=== PATIENT | male | born 1950 | race American Indian/Alaskan Native ===

== ENCOUNTER 2020-01-09 20:53 | Observation (INO) | payer SELFPAY ==
[2020-01-09] MEDS ORDERED: SODIUM CHLORIDE 0.9% 1000 ML 1,000 ML IV ONE (21:06)
--- NOTE | 2020-01-09 21:07 | Emergency Department Report ---
ED Altered Mental Status HPI - General Chief Complaint: Altered Mental Status Stated Complaint: ALTERED MENTAL STATUS PUI?: No Time Seen by Provider: 01/09/20 21:03 Source: EMS Mode of arrival: Stretcher Limitations: Altered Mental Status, Physical Limitation - History of Present Illness Initial Comments: Patient is a 70-year-old male that presents emergency room with altered mental status. EMS states that the last known well time was either yesterday or today at noon. The family was not quite sure when his symptoms started. Patient moves all extremities. Patient does not follow commands. Patient is verbal but is nonsensical. Patient is not answering questions. MD Complaint: altered mental status, confusion, decreased responsiveness -: Sudden Severity: severe Consistency of Symptoms: constant - Related Data Allergies Allergy/AdvReac Type Severity Reaction Status Date / Time Unable to Assess Allergy Unverified 01/09/20 21:32 ED Review of Systems ROS: Stated complaint: ALTERED MENTAL STATUS Other details as noted in HPI Comment: Unobtainable due to pts medical conditions ED Past Medical Hx - Past Medical History Previous Medical History?: Yes Hx Hypertension: Yes Additional medical history: UNKNOWN - Surgical History Past Surgical History?: No - Family History Family history: no significant - Social History Smoking Status: Unknown if ever smoked Substance Use Type: None ED Physical Exam - General Limitations: Altered Mental Status General appearance: alert, in no apparent distress - Head Head exam: Present: atraumatic, normocephalic - Eye Eye exam: Present: normal appearance, PERRL Pupils: Present: normal accommodation - ENT ENT exam: Present: mucous membranes dry - Neck Neck exam: Present: normal inspection - Respiratory Respiratory exam: Present: normal lung sounds bilaterally. Absent: respiratory distress - Cardiovascular Cardiovascular Exam: Present: regular rate, normal rhythm. Absent: systolic murmur, diastolic murmur, rubs, gallop - GI/Abdominal GI/Abdominal exam: Present: soft, normal bowel sounds. Absent: distended, tenderness - Rectal Rectal exam: Present: deferred - Extremities Exam Extremities exam: Present: normal inspection, full ROM - Back Exam Back exam: Present: normal inspection - Neurological Exam Neurological exam: Present: alert, altered - Expanded Neurological Exam Expanded Best Eye Response (Brooks): (4) open spontaneously Best Motor Response (Mirian): (5) localizes to pain Best Verbal Response (Brooks): (2) incomprehsible sounds Mirian Total: 11 - Skin Skin exam: Present: warm, dry, intact, normal color. Absent: rash - Assessment Assessment Interval: Baseline - Level of Consciousness 1a. Level of Consciousness: arousable/minor stimuli - LOC Questions 1b. LOC Questions: answers no questions correctly - LOC Command 1c. LOC Commands: performs no tasks correctly - Best Gaze 2. Best Gaze: normal - Visual 3. Visual: no visual loss - Facial Palsy 4. Facial Palsy: normal symmetrical movement - Motor Arm 5a. Motor Arm Left: no drift 5b. Motor Arm Right: no drift - Motor Leg 6a. Motor Leg Left: no drift 6b. Motor Leg Right: no drift - Limb Ataxia 7. Limb Ataxia: absent - Sensory 8. Sensory: normal - Best Language 9. Best Language: no aphasia - Dysarthria 10. Dysarthria: normal - Extinction and Inattention 11. Extinction/Inattention: no abnormality - Scoring Total Score: 5 Stroke Severity: Moderate Stroke ED Course Vital Signs 01/09/20 01/09/20 01/09/20 21:06 21:54 22:00 Temperature Pulse Rate 64 62 Respiratory 18 14 19 Rate Blood Pressure 133/60 Blood Pressure [Right] O2 Sat by Pulse 99 98 Oximetry 01/09/20 01/09/20 01/09/20 22:02 22:16 22:30 Temperature 99.1 F Pulse Rate 58 L 67 61 Respiratory 18 9 L 18 Rate Blood Pressure 125/54 134/53 Blood Pressure 125/54 [Right] O2 Sat by Pulse 99 Oximetry 01/09/20 22:46 Temperature Pulse Rate 62 Respiratory 19 Rate Blood Pressure 133/56 Blood Pressure [Right] O2 Sat by Pulse Oximetry - Reevaluation(s) Reevaluation #1: Initial evaluation done. Patient found to be minimally verbal and confused. Patient does not follow commands. 01/09/20 21:03 Reevaluation #2: Patient answering questions. Patient is currently oriented x1 01/09/20 22:02 Reevaluation #3: Patient easily arousable. Patient oriented x1. Patient speaking a little bit more clear 01/09/20 23:52 Reevaluation #4: I discussed all results with patient. I discussed plan of care with patient. Patient agrees with plan of care and admission. Patient to be admitted to the hospitalist service. 01/09/20 23:57 - Consultations Consultation #1: Hospitalist consulted for admission. Hospitalist to admit patient. 01/09/20 23:57 - Lab Data Result diagrams: 01/09/20 21:41 01/09/20 21:41 Lab Results 01/09/20 01/09/20 01/09/20 Range/Units 21:41 21:41 21:41 WBC 7.5 (4.5-11.0) K/mm3 RBC 4.48 (3.65-5.03) M/mm3 Hgb 14.0 (11.8-15.2) gm/dl Hct 42.5 (35.5-45.6) % MCV 95 H (84-94) fl MCH 31 (28-32) pg MCHC 33 (32-34) % RDW 16.8 H (13.2-15.2) % Plt Count 187 (140-440) K/mm3 Lymph % (Auto) 11.7 L (13.4-35.0) % [place] % (Auto) 11.9 H (0.0-7.3) % Eos % (Auto) 1.8 (0.0-4.3) % Baso % (Auto) 0.6 (0.0-1.8) % Lymph # 0.9 L (1.2-5.4) K/mm3 [place] # 0.9 H (0.0-0.8) K/mm3 Eos # 0.1 (0.0-0.4) K/mm3 Baso # 0.0 (0.0-0.1) K/mm3 Seg Neutrophils % 74.0 H (40.0-70.0) % Seg Neutrophils # 5.6 (1.8-7.7) K/mm3 Sodium 138 (137-145) mmol/L Potassium 3.8 (3.6-5.0) mmol/L Chloride 98.4 (98-107) mmol/L Carbon Dioxide 26 (22-30) mmol/L Anion Gap 17 mmol/L BUN 5 L (9-20) mg/dL Creatinine 1.0 (0.8-1.5) mg/dL Estimated GFR > 60 ml/min BUN/Creatinine Ratio 5 % Glucose 135 H (75-100) mg/dL Lactic Acid 2.00 (0.7-2.0) mmol/L Calcium 9.1 (8.4-10.2) mg/dL Total Bilirubin 0.70 (0.1-1.2) mg/dL AST 37 (5-40) units/L ALT 17 (7-56) units/L Alkaline Phosphatase 59 (35-129) units/L Ammonia (25-60) umol/L Total Creatine Kinase 349 H (55-170) units/L Troponin T < 0.010 (0.00-0.029) ng/mL Total Protein 7.5 (6.3-8.2) g/dL Albumin 4.3 (3.9-5) g/dL Albumin/Globulin Ratio 1.3 % Urine Color (Yellow) Urine Turbidity (Clear) Urine pH (5.0-7.0) Ur Specific [place] (1.003-1.030) Urine Protein (Negative) mg/dL Urine Glucose (UA) (Negative) mg/dL Urine Ketones (Negative) mg/dL Urine Blood (Negative) Urine Nitrite (Negative) Urine Bilirubin (Negative) Urine Ictotest (Negative) Urine Urobilinogen (<2.0) mg/dL Ur Leukocyte Esterase (Negative) Urine WBC (Auto) (0.0-6.0) /HPF Urine RBC (Auto) (0.0-6.0) /HPF U Epithel Cells (Auto) (0-13.0) /HPF Urine Bacteria (Auto) (Negative) /HPF Urine Mucus /HPF Salicylates (2.8-20.0) mg/dL Urine Opiates Screen Urine Methadone Screen Acetaminophen (10.0-30.0) ug/mL Ur Barbiturates Screen Ur Phencyclidine Scrn Ur Amphetamines Screen U Benzodiazepines Scrn Urine Cocaine Screen U Marijuana (THC) Screen Drugs of Abuse Note Plasma/Serum Alcohol (0-0.07) % 01/09/20 01/09/20 01/09/20 Range/Units 21:41 21:41 21:41 WBC (4.5-11.0) K/mm3 RBC (3.65-5.03) M/mm3 Hgb (11.8-15.2) gm/dl Hct (35.5-45.6) % MCV (84-94) fl MCH (28-32) pg MCHC (32-34) % RDW (13.2-15.2) % Plt Count (140-440) K/mm3 Lymph % (Auto) (13.4-35.0) % [place] % (Auto) (0.0-7.3) % Eos % (Auto) (0.0-4.3) % Baso % (Auto) (0.0-1.8) % Lymph # (1.2-5.4) K/mm3 [place] # (0.0-0.8) K/mm3 Eos # (0.0-0.4) K/mm3 Baso # (0.0-0.1) K/mm3 Seg Neutrophils % (40.0-70.0) % Seg Neutrophils # (1.8-7.7) K/mm3 Sodium (137-145) mmol/L Potassium (3.6-5.0) mmol/L Chloride (98-107) mmol/L Carbon Dioxide (22-30) mmol/L Anion Gap mmol/L BUN (9-20) mg/dL Creatinine (0.8-1.5) mg/dL Estimated GFR ml/min BUN/Creatinine Ratio % Glucose (75-100) mg/dL Lactic Acid (0.7-2.0) mmol/L Calcium (8.4-10.2) mg/dL Total Bilirubin (0.1-1.2) mg/dL AST (5-40) units/L ALT (7-56) units/L Alkaline Phosphatase (35-129) units/L Ammonia 45.0 (25-60) umol/L Total Creatine Kinase (55-170) units/L Troponin T (0.00-0.029) ng/mL Total Protein (6.3-8.2) g/dL Albumin (3.9-5) g/dL Albumin/Globulin Ratio % Urine Color (Yellow) Urine Turbidity (Clear) Urine pH (5.0-7.0) Ur Specific [place] (1.003-1.030) Urine Protein (Negative) mg/dL Urine Glucose (UA) (Negative) mg/dL Urine Ketones (Negative) mg/dL Urine Blood (Negative) Urine Nitrite (Negative) Urine Bilirubin (Negative) Urine Ictotest (Negative) Urine Urobilinogen (<2.0) mg/dL Ur Leukocyte Esterase (Negative) Urine WBC (Auto) (0.0-6.0) /HPF Urine RBC (Auto) (0.0-6.0) /HPF U Epithel Cells (Auto) (0-13.0) /HPF Urine Bacteria (Auto) (Negative) /HPF Urine Mucus /HPF Salicylates < 0.3 L (2.8-20.0) mg/dL Urine Opiates Screen Urine Methadone Screen Acetaminophen < 5.0 L (10.0-30.0) ug/mL Ur Barbiturates Screen Ur Phencyclidine Scrn Ur Amphetamines Screen U Benzodiazepines Scrn Urine Cocaine Screen U Marijuana (THC) Screen Drugs of Abuse Note Plasma/Serum Alcohol (0-0.07) % 01/09/20 01/09/20 01/09/20 Range/Units 21:41 23:06 23:06 WBC (4.5-11.0) K/mm3 RBC (3.65-5.03) M/mm3 Hgb (11.8-15.2) gm/dl Hct (35.5-45.6) % MCV (84-94) fl MCH (28-32) pg MCHC (32-34) % RDW (13.2-15.2) % Plt Count (140-440) K/mm3 Lymph % (Auto) (13.4-35.0) % [place] % (Auto) (0.0-7.3) % Eos % (Auto) (0.0-4.3) % Baso % (Auto) (0.0-1.8) % Lymph # (1.2-5.4) K/mm3 [place] # (0.0-0.8) K/mm3 Eos # (0.0-0.4) K/mm3 Baso # (0.0-0.1) K/mm3 Seg Neutrophils % (40.0-70.0) % Seg Neutrophils # (1.8-7.7) K/mm3 Sodium (137-145) mmol/L Potassium (3.6-5.0) mmol/L Chloride (98-107) mmol/L Carbon Dioxide (22-30) mmol/L Anion Gap mmol/L BUN (9-20) mg/dL Creatinine (0.8-1.5) mg/dL Estimated GFR ml/min BUN/Creatinine Ratio % Glucose (75-100) mg/dL Lactic Acid (0.7-2.0) mmol/L Calcium (8.4-10.2) mg/dL Total Bilirubin (0.1-1.2) mg/dL AST (5-40) units/L ALT (7-56) units/L Alkaline Phosphatase (35-129) units/L Ammonia (25-60) umol/L Total Creatine Kinase (55-170) units/L Troponin T (0.00-0.029) ng/mL Total Protein (6.3-8.2) g/dL Albumin (3.9-5) g/dL Albumin/Globulin Ratio % Urine Color [place]ris (Yellow) Urine Turbidity Clear (Clear) Urine pH 6.0 (5.0-7.0) Ur Specific [place] 1.027 (1.003-1.030) Urine Protein 30 mg/dl (Negative) mg/dL Urine Glucose (UA) Neg (Negative) mg/dL Urine Ketones Tr (Negative) mg/dL Urine Blood Sm (Negative) Urine Nitrite Neg (Negative) Urine Bilirubin Sm (Negative) Urine Ictotest Negative (Negative) Urine Urobilinogen 2.0 (<2.0) mg/dL Ur Leukocyte Esterase Neg (Negative) Urine WBC (Auto) 1.0 (0.0-6.0) /HPF Urine RBC (Auto) 7.0 (0.0-6.0) /HPF U Epithel Cells (Auto) 3.0 (0-13.0) /HPF Urine Bacteria (Auto) 1+ (Negative) /HPF Urine Mucus 3+ /HPF Salicylates (2.8-20.0) mg/dL Urine Opiates Screen Presumptive negative Urine Methadone Screen Presumptive negative Acetaminophen (10.0-30.0) ug/mL Ur Barbiturates Screen Presumptive negative Ur Phencyclidine Scrn Presumptive negative Ur Amphetamines Screen Presumptive negative U Benzodiazepines Scrn Presumptive negative Urine Cocaine Screen Presumptive negative U Marijuana (THC) Screen Presumptive negative Drugs of Abuse Note Disclamer Plasma/Serum Alcohol < 0.01 (0-0.07) % 01/09/20 Range/Units 23:27 WBC (4.5-11.0) K/mm3 RBC (3.65-5.03) M/mm3 Hgb (11.8-15.2) gm/dl Hct (35.5-45.6) % MCV (84-94) fl MCH (28-32) pg MCHC (32-34) % RDW (13.2-15.2) % Plt Count (140-440) K/mm3 Lymph % (Auto) (13.4-35.0) % [place] % (Auto) (0.0-7.3) % Eos % (Auto) (0.0-4.3) % Baso % (Auto) (0.0-1.8) % Lymph # (1.2-5.4) K/mm3 [place] # (0.0-0.8) K/mm3 Eos # (0.0-0.4) K/mm3 Baso # (0.0-0.1) K/mm3 Seg Neutrophils % (40.0-70.0) % Seg Neutrophils # (1.8-7.7) K/mm3 Sodium (137-145) mmol/L Potassium (3.6-5.0) mmol/L Chloride (98-107) mmol/L Carbon Dioxide (22-30) mmol/L Anion Gap mmol/L BUN (9-20) mg/dL Creatinine (0.8-1.5) mg/dL Estimated GFR ml/min BUN/Creatinine Ratio % Glucose (75-100) mg/dL Lactic Acid 2.30 H* (0.7-2.0) mmol/L Calcium (8.4-10.2) mg/dL Total Bilirubin (0.1-1.2) mg/dL AST (5-40) units/L ALT (7-56) units/L Alkaline Phosphatase (35-129) units/L Ammonia (25-60) umol/L Total Creatine Kinase (55-170) units/L Troponin T (0.00-0.029) ng/mL Total Protein (6.3-8.2) g/dL Albumin (3.9-5) g/dL Albumin/Globulin Ratio % Urine Color (Yellow) Urine Turbidity (Clear) Urine pH (5.0-7.0) Ur Specific [place] (1.003-1.030) Urine Protein (Negative) mg/dL Urine Glucose (UA) (Negative) mg/dL Urine Ketones (Negative) mg/dL Urine Blood (Negative) Urine Nitrite (Negative) Urine Bilirubin (Negative) Urine Ictotest (Negative) Urine Urobilinogen (<2.0) mg/dL Ur Leukocyte Esterase (Negative) Urine WBC (Auto) (0.0-6.0) /HPF Urine RBC (Auto) (0.0-6.0) /HPF U Epithel Cells (Auto) (0-13.0) /HPF Urine Bacteria (Auto) (Negative) /HPF Urine Mucus /HPF Salicylates (2.8-20.0) mg/dL Urine Opiates Screen Urine Methadone Screen Acetaminophen (10.0-30.0) ug/mL Ur Barbiturates Screen Ur Phencyclidine Scrn Ur Amphetamines Screen U Benzodiazepines Scrn Urine Cocaine Screen U Marijuana (THC) Screen Drugs of Abuse Note Plasma/Serum Alcohol (0-0.07) % - EKG Data -: EKG Interpreted by [facility] EKG shows normal: sinus rhythm, axis, intervals, QRS complexes, ST-T waves Rate: normal - Radiology Data Radiology results: report reviewed, image reviewed CHEST 1 VIEW INDICATION: Altered Mental Status. COMPARISON: None. FINDINGS: Support devices: None. Heart: Normal. Lungs/Pleura: No acute pulmonary or pleural findings. The patient is slightly rotated which accentuates the mediastinal silhouette. IMPRESSION: 1. No acute findings. CT HEAD WITHOUT CONTRAST INDICATION / CLINICAL INFORMATION: Altered Mental Status. TECHNIQUE: All CT scans at this location are performed using CT dose reduction for ALARA by means of automated exposure control. COMPARISON: None available. FINDINGS: HEMORRHAGE: No evidence of intracranial hemorrhage or extra-axial fluid montserrat ection. EXTRA-AXIAL SPACES: Cortical sulci and sylvian fissures are enlarged reflecting a degree of parenchymal volume loss which is within normal limits for the patient's age. Basilar cisterns have an unremarkable appearance. VENTRICULAR SYSTEM: The third and lateral ventricles are enlarged reflecting presence of age related parenchymal volume loss. CEREBRAL PARENCHYMA: Periventricular and deep white matter lucency is observed. This is probably secondary to microvascular ischemic change. There is no indication of recent infarction. A focal area of decreased attenuation in the subinsular region extending into the ledesma radiata on the left likely represents a remote small deep infarction.. MIDLINE SHIFT OR HERNIATION: There is no mass effect. CEREBELLUM / BRAINSTEM: Brainstem and cerebellum have an unremarkable appearance. INTRACRANIAL VESSELS:Calcified atherosclerotic plaque is present along the course of the cavernous segments of both internal carotid arteries. Similar findings are seen at the distal vertebral arteries. ORBITS: visualized portions of the orbits have an unremarkable appearance. SOFT TISSUES of HEAD: No significant abnormality. CALVARIUM: Evaluation of bone windows reveals no abnormalities. PARANASAL SINUSES / MASTOID AIR CELLS: Paranasal sinuses are free from inflammatory mucosal disease. Mastoid air cells are normally pneumatized. ADDITIONAL FINDINGS: None. IMPRESSION: 1. Involutional changes of parenchymal volume loss and microvascular ischemia. 2. 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 3. No acute intracranial abnormality. - Medical Decision Making Patient is a 70-year-old male that presents via EMS for altered mental status and confusion and decreased responsiveness and slurred speech. Patient's speech pattern has changed. Patient's last known well time is either noon today or yesterday morning. The family was not able to give EMS the exact time of the last known well time. Patient had labs and CT and chest x-ray done. Patient's labs were unremarkable except for elevated CK and signs of dehydration. Patient CT of the head does not show any acute process but shows chronic changes. Patient's chest x-ray is negative for acute findings. Patient's EKG does not show a STEMI. Patient given fluids. Patient's mentation improved with fluids. Patient admitted to the hospitalist service. - Differential Diagnosis Altered mental status, confusion, dehydration, UTI, Critical Care Time: Yes Critical care time in (mins) excluding proc time.: 35 Critical care attestation.: If time is entered above; I have spent that time in minutes in the direct care of this critically ill patient, excluding procedure time. Critical Care Time: 35 MINUTES ED Disposition Clinical Impression: Dehydration, Slurred speech, Confusion, Elevated CK, Encephalopathy acute, Lactic acid acidosis Altered mental state Qualifiers: Altered mental status type: unspecified Qualified Code(s): R41.82 - Altered mental status, unspecified Disposition: DC-09 OP ADMIT IP TO THIS HOSP Is pt being admited?: Yes Does the pt Need Aspirin: No Condition: Critical Time of Disposition: 23:53
[2020-01-09 21:49] LABS: Basophils % (Auto) 0.6 % (0.0-1.8); Eosinophils # (Auto) 0.1 K/mm3 (0.0-0.4); Eosinophils % (Auto) 1.8 % (0.0-4.3); Hematocrit 42.5 % (35.5-45.6); Lymphocytes # (Auto) 0.9 K/mm3 (1.2-5.4); Lymphocytes % (Auto) 11.7 % (13.4-35.0); Mean Corpuscular HGB Conc 33 % (32-34); Mean Corpuscular Volume 95 fl (84-94); Monocytes # (Auto) 0.9 K/mm3 (0.0-0.8); Monocytes % (Auto) 11.9 % (0.0-7.3); Platelet Count 187 K/mm3 (140-440); Red Blood Count 4.48 M/mm3 (3.65-5.03); Red Cell Distribution Width 16.8 % (13.2-15.2)
--- NOTE | 2020-01-09 22:05 | Cat Scan Report ---
CT HEAD WITHOUT CONTRAST INDICATION / CLINICAL INFORMATION: Altered Mental Status. TECHNIQUE: All CT scans at this location are performed using CT dose reduction for ALARA by means of automated e xposure control. COMPARISON: None available. FINDINGS: HEMORRHAGE: No evidence of intracranial hemorrhage or extra-axial fluid collection. EXTRA-AXIAL SPACES: Cortical sulci and sylvian fissures are enlarged reflecting a degree of parenchym al volume loss which is within normal limits for the patient's age. Basilar cisterns have an unremark able appearance. VENTRICULAR SYSTEM: The third and lateral ventricles are enlarged reflecting presence of age related parenchymal volume loss. CEREBRAL PARENCHYMA: Periventricular and deep white matter lucency is observed. This is probably seco ndary to microvascular ischemic change. There is no indication of recent infarction. A focal area of decreased attenuation in the subinsular region extending into the ledesma radiata on the left likely r epresents a remote small deep infarction.. MIDLINE SHIFT OR HERNIATION: There is no mass effect. CEREBELLUM / BRAINSTEM: Brainstem and cerebellum have an unremarkable appearance. INTRACRANIAL VESSELS:Calcified atherosclerotic plaque is present along the course of the cavernous se gments of both internal carotid arteries. Similar findings are seen at the distal vertebral arteries. ORBITS: visualized portions of the orbits have an unremarkable appearance. SOFT TISSUES of HEAD: No significant abnormality. CALVARIUM: Evaluation of bone windows reveals no abnormalities. PARANASAL SINUSES / MASTOID AIR CELLS: Paranasal sinuses are free from inflammatory mucosal disease. Mastoid air cells are normally pneumatized. ADDITIONAL FINDINGS: None. IMPRESSION: 1. Involutional changes of parenchymal volume loss and microvascular ischemia. 2. 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 3. No acute intracranial abnormality. Signer Name: Sal Galindo MD Signed: 01/09/2020 10:01 PM Workstation Name: [id number]
[2020-01-09 22:13] LABS: Alanine Aminotransferase 17 units/L (7-56); Albumin 4.3 g/dL (3.9-5); BUN/Creatinine Ratio 5; Blood Urea Nitrogen 5 mg/dL (9-20); Calcium 9.1 mg/dL (8.4-10.2); Hemolysis Index 16
--- NOTE | 2020-01-09 22:26 | XRay Report ---
CHEST 1 VIEW INDICATION: Altered Mental Status. COMPARISON: None. FINDINGS: Support devices: None. Heart: Normal. Lungs/Pleura: No acute pulmonary or pleural findings. The patient is slightly rotated which accentuates the mediastinal silhouette. IMPRESSION: 1. No acute findings. Signer Name: Kvng Anne MD Signed: 01/09/2020 10:22 PM Workstation Name: [id number]
[2020-01-09 23:32] LABS: Bacteria,Urine 1+ /HPF (Negative); Bilirubin,Urine SM (Negative); Blood,Urine SM (Negative); Color,Urine Amber (Yellow); Mucus,Urine 3+ /HPF
[2020-01-09 23:39] LABS: Amphetamine Screen,Urine PRESUMPTIVE NEGATIVE; Benzodiazepines Screen,Urine PRESUMPTIVE NEGATIVE; Cannabinoid Screen,Urine PRESUMPTIVE NEGATIVE; Cocaine Screen,Urine PRESUMPTIVE NEGATIVE; Methadone Screen,Urine PRESUMPTIVE NEGATIVE; Opiate Screen,Urine PRESUMPTIVE NEGATIVE
[2020-01-09 23:42] LABS: Ictotest,Urine Negative (Negative)
[2020-01-10] MEDS ORDERED: SODIUM CHLORIDE 0.9% 1000 ML 1,000 ML IV ONE (00:32)
[2020-01-10] MEDS ORDERED: ACETAMINOPHEN 325 MG TAB PO PRN (00:56)
[2020-01-10] MEDS ORDERED: ONDANSETRON 4 MG/2 ML INJ IV PRN (00:56)
[2020-01-10] MEDS ORDERED: MAGNESIUM HYDROXIDE (MOM) ORAL LIQD UDC PO PRN (00:56)
[2020-01-10] MEDS ORDERED: SODIUM CHLORIDE 0.9% 1000 ML 1,000 ML IV SCH (01:00)
[2020-01-10] MEDS ORDERED: SODIUM CHLORIDE 0.9% 1000 ML 1,000 ML ONE ×2 (01:23)
--- NOTE | 2020-01-10 04:11 | History and Physical Report ---
History of Present Illness Date of examination: 01/10/20 Date of admission: 01/10/20 00:31 Chief complaint: Altered mental status History of present illness: 70-year-old male with known history of hypertension who presents to the emergency room today with a change in mental status. It is not quite clear what symptoms started according to family however upon arrival in the emergency room patient was able to follow commands and was able to move all his extremities. He denies any fever or chills, no chest pain or shortness of breath, no nausea vomiting, no diarrhea or abdominal pain, no headache or dizziness. He denies any recent travel and denies any sick contacts. He also denies any contact with anyone with COVID-19. Work-up in the emergency room however was significant for dehydration. He had become more responsive, alert and oriented during the course of his stay in the ER. Past History Past Medical History: hypertension Past Surgical History: No surgical history Social history: no significant social history Family history: no significant family history Medications and Allergies Allergies Allergy/AdvReac Type Severity Reaction Status Date / Time Unable to Assess Allergy Unverified 01/09/20 21:32 Active Meds: Active Medications Acetaminophen (Tylenol) 650 mg PO Q4H PRN PRN Reason: Pain MILD(1-3)/Fever >100.5/WINSLOW Sodium Chloride (Nacl 0.9% 1000 Ml) 1,000 mls @ 125 mls/hr IV DIRECT LAKISHA Last Admin: 01/10/20 02:17 Dose: 125 mls/hr Documented by: Magnesium Hydroxide (Milk Of Magnesia) 30 ml PO Q4H PRN PRN Reason: Constipation Ondansetron HCl (Zofran) 4 mg IV Q8H PRN PRN Reason: Nausea And Vomiting Sodium Chloride (Sodium Chloride Flush Syringe 10 Ml) 10 ml IV BID LAKISHA Sodium Chloride (Sodium Chloride Flush Syringe 10 Ml) 10 ml IV PRN PRN PRN Reason: LINE FLUSH Review of Systems Constitutional: no fever, no chills Ears, nose, mouth and throat: no headache, no vertigo Cardiovascular: no chest pain, no palpitations Respiratory: no cough, no shortness of breath Gastrointestinal: no nausea, no vomiting, no diarrhea Genitourinary Male: no dysuria, no hematuria Musculoskeletal: no neck pain, no low back pain Integumentary: rash, pruritis Neurological: no headaches, no confusion Exam - Constitutional Vitals: Temp Pulse Resp BP Pulse Ox 99.1 F 62 19 133/56 99 01/09/20 22:02 01/09/20 22:46 01/09/20 22:46 01/09/20 22:46 01/09/20 22:02 General appearance: Present: no acute distress, well-nourished - EENT Eyes: Present: PERRL, EOM intact ENT: hearing intact, clear oral mucosa, dentition normal - Neck Neck: Present: supple, normal ROM - Respiratory Respiratory effort: normal Respiratory: bilateral: CTA - Cardiovascular Rhythm: regular Heart Sounds: Present: S1 & S2 - Extremities Extremities: no ischemia, No edema, Full ROM Peripheral Pulses: within normal limits - Abdominal General gastrointestinal: Present: soft, non-tender, non-distended, normal bowel sounds - Integumentary Integumentary: Present: clear, warm, dry, rash (Scattered multiple rashes over dorsum of right hand, posterior aspect of left leg and also the back) - Musculoskeletal Musculoskeletal: strength equal bilaterally - Psychiatric Psychiatric: appropriate mood/affect, intact judgment & insight, cooperative - Neurologic Neurologic: CNII-XII intact, moves all extremities HEART Score - HEART Score Troponin: Troponin T < 0.010 ng/mL (0.00-0.029) 01/09/20 21:41 Results - Labs CBC & Chem 7: 01/09/20 21:41 01/09/20 21:41 Labs: Abnormal lab results 01/09/20 01/09/20 01/09/20 Range/Units 21:41 21:41 21:41 MCV 95 H (84-94) fl RDW 16.8 H (13.2-15.2) % Lymph % (Auto) 11.7 L (13.4-35.0) % [place] % (Auto) 11.9 H (0.0-7.3) % Lymph # 0.9 L (1.2-5.4) K/mm3 [place] # 0.9 H (0.0-0.8) K/mm3 Seg Neutrophils % 74.0 H (40.0-70.0) % BUN 5 L (9-20) mg/dL Glucose 135 H (75-100) mg/dL Lactic Acid (0.7-2.0) mmol/L Total Creatine Kinase 349 H (55-170) units/L Salicylates < 0.3 L (2.8-20.0) mg/dL Acetaminophen (10.0-30.0) ug/mL 01/09/20 01/09/20 Range/Units 21:41 23:27 MCV (84-94) fl RDW (13.2-15.2) % Lymph % (Auto) (13.4-35.0) % [place] % (Auto) (0.0-7.3) % Lymph # (1.2-5.4) K/mm3 [place] # (0.0-0.8) K/mm3 Seg Neutrophils % (40.0-70.0) % BUN (9-20) mg/dL Glucose (75-100) mg/dL Lactic Acid 2.30 H* (0.7-2.0) mmol/L Total Creatine Kinase (55-170) units/L Salicylates (2.8-20.0) mg/dL Acetaminophen < 5.0 L (10.0-30.0) ug/mL Assessment and Plan - Patient Problems (1) Dehydration Current Visit: Yes Status: Acute Plan to address problem: Patient encouraged on adequate p.o. intake of fluid. Is also been placed on IV normal saline. Will monitor BUN and creatinine. (2) Altered mental state Current Visit: Yes Status: Acute Qualifiers: Altered mental status type: unspecified Qualified Code(s): R41.82 - Altered mental status, unspecified (3) DVT prophylaxis Current Visit: Yes Status: Acute Plan to address problem: Patient placed on subcutaneous heparin. (4) Full code status Current Visit: Yes Status: Acute
[2020-01-10 07:43] VITALS: BP 117/79
--- NOTE | 2020-01-10 10:08 | Discharge Summary ---
Providers - Providers Date of Admission: 01/10/20 00:31 Attending physician: MASOUD PATTERSON MD Primary care physician: FURNACE TAPPER Hospitalization Reason for admission: cva Condition: Stable Hospital course: 70-year-old male with known history of hypertension who presents to the emergency room today with a change in mental status. It is not quite clear what symptoms started according to family however upon arrival in the emergency room patient was able to follow commands and was able to move all his extremities. He denies any fever or chills, no chest pain or shortness of breath, no nausea vomiting, no diarrhea or abdominal pain, no headache or dizziness. He denies any recent travel and denies any sick contacts. He also denies any contact with anyone with COVID-19. Work-up in the emergency room however was significant for dehydration. He had become more responsive, alert and oriented during the course of his stay in the ER. clinically stable AAO X3 Said he woke up yesterday disoriented denies any prior stroke ct concerned for old remote lacunar infarct lactic acidosis improved discharge if MR Head is negative for acute cva per lien, patient has been itching for some time and she is not sure if he takes any meds for that , but takes some other meds that makes him code so he has of recent been keeping his room hot around 81 degrees as of yesterday when she noticed she wondered if he had heat stroke and has been irritated and frustrated about his water and plumbing. advised to hold all anti itching meds and follow with his doctors in 2-3 days denies any fever stay hydrated. 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 Patient is unaware of when he had a stroke in the past. (1) Dehydration Current Visit: Yes Status: Acute Plan to address problem: Patient encouraged on adequate p.o. intake of fluid. Is also been placed on IV normal saline. Will monitor BUN and creatinine. (2) acute metabolic encephalopathy likely secondary to dehydration and heat stroke Current Visit: Yes Status: Acute Qualifiers: Altered mental status type: unspecified Qualified Code(s): R41.82 - Altered mental status, unspecified (3) remote CVA Disposition: DC-01 TO HOME OR SELFCARE Time spent for discharge: 35 mins Core Measure Documentation - Palliative Care Palliative Care/ Comfort Measures: Not Applicable - Core Measures Any of the following diagnoses?: none Exam - Physical Exam Narrative exam: VITAL SIGNS: Reviewed. GENERAL: The patient appears normally developed, Vital signs as documented. HEAD: No signs of head trauma. EYES: Pupils are equal. Extraocular motions intact. EARS: Hearing grossly intact. MOUTH: Oropharynx is normal. NECK: No adenopathy, no JVD. CHEST: Chest with clear breath sounds bilaterally. No wheezes, rales, or rhonchi. CARDIAC: Regular rate and rhythm. S1 and S2, without murmurs, gallops, or rubs. VASCULAR: No Edema. Peripheral pulses normal and equal in all extremities. ABDOMEN: Soft, non tender and non distended. No rebound or guarding, and no masses palpated. Bowel Sounds normal. MUSCULOSKELETAL: Good range of motion of all major joints. Extremities without clubbing, cyanosis or edema. NEUROLOGIC EXAM: Alert and oriented x 3 No focal sensory or strength deficits. Speech normal. Follows commands. PSYCHIATRIC: Mood normal. SKIN: detial exam as documented in skin assessment - Constitutional Vitals: Temp Pulse Resp BP Pulse Ox 98.0 F 65 26 H 117/79 100 01/10/20 07:00 01/10/20 07:15 01/10/20 07:30 01/10/20 07:30 01/10/20 07:30 Plan Activity: advance as tolerated, fall precautions Diet: low fat Special Instructions: record daily weights, record daily BP diary Additional Instructions: follow up with doctors at the [facility] including Neurologist - 3-5days. recommend outpatient MRI SEDRICK Follow up with: PRIMARY CARE, [Primary Care Provider] - 3-5 Days Prescriptions: AtorvaSTATin [Lipitor] 40 mg PO QHS #30 tab Aspirin [Aspirin BABY CHEW TAB] 81 mg PO QDAY #30 tab.chew
--- NOTE | 2020-01-10 11:27 | Vascular Lab Report ---
TECHNICAL DATA: Imaging was performed from the base of the neck to the skull base using duplex sonography and color-f low imaging with emphasis on the carotid and vertebral arterial systems. RIGHT CAROTID ARTERY: The right internal carotid artery, right external carotid, and right common carotid artery all well i sanjuana and patent. Mild atherosclerotic plaque present at the carotid bifurcation. Right common carotid artery peak systolic velocity 69 cm/sec Right internal carotid artery peak systolic velocity 62 cm/sec Right internal carotid artery end diastolic velocity 13 cm/sec Right internal carotid artery/right common carotid artery ratio 1 Vertebral artery flow is antegrade. LEFT CAROTID ARTERY The left internal carotid artery, left external carotid, and left common carotid artery all well imag ed and patent. Mild atherosclerotic plaque present at the carotid bifurcation. Left common carotid artery peak systolic velocity 75cm/sec Left internal carotid artery peak systolic velocity 57cm/sec Left internal carotid artery end diastolic velocity 20cm/sec Left internal carotid artery/right common carotid artery ratio 1.3 Normal antegrade flow of the vertebral arteries. Increased velocity right external carotid artery is noted 140 cm/s IMPRESSION: 1. Sonographic NASCET Index This study proposed the incorporation of distal ICA flow velocity information on the conventional car otid Doppler study improving the diagnostic accuracy of PSV 1. Right and left internal carotid demonstrate 16-49% stenosis: * pansystolic spectral broadening with a PSV <125 cm/s 2. Normal common carotid arteries. 3. Greater than 50% stenosis right external carotid artery 4. Antegrade flow both vertebral arteries. Sonographic NASCET Index This study proposed the incorporation of distal ICA flow velocity information on the conventional car otid Doppler study improving the diagnostic accuracy of PSV 1. * <15% stenosis: * deceleration spectral broadening with a peak systolic velocity (PSV) <125 cm/s * 16-49% stenosis: * pansystolic spectral broadening with a PSV <125 cm/s * 50-69% stenosis: * pansystolic spectral broadening with a PSV of >125 cm/s * and * end diastolic velocity (EDV) <110 cm/s or ICA/CCA PSV ratio >2 but <4 * 70-79% stenosis: * pansystolic spectral broadening with PSV >270 cm/s * or * EDV >110 cm/s * or * ICA/CCA PSV ratio >4 * 80-99% stenosis: EDV >140 cm/s * complete occlusion: no flow; terminal thump Signer Name: Pete Richard MD Signed: 01/10/2020 11:23 AM Workstation Name: [id number]
[2020-01-10] MEDS ORDERED: HEPARIN 5,000 UNIT/1 ML VIAL SUB-Q SCH (14:00)
== END 2020-01-10 15:03 | disposition home or self-care (01) ==
LOC: ED 20:53 → INTOOBSV 01-10 00:31 → 4A 01-10 00:31
PROVIDERS: ADMIT Internal Medicine Geriatric Medicine; ATTEND Internal Medicine
DX: E86.0 Dehydration (principal); R41.82 Altered mental status, unspecified; E87.2 Acidosis; G93.40 Encephalopathy, unspecified; R79.89 Other specified abnormal findings of blood chemistry; I10 Essential (primary) hypertension; Z79.899 Other long term (current) drug therapy
CPT/HCPCS: 36415; 70450; 71045; 80053; 80307; 81001; 82140; 82550; 84484; 85025; 87040; 87086; 93005; 93306; 93880; 96360; 96361; 99285; 99291; G0378; J7030; 80320; G0480

== ENCOUNTER 2020-09-21 06:31 | Observation (INO) | payer MEDICARE, OTHER ==
--- NOTE | 2020-09-21 07:08 | XRay Report ---
CHEST 1 VIEW 09/21/2020 6:40 AM INDICATION / CLINICAL INFORMATION: Chest Pain. COMPARISON: 01/09/2020 FINDINGS: SUPPORT DEVICES: None. HEART / MEDIASTINUM: There is prominence the cardiac silhouette. LUNGS / PLEURA: No acute pulmonary disease is seen. No pneumothorax. ADDITIONAL FINDINGS: No significant additional findings. IMPRESSION: 1. No acute findings. Signer Name: Hayden Saucedo MD Signed: 09/21/2020 7:04 AM Workstation Name: [id number]
[2020-09-21 07:39] LABS: Hematocrit 42.3 % (35.5-45.6); Hemoglobin 13.9 gm/dl (11.8-15.2); Mean Corpuscular HGB Conc 33 % (32-34); Mean Corpuscular Volume 92 fl (84-94); Platelet Count 164 K/mm3 (140-440); Red Cell Distribution Width 16.7 % (13.2-15.2)
--- NOTE | 2020-09-21 07:58 | Emergency Department Report ---
HPI - General Chief Complaint: Dyspnea/Respdistress Time Seen by Provider: 09/21/20 07:38 - HPI HPI: This is a 70-year-old -[place] male who presents to the emergency department with a complaint of shortness of breath that started about 1 hour florencio or to presentation this morning. The patient tried use his albuterol inhaler but did not get much relief. He also says that he had some generalized chest discomfort/pressure that started around the same time as his shortness of breath but that has since resolved. He has had a mixed dry and productive cough for the past 2 days. The patient is an occasional tobacco smoker. He has a past medical history of coronary artery disease with previous [place], hypertension, and the patient says that he has some inguinal hernias that need to be repaired but he needs cardiac clearance first. Patient later tells me that he does have a history of COPD but is not oxygen dependent. 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 He gets his primary care done through [facility]. Patient says that he previously was positive for COVID-19 months ago. He just got his first dose of the COVID-19 vaccination. ED Past Medical Hx - Past Medical History Previous Medical History?: Yes Hx Hypertension: Yes Hx Heart Attack/AMI: Yes Additional medical history: UNKNOWN - Surgical History Past Surgical History?: Yes Additional Surgical History: vertbrae replacment and hernia - Social History Smoking Status: Current Some Day Smoker Substance Use Type: Alcohol - Medications Home Medications: Home Medications Medication Instructions Recorded Confirmed Last Taken Type Aspirin [Aspirin BABY CHEW TAB] 81 mg PO QDAY #30 tab.chew 01/10/20 Unknown Rx AtorvaSTATin [Lipitor] 40 mg PO QHS #30 tab 01/10/20 Unknown Rx ED Review of Systems ROS: Stated complaint: PILO Other details as noted in HPI Comment: All other systems reviewed and negative Constitutional: denies: chills, fever Eyes: denies: eye pain, vision change ENT: denies: ear pain, throat pain Respiratory: cough, shortness of breath Cardiovascular: chest pain. denies: palpitations, edema Gastrointestinal: denies: abdominal pain, vomiting Genitourinary: denies: dysuria, discharge Musculoskeletal: denies: back pain, arthralgia Skin: denies: rash, lesions Neurological: denies: headache, weakness Physical Exam - Physical Exam Vital Signs: Vital Signs 09/21/20 06:36 Temperature 98.0 F Pulse Rate 79 Respiratory 17 Rate Blood Pressure 144/62 O2 Sat by Pulse 86 Oximetry Physical Exam: GENERAL: The patient is well-developed well-nourished. HENT: Normocephalic. Atraumatic. Patient has moist mucous membranes. EYES: Extraocular motions are intact. NECK: Supple. Trachea is midline. CHEST/LUNGS: Coarse breath sounds throughout the chest. There is tachypnea but no accessory muscle use. No cough heard during examination. HEART/CARDIOVASCULAR: Regular. There is no tachycardia. There is no murmur. ABDOMEN: Abdomen is soft, nontender. Patient has normal bowel sounds. SKIN: Skin is warm and dry. NEURO: The patient is awake, alert, and oriented. The patient is cooperative. The patient has no focal neurologic deficits. Normal speech. MUSCULOSKELETAL: There is no tenderness or deformity. There is no limitation range of motion. ED Course Vital Signs 09/21/20 06:36 Temperature 98.0 F Pulse Rate 79 Respiratory 17 Rate Blood Pressure 144/62 O2 Sat by Pulse 86 Oximetry - ABG Interpretation Ph: 7.410 PCO2: 35 PO2: 53 Bicarbonate: 22 Interpretation: other (Hypoxemia) ED Medical Decision Making - Lab Data Result diagrams: 09/21/20 06:53 09/21/20 06:53 Lab Results 09/21/20 09/21/20 09/21/20 Range/Units 06:53 06:53 07:59 WBC 5.7 (4.5-11.0) K/mm3 RBC 4.60 (3.65-5.03) M/mm3 Hgb 13.9 (11.8-15.2) gm/dl Hct 42.3 (35.5-45.6) % MCV 92 (84-94) fl MCH 30 (28-32) pg MCHC 33 (32-34) % RDW 16.7 H (13.2-15.2) % Plt Count 164 (140-440) K/mm3 [place] % (Auto) Agency Sales Development Associate Add Manual Diff Complete Total Counted 100 Seg Neuts % (Manual) 40.0 (40.0-70.0) % Lymphocytes % (Manual) 49.0 H (13.4-35.0) % Monocytes % (Manual) 9.0 H (0.0-7.3) % Eosinophils % (Manual) 1.0 (0.0-4.3) % Basophils % (Manual) 1.0 (0.0-1.8) % Nucleated RBC % Not Reportable Seg Neutrophils # Man 2.3 (1.8-7.7) K/mm3 Band Neutrophils # 0.0 K/mm3 Lymphocytes # (Manual) 2.8 (1.2-5.4) K/mm3 Abs React Lymphs (Man) 0.0 K/mm3 Monocytes # (Manual) 0.5 (0.0-0.8) K/mm3 Eosinophils # (Manual) 0.1 (0.0-0.4) K/mm3 Basophils # (Manual) 0.1 (0.0-0.1) K/mm3 Metamyelocytes # 0.0 K/mm3 Myelocytes # 0.0 K/mm3 Promyelocytes # 0.0 K/mm3 Blast Cells # 0.0 K/mm3 WBC Morphology Not Reportable Hypersegmented Neuts Not Reportable Hyposegmented Neuts Not Reportable Hypogranular Neuts Not Reportable Smudge Cells Not Reportable Toxic Granulation Not Reportable Toxic Vacuolation Not Reportable Dohle Bodies Not Reportable Pelger-Huet Anomaly Not Reportable Henry Rods Not Reportable Platelet Estimate Consistent w auto Clumped Platelets Not Reportable Plt Clumps, EDTA Not Reportable Large Platelets Not Reportable Giant Platelets Few Platelet Satelliting Not Reportable Plt Morphology Comment Not Reportable RBC Morphology Normal Dimorphic RBCs Not Reportable Polychromasia Not Reportable Hypochromasia Not Reportable Poikilocytosis Not Reportable Anisocytosis Not Reportable Microcytosis Not Reportable Macrocytosis Not Reportable Spherocytes Not Reportable Pappenheimer Bodies Not Reportable Sickle Cells Not Reportable Target Cells Not Reportable Tear Drop Cells Not Reportable Ovalocytes Not Reportable Helmet Cells Not Reportable Collins-Ucon Bodies Not Reportable [place] Rings Not Reportable [place] Cells Not Reportable Bite Cells Not Reportable Crenated Cell Not Reportable Elliptocytes Not Reportable Acanthocytes (Spur) Not Reportable Rouleaux Not Reportable Hemoglobin C Crystals Not Reportable Schistocytes Not Reportable Malaria parasites Not Reportable Antoine Bodies Not Reportable Hem Pathologist Commnt No PT (12.2-14.9) Sec. INR (0.87-1.13) APTT (24.2-36.6) Sec. D-Dimer (0-234) ng/mlDDU ABG pH 7.410 (7.350-7.450) pH Units ABG pCO2 35.6 mm Hg ABG pO2 53.6 L (80.0-90.0) mm Hg ABG HCO3 22.1 (20.0-26.0) mmol/L ABG O2 Saturation 88.7 L (95.0-99.0) % ABG O2 Content 15.8 (0.0-44) ABG Base Excess -2.0 (-2.0-3.0) mmol/L ABG Hemoglobin 13.2 L (14.0-18.0) gm/dl ABG Carboxyhemoglobin 3.6 (0.0-5.0) % ABG Methemoglobin 0.4 (0.0-1.5) % Oxyhemoglobin 85.1 L (95.0-99.0) % FiO2 21 % Sodium 144 (137-145) mmol/L Potassium 4.1 (3.6-5.0) mmol/L Chloride 109.6 H (98-107) mmol/L Carbon Dioxide 26 (22-30) mmol/L Anion Gap 13 mmol/L BUN 9 (9-20) mg/dL Creatinine 1.0 (0.8-1.3) mg/dL Estimated GFR > 60 ml/min BUN/Creatinine Ratio 9 % Glucose 90 (75-100) mg/dL Calcium 8.7 (8.4-10.2) mg/dL Troponin T < 0.010 (0.00-0.029) ng/mL NT-Pro-B Natriuret Pep (0-900) pg/mL 09/21/20 09/21/20 09/21/20 Range/Units 08:11 08:11 09:36 WBC (4.5-11.0) K/mm3 RBC (3.65-5.03) M/mm3 Hgb (11.8-15.2) gm/dl Hct (35.5-45.6) % MCV (84-94) fl MCH (28-32) pg MCHC (32-34) % RDW (13.2-15.2) % Plt Count (140-440) K/mm3 [place] % (Auto) Add Manual Diff Total Counted Seg Neuts % (Manual) (40.0-70.0) % Lymphocytes % (Manual) (13.4-35.0) % Monocytes % (Manual) (0.0-7.3) % Eosinophils % (Manual) (0.0-4.3) % Basophils % (Manual) (0.0-1.8) % Nucleated RBC % Seg Neutrophils # Man (1.8-7.7) K/mm3 Band Neutrophils # K/mm3 Lymphocytes # (Manual) (1.2-5.4) K/mm3 Abs React Lymphs (Man) K/mm3 Monocytes # (Manual) (0.0-0.8) K/mm3 Eosinophils # (Manual) (0.0-0.4) K/mm3 Basophils # (Manual) (0.0-0.1) K/mm3 Metamyelocytes # K/mm3 Myelocytes # K/mm3 Promyelocytes # K/mm3 Blast Cells # K/mm3 WBC Morphology Hypersegmented Neuts Hyposegmented Neuts Hypogranular Neuts Smudge Cells Toxic Granulation Toxic Vacuolation Dohle Bodies Pelger-Huet Anomaly Henry Rods Platelet Estimate Clumped Platelets Plt Clumps, EDTA Large Platelets Giant Platelets Platelet Satelliting Plt Morphology Comment RBC Morphology Dimorphic RBCs Polychromasia Hypochromasia Poikilocytosis Anisocytosis Microcytosis Macrocytosis Spherocytes Pappenheimer Bodies Sickle Cells Target Cells Tear Drop Cells Ovalocytes Helmet Cells Collins-Ucon Bodies [place] Rings Emi Cells Bite Cells Crenated Cell Elliptocytes Acanthocytes (Spur) Rouleaux Hemoglobin C Crystals Schistocytes Malaria parasites Antoine Bodies Hem Pathologist Commnt PT 13.3 (12.2-14.9) Sec. INR 1.02 (0.87-1.13) APTT 30.1 (24.2-36.6) Sec. D-Dimer 867.41 H (0-234) ng/mlDDU ABG pH (7.350-7.450) pH Units ABG pCO2 mm Hg ABG pO2 (80.0-90.0) mm Hg ABG HCO3 (20.0-26.0) mmol/L ABG O2 Saturation (95.0-99.0) % ABG O2 Content (0.0-44) ABG Base Excess (-2.0-3.0) mmol/L ABG Hemoglobin (14.0-18.0) gm/dl ABG Carboxyhemoglobin (0.0-5.0) % ABG Methemoglobin (0.0-1.5) % Oxyhemoglobin (95.0-99.0) % FiO2 % Sodium (137-145) mmol/L Potassium (3.6-5.0) mmol/L Chloride (98-107) mmol/L Carbon Dioxide (22-30) mmol/L Anion Gap mmol/L BUN (9-20) mg/dL Creatinine (0.8-1.3) mg/dL Estimated GFR ml/min BUN/Creatinine Ratio % Glucose (75-100) mg/dL Calcium (8.4-10.2) mg/dL Troponin T < 0.010 (0.00-0.029) ng/mL NT-Pro-B Natriuret Pep 4751 H (0-900) pg/mL - EKG Data -: EKG Interpreted by Me EKG shows normal: sinus rhythm, axis (Left axis deviation), intervals (Prolonged LA interval), QRS complexes, ST-T waves (Nonspecific ST-T waves) Rate: normal - EKG Data When compared to previous EKG there are: changes noted (Previous EKG from December 2019 appears normal without left axis deviation or prolonged LA interval) Interpretation: other (Sinus rhythm at 79 bpm, left axis deviation, prolonged LA interval, nonspecific ST-T waves) - Radiology Data Radiology results: report reviewed, image reviewed interpreted by me: Chest x-ray does not show any acute process. There are no pleural effusions, obvious pneumonia and there is no pneumothorax. No significant cardiomegaly. CTA CHEST WITH CONTRAST INDICATION / CLINICAL INFORMATION: SOB, elevated dimer. TECHNIQUE: Axial CT images were obtained through the chest after injection of IV contrast. 3 plane MIP and/or 3D reconstructions were produced. All CT scans at this location are performed using CT d ose reduction for ALARA by means of autom ated exposure control. COMPARISON: None available. FINDINGS: PULMONARY ARTERIES: No pulmonary emboli. THORACIC AORTA: Mild atherosclerotic calcification without acute abnormality. HEART: Moderately enlarged. No pericardial effusion. CORONARY ARTERY CALCIFICATION: Moderate. MEDIASTINUM / STEPHENIE: No significant abnormality. PLEURA: Small bilateral pleural effusions. No pneumothorax. LUNGS: Mild bibasilar pulmonary edema. ADDITIONAL FINDINGS: None. UPPER ABDOMEN: No acute findings. SKELETAL STRUCTURES: No significant osseous abnormality. IMPRESSION: 1. No CT evidence for pulmonary embolism. 2. Cardiomegaly with mild pulmonary edema and small bilateral pleural effusions which may represent congestive heart failure. - Medical Decision Making This patient presents to the emergency department with complaint of shortness of breath that started about 1 hour prior to presentation. On examination the patient has some coarse breath sounds and mild tachypnea but otherwise does not appear in any respiratory distress. Chest x-ray does not show any acute proce ss. EKG does not have any morphology consistent with ST elevation myocardial infarction. However, the patient did present to the triage with a pulse ox of 86% on room air. The patient was tested again once in room #36 and was still 90% on room air. The patient later told me that he has a history of COPD, but he is not oxygen dependent. An ABG was done that shows hypoxemia without any acid-base disturbances. The patient's labs show an elevated D-dimer level of about 800 and an elevated proBNP of about 4500. The patient had a CT angiography of the chest that did not show any evidence of pulmonary embolism, but does show cardiomegaly, interstitial edema and bilateral pleural effusions. This, along with the elevated proBNP, shows what appears to be acute onset CHF. Patient was given some Lasix to start diuresis. He will be admitted to the hospital for further evaluation and treatment was accepted for admission by the hospitalist, Dr. Kirk. Critical Care Time: Yes Critical care time in (mins) excluding proc time.: 35 Critical care attestation.: If time is entered above; I have spent that time in minutes in the direct care of this critically ill patient, excluding procedure time. Critical care time was spent on this patient in doing his initial evaluation, multiple reevaluations, ordering and interpretation of labs and imaging, IV Lasix for diuresis, supplemental oxygen for his hypoxemia. Critical Care Time: 35 minutes ED Disposition Clinical Impression: Hypoxemia Acute CHF (congestive heart failure) Qualifiers: Heart failure type: unspecified Qualified Code(s): I50.9 - Heart failure, unspecified Nicotine dependence Qualifiers: Nicotine product type: cigarettes Substance use status: unspecified nicotine- induced disorder Qualified Code(s): F17.219 - Nicotine dependence, cigarettes, with unspecified nicotine-induced disorders Disposition: DC-09 OP ADMIT IP TO THIS HOSP Is pt being admited?: Yes Condition: Serious Time of Disposition: 14:25 Heart Score - HEART Score History: Slightly suspicious EKG: Non-specific Age: > 65 Risk factors: 1-2 risk factors Troponin: < normal limit HEART Score: 4 - Critical Actions Critical Actions: 4-6 pts:12-16.6% risk of adverse cardiac event. Should be admitted
[2020-09-21 07:59] LABS: BUN/Creatinine Ratio 9; Blood Urea Nitrogen 9 mg/dL (9-20); Calcium 8.7 mg/dL (8.4-10.2); Hemolysis Index 5
[2020-09-21 08:20] LABS: ABG HCO3 22.1 mmol/L (20.0-26.0); ABG Methemoglobin 0.4 % (0.0-1.5); ABG Oxygen Saturation 88.7 % (95.0-99.0); ABG PCO2 35.6 mm Hg; ABG PH 7.41 pH Units (7.350-7.450); ABG PO2 53.6 mm Hg (80.0-90.0)
[2020-09-21 08:39] LABS: INR 1.02 (0.87-1.13)
[2020-09-21 08:40] LABS: Partial Thromboplastin Time 30.1 Sec. (24.2-36.6)
[2020-09-21 09:47] LABS: Total Cells Counted 100
[2020-09-21 09:48] LABS: Giant Platelets Few; Platelet Estimate Consistent w Auto; RBC Morphology Normal
--- NOTE | 2020-09-21 11:27 | Cat Scan Report ---
CTA CHEST WITH CONTRAST INDICATION / CLINICAL INFORMATION: SOB, elevated dimer. TECHNIQUE: Axial CT images were obtained through the chest after injection of IV contrast. 3 plane SD P and/or 3D reconstructions were produced. All CT scans at this location are performed using CT dose reduction for ALARA by means of automated exposure control. COMPARISON: None available. FINDINGS: PULMONARY ARTERIES: No pulmonary emboli. THORACIC AORTA: Mild atherosclerotic calcification without acute abnormality. HEART: Moderately enlarged. No pericardial effusion. CORONARY ARTERY CALCIFICATION: Moderate. MEDIASTINUM / STEPHENIE: No significant abnormality. PLEURA: Small bilateral pleural effusions. No pneumothorax. LUNGS: Mild bibasilar pulmonary edema. ADDITIONAL FINDINGS: None. UPPER ABDOMEN: No acute findings. SKELETAL STRUCTURES: No significant osseous abnormality. IMPRESSION: 1. No CT evidence for pulmonary embolism. 2. Cardiomegaly with mild pulmonary edema and small bilateral pleural effusions which may represent c ongestive heart failure. Signer Name: Kayla King MD Signed: 09/21/2020 11:22 AM Workstation Name: [id number]
[2020-09-21] MEDS ORDERED: FUROSEMIDE 40 MG/4 ML INJ IV ONE (11:30)
--- NOTE | 2020-09-21 11:31 | History and Physical Report ---
History of Present Illness Chief complaint: Difficulty breathing History of present illness: 70 YO Male with HTN, ND, LDD, Nicotine Dependence presents to ED for evaluation. Pt reports " I cannot catch my breath". Patient states he had experienced shortness of breath over the past 2 days with worsening symptoms over the past 6 hours. Patient acknowledges dyspnea on exertion, dyspnea at rest, decreased exercise tolerance, dry cough followed by chest discomfort, lower limb edema. Patient knowledges orthopnea, as well as paroxysmal nocturnal dyspnea. Patient transported to [facility] via private vehicle for further care and evaluation of the aforementioned symptoms. The patient was seen and evaluated in the emergency department. All lab and imaging studies reviewed. Patient found to have clinical symptoms consistent with CHF decompensation. Patient admitted to telemetry and initiated on CHF protocol. Patient treated with diuresis and supportive care with improvement in symptoms. Cardiology team consulted in ED. Echocardiogram ordered at time of admission and is currently pending. Patient denies fever, chills, chest pain, palpitations, skin rash, recent ill contacts. Prior admission on 01/10/2020 reviewed. All medication listed at time of admission has been reconciled. Advanced care planning conducted in ED. Past History Past Medical History: acute ND, hypertension, other (See HPI) Past Surgical History: hernia repair, Other (Spine surgery) Social history: single, smoking Family history: hypertension Medications and Allergies Allergies Allergy/AdvReac Type Severity Reaction Status Date / Time aspirin Allergy Unknown Verified 09/21/20 06:40 Home Medications Medication Instructions Recorded Confirmed Last Taken Type Aspirin [Aspirin BABY CHEW TAB] 81 mg PO QDAY #30 tab.chew 01/10/20 Unknown Rx AtorvaSTATin [Lipitor] 40 mg PO QHS #30 tab 01/10/20 Unknown Rx Review of Systems Constitutional: no weight loss, no weight gain, no fever Ears, nose, mouth and throat: no ear pain, no ear discharge, no decreased hearin g, no nose pain, no nasal discharge Cardiovascular: orthopnea, shortness of breath, paroxysmal nocturnal dyspnea, leg edema, decreased exercise tolerance Respiratory: cough with sputum Gastrointestinal: no abdominal pain, no nausea, no vomiting, no diarrhea Genitourinary Male: no hematuria, no flank pain, no discharge, no urinary frequency Rectal: no pain, no incontinence, no bleeding Musculoskeletal: no neck stiffness, no neck pain, no shooting arm pain, no arm numbness/tingling, no low back pain, no redness of joints Integumentary: no rash, no pruritis, no redness, no sores, no wounds, no jaundice Neurological: no head injury, no transient paralysis, no paralysis, no weakness, no parathesias, no seizures, no tremors Psychiatric: no anxiety, no sleep disturbances, no insomnia, no change in appetite, no change in libido, no disorientation Endocrine: no cold intolerance, no heat intolerance, no polyphagia, no polydipsia, no polyuria Hematologic/Lymphatic: no easy bruising, no easy bleeding, no lymphadenopathy Allergic/Immunologic: no urticaria, no persistent infections Exam - Constitutional Vitals: Temp Pulse Resp BP Pulse Ox 98.0 F 75 17 128/72 95 09/21/20 06:36 09/21/20 09:00 09/21/20 09:00 09/21/20 09:00 09/21/20 09:00 General appearance: Present: mild distress - EENT Eyes: Present: PERRL ENT: hearing intact, clear oral mucosa - Neck Neck: Present: supple, normal ROM - Respiratory Respiratory effort: normal Respiratory: bilateral: diminished, rales - Cardiovascular Rhythm: regular Heart Sounds: Present: S1 & S2. Absent: rub, click - Extremities Extremities: pulses symmetrical Extremity abnormal: edema Peripheral Pulses: within normal limits - Abdominal General gastrointestinal: Present: soft, non-tender, non-distended, normal bowel sounds Male genitourinary: Present: normal - Integumentary Integumentary: Present: clear, warm, dry - Musculoskeletal Musculoskeletal: gait normal, strength equal bilaterally - Psychiatric Psychiatric: appropriate mood/affect, intact judgment & insight - Neurologic Neurologic: CNII-XII intact, moves all extremities HEART Score - HEART Score Troponin: Troponin T < 0.010 ng/mL (0.00-0.029) 09/21/20 09:36 Results - Labs CBC & Chem 7: 09/21/20 06:53 09/21/20 06:53 Labs: Abnormal lab results 09/21/20 09/21/20 09/21/20 Range/Units 06:53 06:53 07:59 RDW 16.7 H (13.2-15.2) % Lymphocytes % (Manual) 49.0 H (13.4-35.0) % Monocytes % (Manual) 9.0 H (0.0-7.3) % D-Dimer (0-234) ng/mlDDU ABG pO2 53.6 L (80.0-90.0) mm Hg ABG O2 Saturation 88.7 L (95.0-99.0) % ABG Hemoglobin 13.2 L (14.0-18.0) gm/dl Oxyhemoglobin 85.1 L (95.0-99.0) % Chloride 109.6 H (98-107) mmol/L NT-Pro-B Natriuret Pep (0-900) pg/mL 09/21/20 09/21/20 Range/Units 08:11 08:11 RDW (13.2-15.2) % Lymphocytes % (Manual) (13.4-35.0) % Monocytes % (Manual) (0.0-7.3) % D-Dimer 867.41 H (0-234) ng/mlDDU ABG pO2 (80.0-90.0) mm Hg ABG O2 Saturation (95.0-99.0) % ABG Hemoglobin (14.0-18.0) gm/dl Oxyhemoglobin (95.0-99.0) % Chloride (98-107) mmol/L NT-Pro-B Natriuret Pep 4751 H (0-900) pg/mL Assessment and Plan - Patient Problems (1) CHF (congestive heart failure) Current Visit: Yes Status: Acute Qualifiers: Heart failure type: systolic Heart failure chronicity: acute Qualified Code(s): I50.21 - Acute systolic (congestive) heart failure Plan to address problem: Admit to telemetry, strict I's/O, daily weight, afterload reduction, echocardiogram ordered and is pending at time of admission, cardiology team consulted. Diuresis with Lasix. (2) HTN (hypertension) Current Visit: Yes Status: Acute Qualifiers: Hypertension type: essential hypertension Qualified Code(s): I10 - Essential (primary) hypertension Plan to address problem: Monitor blood pressure every shift, continue medical management (3) Nicotine dependence Current Visit: Yes Status: Acute Qualifiers: Nicotine product type: cigarettes Substance use status: in withdrawal Qualified Code(s): F17.213 - Nicotine dependence, cigarettes, with withdrawal Plan to address problem: Smoking cessation counseling, supportive care, behavior change counseling, +15 minutes. (4) DVT prophylaxis Current Visit: No Status: Acute Plan to address problem: SCD to bilateral lower extremities while in bed, patient is ambulatory (5) Advance care planning Current Visit: Yes Status: Acute Plan to address problem: Disease education conducted, patient is full code, care plan discussed, prognosis discussed, patient knowledges understanding and agreement with care plan, +30 minutes.
[2020-09-21] MEDS ORDERED: ACETAMINOPHEN 325 MG TAB PO PRN (11:33)
[2020-09-21] MEDS ORDERED: ONDANSETRON 4 MG/2 ML INJ IV PRN (12:00)
[2020-09-21] MEDS ORDERED: ALBUTEROL 2.5 MG/3 ML NEBU IH PRN (12:00)
[2020-09-21 14:44] LABS: Free T4 (Free Thyroxine) 1.27 ng/dL (0.76-1.46)
--- NOTE | 2020-09-21 14:45 | Consultation ---
History of Present Illness Consult date: 09/21/20 Requesting physician: BRIGITTE ORANTES Consult reason: congestive heart failure History of present illness: The pt is a 70-year-old male with a past medical history of CAD s/p reported AMI (over 10 years ago with [facility] and no intervention required per pt report), HTN, COPD, ongoing tobacco use. He is regularly followed by the [place]. He presented with c/o progressively worsening SOB and "low oxygen sats" via his home O2 saturation monitor. Pt has h/o COPD, he reports he is not currently on home oxygen but was recently told by his [facility] construction project mgr and he would likely require oxygen in the near future. Patient says that he previously was positive for COVID-19 several months ago. He just got his first dose of the COVID-19 vaccination. Pt denies any chest pain, palpitations, swelling, n/v, diaphoresis, dizziness or syncope. Past History Past Medical History: acute DC, CAD, COPD, hypertension, other (See HPI) Past Surgical History: hernia repair, Other (Spine surgery) Social history: single, smoking Family history: hypertension Medications and Allergies Allergies Allergy/AdvReac Type Severity Reaction Status Date / Time aspirin Allergy Unknown Verified 09/21/20 06:40 Home Medications Medication Instructions Recorded Confirmed Last Taken Type Aspirin [Aspirin BABY CHEW TAB] 81 mg PO QDAY #30 tab.chew 01/10/20 Unknown Rx AtorvaSTATin [Lipitor] 40 mg PO QHS #30 tab 01/10/20 Unknown Rx Active Meds: Active Medications Acetaminophen (Acetaminophen 325 Mg Tab) 650 mg PO Q4H PRN PRN Reason: Pain MILD(1-3)/Fever >100.5/WINSLOW Albuterol (Albuterol 2.5 Mg/3 Ml Nebu) 2.5 mg IH Q4HRT PRN PRN Reason: Shortness Of Breath Aspirin (Aspirin 81 Mg Tab Chew) 81 mg PO QDAY LAKISHA Atorvastatin Calcium (Atorvastatin 40 Mg Tab) 40 mg PO QHS LAKISHA Furosemide (Furosemide 20 Mg/2 Ml Inj) 20 mg IV BID@0600,1800 LAKISHA Ondansetron HCl (Ondansetron 4 Mg/2 Ml Inj) 4 mg IV Q8H PRN PRN Reason: Nausea And Vomiting Sodium Chloride (Sodium Chloride 0.9% 10 Ml Flush Syringe) 10 ml IV BID LAKISHA Sodium Chloride (Sodium Chloride 0.9% 10 Ml Flush Syringe) 10 ml IV PRN PRN PRN Reason: LINE FLUSH Review of Systems Constitutional: no weight loss, no weight gain, no fever, no chills, no sweats Ears, nose, mouth and throat: no ear pain, no nose pain, no sinus pressure, no sinus pain Cardiovascular: shortness of breath, dyspnea on exertion, no chest pain, no orthopnea, no palpitations, no rapid/irregular heart beat, no edema, no syncope, no lightheadedness, no leg edema Respiratory: cough, shortness of breath, dyspnea on exertion, no cough with sputum, no congestion, no wheezing, no pain on inspiration Gastrointestinal: no abdominal pain, no nausea, no vomiting, no diarrhea, no constipation, no change in bowel habits Genitourinary Male: no dysuria, no hematuria, no flank pain, no discharge, no urinary frequency, no urinary hesitancy Musculoskeletal: no neck stiffness, no neck pain, no shooting arm pain, no arm numbness/tingling, no low back pain, no shooting leg pain Integumentary: no rash, no pruritis, no redness, no sores, no wounds Neurological: no head injury, no paralysis, no weakness, no parathesias, no numbness, no tingling, no seizures, no syncope Psychiatric: no anxiety Endocrine: no cold intolerance, no heat intolerance Hematologic/Lymphatic: no easy bruising Allergic/Immunologic: no urticaria Physical Examination Vital Signs Temp Pulse Resp BP Pulse Ox 98.0 F 79 17 144/62 86 09/21/20 06:36 09/21/20 06:36 09/21/20 06:36 09/21/20 06:36 09/21/20 06:36 General appearance: no acute distress HEENT: Positive: PERRL, Normocephaly, Mucus Membranes Moist Neck: Positive: neck supple, trachea midline Cardiac: Positive: Reg Rate and Rhythm, S1/S2 Lungs: Positive: Decreased Breath Sounds Neuro: Positive: Grossly Intact Abdomen: Negative: Tender Skin: Negative: Rash Musculoskeletal: No Pain Extremities: Absent: edema Results 09/21/20 06:53 09/21/20 06:53 Coagulation 09/21/20 Range/Units 08:11 PT 13.3 (12.2-14.9) Sec. INR 1.02 (0.87-1.13) APTT 30.1 (24.2-36.6) Sec. CBC 09/21/20 Range/Units 06:53 WBC 5.7 (4.5-11.0) K/mm3 RBC 4.60 (3.65-5.03) M/mm3 Hgb 13.9 (11.8-15.2) gm/dl Hct 42.3 (35.5-45.6) % Plt Count 164 (140-440) K/mm3 Comprehensive Metabolic Panel 09/21/20 Range/Units 06:53 Sodium 144 (137-145) mmol/L Potassium 4.1 (3.6-5.0) mmol/L Chloride 109.6 H (98-107) mmol/L Carbon Dioxide 26 (22-30) mmol/L BUN 9 (9-20) mg/dL Creatinine 1.0 (0.8-1.3) mg/dL Glucose 90 (75-100) mg/dL Calcium 8.7 (8.4-10.2) mg/dL - Imaging and Cardiology Echo: pending EKG: report reviewed, image reviewed EKG interpretations - Telemetry EKG Rhythm: Sinus Rhythm - EKG Sinus rhythms and dysrhythmias: sinus rhythm Assessment and Plan Agree with present cardiac management. Obtain echo. Recommend pulmonary consultation in setting of COPD and acute on ? chronic respiratory failure. Will follow. The patient has been seen in conjunction with Dr. Venice Parmar who agrees with the assessment and plan of care. - Patient Problems (1) COPD with acute exacerbation Current Visit: Yes Status: Acute (2) Hypoxemia Current Visit: Yes Status: Acute (3) Acute heart failure Current Visit: Yes Status: Acute (4) CAD (coronary artery disease) Current Visit: Yes Status: Chronic Plan to address problem: s/p reported AMI (over 10 years ago with [facility] and no intervention required per pt report) (5) HTN (hypertension) Current Visit: Yes Status: Acute Qualifiers: Hypertension type: essential hypertension Qualified Code(s): I10 - Essential (primary) hypertension (6) Tobacco use Current Visit: Yes Status: Acute (7) History of COVID-19 Current Visit: Yes Status: Chronic
[2020-09-21] MEDS: FUROSEMIDE 20 MG/2 ML INJ IV SCH (17:13)
[2020-09-22 06:25] LABS: BUN/Creatinine Ratio 10; Blood Urea Nitrogen 13 mg/dL (9-20); Calcium 8.1 mg/dL (8.4-10.2); Hemolysis Index 2
[2020-09-22] MEDS: FUROSEMIDE 20 MG/2 ML INJ IV SCH (07:15)
[2020-09-22] MEDS: POTASSIUM CHLORIDE 10 MEQ 10 MEQ/100 ML BAG IV SCH ×4 (09:13→13:23)
--- NOTE | 2020-09-22 09:49 | Progress Note ---
Assessment and Plan tte reviewed - mild LVH, impaired relaxation, mild to mod AR and MR, mod pulm HTN with RVSP 51mmHg. Replete K+. Currently stable cardiac status. Pt may discharge from cardiology standpoint on home Toprol XL, lisinopril, aldactone. Recommend pt follow up with [facility]ology within 1-2 weeks. Smoking cessation encouraged. The patient has been seen in conjunction with Dr. Venice Parmar who agrees with the assessment and plan of care. - Patient Problems (1) COPD with acute exacerbation Current Visit: Yes Status: Acute (2) Hypoxemia Current Visit: Yes Status: Acute (3) Acute heart failure with preserved ejection fraction (HFpEF) Current Visit: Yes Status: Acute (4) CAD (coronary artery disease) Current Visit: Yes Status: Chronic Plan to address problem: s/p reported AMI (over 10 years ago with [facility] and no intervention required per pt report) (5) HTN (hypertension) Current Visit: Yes Status: Acute Qualifiers: Hypertension type: essential hypertension Qualified Code(s): I10 - Essential (primary) hypertension (6) Tobacco use Current Visit: Yes Status: Acute (7) History of COVID-19 Current Visit: Yes Status: Chronic (8) Pulmonary hypertension Current Visit: Yes Status: Chronic Subjective Date of service: 09/22/20 Principal diagnosis: COPD; HF Interval history: pt lying flat in bed, comfortable. tele reviewed - in SR HR 70s. Objective Last Vital Signs Temp 97.5 F L 09/22/20 03:52 Pulse 67 09/22/20 03:52 Resp 16 09/22/20 03:52 BP 115/42 09/22/20 03:52 Pulse Ox 97 09/22/20 08:41 - Physical Examination General: No Apparent Distress HEENT: Positive: PERRL, Normocephaly, Mucus Membranes Moist Neck: Positive: neck supple, trachea midline Cardiac: Positive: Reg Rate and Rhythm, S1/S2 Lungs: Positive: Decreased Breath Sounds Neuro: Positive: Grossly Intact Abdomen: Negative: Tender Skin: Negative: Rash Musculoskeletal: No Pain Extremities: Absent: edema - Labs and Meds Comprehensive Metabolic Panel 09/22/20 Range/Units 05:37 Sodium 139 (137-145) mmol/L Potassium 3.3 L (3.6-5.0) mmol/L Chloride 103.1 (98-107) mmol/L Carbon Dioxide 25 (22-30) mmol/L BUN 13 (9-20) mg/dL Creatinine 1.3 (0.8-1.3) mg/dL Glucose 97 (75-100) mg/dL Calcium 8.1 L (8.4-10.2) mg/dL - Imaging and Cardiology EKG: report reviewed, image reviewed Echo: report reviewed - Telemetry EKG Rhythm: Sinus Rhythm - EKG Sinus rhythms and dysrhythmias: sinus rhythm
[2020-09-22] MEDS ORDERED: ASPIRIN 81 MG TAB CHEW PO SCH (10:00)
[2020-09-22] MEDS ORDERED: LISINOPRIL 5 MG TAB PO SCH (10:00)
[2020-09-22] MEDS ORDERED: SPIRONOLACTONE 25 MG TAB PO SCH (10:00)
[2020-09-22] MEDS ORDERED: METOPROLOL SUCCINATE XL 100 MG TAB PO SCH (10:00)
[2020-09-22] MEDS ORDERED: METOPROLOL SUCCINATE XL 25 MG TAB PO SCH (10:00)
[2020-09-22 10:35] VITALS: BP 102/49
--- NOTE | 2020-09-22 10:40 | Discharge Summary ---
Providers - Providers Date of Admission: 09/21/20 11:33 Date of discharge: 09/22/20 Attending physician: MARTIN MELTON 09/21/20 11:33 Consult to Physician [CONS] Routine Comment: Consulting Provider: GIAN MEHTA Physician Instructions: Reason For Exam: CHF Primary care physician: WATER TREATMENT SPECIALIST Hospitalization Condition: Serious Hospital course: 70 YO Male with HTN, TX, LDD, Nicotine Dependence presents to ED for evaluation. Pt reports " I cannot catch my breath". Patient states he had experienced shortness of breath over the past 2 days with worsening symptoms over the past 6 hours. Patient acknowledges dyspnea on exertion, dyspnea at rest, decreased exercise tolerance, dry cough followed by chest discomfort, lower limb edema. Patient knowledges orthopnea, as well as paroxysmal nocturnal dyspnea. Patient transported to [facility] via private vehicle for further care and evaluation of the aforementioned symptoms. The patient was seen and evaluated in the emergency department. All lab and imaging studies reviewed. Patient found to have clinical symptoms consistent with CHF decompensation. Patient admitted to telemetry and initiated on CHF protocol. Patient treated with diuresis and supportive care with improvement in symptoms. Cardiology team consulted in ED. Hospital course Patient has been seen by cnc applications engineer this AM. His breathing has significantly improved after diuresis. He will continue lasix only as needed for weight gain > 3 pounds. He will continue Toprol XL, lisinopril, aldactone. He will follow up with [facility]ology within 1-2 weeks. I have encouraged patient to stop tobacco abuse. He is very eager to be discharged today and remains stable. Disposition: TO HOME OR SELFCARE Time spent for discharge: 35 mins - Discharge Diagnoses (1) CHF (congestive heart failure) Status: Acute Qualifiers: Heart failure type: systolic Heart failure chronicity: acute Qualified Code(s): I50.21 - Acute systolic (congestive) heart failure (2) HTN (hypertension) Status: Acute Qualifiers: Hypertension type: essential hypertension Qualified Code(s): I10 - Essential (primary) hypertension (3) Hypoxemia Status: Acute Core Measure Documentation - Palliative Care Palliative Care/ Comfort Measures: Not Applicable - Core Measures Any of the following diagnoses?: none Exam - Constitutional Vitals: Temp Pulse Resp BP Pulse Ox 98.9 F 63 16 102/49 97 09/22/20 07:48 09/22/20 07:48 09/22/20 03:52 09/22/20 07:48 09/22/20 08:41 General appearance: Present: no acute distress, well-nourished - EENT Eyes: Present: PERRL ENT: hearing intact, clear oral mucosa - Neck Neck: Present: supple, normal ROM - Respiratory Respiratory effort: normal Respiratory: bilateral: rales (trace) - Cardiovascular Heart Sounds: Present: S1 & S2. Absent: rub, click - Extremities Extremities: pulses symmetrical, No edema Peripheral Pulses: within normal limits - Abdominal General gastrointestinal: Present: soft, non-tender, non-distended, normal bowel sounds Male genitourinary: Present: normal - Integumentary Integumentary: Present: clear, warm, dry - Musculoskeletal Musculoskeletal: gait normal, strength equal bilaterally - Psychiatric Psychiatric: appropriate mood/affect, intact judgment & insight - Neurologic Neurologic: CNII-XII intact, moves all extremities Plan Activity: no restrictions Diet: low fat, low cholesterol, low salt Additional Instructions: Use lasix 40mg only as needed if you have weight gain more than 3 pounds. [facility]. Stop tobacco abuse Follow up with: PRIMARY CARE, [Primary Care Provider] - 3-5 Days Prescriptions: Furosemide [Lasix TAB] 40 mg PO PRN #10 tablet Metoprolol Xl [Metoprolol SUCCINATE ER TAB] 25 mg PO QDAY #30 tablet
[2020-09-23] MEDS ORDERED: POTASSIUM CHLORIDE ER 20 MEQ TAB PO SCH (10:00)
== END 2020-09-22 16:51 | disposition home or self-care (01) ==
LOC: ED 06:31 → 4A 11:33 → INTOOBSV 11:33 → 4A 16:09
PROVIDERS: ADMIT Internal Medicine; ATTEND Internal Medicine
DX: I11.0 Hypertensive heart disease with heart failure (principal); I50.9 Heart failure, unspecified; J44.1 Chronic obstructive pulmonary disease with (acute) exacerbation; I25.10 Atherosclerotic heart disease of native coronary artery without angina pectoris; I25.2 Old myocardial infarction; R09.02 Hypoxemia; Z98.890 Other specified postprocedural states; F17.213 Nicotine dependence, cigarettes, with withdrawal; Z79.82 Long term (current) use of aspirin; Z86.16 Personal history of COVID-19
CPT/HCPCS: 36415; 71045; 71275; 80048; 82803; 83735; 83880; 84439; 84443; 84484; 85025; 85379; 85610; 85730; 93005; 93306; 94760; 96361; 96374; 96376; 99291; A9270; G0378; J1940; J3480; Q9967; 85007

== ENCOUNTER 2020-09-28 09:51 | Emergency (ER) | payer OTHER ==
[2020-09-28 09:58] VITALS: BP 140/73
--- NOTE | 2020-09-28 10:18 | Event Note ---
ED Screening Note Date of service: 09/28/20 Time: 10:14 ED Screening Note: Patient presents to ED c/o low HR. Pt states that he wears a HR/pulse ox monitor and this morning his HR was in 30s. Pt was recently d/c after being admitted for CHF. He is on toprol. This initial assessment/diagnostic orders/clinical plan/treatment(s) is/are subject to change based on patients health status, clinical progression and re- assessment by fellow clinical providers in the ED. Further treatment and workup at subsequent clinical providers discretion. Patient/guardian urged not to elope from the ED as their condition may be serious if not clinically assessed and managed. Initial orders include: Chest pain order set.
--- NOTE | 2020-09-28 12:59 | XRay Report ---
CHEST 2 VIEWS INDICATION / CLINICAL INFORMATION: Chest Pain. COMPARISON: 09/21/2020 FINDINGS: SUPPORT DEVICES: None. HEART / MEDIASTINUM: No significant abnormality. LUNGS / PLEURA: No significant pulmonary or pleural abnormality. No pneumothorax. ADDITIONAL FINDINGS: No significant additional findings. IMPRESSION: 1. No acute findings. Signer Name: Bony Crandall MD Signed: 09/28/2020 12:55 PM Workstation Name: [id number]
[2020-09-28 13:25] LABS: Basophils % (Auto) 0.5 % (0.0-1.8); Eosinophils # (Auto) 0.1 K/mm3 (0.0-0.4); Hematocrit 40.8 % (35.5-45.6); Hemoglobin 13.6 gm/dl (11.8-15.2); Lymphocytes # (Auto) 2.1 K/mm3 (1.2-5.4); Lymphocytes % (Auto) 36.6 % (13.4-35.0); Mean Corpuscular HGB Conc 33 % (32-34); Mean Corpuscular Volume 92 fl (84-94); Monocytes # (Auto) 0.5 K/mm3 (0.0-0.8); Monocytes % (Auto) 8.9 % (0.0-7.3); Platelet Count 194 K/mm3 (140-440); Red Blood Count 4.45 M/mm3 (3.65-5.03); Red Cell Distribution Width 16.6 % (13.2-15.2)
[2020-09-28 13:44] LABS: Alanine Aminotransferase 7 units/L (7-56); Albumin 4.2 g/dL (3.9-5); BUN/Creatinine Ratio 14; Blood Urea Nitrogen 17 mg/dL (9-20); Calcium 8.6 mg/dL (8.4-10.2); Hemolysis Index 3
== END 2020-09-29 04:42 | disposition left against medical advice (07) ==
LOC: ED 09:51
DX: R00.1 Bradycardia, unspecified (principal); Z53.21 Procedure and treatment not carried out due to patient leaving prior to being seen by health care provider
CPT/HCPCS: 36415; 71046; 80053; 84484; 85025; 93005

== ENCOUNTER 2021-02-20 04:26 | Observation (INO) | payer OTHER ==
[2021-02-20] MEDS ORDERED: ASPIRIN 325 MG TAB PO ONE (05:04)
--- NOTE | 2021-02-20 06:17 | XRay Report ---
CHEST 2 VIEWS INDICATION / CLINICAL INFORMATION: chestpain. FINDINGS: SUPPORT DEVICES: None. HEART / MEDIASTINUM: No significant abnormality. LUNGS / PLEURA: Patchy airspace disease involving the mid and lower lungs bilaterally Signer Name: Laureano Mckinnon MD Signed: 02/20/2021 6:13 AM Workstation Name: [id number]
[2021-02-20 06:35] LABS: Basophils % (Auto) 0.7 % (0.0-1.8); Eosinophils # (Auto) 0.2 K/mm3 (0.0-0.4); Hematocrit 40.1 % (35.5-45.6); Hemoglobin 13.6 gm/dl (11.8-15.2); Lymphocytes # (Auto) 1.8 K/mm3 (1.2-5.4); Lymphocytes % (Auto) 34.9 % (13.4-35.0); Mean Corpuscular HGB Conc 34 % (32-34); Mean Corpuscular Volume 92 fl (84-94); Monocytes # (Auto) 0.6 K/mm3 (0.0-0.8); Monocytes % (Auto) 11.7 % (0.0-7.3); Platelet Count 162 K/mm3 (140-440); Red Blood Count 4.35 M/mm3 (3.65-5.03); Red Cell Distribution Width 16.8 % (13.2-15.2)
[2021-02-20 06:56] LABS: Alanine Aminotransferase 9 units/L (7-56); Albumin 4.2 g/dL (3.9-5); BUN/Creatinine Ratio 8; Blood Urea Nitrogen 11 mg/dL (9-20); Calcium 9.1 mg/dL (8.4-10.2); Hemolysis Index 5
[2021-02-20] MEDS ORDERED: AZITHROMYCIN/NS 500 MG/250 ML 500 MG/250 ML BAG IV ONE (08:08)
[2021-02-20] MEDS ORDERED: cefTRIAXone/NS 1 GM/50 ML 1 GM/50 ML BAG IV ONE (08:08)
[2021-02-20] MEDS ORDERED: IPRATROPIUM/ALBUTEROL SULFATE 3 ML AMPUL.NEB IH ONE (08:09)
--- NOTE | 2021-02-20 08:12 | Emergency Department Report ---
ED Chest Pain HPI - General Chief Complaint: Chest Pain Stated Complaint: SOB Time Seen by Provider: 02/20/21 08:03 Source: patient Mode of arrival: Ambulatory Limitations: No Limitations - History of Present Illness Initial Comments: This is a 71-year-old -[place] male presents to the emergency department with complaint of some generalized chest discomfort and shortness of breath, as well as generalized weakness, that began late last night/early this morning when the patient was trying to go back up the stairs to his bedroom. Patient has a history of coronary artery disease with previous PR, hypertension, COPD, and recently had a defibrillator placed. He says that the defibrillator was placed because "they told me that my heart was only working at 50%." Patient says that he is supposed to get sent some supplemental oxygen but is not at home O2 dependent for his COPD. He did not take anything today for his symptoms prior to presentation. The symptoms worsen with any exertion. No recent travel or sick contacts at home. He denies any fever, lower extremity swelling, nausea, vomiting, back pain or diaphoresis. His primary care physician is a Dr. Goldberg and he sees the [place] for cardiology. He is a tobacco smoker but denies any illicit drug use. - Related Data Home Medications Medication Instructions Recorded Confirmed Last Taken Lisinopril [Zestril] 5 mg PO DAILY 09/21/20 09/21/20 09/20/20 Spironolactone [Aldactone] 12.5 mg PO QDAY 09/21/20 09/21/20 09/20/20 Terazosin HCl 2 mg PO HS 09/21/20 09/21/20 09/20/20 allopurinoL [Zyloprim] 150 mg PO QDAY 09/21/20 09/21/20 09/20/20 Previous Rx's Medication Instructions Recorded Last Taken Type Aspirin [Aspirin BABY CHEW TAB] 81 mg PO QDAY #30 tab.chew 01/10/20 Unknown Rx AtorvaSTATin [Lipitor] 40 mg PO QHS #30 tab 01/10/20 Unknown Rx Furosemide [Lasix TAB] 40 mg PO PRN #10 tablet 09/22/20 Unknown Rx Metoprolol Xl [Metoprolol 25 mg PO QDAY #30 tablet 09/22/20 Unknown Rx SUCCINATE ER TAB] Allergies Allergy/AdvReac Type Severity Reaction Status Date / Time aspirin Allergy Unknown Verified 09/21/20 06:40 Heart Score - HEART Score History: Slightly suspicious EKG: Non-specific Age: > 65 Risk factors: > 3 risk factors or hx of atherosclerotic disease Troponin: < normal limit HEART Score: 5 - EKG Read Time Time EKG Completed: 04:47 EKG Read Time: 04:52 ED Review of Systems ROS: Stated complaint: SOB Other details as noted in HPI Comment: All other systems reviewed and negative Constitutional: denies: chills, fever Eyes: denies: eye pain, vision change ENT: denies: ear pain, throat pain Respiratory: shortness of breath, SOB with exertion Cardiovascular: chest pain. denies: palpitations Gastrointestinal: denies: abdominal pain, vomiting Genitourinary: denies: dysuria, discharge Musculoskeletal: denies: joint swelling, arthralgia Skin: denies: rash, lesions Neurological: denies: headache, weakness ED Past Medical Hx - Past Medical History Previous Medical History?: Yes Hx Hypertension: Yes Hx Heart Attack/AMI: Yes Hx COPD: Yes Additional medical history: UNKNOWN - Surgical History Past Surgical History?: Yes Additional Surgical History: vertbrae replacment and hernia - Social History Smoking Status: Current Every Day Smoker Substance Use Type: None - Medications Home Medications: Home Medications Medication Instructions Recorded Confirmed Last Taken Type Aspirin [Aspirin BABY CHEW TAB] 81 mg PO QDAY #30 tab.chew 01/10/20 09/21/20 Unknown Rx AtorvaSTATin [Lipitor] 40 mg PO QHS #30 tab 01/10/20 09/21/20 Unknown Rx Lisinopril [Zestril] 5 mg PO DAILY 09/21/20 09/21/20 09/20/20 History Spironolactone [Aldactone] 12.5 mg PO QDAY 09/21/20 09/21/20 09/20/20 History Terazosin HCl 2 mg PO HS 09/21/20 09/21/20 09/20/20 History allopurinoL [Zyloprim] 150 mg PO QDAY 09/21/20 09/21/20 09/20/20 History Furosemide [Lasix TAB] 40 mg PO PRN #10 tablet 09/22/20 Unknown Rx Metoprolol Xl [Metoprolol 25 mg PO QDAY #30 tablet 09/22/20 Unknown Rx SUCCINATE ER TAB] ED Physical Exam - General Limitations: No Limitations - Other Other exam information: GENERAL: The patient is well-developed well-nourished. HENT: Normocephalic. Atraumatic. Patient has moist mucous membranes. EYES: Extraocular motions are intact. NECK: Supple. Trachea is midline. CHEST/LUNGS: There is some rhonchi and coarse breath sounds heard. There is tachypnea but no accessory muscle use. HEART/CARDIOVASCULAR: Regular. There is no tachycardia. There is no murmur. ABDOMEN: Abdomen is soft, nontender. Patient has normal bowel sounds. There is no abdominal distention. SKIN: Skin is warm and dry. NEURO: The patient is awake, alert, and oriented. The patient is cooperative. The patient has no focal neurologic deficits. Normal speech. MUSCULOSKELETAL: There is no tenderness or deformity. There is no limitation range of motion. ED Course Vital Signs 02/20/21 02/20/21 02/20/21 04:42 07:46 07:57 Temperature 98.4 F Pulse Rate 82 82 Pulse Rate [ Bilateral Bases ] Respiratory 18 20 22 Rate Respiratory Rate [Bilateral Bases] Blood Pressure 140/84 O2 Sat by Pulse 95 96 96 Oximetry 02/20/21 02/20/21 02/20/21 08:31 08:45 09:04 Temperature Pulse Rate 81 86 Pulse Rate [ 85 Bilateral Bases ] Respiratory 21 21 Rate Respiratory 18 Rate [Bilateral Bases] Blood Pressure 134/73 134/73 O2 Sat by Pulse 99 95 Oximetry 02/20/21 02/20/21 02/20/21 09:31 09:46 10:00 Temperature Pulse Rate 76 78 91 H Pulse Rate [ Bilateral Bases ] Respiratory 20 20 18 Rate Respiratory Rate [Bilateral Bases] Blood Pressure 149/88 149/88 128/78 O2 Sat by Pulse 95 96 98 Oximetry FADI score - Fadi Score Age > 65: (1) Yes Aspirin use within the Past 7 Days: (0) No 3 or more CAD Risk Factors: (1) Yes 2 or more Angina events in past 24 hrs: (1) Yes Known CAD with more than 50% Stenosis: (0) No Elevated Cardiac Markers: (0) No ST Deviation Greater than 0.5mm: (0) No FADI Score: 3 ED Medical Decision Making - Lab Data Result diagrams: 02/20/21 05:46 02/20/21 05:46 Lab Results 02/20/21 02/20/21 02/20/21 Range/Units 05:46 05:46 07:53 WBC 5.0 (4.5-11.0) K/mm3 RBC 4.35 (3.65-5.03) M/mm3 Hgb 13.6 (11.8-15.2) gm/dl Hct 40.1 (35.5-45.6) % MCV 92 (84-94) fl MCH 31 (28-32) pg MCHC 34 (32-34) % RDW 16.8 H (13.2-15.2) % Plt Count 162 (140-440) K/mm3 Lymph % (Auto) 34.9 (13.4-35.0) % [place] % (Auto) 11.7 H (0.0-7.3) % Eos % (Auto) 3.0 (0.0-4.3) % Baso % (Auto) 0.7 (0.0-1.8) % Lymph # (Auto) 1.8 (1.2-5.4) K/mm3 [place] # (Auto) 0.6 (0.0-0.8) K/mm3 Eos # (Auto) 0.2 (0.0-0.4) K/mm3 Baso # (Auto) 0.0 (0.0-0.1) K/mm3 Seg Neutrophils % 49.7 (40.0-70.0) % Seg Neutrophils # 2.5 (1.8-7.7) K/mm3 PT (12.2-14.9) Sec. INR (0.87-1.13) Sodium 143 (137-145) mmol/L Potassium 3.8 (3.6-5.0) mmol/L Chloride 106.5 (98-107) mmol/L Carbon Dioxide 25 (22-30) mmol/L Anion Gap 15 mmol/L BUN 11 (9-20) mg/dL Creatinine 1.3 (0.8-1.3) mg/dL Estimated GFR > 60 ml/min BUN/Creatinine Ratio 8 % Glucose 90 (75-100) mg/dL Calcium 9.1 (8.4-10.2) mg/dL Total Bilirubin 0.50 (0.1-1.2) mg/dL AST 26 (5-40) units/L ALT 9 (7-56) units/L Alkaline Phosphatase 70 (35-129) units/L Troponin T 0.015 0.016 (0.00-0.029) ng/mL NT-Pro-B Natriuret Pep (0-900) pg/mL Total Protein 6.7 (6.3-8.2) g/dL Albumin 4.2 (3.9-5) g/dL Albumin/Globulin Ratio 1.7 % 02/20/21 02/20/21 Range/Units 07:53 07:53 WBC (4.5-11.0) K/mm3 RBC (3.65-5.03) M/mm3 Hgb (11.8-15.2) gm/dl Hct (35.5-45.6) % MCV (84-94) fl MCH (28-32) pg MCHC (32-34) % RDW (13.2-15.2) % Plt Count (140-440) K/mm3 Lymph % (Auto) (13.4-35.0) % [place] % (Auto) (0.0-7.3) % Eos % (Auto) (0.0-4.3) % Baso % (Auto) (0.0-1.8) % Lymph # (Auto) (1.2-5.4) K/mm3 [place] # (Auto) (0.0-0.8) K/mm3 Eos # (Auto) (0.0-0.4) K/mm3 Baso # (Auto) (0.0-0.1) K/mm3 Seg Neutrophils % (40.0-70.0) % Seg Neutrophils # (1.8-7.7) K/mm3 PT 13.6 (12.2-14.9) Sec. INR 0.98 (0.87-1.13) Sodium (137-145) mmol/L Potassium (3.6-5.0) mmol/L Chloride (98-107) mmol/L Carbon Dioxide (22-30) mmol/L Anion Gap mmol/L BUN (9-20) mg/dL Creatinine (0.8-1.3) mg/dL Estimated GFR ml/min BUN/Creatinine Ratio % Glucose (75-100) mg/dL Calcium (8.4-10.2) mg/dL Total Bilirubin (0.1-1.2) mg/dL AST (5-40) units/L ALT (7-56) units/L Alkaline Phosphatase (35-129) units/L Troponin T (0.00-0.029) ng/mL NT-Pro-B Natriuret Pep 8918 H (0-900) pg/mL Total Protein (6.3-8.2) g/dL Albumin (3.9-5) g/dL Albumin/Globulin Ratio % - EKG Data -: EKG Interpreted by Me EKG shows normal: sinus rhythm (PACs), axis, intervals, QRS complexes (Q waves to the inferior leads), ST-T waves Rate: normal - EKG Data When compared to previous EKG there are: no significant change Interpretation: unchanged when compared t (09/28/20) - Radiology Data Radiology results: report reviewed CHEST 2 VIEWS INDICATION / CLINICAL INFORMATION: chestpain. FINDINGS: SUPPORT DEVICES: None. HEART / MEDIASTINUM: No significant abnormality. LUNGS / PLEURA: Patchy airspace disease involving the mid and lower lungs bilaterally - Medical Decision Making This patient presents with some generalized chest discomfort and shortness of breath that started late last night/early this morning. EKG does not have any morphology consistent with ST elevation myocardial infarction. Chest x-ray shows bilateral patchy infiltrates that was read by radiology as concerning for pneumonia. Patient's labs show a very elevated proBNP of almost 9000. The patchy i nfiltrates on chest x-ray could still be pneumonia, but may represent some interstitial edema. Patient was given IV antibiotics and a dose of IV Lasix. He will be admitted to the hospital for further evaluation and treatment and was accepted for admission by the hospitalist, Dr. Vanegas. Critical Care Time: No Critical care attestation.: If time is entered above; I have spent that time in minutes in the direct care of this critically ill patient, excluding procedure time. ED Disposition Clinical Impression: Acute chest pain CHF exacerbation Qualifiers: Heart failure type: unspecified Qualified Code(s): I50.9 - Heart failure, unspecified Pneumonia Qualifiers: Pneumonia type: due to unspecified organism Laterality: bilateral Lung location: unspecified part of lung Qualified Code(s): J18.9 - Pneumonia, unspecified organism Disposition: OP ADMIT IP TO THIS HOSP Is pt being admited?: Yes Condition: Serious Time of Disposition: 08:52
[2021-02-20] MEDS ORDERED: FUROSEMIDE 20 MG/2 ML INJ IV ONE (08:51)
[2021-02-20] MEDS ORDERED: SODIUM CHLORIDE 0.9% 500 ML 500 ML IV SCH (09:00)
[2021-02-20 09:15] LABS: INR 0.98 (0.87-1.13)
--- NOTE | 2021-02-20 11:09 | History and Physical Report ---
History of Present Illness Date of examination: 02/20/21 Date of admission: 02/20/21 08:52 Chief complaint: Chest pain History of present illness: This is a 71-year-old -[place] male with history of hypertension, COPD and prior history of COVID-19 presents to the emergency department with complaint of some generalized chest discomfort and shortness of breath, as well as generalized weakness, that began late last night/early this morning when the patient was trying to go back up the stairs to his bedroom. The symptoms worsen with any exertion. No recent travel or sick contacts at home. He denies any fever, lower extremity swelling, nausea, vomiting, back pain or diaphoresis. In the ER his initial troponin is normal, chest x-ray showed no infiltrates. Patient will be admitted for chest pain work-up. Past History Past Medical History: hypertension, COPD, self reported GA, h/o COVID 19, CHF Past Surgical History: s/p AICD Social history: He is a tobacco smoker but denies any illicit drug use. Family history: no significant family history Review of System: Constitutional: no fever, no chills, no weight loss Ears, eyes, nose, mouth and throat: no nasal congestion, no nasal discharge, no sinus pressure, no vision change, no red eye. Neck: No neck pain or rigidity. Cardiovascular: +chest pain, no orthopnea, no palpitations, no leg swelling Respiratory: + shortness of breath, no cough, no congestion, no wheezing Gastrointestinal: no abdominal pain, no nausea, no vomiting Genitourinary : no dysuria, no hematuria Musculoskeletal: no joint swelling or muscle ache Integumentary: no rash, no pruritis Neurological: no parathesias, no numbness, no tingling Endocrine: no cold or heat intolerance, no polyuria or polydipsia Hematologic/Lymphatic: no easy bruising, no easy bleeding, no gland swelling Allergic/Immunologic: no urticaria, no angioedema. Medications and Allergies Allergies Allergy/AdvReac Type Severity Reaction Status Date / Time aspirin Allergy Unknown Verified 09/21/20 06:40 Home Medications Medication Instructions Recorded Confirmed Last Taken Type Lisinopril [Zestril] 5 mg PO DAILY 09/21/20 02/20/21 1 Day Ago History ~02/19/21 Spironolactone [Aldactone] 12.5 mg PO QDAY 09/21/20 02/20/21 1 Day Ago History ~02/19/21 Terazosin HCl 2 mg PO HS 09/21/20 02/20/21 1 Day Ago History ~02/19/21 allopurinoL [Zyloprim] 150 mg PO QDAY 09/21/20 02/20/21 1 Day Ago History ~02/19/21 Acetaminophen [Non-Aspirin Extra 1,000 mg PO TID PRN 02/20/21 02/20/21 Unknown History Strength] Albuterol Mdi (or & Nicu Only) 2 puff IH QID PRN 02/20/21 02/20/21 1 Day Ago Hi story [ProAir HFA Inhaler] ~02/19/21 Amlodipine Besylate [Norvasc] 2.5 mg PO DAILY 02/20/21 02/20/21 1 Day Ago History ~02/19/21 Aspirin EC [Halfprin EC] 81 mg PO QDAY 02/20/21 02/20/21 1 Day Ago History ~02/19/21 AtorvaSTATin [Lipitor] 80 mg PO QHS 02/20/21 02/20/21 1 Day Ago History ~02/19/21 Benzonatate [Tessalon Perles] 100 mg PO Q6HR PRN 02/20/21 02/20/21 12/28/20 10:00 History Furosemide [Lasix] 20 mg PO QDAY PRN 02/20/21 02/20/21 1 Day Ago History ~02/19/21 Metoprolol Xl [Metoprolol 100 mg PO QDAY 02/20/21 02/20/21 1 Day Ago History SUCCINATE ER TAB] ~02/19/21 Tiotropium [place] [Spiriva 4 gm IH BID 02/20/21 02/20/21 1 Day Ago History Respimat] ~02/19/21 hydrOXYzine HCL 50 mg PO TID 02/20/21 02/20/21 1 Day Ago History ~02/19/21 Exam - Physical Exam Narrative exam: GENERAL: well-developed and well-nourished elderly -[place] male lying on bed appeared to be in no discomfort. HEENT: Normocephalic. Atraumatic. No conjunctival congestion or icterus. Patient has moist mucous membranes. NECK: Supple. Trachea midline. CHEST/LUNGS: Clear to auscultated bilaterally, breathing nonlabored. No wheezes crackles or rhonchi. HEART/CARDIOVASCULAR: Regular in rate and rhythm. S1 and S2 positive. ABDOMEN: Abdomen is soft, nontender. Patient has normal bowel sounds. SKIN: There is no rash. Warm and dry. NEURO: No focal motor deficit. Follows command. MUSCULOSKELETAL: No joint effusion or tenderness. EXTRIMITY: No edema, no cyanosis or clubbing. PSYCH: Cooperative. - Constitutional Vitals: Temp Pulse Resp BP Pulse Ox 98.4 F 91 H 18 128/78 98 02/20/21 04:42 02/20/21 10:00 02/20/21 10:00 02/20/21 10:00 02/20/21 10:00 HEART Score - HEART Score EKG: Non-specific Age: > 65 Risk factors: > 3 risk factors or hx of atherosclerotic disease Troponin: Troponin T 0.016 ng/mL (0.00-0.029) 02/20/21 07:53 Troponin: < normal limit Results - Labs CBC & Chem 7: 02/20/21 05:46 02/20/21 05:46 Labs: Abnormal lab results 02/20/21 02/20/21 Range/Units 05:46 07:53 RDW 16.8 H (13.2-15.2) % [place] % (Auto) 11.7 H (0.0-7.3) % NT-Pro-B Natriuret Pep 8918 H (0-900) pg/mL - Imaging and Cardiology Chest x-ray: report reviewed (Bilateral airspace disease) Assessment and Plan Atypical chest pain Bilateral pneumonia Mild COPD exacerbation chronic CHF, compensated Ongoing tobacco abuse Hypertension hyperlipidemia - We'll admit the patient to telemetry - Will provide scheduled nebulizer breathing treatment and as needed - Place on empiric steroid and antibiotic - will get sputum culture, chest x-ray showed bilateral pneumonia -continue Zithromax and Rocephin -Patient completed Covid vaccination, will rule out Covid - Provide supplemental oxygen to keep oxygen saturation above 92% -Consult cardiology, follow recommendation -Monitor troponin and serial EKG - We will resume home medications, monitor BP - Provide DVT prophylaxis with Lovenox.
[2021-02-20] MEDS: SPIRONOLACTONE 25 MG TAB PO SCH (15:48)
[2021-02-20] MEDS: allopurinoL 300 MG TAB PO SCH (15:48)
[2021-02-20] MEDS: LISINOPRIL 5 MG TAB PO SCH (15:48)
[2021-02-20] MEDS: METOPROLOL SUCCINATE XL 25 MG TAB PO SCH (15:48)
[2021-02-20] MEDS ORDERED: FUROSEMIDE 20 MG TAB PO PRN (16:12)
[2021-02-20] MEDS ORDERED: ALBUTEROL 8.5 GM MDI INHALATION IH PRN (16:51)
[2021-02-20] MEDS ORDERED: cefTRIAXone/NS 1 GM/50 ML 1 GM/50 ML BAG IV SCH (17:00)
[2021-02-20] MEDS ORDERED: ALBUTEROL 2.5 MG/3 ML NEBU IH PRN (18:00)
[2021-02-20] MEDS: IPRATROPIUM/ALBUTEROL SULFATE 3 ML AMPUL.NEB IH SCH ×2 (19:41→21:17)
[2021-02-20] MEDS: ENOXAPARIN 40 MG/0.4 ML INJ SUB-Q SCH (21:45)
[2021-02-20] MEDS: PRAZOSIN 1 MG CAP PO SCH (21:45)
[2021-02-20] MEDS: methylPREDNISolone Sod Succinate 40 MG/1 ML INJ IV SCH (21:45)
[2021-02-20] MEDS ORDERED: TERAZOSIN HCL 2 MG PO SCH (22:00)
[2021-02-21] MEDS: IPRATROPIUM/ALBUTEROL SULFATE 3 ML AMPUL.NEB IH SCH ×4 (03:02→22:39)
[2021-02-21] MEDS: FUROSEMIDE 20 MG/2 ML INJ IV SCH (11:18)
[2021-02-21] MEDS: SPIRONOLACTONE 25 MG TAB PO SCH (11:18)
[2021-02-21] MEDS: LISINOPRIL 5 MG TAB PO SCH (11:19)
[2021-02-21] MEDS: METOPROLOL SUCCINATE XL 25 MG TAB PO SCH (11:19)
[2021-02-21] MEDS: allopurinoL 300 MG TAB PO SCH (11:19)
[2021-02-21] MEDS: ASPIRIN 81 MG TAB CHEW PO SCH (11:19)
[2021-02-21] MEDS: AZITHROMYCIN/NS 500 MG/250 ML 500 MG/250 ML BAG IV SCH (11:20)
[2021-02-21] MEDS: cefTRIAXone/NS 1 GM/50 ML 1 GM/50 ML BAG IV SCH (11:20)
--- NOTE | 2021-02-21 11:42 | Event Note ---
Full consult dictated. Thank you.
--- NOTE | 2021-02-21 13:15 | Electrocardiograph Report ---
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
--- NOTE | 2021-02-21 15:14 | Progress Note ---
Assessment and Plan Atypical chest pain Bilateral pneumonia Mild COPD exacerbation chronic CHF, compensated Ongoing tobacco abuse Hypertension hyperlipidemia -Continue to monitor patient telemetry -Continue scheduled nebulizer breathing treatment and as needed, empiric steroid and antibiotic - chest x-ray showed bilateral pneumonia -continue Zithromax and Rocephin -Patient completed Covid vaccination, Covid test is negative - Provide supplemental oxygen to keep oxygen saturation above 92% -Consulted cardiology, plan for stress test tomorrow, ordered 2D echo -Monitor troponin and serial EKG - Resumed home medications, monitor BP - Provide DVT prophylaxis with Lovenox. Subjective Date of service: 02/21/21 Objective - Exam Narrative Exam: GENERAL: well-developed and well-nourished elderly -Citizen Of [place] male lying on bed appeared to be in no discomfort. HEENT: Normocephalic. Atraumatic. No conjunctival congestion or icterus. Patient has moist mucous membranes. NECK: Supple. Trachea midline. CHEST/LUNGS: Clear to auscultated bilaterally, breathing nonlabored. No wheezes crackles or rhonchi. HEART/CARDIOVASCULAR: Regular in rate and rhythm. S1 and S2 positive. ABDOMEN: Abdomen is soft, nontender. Patient has normal bowel sounds. SKIN: There is no rash. Warm and dry. NEURO: No focal motor deficit. Follows command. MUSCULOSKELETAL: No joint effusion or tenderness. EXTRIMITY: No edema, no cyanosis or clubbing. PSYCH: Cooperative. - Constitutional Vitals: Vital Signs - 12hr 02/21/21 02/21/21 02/21/21 04:04 07:50 09:29 Temperature 98.9 F 98.7 F Pulse Rate 84 80 Pulse Rate [ 83 Bilateral Bases ] Respiratory 18 19 Rate Respiratory 18 Rate [Bilateral Bases] Blood Pressure 106/56 126/71 O2 Sat by Pulse 93 96 Oximetry - Labs CBC & Chem 7: 02/20/21 05:46 02/20/21 05:46 HEART Score - HEART Score EKG: Non-specific Age: > 65 Risk factors: > 3 risk factors or hx of atherosclerotic disease Troponin: Troponin T 0.012 ng/mL (0.00-0.029) 02/20/21 15:58 Troponin: < normal limit
[2021-02-21] MEDS: methylPREDNISolone Sod Succinate 40 MG/1 ML INJ IV SCH (18:18)
[2021-02-21] MEDS: ENOXAPARIN 40 MG/0.4 ML INJ SUB-Q SCH (22:04)
[2021-02-21] MEDS: PRAZOSIN 1 MG CAP PO SCH (22:05)
--- NOTE | 2021-02-22 00:50 | Consultation ---
DATE OF CONSULTATION: 02/21/2021 CARDIOLOGY CONSULTATION REFERRING PHYSICIAN: Hospitalist service. REASON FOR CONSULTATION: ____ chest pain. HISTORY OF PRESENT ILLNESS: The patient is a 71-year-old -Burkin[place] gentleman with a history of coronary artery disease, hypertension, COPD, ongoing tobacco abuse, recently placed defibrillator, presents here with shortness of breath. Self-reported history of UT, coronary artery disease. Does have history of COPD and hypertension. Single, smoker. No family history of premature heart disease. Questionable aspirin allergy, although he has been on aspirin during this hospitalization and his last hospitalization without issue. In-patient and outpatient medications reviewed. Apparently recently had a defibrillator at the [facility]. He is seen on telemetry, walking the hallways. Denies any chest pain, states he had some chest pain yesterday. No syncope or presyncope. No fevers, chills, nausea or vomiting. No recent weight gain or weight loss. No cold or heat intolerance. No leg pain. No rashes. PHYSICAL EXAMINATION: VITAL SIGNS: Blood pressure is 126/70. He is afebrile. Tele reveals sinus rhythm in 80s with occasional PVCs. O2 sat is 96% on room air. GENERAL: This is an elderly -Burkinan gentleman, in no apparent distress, oriented x3. HEENT: Sclerae are anicteric. ____ NECK: Supple, no masses, no JVD. CHEST: Decreased breath sounds at bilateral bases. Overall, moderate air movement. CARDIOVASCULAR: Regular rate and rhythm, S1, S2. ABDOMEN: Soft, nontender, nondistended, normoactive bowel sounds in all four quadrants. No mass or bruits. EXTREMITIES: No cyanosis, clubbing or edema. Good peripheral pulses. SKIN: Dry and intact. No rashes. DIAGNOSTIC DATA: EKG reveals sinus rhythm, PACs, left atrial enlargement, probable prior inferior UT. LABORATORY DATA: CBC is unremarkable. BMP is unremarkable. Troponins negative x2. ProBNP is 8918. Chest x-ray reveals patchy airspace disease, no other acute findings. IMPRESSION: In summary, the patient on is a 71-year-old -Burkin[place] gentleman. 1. Chest pain with typical and atypical features. EKG nonacute, with 2 negative troponins. Check echocardiogram and stress test. 2. Recent implantable cardioverter-defibrillator placement at the [facility]. 3. History of a cardiomyopathy (questionable ischemic versus nonischemic). 4. Chronic obstructive pulmonary disease exacerbation. 5. Ongoing tobacco abuse. 6. Hypertension. 7. Hyperlipidemia. PLAN: Check echocardiogram, stress test. Continue current medications including aspirin and statin therapy. The patient is on IV Lasix, agree with this. Continue. Seems to be near euvolemia at this point. Continue IDALIA inhibition as well. We will continue to follow along with you. TID: [id number] RECEIPT: [id number] SBM/EKT/UPE
[2021-02-22] MEDS: IPRATROPIUM/ALBUTEROL SULFATE 3 ML AMPUL.NEB IH SCH ×2 (02:30→07:41)
[2021-02-22] MEDS ORDERED: REGADENOSON 0.4 MG/5 ML INJ IV ONE (07:42)
[2021-02-22] MEDS ORDERED: ALBUTEROL 2.5 MG/3 ML NEBU IH PRN (08:00)
[2021-02-22] MEDS: ASPIRIN 81 MG TAB CHEW PO SCH (10:36)
[2021-02-22] MEDS: allopurinoL 300 MG TAB PO SCH (10:36)
[2021-02-22] MEDS: SPIRONOLACTONE 25 MG TAB PO SCH (10:36)
[2021-02-22] MEDS: LISINOPRIL 5 MG TAB PO SCH (10:36)
[2021-02-22] MEDS: FUROSEMIDE 20 MG/2 ML INJ IV SCH (10:36)
[2021-02-22] MEDS: METOPROLOL SUCCINATE XL 25 MG TAB PO SCH (10:36)
[2021-02-22] MEDS ORDERED: AZITHROMYCIN 250 MG TAB PO SCH (11:00)
[2021-02-22] MEDS: AZITHROMYCIN/NS 500 MG/250 ML 500 MG/250 ML BAG IV SCH (11:10)
[2021-02-22] MEDS: cefTRIAXone/NS 1 GM/50 ML 1 GM/50 ML BAG IV SCH (11:15)
[2021-02-22 11:45] VITALS: BP 132/79
--- NOTE | 2021-02-22 12:49 | Progress Note ---
Assessment and Plan Chest pain in setting of dilated cardiomyopathy with history of AMI * Patient is currently chest pain-free with no cardiac symptoms. Troponins are negative x3. Twelve-lead ECG reviewed shows no acute ischemic changes. AMI is ruled out * Echocardiogram reviewed (02/21/2021): LVEF is 35 to 40%. LV is mildly dilated. LV SF is moderately decreased. Mild LVH. Hypokinesis in the inferior, lateral wall. Mild diastolic dysfunction. RV SF is normal. Pacemaker lead is present in the right ventricle. Pacemaker lead present in the right atrium. Mild to moderate MR. Mild TR. RVSP is 35 mmHg. * Lexiscan MPI stress test (02/22/2021): Is negative for reversible ischemia * Continue GDMT: ASA 81, atorvastatin 40, beta-angie, IDALIA inhibitor. Hypertension * Optimize antihypertensive regimen: Metoprolol XL 100 daily, lisinopril 5 mg daily * Optimize volume control: Lasix 20 mg p.o. daily, discontinue aldosterone. DVT Prophylaxis * Lovenox SQ Patient is currently stable cardiac status. Patient may discharge from cardiology standpoint. Will follow on as-needed basis. Patient should follow-up with CT cardiology within 1 to 2 weeks of discharge. This patient was seen in conjunction with Dr Beasley who agrees with this assessment plan of care - Patient Problems (1) Acute chest pain Current Visit: Yes Status: Acute (2) COPD with acute exacerbation Current Visit: Yes Status: Acute (3) DVT prophylaxis Current Visit: Yes Status: Acute (4) CAD (coronary artery disease) Current Visit: Yes Status: Chronic Subjective Date of service: 02/22/21 Principal diagnosis: Shortness of breath Interval history: Patient resting comfortably in bed. No chest pain or shortness of breath overnight Telemetry reviewed: Sinus rhythm 81. Episode of 3 beat V. tach noted overnight Objective Last Vital Signs Temp 98.0 F 02/22/21 07:24 Pulse 95 H 02/22/21 14:36 Resp 18 02/22/21 14:36 BP 132/79 02/22/21 09:19 Pulse Ox 98 02/22/21 07:48 - Physical Examination General: Appears Well, No Apparent Distress HEENT: Positive: PERRL, Normocephaly, Mucus Membranes Moist Neck: Positive: neck supple, trachea midline Cardiac: Positive: Reg Rate and Rhythm, S1/S2 Lungs: Positive: Normal Exam, Normal Breath Sounds Neuro: Positive: Grossly Intact Abdomen: Positive: Unremarkable, Soft Musculoskeletal: No Pain Extremities: Present: upper extr. pulses, lower extr. pulses. Absent: edema - Imaging and Cardiology EKG: report reviewed, image reviewed Nuclear stress test: report reviewed (Lexiscan MPI stress test (02/22/2021): Negative for reversible ischemia) Pharmacologic stress test: report reviewed Stress echo: report reviewed Echo: report reviewed (Echocardiogram reviewed (02/21/2021): LVEF is 35 to 40%. LV is mildly dilated. LV SF is moderately decreased. Mild LVH. Hypokinesis in the inferior, lateral wall. Mild diastolic dysfunction. RV SF is normal. Pacemaker lead is present in the right ventricle. Pacemaker lead present in the right) - Telemetry EKG Rhythm: Sinus Rhythm - EKG Sinus rhythms and dysrhythmias: sinus rhythm
--- NOTE | 2021-02-22 12:51 | Nuclear Medicine Report ---
APPROVED REPORT Exam: Nuclear Stress Test Indication: Chest pain BMI: 0 Stress Test Details Stress Test: Pharmacologic stress testing performed using 0.4 mg of regadenoson per 5 mL given IV over 10 seconds. HR Resting HR: 71 bpm Max HR Achieved: 96 bpm Max Heart Rate (APMHR): 147 bpm Target HR (85% APMHR): 124 bpm % of APMHR: 65 Recovery HR: 84 bpm HR response to stress: Normal HR response to stress BP Resting BP: 132/77 mmHg Max BP: 141/80 mmHg Recovery BP: 135/78 mmHg BP response to stress: Normal blood pressure response to stress. ECG Resting ECG: Sinus Rhythm Stress ECG: Sinus Rhythm Clinical Reason for Termination: Completed protocol NM EXAM: Myocardial Perfusion REST/STRESS Imaging Protocol: Rest Tc-99m/Stress Tc-99m 1 day Resting Data Rest SPECT myocardial perfusion imaging was performed in supine position 45 minutes following the intravenous injection of 10 mCi of Tc-99m Myoview. Time of rest injection: 0700 Pharmacologic Stress Pharmacologic stress test was performed by injecting Regadenoson 0.4 mg IV push followed by the intravenous injection of 28 mCi of Tc-99m Myoview. Time of stress injection: 0836 Gated Stress SPECT was performed 30 minutes after stress injection. The images were gated to evaluate regional wall motion and calculate left ventricular ejection fraction. Study Data TID = 1.20. Perfusion Wall Motion There is a medium area of hypokinesis in the entire segment of the inferior wall which is seen on the stress images as well as the resting images. Nuclear Conclusion ECG Findings: negative for ischemia Clinical Findings: negative for ischemia Nuclear Findings: negative for ischemia Exercise Capacity: not assessed Left Ventricular Function: abnormal negatie lexiscan ekg, moderate to llarge inferior and inferior apical and inferior lateral infaraction, no signficant ischemia noted, with moderate to severe lv dsyfunction ef 28%, normal perfusion in anterior septal and anterior lateral
[2021-02-22] MEDS ORDERED: IPRATROPIUM/ALBUTEROL SULFATE 3 ML AMPUL.NEB IH SCH (14:00)
--- NOTE | 2021-02-22 16:08 | Discharge Summary ---
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 The symptoms worsen with any exertion. No recent travel or sick contacts at home. He denies any fever, lower extremity swelling, nausea, vomiting, back pain or diaphoresis. In the ER his initial troponin is normal, chest x-ray showed bilateral airspace disease. Patient was admitted, placed on abx, nebulizer breathing treatment and underwent myocardial stress test which was normal. 2D echo showed EF 35 to 40%. Cardiology cleared the patient for discharge and outpatient follow-up. Patient was then discharged home in stable condition with outpatient follow-up. Disposition: [id number] HOME UNDER HOME [facility] Final Discharge Diagnosis (Prints w/discharge instructions): Atypical chest pain, likely from underlying pneumonia. Bilateral pneumonia. Mild COPD exacerbation. chronic CHF with reduced EF, compensated. Ongoing tobacco abuse. Hypertension. hyperlipidemia Time spent for discharge: 34 minutes Core Measure Documentation - Palliative Care Palliative Care/ Comfort Measures: Not Applicable - Core Measures Any of the following diagnoses?: history only Exam - Physical Exam Narrative exam: GENERAL: well-developed and well-nourished elderly -[place] male lying on bed appeared to be in no discomfort. HEENT: Normocephalic. Atraumatic. No conjunctival congestion or icterus. Patient has moist mucous membranes. NECK: Supple. Trachea midline. CHEST/LUNGS: Clear to auscultated bilaterally, breathing nonlabored. No wheezes crackles or rhonchi. HEART/CARDIOVASCULAR: Regular in rate and rhythm. S1 and S2 positive. ABDOMEN: Abdomen is soft, nontender. Patient has normal bowel sounds. SKIN: There is no rash. Warm and dry. NEURO: No focal motor deficit. Follows command. MUSCULOSKELETAL: No joint effusion or tenderness. EXTRIMITY: No edema, no cyanosis or clubbing. PSYCH: Cooperative. - Constitutional Vitals: Temp Pulse Resp BP Pulse Ox 98.0 F 95 H 18 132/79 98 02/22/21 07:24 02/22/21 14:36 02/22/21 14:36 02/22/21 09:19 02/22/21 07:48 Plan Activity: advance as tolerated Weight Bearing Status: Weight Bear as Tolerated Diet: low fat, low salt Additional Instructions: Please compliant with your medications. Follow-up with your blow mold operator in 2 weeks Follow up with: PRIMARY CAREMD [Primary Care Provider] - 7 Days Prescriptions: Azithromycin [Zithromax TAB] 500 mg PO QDAY #3 tablet
[2021-02-23] MEDS ORDERED: FUROSEMIDE 20 MG TAB PO SCH (10:00)
[2021-02-23] MEDS ORDERED: METOPROLOL SUCCINATE XL 100 MG TAB PO SCH (10:00)
--- NOTE | 2021-02-23 11:13 | Electrocardiograph Report ---
Test Date: 2021-02-22 Test Time: 07:52:13 Pat Name: PROSPER TRIPP Department: Room: A477 1 Gender: M Portfolio Analyst: PAMELA : 1950 Requested By: EDIS FITZPATRICK Order Number: [id number] Reading MD: Napoleon Beasley Measurements Intervals [place] Rate: 73 P: 31 VA: 181 QRS: -19 QRSD: 92 T: 88 QT: 455 QTc: 502 Interpretive Statements Sinus rhythm Multiform ventricular premature complexes Nonspecific T abnormalities, lateral leads Compared to ECG 02/20/2021 04:47:32 Ventricular premature complex(es) now present T-wave abnormality now present Electronically Signed On 02-23-2021 11:13:07 EDT by Napoleon Beasley
== END 2021-02-22 18:29 | disposition home or self-care (01) ==
LOC: ED 04:26 → 4A 08:52
PROVIDERS: ADMIT Internal Medicine; ATTEND Internal Medicine
DX: R07.89 Other chest pain (principal); Z20.822 Contact with and (suspected) exposure to COVID-19; I11.0 Hypertensive heart disease with heart failure; I50.9 Heart failure, unspecified; J18.9 Pneumonia, unspecified organism; J44.1 Chronic obstructive pulmonary disease with (acute) exacerbation; I25.2 Old myocardial infarction; I25.10 Atherosclerotic heart disease of native coronary artery without angina pectoris; I42.9 Cardiomyopathy, unspecified; E78.2 Mixed hyperlipidemia; F17.210 Nicotine dependence, cigarettes, uncomplicated; Z79.899 Other long term (current) drug therapy; Z98.890 Other specified postprocedural states; Z79.82 Long term (current) use of aspirin
CPT/HCPCS: 36415; 71046; 78452; 80053; 83880; 84484; 85025; 85610; 93005; 93017; 93306; 94640; 96365; 96366; 96367; 96368; 96372; 96375; 96376; 99285; 99406; A9270; A9502; G0378; J0456; J0696; J1650; J1940; J2785; J2920; U0003; 94644

== ENCOUNTER 2022-02-17 09:48 | Inpatient (IN) | payer OTHER, MEDICARE ==
[2022-02-17] MEDS ORDERED: DEXTROSE 50% IN WATER (25GM) 50 ML SYRINGE IV ONE (09:53)
[2022-02-17] MEDS ORDERED: D5W/0.9% NACL 1,000 ML IV SCH (10:00)
[2022-02-17] MEDS ORDERED: SODIUM CHLORIDE 0.9% 1000 ML IV SOLN IV ONE (10:40)
[2022-02-17 10:51] LABS: Hematocrit 25.5 % (35.5-45.6); Hemoglobin 8.5 gm/dl (11.8-15.2); Mean Corpuscular HGB Conc 33 % (32-34); Mean Corpuscular Volume 88 fl (84-94); Red Blood Count 2.91 M/mm3 (3.65-5.03)
[2022-02-17] MEDS ORDERED: LIP THERAPY VASELINE TP PRN (11:01)
[2022-02-17] MEDS ORDERED: fentaNYL 100 MCG/2 ML INJ IV PRN (11:01)
[2022-02-17] MEDS ORDERED: DOPamine 800 MG/D5W 250ML 800 MG/250 ML BAG IV ONE (11:01)
[2022-02-17] MEDS ORDERED: MINERAL OIL/PETROLATUM, WHITE OPHTH OINT 3.5 GM OU PRN (11:01)
[2022-02-17 11:13] LABS: Albumin 2.1 g/dL (3.9-5); Calcium 7.6 mg/dL (8.4-10.2)
--- NOTE | 2022-02-17 11:21 | XRay Report ---
CHEST 1 VIEW 02/17/2022 10:15 AM INDICATION / CLINICAL INFORMATION: VERIFY TUBE PLACEMENT. COMPARISON: 02/20/2021 FINDINGS: SUPPORT DEVICES: ET tube tip is about 6 cm above the jess. Cardiac ICD lead appears in stable posit ion. HEART / MEDIASTINUM: No significant abnormality. LUNGS / PLEURA: Large right pleural effusion. No pneumothorax. ADDITIONAL FINDINGS: No significant additional findings. Signer Name: Ric Dc MD Signed: 02/17/2022 11:17 AM Workstation Name: [id number]
[2022-02-17 11:23] LABS: Free T4 (Free Thyroxine) 1.35 ng/dL (0.76-1.46)
[2022-02-17 11:28] LABS: Platelet Count 95 K/mm3 (140-440); Red Cell Distribution Width 23.6 % (13.2-15.2)
[2022-02-17] MEDS ORDERED: SODIUM CHLORIDE 0.9% 1000 ML 1,000 ML IV ONE (11:29)
[2022-02-17 11:35] LABS: Creatine Kinase MB 8.1 ng/mL (0.0-4.0)
[2022-02-17 11:51] LABS: Band Neutrophils # (Manual) 0.7 K/mm3; Basophils % (Manual) 0 % (0.0-1.8); Eosinophils % (Manual) 0 % (0.0-4.3); Total Cells Counted 100
[2022-02-17 11:52] LABS: Burr Cells 1+; Spherocytes 1+; Target Cells 1+
[2022-02-17 11:53] LABS: Anisocytosis 2+; Hypochromasia 2+; Platelet Estimate Consistent w Auto; Poikilocytosis 1+
[2022-02-17 11:59] LABS: Chol/HDL Ratio 15.3 %
[2022-02-17] MEDS ORDERED: fentaNYL DRIP Premix 2,000 MCG/100 ML BAG IV SCH ×2 (12:00→15:00)
--- NOTE | 2022-02-17 12:41 | Emergency Department Report ---
ED CPR HPI - General Stated Complaint: CARDIAC ARREST Time Seen by Provider: 02/17/22 10:39 Source: family, EMS Mode of arrival: Stretcher Limitations: Altered Mental Status, Physical Limitation - History of Present Illness Initial Comments: 72-year-old male with a past medical history of dilated cardiomyopathy with history of acute [place], pacemaker, hypertension, COPD, and diabetes presents to the hospital status post cardiopulmonary arrest. Patient became unresponsive while family member was providing her water. EMS reports a bradycardic rhythm in 30s to 40s upon their arrival treated with atropine. Patient developed 2 episodes of V. tach and received 2 defibrillation's at 203 100 J. Patient also received "D 25" for glucose of 69. patient arrives to the hospital with a palpable pulse and spontaneous respirations on a nonrebreather. Patient is unresponsive upon arrival. Initial glucose 15. - Related Data Home Medications Medication Instructions Recorded Confirmed Last Taken Lisinopril [Zestril] 5 mg PO DAILY 09/21/20 02/18/22 1 Day Ago ~02/19/21 Spironolactone [Aldactone] 12.5 mg PO QDAY 09/21/20 02/18/22 1 Day Ago ~02/19/21 Terazosin HCl 2 mg PO HS 09/21/20 02/18/22 1 Day Ago ~02/19/21 allopurinoL [Zyloprim] 150 mg PO QDAY 09/21/20 02/18/22 1 Day Ago ~02/19/21 Acetaminophen [Non-Aspirin Extra 1,000 mg PO TID PRN 02/20/21 02/18/22 Unknown Strength] Albuterol Mdi (or & Nicu Only) 2 puff IH QID PRN 02/20/21 02/18/22 1 Day Ago [ProAir HFA Inhaler] ~02/19/21 Amlodipine Besylate [Norvasc] 2.5 mg PO DAILY 02/20/21 02/18/22 1 Day Ago ~02/19/21 Aspirin EC [Halfprin EC] 81 mg PO QDAY 02/20/21 02/18/22 1 Day Ago ~02/19/21 AtorvaSTATin [Lipitor] 80 mg PO QHS 02/20/21 02/18/22 1 Day Ago ~02/19/21 Benzonatate [Tessalon Perles] 100 mg PO Q6HR PRN 02/20/21 02/18/22 12/28/20 10:00 Furosemide [Lasix TAB] 20 mg PO QDAY PRN 02/20/21 02/18/22 1 Day Ago ~02/19/21 Metoprolol Xl [Metoprolol 100 mg PO QDAY 02/20/21 02/18/22 1 Day Ago SUCCINATE ER TAB] ~02/19/21 Tiotropium [place] [Spiriva 4 gm IH BID 02/20/21 02/18/22 1 Day Ago Respimat] ~02/19/21 hydrOXYzine HCL 50 mg PO TID 02/20/21 02/18/22 1 Day Ago ~02/19/21 Previous Rx's Medication Instructions Recorded Last Taken Type Azithromycin [Zithromax TAB] 500 mg PO QDAY #3 tablet 02/22/21 Unknown Rx Allergies Allergy/AdvReac Type Severity Reaction Status Date / Time aspirin Allergy Unknown Verified 09/21/20 06:40 ED Review of Systems ROS: Stated complaint: CARDIAC ARREST Other details as noted in HPI ED Past Medical Hx - Past Medical History Hx Hypertension: Yes Hx Heart Attack/AMI: Yes Hx COPD: Yes Additional medical history: UNKNOWN - Surgical History Additional Surgical History: vertbrae replacment and hernia - Social History Smoking Status: Current Every Day Smoker - Medications Home Medications: Home Medications Medication Instructions Recorded Confirmed Last Taken Type Lisinopril [Zestril] 5 mg PO DAILY 09/21/20 02/18/22 1 Day Ago History ~02/19/21 Spironolactone [Aldactone] 12.5 mg PO QDAY 09/21/20 02/18/22 1 Day Ago History ~02/19/21 Terazosin HCl 2 mg PO HS 09/21/20 02/18/22 1 Day Ago History ~02/19/21 allopurinoL [Zyloprim] 150 mg PO QDAY 09/21/20 02/18/22 1 Day Ago History ~02/19/21 Acetaminophen [Non-Aspirin Extra 1,000 mg PO TID PRN 02/20/21 02/18/22 Unknown History Strength] Albuterol Mdi (or & Nicu Only) 2 puff IH QID PRN 02/20/21 02/18/22 1 Day Ago History [ProAir HFA Inhaler] ~02/19/21 Amlodipine Besylate [Norvasc] 2.5 mg PO DAILY 02/20/21 02/18/22 1 Day Ago History ~02/19/21 Aspirin EC [Halfprin EC] 81 mg PO QDAY 02/20/21 02/18/22 1 Day Ago History ~02/19/21 AtorvaSTATin [Lipitor] 80 mg PO QHS 02/20/21 02/18/22 1 Day Ago History ~02/19/21 Benzonatate [Tessalon Perles] 100 mg PO Q6HR PRN 02/20/21 02/18/22 12/28/20 10:00 History Furosemide [Lasix TAB] 20 mg PO QDAY PRN 02/20/21 02/18/22 1 Day Ago History ~02/19/21 Metoprolol Xl [Metoprolol 100 mg PO QDAY 02/20/21 02/18/22 1 Day Ago History SUCCINATE ER TAB] ~02/19/21 Tiotropium [place] [Spiriva 4 gm IH BID 02/20/21 02/18/22 1 Day Ago History Respimat] ~02/19/21 hydrOXYzine HCL 50 mg PO TID 02/20/21 02/18/22 1 Day Ago History ~02/19/21 Azithromycin [Zithromax TAB] 500 mg PO QDAY #3 tablet 02/22/21 02/18/22 Unknown Rx ED Course Vital Signs 02/17/22 02/17/22 02/17/22 09:54 10:05 10:41 Temperature 88.5 F L Pulse Rate 78 49 L Pulse Rate [ Femoral] Respiratory 17 Rate Blood Pressure 82/44 Blood Pressure 100/58 [Left] O2 Sat by Pulse 100 Oximetry 02/17/22 02/17/22 02/17/22 12:25 14:32 14:45 Temperature Pulse Rate 58 L 70 73 Pulse Rate [ Femoral] Respiratory 17 18 Rate Blood Pressure 105/49 85/52 Blood Pressure [Left] O2 Sat by Pulse 100 99 99 Oximetry 02/17/22 02/17/22 02/17/22 15:00 15:15 15:30 Temperature Pulse Rate 75 77 79 Pulse Rate [ Femoral] Respiratory 18 18 19 Rate Blood Pressure 80/53 81/54 80/55 Blood Pressure [Left] O2 Sat by Pulse 99 99 98 Oximetry 02/17/22 02/17/22 02/17/22 15:45 16:00 16:15 Temperature Pulse Rate 81 76 79 Pulse Rate [ Femoral] Respiratory 18 19 21 Rate Blood Pressure 78/54 78/53 76/52 Blood Pressure [Left] O2 Sat by Pulse 98 98 96 Oximetry 02/17/22 02/17/22 02/17/22 16:30 16:45 17:00 Temperature Pulse Rate 75 76 78 Pulse Rate [ Femoral] Respiratory 20 20 20 Rate Blood Pressure 78/53 70/49 72/48 Blood Pressure [Left] O2 Sat by Pulse 95 95 92 Oximetry 02/17/22 02/17/22 02/17/22 17:15 17:30 17:45 Temperature Pulse Rate 80 81 81 Pulse Rate [ Femoral] Respiratory 20 20 20 Rate Blood Pressure 72/49 74/51 75/54 Blood Pressure [Left] O2 Sat by Pulse 93 91 Oximetry 02/17/22 02/17/22 02/17/22 18:00 18:15 18:31 Temperature Pulse Rate 81 81 82 Pulse Rate [ Femoral] Respiratory 20 20 20 Rate Blood Pressure 72/50 73/47 Blood Pressure [Left] O2 Sat by Pulse 90 Oximetry 02/17/22 02/17/22 02/17/22 18:45 19:01 19:15 Temperature Pulse Rate 82 82 81 Pulse Rate [ Femoral] Respiratory 20 20 21 Rate Blood Pressure 77/40 71/46 72/50 Blood Pressure [Left] O2 Sat by Pulse Oximetry 02/17/22 02/17/22 02/17/22 19:31 19:45 19:48 Temperature Pulse Rate 81 106 H 106 H Pulse Rate [ Femoral] Respiratory 19 21 Rate Blood Pressure 74/50 73/50 81/56 Blood Pressure [Left] O2 Sat by Pulse 98 Oximetry 02/17/22 02/17/22 02/17/22 20:01 20:15 20:31 Temperature Pulse Rate 106 H 106 H 106 H Pulse Rate [ Femoral] Respiratory 18 20 20 Rate Blood Pressure 77/54 83/57 78/55 Blood Pressure [Left] O2 Sat by Pulse 81 L Oximetry 02/17/22 02/17/22 02/17/22 20:45 21:01 21:15 Temperature Pulse Rate 106 H 106 H 106 H Pulse Rate [ Femoral] Respiratory 19 21 20 Rate Blood Pressure 77/49 77/53 75/50 Blood Pressure [Left] O2 Sat by Pulse Oximetry 02/17/22 02/17/22 02/17/22 21:31 21:45 22:00 Temperature Pulse Rate 106 H 107 H 110 H Pulse Rate [ Femoral] Respiratory 20 20 Rate Blood Pressure 75/50 77/50 Blood Pressure [Left] O2 Sat by Pulse 71 L Oximetry 02/17/22 02/17/22 02/17/22 22:08 22:10 22:15 Temperature Pulse Rate 111 H 110 H Pulse Rate [ 112 H Femoral] Respiratory 21 26 H 23 Rate Blood Pressure 73/47 Blood Pressure [Left] O2 Sat by Pulse 100 Oximetry - Reevaluation(s) Reevaluation #1: 02/17/22 Patient received 2 Amps of D50 and did become more responsive with increase spontaneous movement however, still altered and unable to have a conversation or follow commands. Patient prefer intubation due to persistent alteration mental status, hypotension, and significant bradycardia. Once patient was intubated c entral line was placed. D5 NS was initiated due to persistent hypoglycemia despite 2 Amp of D50. Third amp was provided. 1 mg atropine provided for persistent bradycardia and hypotension. Dopamine was initiated. Cardiology consult obtained at the bedside. Critical care aware - Consultations Consultation #1: 02/17/22 12:52 Case discussed with cardiology Dr. Beasley evaluated patient at the bedside and interviewed family member 02/17/22 14:[address] Ortega critical care MD. will eval, requests to stop propofol and start fentanyl drip - Central Line Placement Right Femoral Consent Obtained: emergent situation Time Out Performed: Yes Patient Placed on Monitor/Pulse Ox: Yes MD Prep: gown, gloves Central Line Prep: Chlorhexidine scrub, sterile drapes applied Ultrasound Used for Placement: No Central Line Lumen Inserted: triple Reason for Insertion: Volume Resuscitation Bloods Obtained for Lab: Yes Central Line Position: good blood return, all ports aspirated, flus, sutured in place with nyl Dressing Applied: Tegaderm Patient Tolerated Procedure: well, no complications Complications: none ED Medical Decision Making - Lab Data Result diagrams: 02/18/22 04:48 02/18/22 04:48 Lab Results 02/17/22 02/17/22 02/17/22 Range/Units 10:01 10:30 10:30 WBC 7.6 (4.5-11.0) K/mm3 RBC 2.91 L (3.65-5.03) M/mm3 Hgb 8.5 L (11.8-15.2) gm/dl Hct 25.5 L (35.5-45.6) % MCV 88 (84-94) fl MCH 29 (28-32) pg MCHC 33 (32-34) % RDW 23.6 H (13.2-15.2) % Plt Count 95 L (140-440) K/mm3 Add Manual Diff Complete Total Counted 100 Seg Neuts % (Manual) 89.0 H (40.0-70.0) % Band Neutrophils % 9.0 % Lymphocytes % (Manual) 1.0 L (13.4-35.0) % Reactive Lymphs % (Man) 0 % Monocytes % (Manual) 1.0 (0.0-7.3) % Eosinophils % (Manual) 0 (0.0-4.3) % Basophils % (Manual) 0 (0.0-1.8) % Metamyelocytes % 0 % Myelocytes % 0 % Promyelocytes % 0 % Blast Cells % 0 % Nucleated RBC % 8.0 H (0.0-0.9) % Seg Neutrophils # Man 6.8 (1.8-7.7) K/mm3 Band Neutrophils # 0.7 K/mm3 Lymphocytes # (Manual) 0.1 L (1.2-5.4) K/mm3 Abs React Lymphs (Man) 0.0 K/mm3 Monocytes # (Manual) 0.1 (0.0-0.8) K/mm3 Eosinophils # (Manual) 0.0 (0.0-0.4) K/mm3 Basophils # (Manual) 0.0 (0.0-0.1) K/mm3 Metamyelocytes # 0.0 K/mm3 Myelocytes # 0.0 K/mm3 Promyelocytes # 0.0 K/mm3 Blast Cells # 0.0 K/mm3 WBC Morphology Not Reportable Hypersegmented Neuts Not Reportable Hyposegmented Neuts Not Reportable Hypogranular Neuts Not Reportable Smudge Cells Not Reportable Toxic Granulation Not Reportable Toxic Vacuolation Not Reportable Dohle Bodies Not Reportable Pelger-Huet Anomaly Not Reportable Henry Rods Not Reportable Platelet Estimate Consistent w auto Clumped Platelets Not Reportable Plt Clumps, EDTA Not Reportable Large Platelets Not Reportable Giant Platelets Not Reportable Platelet Satelliting Not Reportable Plt Morphology Comment Not Reportable RBC Morphology Not Reportable Dimorphic RBCs Not Reportable Polychromasia Not Reportable Hypochromasia 2+ Poikilocytosis 1+ Anisocytosis 2+ Microcytosis Not Reportable Macrocytosis Not Reportable Spherocytes 1+ Pappenheimer Bodies Not Reportable Sickle Cells Not Reportable Target Cells 1+ Tear Drop Cells Not Reportable Ovalocytes Not Reportable Helmet Cells Not Reportable [place] Bodies Not Reportable [place] Rings Not Reportable Emi Cells 1+ Bite Cells Not Reportable Crenated Cell Not Reportable Elliptocytes Not Reportable Acanthocytes (Spur) Not Reportable Rouleaux Not Reportable Hemoglobin C Crystals Not Reportable Schistocytes Not Reportable Malaria parasites Not Reportable Antoine Bodies Not Reportable Hem Pathologist Commnt No APTT 72.8 H* (24.2-36.6) Sec. ABG pH (7.350-7.450) pH Units ABG pCO2 mm Hg ABG pO2 (80.0-90.0) mm Hg ABG HCO3 (20.0-26.0) mmol/L ABG O2 Saturation (95.0-99.0) % ABG O2 Content (0.0-44) ABG Base Excess (-2.0-3.0) mmol/L ABG Hemoglobin (14.0-18.0) gm/dl ABG Carboxyhemoglobin (0.0-5.0) % ABG Methemoglobin (0.0-1.5) % Oxyhemoglobin (95.0-99.0) % FiO2 % Sodium (137-145) mmol/L Potassium (3.6-5.0) mmol/L Chloride (98-107) mmol/L Carbon Dioxide (22-30) mmol/L Anion Gap mmol/L BUN (9-20) mg/dL Creatinine (0.8-1.3) mg/dL Estimated GFR ml/min BUN/Creatinine Ratio % Glucose (75-100) mg/dL POC Glucose 15 L (70-105) mg/dL Lactic Acid (0.7-2.0) mmol/L Calcium (8.4-10.2) mg/dL Total Bilirubin (0.1-1.2) mg/dL AST (5-40) units/L ALT (7-56) units/L Alkaline Phosphatase (35-129) units/L Total Creatine Kinase (55-170) units/L CK-MB (CK-2) (0.0-4.0) ng/mL CK-MB (CK-2) Rel Index (0-4) Troponin T (0.00-0.029) ng/mL Total Protein (6.3-8.2) g/dL Albumin (3.9-5) g/dL Albumin/Globulin Ratio % Triglycerides (2-149) mg/dL Cholesterol (50-199) mg/dL LDL Cholesterol Direct (50-130) mg/dL HDL Cholesterol (40-59) mg/dL Cholesterol/HDL Ratio % TSH (0.270-4.200) mlU/mL Free T4 (0.76-1.46) ng/dL 02/17/22 02/17/22 02/17/22 Range/Units 10:30 10:30 10:30 WBC (4.5-11.0) K/mm3 RBC (3.65-5.03) M/mm3 Hgb (11.8-15.2) gm/dl Hct (35.5-45.6) % MCV (84-94) fl MCH (28-32) pg MCHC (32-34) % RDW (13.2-15.2) % Plt Count (140-440) K/mm3 Add Manual Diff Total Counted Seg Neuts % (Manual) (40.0-70.0) % Band Neutrophils % % Lymphocytes % (Manual) (13.4-35.0) % Reactive Lymphs % (Man) % Monocytes % (Manual) (0.0-7.3) % Eosinophils % (Manual) (0.0-4.3) % Basophils % (Manual) (0.0-1.8) % Metamyelocytes % % Myelocytes % % Promyelocytes % % Blast Cells % % Nucleated RBC % (0.0-0.9) % Seg Neutrophils # Man (1.8-7.7) K/mm3 Band Neutrophils # K/mm3 Lymphocytes # (Manual) (1.2-5.4) K/mm3 Abs React Lymphs (Man) K/mm3 Monocytes # (Manual) (0.0-0.8) K/mm3 Eosinophils # (Manual) (0.0-0.4) K/mm3 Basophils # (Manual) (0.0-0.1) K/mm3 Metamyelocytes # K/mm3 Myelocytes # K/mm3 Promyelocytes # K/mm3 Blast Cells # K/mm3 WBC Morphology Hypersegmented Neuts Hyposegmented Neuts Hypogranular Neuts Smudge Cells Toxic Granulation Toxic Vacuolation Dohle Bodies Pelger-Huet Anomaly Henry Rods Platelet Estimate Clumped Platelets Plt Clumps, EDTA Large Platelets Giant Platelets Platelet Satelliting Plt Morphology Comment RBC Morphology Dimorphic RBCs Polychromasia Hypochromasia Poikilocytosis Anisocytosis Microcytosis Macrocytosis Spherocytes Pappenheimer Bodies Sickle Cells Target Cells Tear Drop Cells Ovalocytes Helmet Cells [place] Bodies [place] Rings Emi Cells Bite Cells Crenated Cell Elliptocytes Acanthocytes (Spur) Rouleaux Hemoglobin C Crystals Schistocytes Malaria parasites Antoine Bodies Hem Pathologist Commnt APTT (24.2-36.6) Sec. ABG pH (7.350-7.450) pH Units ABG pCO2 mm Hg ABG pO2 (80.0-90.0) mm Hg ABG HCO3 (20.0-26.0) mmol/L ABG O2 Saturation (95.0-99.0) % ABG O2 Content (0.0-44) ABG Base Excess (-2.0-3.0) mmol/L ABG Hemoglobin (14.0-18.0) gm/dl ABG Carboxyhemoglobin (0.0-5.0) % ABG Methemoglobin (0.0-1.5) % Oxyhemoglobin (95.0-99.0) % FiO2 % Sodium 140 (137-145) mmol/L Potassium 4.9 (3.6-5.0) mmol/L Chloride 106.6 (98-107) mmol/L Carbon Dioxide 15 L (22-30) mmol/L Anion Gap 23 mmol/L BUN 54 H (9-20) mg/dL Creatinine 4.0 H (0.8-1.3) mg/dL Estimated GFR 18 ml/min BUN/Creatinine Ratio 14 % Glucose 290 H (75-100) mg/dL POC Glucose (70-105) mg/dL Lactic Acid 5.70 H* (0.7-2.0) mmol/L Calcium 7.6 L (8.4-10.2) mg/dL Total Bilirubin 6.10 H (0.1-1.2) mg/dL AST 176 H (5-40) units/L ALT 45 (7-56) units/L Alkaline Phosphatase 111 (35-129) units/L Total Creatine Kinase (55-170) units/L CK-MB (CK-2) (0.0-4.0) ng/mL CK-MB (CK-2) Rel Index (0-4) Troponin T 0.167 H* (0.00-0.029) ng/mL Total Protein 4.9 L (6.3-8.2) g/dL Albumin 2.1 L (3.9-5) g/dL Albumin/Globulin Ratio 0.8 % Triglycerides 63 (2-149) mg/dL Cholesterol 153 (50-199) mg/dL LDL Cholesterol Direct 122 (50-130) mg/dL HDL Cholesterol 10 L (40-59) mg/dL Cholesterol/HDL Ratio 15.30 % TSH 10.950 H (0.270-4.200) mlU/mL Free T4 1.35 (0.76-1.46) ng/dL 02/17/22 02/17/22 02/17/22 Range/Units 11:10 12:00 12:45 WBC (4.5-11.0) K/mm3 RBC (3.65-5.03) M/mm3 Hgb (11.8-15.2) gm/dl Hct (35.5-45.6) % MCV (84-94) fl MCH (28-32) pg MCHC (32-34) % RDW (13.2-15.2) % Plt Count (140-440) K/mm3 Add Manual Diff Total Counted Seg Neuts % (Manual) (40.0-70.0) % Band Neutrophils % % Lymphocytes % (Manual) (13.4-35.0) % Reactive Lymphs % (Man) % Monocytes % (Manual) (0.0-7.3) % Eosinophils % (Manual) (0.0-4.3) % Basophils % (Manual) (0.0-1.8) % Metamyelocytes % % Myelocytes % % Promyelocytes % % Blast Cells % % Nucleated RBC % (0.0-0.9) % Seg Neutrophils # Man (1.8-7.7) K/mm3 Band Neutrophils # K/mm3 Lymphocytes # (Manual) (1.2-5.4) K/mm3 Abs React Lymphs (Man) K/mm3 Monocytes # (Manual) (0.0-0.8) K/mm3 Eosinophils # (Manual) (0.0-0.4) K/mm3 Basophils # (Manual) (0.0-0.1) K/mm3 Metamyelocytes # K/mm3 Myelocytes # K/mm3 Promyelocytes # K/mm3 Blast Cells # K/mm3 WBC Morphology Hypersegmented Neuts Hyposegmented Neuts Hypogranular Neuts Smudge Cells Toxic Granulation Toxic Vacuolation Dohle Bodies Pelger-Huet Anomaly Henry Rods Platelet Estimate Clumped Platelets Plt Clumps, EDTA Large Platelets Giant Platelets Platelet Satelliting Plt Morphology Comment RBC Morphology Dimorphic RBCs Polychromasia Hypochromasia Poikilocytosis Anisocytosis Microcytosis Macrocytosis Spherocytes Pappenheimer Bodies Sickle Cells Target Cells Tear Drop Cells Ovalocytes Helmet Cells [place] Bodies [place] Rings Emi Cells Bite Cells Crenated Cell Elliptocytes Acanthocytes (Spur) Rouleaux Hemoglobin C Crystals Schistocytes Malaria parasites [place]ione Bodies Hem Pathologist Commnt APTT (24.2-36.6) Sec. ABG pH 7.304 L (7.350-7.450) pH Units ABG pCO2 27.1 mm Hg ABG pO2 289.8 H (80.0-90.0) mm Hg ABG HCO3 13.1 L (20.0-26.0) mmol/L ABG O2 Saturation 99.5 H (95.0-99.0) % ABG O2 Content 14.3 (0.0-44) ABG Base Excess -11.9 L (-2.0-3.0) mmol/L ABG Hemoglobin 9.9 L (14.0-18.0) gm/dl ABG Carboxyhemoglobin 1.4 (0.0-5.0) % ABG Methemoglobin 0.5 (0.0-1.5) % Oxyhemoglobin 97.5 (95.0-99.0) % FiO2 100 % Sodium (137-145) mmol/L Potassium (3.6-5.0) mmol/L Chloride (98-107) mmol/L Carbon Dioxide (22-30) mmol/L Anion Gap mmol/L BUN (9-20) mg/dL Creatinine (0.8-1.3) mg/dL Estimated GFR ml/min BUN/Creatinine Ratio % Glucose (75-100) mg/dL POC Glucose 233 H 226 H (70-105) mg/dL Lactic Acid (0.7-2.0) mmol/L Calcium (8.4-10.2) mg/dL Total Bilirubin (0.1-1.2) mg/dL AST (5-40) units/L ALT (7-56) units/L Alkaline Phosphatase (35-129) units/L Total Creatine Kinase (55-170) units/L CK-MB (CK-2) (0.0-4.0) ng/mL CK-MB (CK-2) Rel Index (0-4) Troponin T (0.00-0.029) ng/mL Total Protein (6.3-8.2) g/dL Albumin (3.9-5) g/dL Albumin/Globulin Ratio % Triglycerides (2-149) mg/dL Cholesterol (50-199) mg/dL LDL Cholesterol Direct (50-130) mg/dL HDL Cholesterol (40-59) mg/dL Cholesterol/HDL Ratio % TSH (0.270-4.200) mlU/mL Free T4 (0.76-1.46) ng/dL // Range/Units Unknown WBC (4.5-11.0) K/mm3 RBC (3.65-5.03) M/mm3 Hgb (11.8-15.2) gm/dl Hct (35.5-45.6) % MCV (84-94) fl MCH (28-32) pg MCHC (32-34) % RDW (13.2-15.2) % Plt Count (140-440) K/mm3 Add Manual Diff Total Counted Seg Neuts % (Manual) (40.0-70.0) % Band Neutrophils % % Lymphocytes % (Manual) (13.4-35.0) % Reactive Lymphs % (Man) % Monocytes % (Manual) (0.0-7.3) % Eosinophils % (Manual) (0.0-4.3) % Basophils % (Manual) (0.0-1.8) % Metamyelocytes % % Myelocytes % % Promyelocytes % % Blast Cells % % Nucleated RBC % (0.0-0.9) % Seg Neutrophils # Man (1.8-7.7) K/mm3 Band Neutrophils # K/mm3 Lymphocytes # (Manual) (1.2-5.4) K/mm3 Abs React Lymphs (Man) K/mm3 Monocytes # (Manual) (0.0-0.8) K/mm3 Eosinophils # (Manual) (0.0-0.4) K/mm3 Basophils # (Manual) (0.0-0.1) K/mm3 Metamyelocytes # K/mm3 Myelocytes # K/mm3 Promyelocytes # K/mm3 Blast Cells # K/mm3 WBC Morphology Hypersegmented Neuts Hyposegmented Neuts Hypogranular Neuts Smudge Cells Toxic Granulation Toxic Vacuolation Dohle Bodies Pelger-Huet Anomaly Henry Rods Platelet Estimate Clumped Platelets Plt Clumps, EDTA Large Platelets Giant Platelets Platelet Satelliting Plt Morphology Comment RBC Morphology Dimorphic RBCs Polychromasia Hypochromasia Poikilocytosis Anisocytosis Microcytosis Macrocytosis Spherocytes Pappenheimer Bodies Sickle Cells Target Cells Tear Drop Cells Ovalocytes Helmet Cells [place] Bodies [place] Rings [place] Cells Bite Cells Crenated Cell Elliptocytes Acanthocytes (Spur) Rouleaux Hemoglobin C Crystals Schistocytes Malaria parasites Antoine Bodies Hem Pathologist Commnt APTT (24.2-36.6) Sec. ABG pH (7.350-7.450) pH Units ABG pCO2 mm Hg ABG pO2 (80.0-90.0) mm Hg ABG HCO3 (20.0-26.0) mmol/L ABG O2 Saturation (95.0-99.0) % ABG O2 Content (0.0-44) ABG Base Excess (-2.0-3.0) mmol/L ABG Hemoglobin (14.0-18.0) gm/dl ABG Carboxyhemoglobin (0.0-5.0) % ABG Methemoglobin (0.0-1.5) % Oxyhemoglobin (95.0-99.0) % FiO2 % Sodium (137-145) mmol/L Potassium (3.6-5.0) mmol/L Chloride (98-107) mmol/L Carbon Dioxide (22-30) mmol/L Anion Gap mmol/L BUN (9-20) mg/dL Creatinine (0.8-1.3) mg/dL Estimated GFR ml/min BUN/Creatinine Ratio % Glucose (75-100) mg/dL POC Glucose (70-105) mg/dL Lactic Acid (0.7-2.0) mmol/L Calcium (8.4-10.2) mg/dL Total Bilirubin (0.1-1.2) mg/dL AST (5-40) units/L ALT (7-56) units/L Alkaline Phosphatase (35-129) units/L Total Creatine Kinase 171 H (55-170) units/L CK-MB (CK-2) 8.1 H (0.0-4.0) ng/mL CK-MB (CK-2) Rel Index 4.7 H (0-4) Troponin T (0.00-0.029) ng/mL Total Protein (6.3-8.2) g/dL Albumin (3.9-5) g/dL Albumin/Globulin Ratio % Triglycerides (2-149) mg/dL Cholesterol (50-199) mg/dL LDL Cholesterol Direct (50-130) mg/dL HDL Cholesterol (40-59) mg/dL Cholesterol/HDL Ratio % TSH (0.270-4.200) mlU/mL Free T4 (0.76-1.46) ng/dL - EKG Data -: EKG Interpreted by Me (Nonspecific intraventricular delay) EKG shows normal: sinus rhythm, intervals (QTC 584), QRS complexes (QRS duration 112), ST-T waves (No STEMI) Rate: bradycardia (44) - Radiology Data Radiology results: report reviewed CHEST 1 VIEW 02/17/2022 10:15 AM INDICATION / CLINICAL INFORMATION: VERIFY TUBE PLACEMENT. COMPARISON: 02/20/2021 FINDINGS: SUPPORT DEVICES: ET tube tip is about 6 cm above the jess. Cardiac ICD lead appears in stable position. HEART / MEDIASTINUM: No significant abnormality. LUNGS / PLEURA: Large right pleural effusion. No pneumothorax. ADDITIONAL FINDINGS: No significant additional findings. - Medical Decision Making 72-year-old male presents to the hospital cardiopulmonary arrest with ROSC return of spontaneous circulation. Patient has bradycardia currently on pulses IV tach requiring defibrillation. With stabilization efforts in the ED. Patient required multiple doses of D50 with initiation of D5 drip, active warming for hypothermia, and vasopressor support. Cardiology and critical care involved in care. Family seems agreeable to signing DNR Critical Care Time: Yes Critical care time in (mins) excluding proc time.: 45 Critical care attestation.: If time is entered above; I have spent that time in minutes in the direct care of this critically ill patient, excluding procedure time. Critical Care Time: 45 Minutes of critical care time excluding procedures were used in the care of the patient. I came immediately to the bedside upon patient's arrival. I obtained history from EMS at the bedside. I discussed treatment plan with the nursing team members. I reviewed electronic record. I spoke with family to obtain medical history. Patient required multiple interventions and reassessments. Spoke with hospitalist and consultants for collaborative care ED Disposition Clinical Impression: Cardiopulmonary arrest, Pleural effusion, right, Hypoglycemia, Acute renal failure, Shock, Hypothermia Disposition: 09 ADMITTED INPATIENT Is pt being admited?: Yes Condition: Stable
[2022-02-17 13:01] LABS: ABG Base Excess -11.9 mmol/L (-2.0-3.0); ABG HCO3 13.1 mmol/L (20.0-26.0); ABG Methemoglobin 0.5 % (0.0-1.5); ABG Oxygen Saturation 99.5 % (95.0-99.0); ABG PCO2 27.1 mm Hg; ABG PH 7.304 pH Units (7.350-7.450)
[2022-02-17 13:02] LABS: ABG PO2 289.8 mm Hg (80.0-90.0)
--- NOTE | 2022-02-17 13:43 | History and Physical Report ---
History of Present Illness Chief complaint: Unresponsive History of present illness: 72 YO Male with HTN, COPD, DM, Malnutrition, Debility, Vascular Dementia, Cerebral Atherosclerosis, End Stage CHF(EF 35%) NYHA Class IV, MO, Nicotine Dependence, HLD, Gout presents to ED for evaluation. Patient is intubated and on ventilatory support at the time my evaluation and is unable to provide history. Patient history provided by EMS staff, ED staff, as well as the patient's who is at bedside during exam and interview. As per the patient became unresponsive today. EMS was notified and upon arrival the patie nt was found to be in distress and subsequently transported to [facility] for further care and evaluation of the aforementioned symptoms. During transport the patient was found to have V. tach with subsequent asystolic arrest. Patient treated" with ACLS protocol with eventual return of perfusing cardiac rhythm. Patient again developed asystolic arrest and was treated" with ACLS protocol with an additional return to perfusing cardiac rhythm. Patient seen and evaluated in the emergency department. All lab and imaging studies reviewed. Patient found to have acute hypoxemic respiratory failure and was subsequently intubated and placed on ventilatory support, cardiac arrest complicated by cardiogenic shock, lactic acidosis, metabolic encephalopathy, ATN with ATN, with suspected anoxic encephalopathy. Patient found to have clinical symptoms consistent with multiple organ system failure. Patient found to have a poor prognosis. Patient admitted to ICU due to to increased risk of worsening sy mptoms and cardiopulmonary decompensation. Critical care team consulted in ED. Cardiology team consulted. No reports of fever, chills, chest pain, palpitation, productive cough, skin rash, recent contact, known exposure to COVID-19. Prior admission on 02/20/2021 reviewed. All medication listed at time of admission has been reconciled. Advanced care planning conducted in ED. Past History Past Medical History: COPD, diabetes, heart failure, hypertension, hyperlipidemia Past Surgical History: hernia repair, Other (Back surgery) Social history: , lives with family, alcohol abuse Family history: diabetes, hypertension Medications and Allergies Allergies Allergy/AdvReac Type Severity Reaction Status Date / Time aspirin Allergy Unknown Verified 09/21/20 06:40 Home Medications Medication Instructions Recorded Confirmed Last Taken Type Lisinopril [Zestril] 5 mg PO DAILY 09/21/20 02/20/21 1 Day Ago History ~02/19/21 Spironolactone [Aldactone] 12.5 mg PO QDAY 09/21/20 02/20/21 1 Day Ago History ~02/19/21 Terazosin HCl 2 mg PO HS 09/21/20 02/20/21 1 Day Ago History ~02/19/21 allopurinoL [Zyloprim] 150 mg PO QDAY 09/21/20 02/20/21 1 Day Ago History ~02/19/21 Acetaminophen [Non-Aspirin Extra 1,000 mg PO TID PRN 02/20/21 02/20/21 Unknown History Strength] Albuterol Mdi (or & Nicu Only) 2 puff IH QID PRN 02/20/21 02/20/21 1 Day Ago History [ProAir HFA Inhaler] ~02/19/21 Amlodipine Besylate [Norvasc] 2.5 mg PO DAILY 02/20/21 02/20/21 1 Day Ago History ~02/19/21 Aspirin EC [Halfprin EC] 81 mg PO QDAY 02/20/21 02/20/21 1 Day Ago History ~02/19/21 AtorvaSTATin [Lipitor] 80 mg PO QHS 02/20/21 02/20/21 1 Day Ago History ~02/19/21 Benzonatate [Tessalon Perles] 100 mg PO Q6HR PRN 02/20/21 02/20/21 12/28/20 10: 00 History Furosemide [Lasix TAB] 20 mg PO QDAY PRN 02/20/21 02/20/21 1 Day Ago History ~02/19/21 Metoprolol Xl [Metoprolol 100 mg PO QDAY 02/20/21 02/20/21 1 Day Ago History SUCCINATE ER TAB] ~02/19/21 Tiotropium [place] [Spiriva 4 gm IH BID 02/20/21 02/20/21 1 Day Ago History Respimat] ~02/19/21 hydrOXYzine HCL 50 mg PO TID 02/20/21 02/20/21 1 Day Ago History ~02/19/21 Azithromycin [Zithromax TAB] 500 mg PO QDAY #3 tablet 02/22/21 Unknown Rx Active Meds: Active Medications Famotidine (Famotidine 20 Mg/2 Ml Inj) 20 mg IV BID LAKISHA Fentanyl (Fentanyl 100 Mcg/2 Ml Inj) 50 mcg IV Q10MIN PRN PRN Reason: ANALGESIA Hydrophilic Ointment (Lip Therapy Vaseline) 1 applic TP Q2HR PRN PRN Reason: Dry Lips Dextrose/Sodium Chloride (D5ns) 1,000 mls @ 150 mls/hr IV DIRECT LAKISHA Dopamine HCl/Dextrose (Dopamine 800 Mg/D5w 250ml) 800 mg in 250 mls @ 2.041 mls/hr IV TITR ONE; Protocol Stop: 02/22/22 13:30 Sodium Chloride (Nacl 0.9% 1000 Ml) 1,000 mls @ 250 mls/hr IV ONCE ONE Stop: 02/17/22 15:28 Propofol (Diprivan 10 Mg/Ml) 1,000 mg in 100 mls @ 1.633 mls/hr IV TITR LAKISHA; Protocol Last Admin: 02/17/22 12:26 Dose: 5 mcg/kg/min, 1.633 mls/hr Multi-Ingred Cream/Lotion/Oil/Oint (Mineral Oil/Petrolatum, White Ophth Oint 3.5 Gm) 1 applic OU Q4HR PRN PRN Reason: Dry Eye(s) Senna/Docusate Sodium (Sennosides/Docusate Sodium 8.6/50 Mg Tab) 1 tab FEEDTUBE BID LAKISHA Review of Systems ROS unobtainable: due to endotracheal tube, due to mental status Exam - Constitutional Vitals: Temp Pulse Resp BP Pulse Ox 58 L 17 105/49 100 02/17/22 12:25 02/17/22 09:54 02/17/22 12:25 02/17/22 12:25 General appearance: Present: severe distress - EENT Eyes: Present: miosis ENT: hearing decreased - Neck Neck: Present: supple, normal ROM, masses or JVD - Respiratory Respiratory effort: labored Respiratory: bilateral: diminished - Cardiovascular Rhythm: other (Bradycardia) - Extremities Extremity abnormal: edema Peripheral Pulses: abnormal - Abdominal General gastrointestinal: Present: soft, non-tender, non-distended - Integumentary Integumentary: Present: clear, dry - Musculoskeletal Musculoskeletal: generalized weakness - Psychiatric Psychiatric: no appropriate mood/affect, no intact judgment & insight, no memory intact - Neurologic Neurologic: CNII-XII intact, no focal deficits, no gait normal HEART Score - HEART Score Troponin: Troponin T 0.167 ng/mL (0.00-0.029) H* 02/17/22 10:30 Results - Labs CBC & Chem 7: 02/17/22 10:30 02/17/22 10:30 Labs: Abnormal lab results 02/17/22 02/17/22 02/17/22 Range/Units 10:01 10:30 10:30 RBC 2.91 L (3.65-5.03) M/mm3 Hgb 8.5 L (11.8-15.2) gm/dl Hct 25.5 L (35.5-45.6) % RDW 23.6 H (13.2-15.2) % Plt Count 95 L (140-440) K/mm3 Seg Neuts % (Manual) 89.0 H (40.0-70.0) % Lymphocytes % (Manual) 1.0 L (13.4-35.0) % Nucleated RBC % 8.0 H (0.0-0.9) % Lymphocytes # (Manual) 0.1 L (1.2-5.4) K/mm3 APTT 72.8 H* (24.2-36.6) Sec. ABG pH (7.350-7.450) pH Units ABG pO2 (80.0-90.0) mm Hg ABG HCO3 (20.0-26.0) mmol/L ABG O2 Saturation (95.0-99.0) % ABG Base Excess (-2.0-3.0) mmol/L ABG Hemoglobin (14.0-18.0) gm/dl Carbon Dioxide (22-30) mmol/L BUN (9-20) mg/dL Creatinine (0.8-1.3) mg/dL Glucose (75-100) mg/dL POC Glucose 15 L (70-105) mg/dL Lactic Acid (0.7-2.0) mmol/L Calcium (8.4-10.2) mg/dL Total Bilirubin (0.1-1.2) mg/dL AST (5-40) units/L Total Creatine Kinase (55-170) units/L CK-MB (CK-2) (0.0-4.0) ng/mL CK-MB (CK-2) Rel Index (0-4) Troponin T (0.00-0.029) ng/mL Total Protein (6.3-8.2) g/dL Albumin (3.9-5) g/dL HDL Cholesterol (40-59) mg/dL TSH (0.270-4.200) mlU/mL 02/17/22 02/17/22 02/17/22 Range/Units 10:30 10:30 10:30 RBC (3.65-5.03) M/mm3 Hgb (11.8-15.2) gm/dl Hct (35.5-45.6) % RDW (13.2-15.2) % Plt Count (140-440) K/mm3 Seg Neuts % (Manual) (40.0-70.0) % Lymphocytes % (Manual) (13.4-35.0) % Nucleated RBC % (0.0-0.9) % Lymphocytes # (Manual) (1.2-5.4) K/mm3 APTT (24.2-36.6) Sec. ABG pH (7.350-7.450) pH Units ABG pO2 (80.0-90.0) mm Hg ABG HCO3 (20.0-26.0) mmol/L ABG O2 Saturation (95.0-99.0) % ABG Base Excess (-2.0-3.0) mmol/L ABG Hemoglobin (14.0-18.0) gm/dl Carbon Dioxide 15 L (22-30) mmol/L BUN 54 H (9-20) mg/dL Creatinine 4.0 H (0.8-1.3) mg/dL Glucose 290 H (75-100) mg/dL POC Glucose (70-105) mg/dL Lactic Acid 5.70 H* (0.7-2.0) mmol/L Calcium 7.6 L (8.4-10.2) mg/dL Total Bilirubin 6.10 H (0.1-1.2) mg/dL AST 176 H (5-40) units/L Total Creatine Kinase (55-170) units/L CK-MB (CK-2) (0.0-4.0) ng/mL CK-MB (CK-2) Rel Index (0-4) Troponin T 0.167 H* (0.00-0.029) ng/mL Total Protein 4.9 L (6.3-8.2) g/dL Albumin 2.1 L (3.9-5) g/dL HDL Cholesterol 10 L (40-59) mg/dL TSH 10.950 H (0.270-4.200) mlU/mL 02/17/22 02/17/22 02/17/22 Range/Units 11:10 12:00 12:45 RBC (3.65-5.03) M/mm3 Hgb (11.8-15.2) gm/dl Hct (35.5-45.6) % RDW (13.2-15.2) % Plt Count (140-440) K/mm3 Seg Neuts % (Manual) (40.0-70.0) % Lymphocytes % (Manual) (13.4-35.0) % Nucleated RBC % (0.0-0.9) % Lymphocytes # (Manual) (1.2-5.4) K/mm3 APTT (24.2-36.6) Sec. ABG pH 7.304 L (7.350-7.450) pH Units ABG pO2 289.8 H (80.0-90.0) mm Hg ABG HCO3 13.1 L (20.0-26.0) mmol/L ABG O2 Saturation 99.5 H (95.0-99.0) % ABG Base Excess -11.9 L (-2.0-3.0) mmol/L ABG Hemoglobin 9.9 L (14.0-18.0) gm/dl Carbon Dioxide (22-30) mmol/L BUN (9-20) mg/dL Creatinine (0.8-1.3) mg/dL Glucose (75-100) mg/dL POC Glucose 233 H 226 H (70-105) mg/dL Lactic Acid (0.7-2.0) mmol/L Calcium (8.4-10.2) mg/dL Total Bilirubin (0.1-1.2) mg/dL AST (5-40) units/L Total Creatine Kinase (55-170) units/L CK-MB (CK-2) (0.0-4.0) ng/mL CK-MB (CK-2) Rel Index (0-4) Troponin T (0.00-0.029) ng/mL Total Protein (6.3-8.2) g/dL Albumin (3.9-5) g/dL HDL Cholesterol (40-59) mg/dL TSH (0.270-4.200) mlU/mL 02/17/22 Range/Units Unknown RBC (3.65-5.03) M/mm3 Hgb (11.8-15.2) gm/dl Hct (35.5-45.6) % RDW (13.2-15.2) % Plt Count (140-440) K/mm3 Seg Neuts % (Manual) (40.0-70.0) % Lymphocytes % (Manual) (13.4-35.0) % Nucleated RBC % (0.0-0.9) % Lymphocytes # (Manual) (1.2-5.4) K/mm3 APTT (24.2-36.6) Sec. ABG pH (7.350-7.450) pH Units ABG pO2 (80.0-90.0) mm Hg ABG HCO3 (20.0-26.0) mmol/L ABG O2 Saturation (95.0-99.0) % ABG Base Excess (-2.0-3.0) mmol/L ABG Hemoglobin (14.0-18.0) gm/dl Carbon Dioxide (22-30) mmol/L BUN (9-20) mg/dL Creatinine (0.8-1.3) mg/dL Glucose (75-100) mg/dL POC Glucose (70-105) mg/dL Lactic Acid (0.7-2.0) mmol/L Calcium (8.4-10.2) mg/dL Total Bilirubin (0.1-1.2) mg/dL AST (5-40) units/L Total Creatine Kinase 171 H (55-170) units/L CK-MB (CK-2) 8.1 H (0.0-4.0) ng/mL CK-MB (CK-2) Rel Index 4.7 H (0-4) Troponin T (0.00-0.029) ng/mL Total Protein (6.3-8.2) g/dL Albumin (3.9-5) g/dL HDL Cholesterol (40-59) mg/dL TSH (0.270-4.200) mlU/mL Assessment and Plan - Patient Problems (1) Acute respiratory failure Status: Acute Qualifiers: Respiratory failure complication: hypoxia Qualified Code(s): J96.01 - Acute respiratory failure with hypoxia Plan to address problem: Patient intubated and ambulatory support: Wean vent as tolerated, daily spontaneous breathing trial, daily arterial blood gas, chest x-ray, supplemental oxygen, pulse oximetry, sedation holiday, The high probability of a clinically significant, sudden or life threatening deterioration of the [cardiac, pulmonary, renal, neuro] system(s) required my full and direct attention, intervention and personal management. The aggregate critical care time was [95] minutes. This time is in addition to time spent performing reported procedures but includes the following: [x] Data Review and interpretation [x] Patient assessment and monitoring of vital signs [x] Documentation [x] Medication orders and management (2) Cardiac arrest Status: Acute Plan to address problem: Patient treated" with ACLS protocol with eventual return of perfusing cardiac rhythm. (3) Cardiogenic shock Status: Acute Plan to address problem: IV fluid resuscitation therapy, IV pressor support, continue supportive care as per family request. (4) Lactic acidosis Status: Acute Plan to address problem: IV fluid resuscitation therapy, BMP, repeat BMP in AM. (5) Acute kidney injury (DIMPLE) with acute tubular necrosis (ATN) Status: Acute Plan to address problem: IV fluid resuscitation therapy, BMP, repeat BMP in AM. Continue medical management. Monitor urine output every shift, monitor fluid balance. (6) Malnutrition Status: Acute Qualifiers: Malnutrition type: protein-calorie malnutrition Protein-calorie malnutrition severity: moderate Qualified Code(s): E44.0 - Moderate protein- calorie malnutrition Plan to address problem: Encourage increased protein intake, dietary supplementation if/when awake and alert only. (7) Nicotine dependence Status: Acute Qualifiers: Nicotine product type: cigarettes Plan to address problem: Smoking cessation, supportive care. (8) DVT prophylaxis Status: Acute Plan to address problem: SCD to bilateral lower extremities while in bed (9) Advance care planning Status: Acute Plan to address problem: Disease education conducted, care plan discussed, diagnoses discussed, prognosis discussed, patient is full code at this time. Discussed poor prognosis with patient's , Mattie Mayes . Patient acknowledges understanding and agreement with care plan. Patient requests aggressive therapy at this time. Patient request ACLS protocol treatment 1 additional time if patient develops cardiac arrest. Patient also relates to have home hospice evaluation. +30 minutes. Home hospice care team notified. (10) Preventative health care Status: Acute Plan to address problem: Patient prognosis discussed. Patient counseled regarding end-of-life care with home hospice at the patient's home. Patient elects to have home hospice evaluation. Patient also discussed withdrawal of care in a.m. Patient acknowledges understanding prognosis. We will conduct a family meeting in a.m. to update family regarding prognosis. +30 minutes.
--- NOTE | 2022-02-17 13:47 | Consultation ---
History of Present Illness Consult date: 02/17/22 Requesting physician: DREW RUSSELL Consult reason: cardiac arrest History of present illness: Patient is 72-year-old male with a past medical history of dilated cardiomyopathy, history of acute NM, coronary artery disease, ICD, hypertension, COPD, diabetes who is brought to the hospital status post cardiopulmonary arrest. History taken from documentation and per family. Patient being intubated at time of assessment. Per family member patient became unresponsive this a.m. while the family was giving patient water. EMS reported that patient was bradycardic 30s to 40s and treated with atropine. Following treatment with atropine patient had 2 episodes of V. tach and received defibrillation. Upon arrival to the ED patient was found with a glucose of 15 and given D5. Patient continued to be bradycardic despite being given atropine. Furthermore patient also was hypotensive and hypothermic. Labs showed elevated troponin, anemia, and DIMPLE. Patient remains with altered mental status and was eventually intubated due to mental status. Per discussion with family patient has been in and out of hospitals for the last several months and in that same timeframe patient has been eating less. Family member reports that patient's EF is around 10 to 15%. Patient follows with [facility] cardiology however was seen by our practice during prior admission last year. Cardiology consulted for cardiac arrest Past History Past Medical History: CAD, COPD, diabetes, hypertension, hyperlipidemia Past Surgical History: hernia repair, Other (Spinal surgery) Social history: smoking (History of) Family history: hypertension Medications and Allergies Allergies Allergy/AdvReac Type Severity Reaction Status Date / Time aspirin Allergy Unknown Verified 09/21/20 06:40 Home Medications Medication Instructions Recorded Confirmed Last Taken Type Lisinopril [Zestril] 5 mg PO DAILY 09/21/20 02/20/21 1 Day Ago History ~02/19/21 Spironolactone [Aldactone] 12.5 mg PO QDAY 09/21/20 02/20/21 1 Day Ago History ~02/19/21 Terazosin HCl 2 mg PO HS 09/21/20 02/20/21 1 Day Ago History ~02/19/21 allopurinoL [Zyloprim] 150 mg PO QDAY 09/21/20 02/20/21 1 Day Ago History ~02/19/21 Acetaminophen [Non-Aspirin Extra 1,000 mg PO TID PRN 02/20/21 02/20/21 Unknown History Strength] Albuterol Mdi (or & Nicu Only) 2 puff IH QID PRN 02/20/21 02/20/21 1 Day Ago History [ProAir HFA Inhaler] ~02/19/21 Amlodipine Besylate [Norvasc] 2.5 mg PO DAILY 02/20/21 02/20/21 1 Day Ago History ~02/19/21 Aspirin EC [Halfprin EC] 81 mg PO QDAY 02/20/21 02/20/21 1 Day Ago History ~02/19/21 AtorvaSTATin [Lipitor] 80 mg PO QHS 02/20/21 02/20/21 1 Day Ago History ~02/19/21 Benzonatate [Tessalon Perles] 100 mg PO Q6HR PRN 02/20/21 02/20/21 12/28/20 10:00 History Furosemide [Lasix TAB] 20 mg PO QDAY PRN 02/20/21 02/20/21 1 Day Ago History ~02/19/21 Metoprolol Xl [Metoprolol 100 mg PO QDAY 02/20/21 02/20/21 1 Day Ago History SUCCINATE ER TAB] ~02/19/21 Tiotropium [place] [Spiriva 4 gm IH BID 02/20/21 02/20/21 1 Day Ago History Respimat] ~02/19/21 hydrOXYzine HCL 50 mg PO TID 02/20/21 02/20/21 1 Day Ago History ~02/19/21 Azithromycin [Zithromax TAB] 500 mg PO QDAY #3 tablet 02/22/21 Unknown Rx Active Meds: Active Medications Famotidine (Famotidine 20 Mg/2 Ml Inj) 20 mg IV BID L[place]ISHA Fentanyl (Fentanyl 100 Mcg/2 Ml Inj) 50 mcg IV Q10MIN PRN PRN Reason: ANALGESIA Hydrophilic Ointment (Lip Therapy Vaseline) 1 applic TP Q2HR PRN PRN Reason: Dry Lips Dextrose/Sodium Chloride (D5ns) 1,000 mls @ 150 mls/hr IV DIRECT LAKISHA Dopamine HCl/Dextrose (Dopamine 800 Mg/D5w 250ml) 800 mg in 250 mls @ 2.041 mls/hr IV TITR ONE; Protocol Stop: 02/22/22 13:30 Sodium Chloride (Nacl 0.9% 1000 Ml) 1,000 mls @ 250 mls/hr IV ONCE ONE Stop: 02/17/22 15:28 Propofol (Diprivan 10 Mg/Ml) 1,000 mg in 100 mls @ 1.633 mls/hr IV TITR LAKISHA; Protocol Last Admin: 02/17/22 12:26 Dose: 5 mcg/kg/min, 1.633 mls/hr Multi-Ingred Cream/Lotion/Oil/Oint (Mineral Oil/Petrolatum, White Ophth Oint 3.5 Gm) 1 applic OU Q4HR PRN PRN Reason: Dry Eye(s) Senna/Docusate Sodium (Sennosides/Docusate Sodium 8.6/50 Mg Tab) 1 tab FEEDTUBE BID LAKISHA Review of Systems ROS unobtainable: due to endotracheal tube, due to mental status Physical Examination Vital Signs Pulse Resp BP 78 17 100/58 02/17/22 09:54 02/17/22 09:54 02/17/22 09:54 General appearance: other HEENT: Positive: Normocephaly Neck: Positive: trachea midline Cardiac: Positive: Regular Rhythm, Bradycardia Lungs: Positive: Ventilated Respirations Neuro: Positive: Other (Unable to assess) Abdomen: Positive: Soft Skin: Negative: Rash, Suspicious Lesions, Ulceration Extremities: Present: upper extr. pulses. Absent: edema Results 02/17/22 10:30 02/17/22 10:30 Cardiac Enzymes 02/17/22 02/17/22 Range/Units 10:30 Unknown AST 176 H (5-40) units/L CK-MB (CK-2) 8.1 H (0.0-4.0) ng/mL Coagulation 02/17/22 Range/Units 10:30 APTT 72.8 H* (24.2-36.6) Sec. Lipids 02/17/22 Range/Units 10:30 Triglycerides 63 (2-149) mg/dL Cholesterol 153 (50-199) mg/dL HDL Cholesterol 10 L (40-59) mg/dL Cholesterol/HDL Ratio 15.30 % CBC 02/17/22 Range/Units 10:30 WBC 7.6 (4.5-11.0) K/mm3 RBC 2.91 L (3.65-5.03) M/mm3 Hgb 8.5 L (11.8-15.2) gm/dl Hct 25.5 L (35.5-45.6) % Plt Count 95 L (140-440) K/mm3 Comprehensive Metabolic Panel 02/17/22 Range/Units 10:30 Sodium 140 (137-145) mmol/L Potassium 4.9 (3.6-5.0) mmol/L Chloride 106.6 (98-107) mmol/L Carbon Dioxide 15 L (22-30) mmol/L BUN 54 H (9-20) mg/dL Creatinine 4.0 H (0.8-1.3) mg/dL Glucose 290 H (75-100) mg/dL Calcium 7.6 L (8.4-10.2) mg/dL AST 176 H (5-40) units/L ALT 45 (7-56) units/L Alkaline Phosphatase 111 (35-129) units/L Total Protein 4.9 L (6.3-8.2) g/dL Albumin 2.1 L (3.9-5) g/dL - Imaging and Cardiology Echo: report reviewed EKG interpretations - Telemetry EKG Rhythm: Sinus Bradycardia - EKG Sinus rhythms and dysrhythmias: sinus bradycardia Assessment and Plan Patient is 72-year-old male with a past medical history of dilated cardiomyopathy, history of acute NM, coronary artery disease, ICD, hypertension, COPD, diabetes who is brought to the hospital status post cardiopulmonary arrest S/p cardiac arrest AMS NSTEMI End-stage heart failure Hypothermia Acute renal failure Hypoglycemia Hypothyroidism Anemia Coronary artery disease History of NM Dilated cardiomyopathy ICD in situ Hypertension COPD Diabetes Echocardiogram reviewed (02/21/2021): LVEF is 35 to 40%. LV is mildly dilated. LV SF is moderately decreased. Mild LVH. Hypokinesis in the inferior, lateral wall. Mild diastolic dysfunction. RV SF is normal. Pacemaker lead is present in the right ventricle. Pacemaker lead present in the right atrium. Mild to moderate MR. Mild TR. RVSP is 35 mmHg. Lexiscan MPI stress test (02/22/2021): Is negative for reversible ischemia Plan: EKG shows sinus bradycardia 44 with PVCs. No acute ischemic changes Troponin is noted to be elevated in setting of acute renal failure and status post cardiac arrest No IDALIA/ARB's, beta-blockers, calcium channel blockers due to bradycardia and hypotension May statin therapy Will hold aspirin at this time due to reported that patient has aspirin allergy. Patient currently on dopamine. Patient has been deteriorating over last several months, has cardiomyopathy with low EF following cardiac arrest, is currently hypothermic, in acute renal failure, and has altered mental status. Overall very poor prognosis Discussed with family member at bedside that patient may be a DNR and/or hospice patient Patient seen in conjunction with Dr. Beasley who agrees with plan of care
[2022-02-17] MEDS ORDERED: MORPHINE 2 MG/1 ML INJ IV PRN (13:57)
[2022-02-17] MEDS ORDERED: ALBUTEROL 2.5 MG/3 ML NEBU IH PRN (13:57)
[2022-02-17] MEDS ORDERED: HYDROmorphone 0.5 MG/0.5 ML INJ IV PRN (13:57)
[2022-02-17] MEDS ORDERED: ACETAMINOPHEN 650 MG RECT SUPP PR PRN (14:01)
[2022-02-17] MEDS ORDERED: oxyCODONE /ACETAMINOPHEN 5-325MG TAB PO PRN (14:01)
[2022-02-17] MEDS ORDERED: MORPHINE 4 MG/1 ML INJ IV PRN (14:01)
--- NOTE | 2022-02-17 16:02 | Consultation ---
History of Present Illness Consult date: 02/17/22 Requesting physician: BRIGITTE ORANTES Reason for consult: other (s/p Cardiopulmonary arrest with ROSC; acute hypoxemic resp failure on MVS; Cardiogenic-septic shock) History of present illness: 72 YO Male with HTN, COPD, DM, Malnutrition, Debility, Vascular Dementia, Cerebral Atherosclerosis, End Stage CHF(EF 35%) NYHA Class IV, HI, Nicotine Dependence, HLD, Gout presents to ED for evaluation. Patient is intubated and on ventilatory support at the time my evaluation and is unable to provide history. Patient history provided by EMS staff, ED staff, as well as the patient's who is at bedside during exam and interview. As per the patient became unresponsive today. EMS was notified and upon arrival the patient was found to be in distress and subsequently transported to [facility] for further care and evaluation of the aforementioned symptoms. During transport the patient was found to have V. tach with subsequent asystolic arrest. Patient treated" with ACLS protocol with eventual return of perfusing cardiac rhythm. Patient again developed asystolic arrest and was treated" with ACLS protocol with an additional return to perfusing cardiac rhythm. Patient seen and evaluated in the emergency department. All lab and imaging studies reviewed. Patient found to have acute hypoxemic respiratory failure and was subsequently intubated and placed on ventilatory support, cardiac arrest complicated by ca rdiogenic shock, lactic acidosis, metabolic encephalopathy, ATN with ATN, with suspected anoxic encephalopathy. Patient found to have clinical symptoms consistent with multiple organ system failure. Patient found to have a poor prognosis. Patient admitted to ICU due to to increased risk of worsening symptoms and cardiopulmonary decompensation. Critical care team consulted in ED. Patient seen and examined. Vitals, labs , medications, chart and imaging reviewed. Orally intubated, unresponsive Past History Past Medical History: COPD, diabetes, heart failure, hypertension, hyperlipidemia Past Surgical History: hernia repair, Other (Back surgery) Social history: , lives with family, alcohol abuse Family history: diabetes, hypertension Medications and Allergies Allergies Allergy/AdvReac Type Severity Reaction Status Date / Time aspirin Allergy Unknown Verified 09/21/20 06:40 Home Medications Medication Instructions Recorded Confirmed Last Taken Type Lisinopril [Zestril] 5 mg PO DAILY 09/21/20 02/18/22 1 Day Ago History ~02/19/21 Spironolactone [Aldactone] 12.5 mg PO QDAY 09/21/20 02/18/22 1 Day Ago History ~02/19/21 Terazosin HCl 2 mg PO HS 09/21/20 02/18/22 1 Day Ago History ~02/19/21 allopurinoL [Zyloprim] 150 mg PO QDAY 09/21/20 02/18/22 1 Day Ago History ~02/19/21 Acetaminophen [Non-Aspirin Extra 1,000 mg PO TID PRN 02/20/21 02/18/22 Unknown History Strength] Albuterol Mdi (or & Nicu Only) 2 puff IH QID PRN 02/20/21 02/18/22 1 Day Ago History [ProAir HFA Inhaler] ~02/19/21 Amlodipine Besylate [Norvasc] 2.5 mg PO DAILY 02/20/21 02/18/22 1 Day Ago History ~02/19/21 Aspirin EC [Halfprin EC] 81 mg PO QDAY 02/20/21 02/18/22 1 Day Ago History ~02/19/21 AtorvaSTATin [Lipitor] 80 mg PO QHS 02/20/21 02/18/22 1 Day Ago History ~02/19/21 Benzonatate [Tessalon Perles] 100 mg PO Q6HR PRN 02/20/21 02/18/22 12/28/20 10:00 History Furosemide [Lasix TAB] 20 mg PO QDAY PRN 02/20/21 02/18/22 1 Day Ago History ~02/19/21 Metoprolol Xl [Metoprolol 100 mg PO QDAY 02/20/21 02/18/22 1 Day Ago History SUCCINATE ER TAB] ~02/19/21 Tiotropium [place] [Spiriva 4 gm IH BID 02/20/21 02/18/22 1 Day Ago History Respimat] ~02/19/21 hydrOXYzine HCL 50 mg PO TID 02/20/21 02/18/22 1 Day Ago History ~02/19/21 Azithromycin [Zithromax TAB] 500 mg PO QDAY #3 tablet 02/22/21 02/18/22 Unknown Rx Active Meds: Active Medications Acetaminophen (Acetaminophen 650 Mg Rect Supp) 650 mg DE Q6H PRN PRN Reason: Pain MILD(1-3)/Fever >100.5/WINSLOW Albuterol (Albuterol 2.5 Mg/3 Ml Nebu) 2.5 mg IH Q3HRT PRN PRN Reason: Shortness Of Breath Atorvastatin Calcium (Atorvastatin 40 Mg Tab) 40 mg PO QHS [place] Famotidine (Famotidine 20 Mg/2 Ml Inj) 20 mg IV BID [place] Fentanyl (Fentanyl 100 Mcg/2 Ml Inj) 50 mcg IV Q10MIN PRN PRN Reason: [place]ES[place] Hydromorphone HCl (Hydromorphone 0.5 Mg/0.5 Ml Inj) 0.5 mg IV Q3H PRN PRN Reason: Pain , Severe (7-10) Hydrophilic Ointment (Lip Therapy Vaseline) 1 applic TP Q2HR PRN PRN Reason: Dry Lips Dextrose/Sodium Chloride (D5ns) 1,000 mls @ 150 mls/hr IV DIRECT [place] Dopamine HCl/Dextrose (Dopamine 800 Mg/D5w 250ml) 800 mg in 250 mls @ 2.041 mls/hr IV TITR ONE; Protocol Stop: 02/22/22 13:30 Fentanyl Citrate (Fentanyl Drip Premix) 2,000 mcg in 100 mls @ 2.722 mls/hr IV TITR LAKISHA; Protocol Last Admin: 02/17/22 15:59 Dose: 1 mcg/kg/hr, 2.722 mls/hr Morphine Sulfate (Morphine 2 Mg/1 Ml Inj) 2 mg IV Q4H PRN PRN Reason: Pain, Moderate (4-6) Morphine Sulfate (Morphine 4 Mg/1 Ml Inj) 4 mg IV Q4H PRN PRN Reason: Pain , Severe (7-10) Multi-Ingred Cream/Lotion/Oil/Oint (Mineral Oil/Petrolatum, White Ophth Oint 3.5 Gm) 1 applic OU Q4HR PRN PRN Reason: Dry Eye(s) Oxycodone/Acetaminophen (Oxycodone /Acetaminophen 5-325mg Tab) 1 tab PO Q6H PRN PRN Reason: Pain, Moderate (4-6) Senna/Docusate Sodium (Sennosides/Docusate Sodium 8.6/50 Mg Tab) 1 tab FEEDTUBE BID [place] Sodium Chloride (Sodium Chloride 0.9% 10 Ml Flush Syringe) 10 ml IV BID [place] Sodium Chloride (Sodium Chloride 0.9% 10 Ml Flush Syringe) 10 ml IV PRN PRN PRN Reason: LINE FLUSH Review of Systems ROS unobtainable: due to endotracheal tube, due to mental status Physical Examination Vital signs: Vital Signs Pulse Resp BP 78 17 100/58 02/17/22 09:54 02/17/22 09:54 02/17/22 09:54 General appearance: Present: other (Unresponsive, on the vent. Not on any sedation) - EENT Eyes: Present: PERRL - Respiratory Respiratory effort: normal Respiratory: bilateral: rhonchi Left chest wall cardiac device - Cardiovascular Rhythm: regular Heart Sounds: Present: S1 & S2, Systolic murmur - Extremities Extremities: no ischemia, pulses intact, pulses symmetrical Peripheral Pulses: within normal limits - Abdominal General gastrointestinal: soft, non-distended, hypoactive bowel sounds Guevara catheter in place, Right femoral CVL - Integumentary Integumentary: Present: warm, dry - Psychiatric Psychiatric: other (Unresponsive, on the vent. Not on any sedations) - Neurologic Neurologic: moves all extremities (Non-Purposeful movement), other (Unresponsive, on the vent. Not on any sedations) Results - Laboratory Findings CBC and BMP: 02/19/22 04:00 02/19/22 04:00 ABG ABG pH 7.304 pH Units (7.350-7.450) L 02/17/22 12:45 ABG pCO2 27.1 mm Hg 02/17/22 12:45 ABG pO2 289.8 mm Hg (80.0-90.0) H 02/17/22 12:45 ABG O2 Saturation 99.5 % (95.0-99.0) H 02/17/22 12:45 Abnormal lab findings: Abnormal Labs 02/17/22 02/17/22 02/17/22 10:01 10:30 10:30 RBC 2.91 L Hgb 8.5 L Hct 25.5 L RDW 23.6 H Plt Count 95 L Seg Neuts % (Manual) 89.0 H Lymphocytes % (Manual) 1.0 L Nucleated RBC % 8.0 H Lymphocytes # (Manual) 0.1 L APTT 72.8 H* ABG pH ABG pO2 ABG HCO3 ABG O2 Saturation ABG Base Excess ABG Hemoglobin Carbon Dioxide BUN Creatinine Glucose POC Glucose 15 L Lactic Acid Calcium Total Bilirubin AST Total Creatine Kinase CK-MB (CK-2) CK-MB (CK-2) Rel Index Troponin T Total Protein Albumin HDL Cholesterol TSH 02/17/22 02/17/22 02/17/22 10:30 10:30 10:30 RBC Hgb Hct RDW Plt Count Seg Neuts % (Manual) Lymphocytes % (Manual) Nucleated RBC % Lymphocytes # (Manual) APTT ABG pH ABG pO2 ABG HCO3 ABG O2 Saturation ABG Base Excess ABG Hemoglobin Carbon Dioxide 15 L BUN 54 H Creatinine 4.0 H Glucose 290 H POC Glucose Lactic Acid 5.70 H* Calcium 7.6 L Total Bilirubin 6.10 H AST 176 H Total Creatine Kinase CK-MB (CK-2) CK-MB (CK-2) Rel Index Troponin T 0.167 H* Total Protein 4.9 L Albumin 2.1 L HDL Cholesterol 10 L TSH 10.950 H 02/17/22 02/17/22 02/17/22 11:10 12:00 12:45 RBC Hgb Hct RDW Plt Count Seg Neuts % (Manual) Lymphocytes % (Manual) Nucleated RBC % Lymphocytes # (Manual) APTT ABG pH 7.304 L ABG pO2 289.8 H ABG HCO3 13.1 L ABG O2 Saturation 99.5 H ABG Base Excess -11.9 L ABG Hemoglobin 9.9 L Carbon Dioxide BUN Creatinine Glucose POC Glucose 233 H 226 H Lactic Acid Calcium Total Bilirubin AST Total Creatine Kinase CK-MB (CK-2) CK-MB (CK-2) Rel Index Troponin T Total Protein Albumin HDL Cholesterol TSH 02/17/22 Unknown RBC Hgb Hct RDW Plt Count Seg Neuts % (Manual) Lymphocytes % (Manual) Nucleated RBC % Lymphocytes # (Manual) APTT ABG pH ABG pO2 ABG HCO3 ABG O2 Saturation ABG Base Excess ABG Hemoglobin Carbon Dioxide BUN Creatinine Glucose POC Glucose Lactic Acid Calcium Total Bilirubin AST Total Creatine Kinase 171 H CK-MB (CK-2) 8.1 H CK-MB (CK-2) Rel Index 4.7 H Troponin T Total Protein Albumin HDL Cholesterol TSH - Diagnostic Findings Chest x-ray: image reviewed Assessment and Plan S/p Cardiac Arrest with ROSC Acute Hypoxic Respiratory Failure on MVS Septic Shock and Cardiogenic Shock with MODS HFrEF(35%)-Dilated Cardiomyopathy with AICD Acute Metabolic Acidosis Acute Kidney Injury(DIMPLE) most likely ATN Septic - Cardiogenic Shock Bacteremia Leukocytosis Transaminitis/Shock Liver Hypoglycemia-improved Moderate Protein-Calorie Malnutrition -Adjust minute ventilation for better gas exchange, bicarbonate infusion initiated -Antibiotics- Blood cultures GPC- on Vancomycin -Continue to trend temperature curve and WCC - continue to titrate supplemental oxygen to keep SpO2 90-92% - VAP bundle addressed, aspiration precautions HOB >40 - continue lung protective strategies - continue bronchodilators with pulmonary hygiene per RT - continue accuchecks with glycemic control per SSI (While critically ill target blood glucose of 140-180 mg/dL; avoid hypoglycemia) - avoid nephrotoxins, renally dose all medications - continue to avoid benzodiazepines, reduce the possibility of delirium - prn analgesia per CPOT score - Maintenance of sleep-wake cycle, avoid delirium - Place small bowel feeding tube - VTE prophylaxis-Heparin -Stress prophylaxis- famotidine - PT/OT/ROM exercises - mobility, off loading and frequent turning per facility protocol to prevent pressure ulcers - Monitor hemodynamics closely, hold lisinopril in the setting of multiple pressor shock and DIMPLE - continue other care per attending / other consultants CONDITION: CRITICAL PROGNOSIS: POOR- GUARDED CODE STATUS: FULL CODE #Advance Care Planning Extensive multidisciplinary discussions with patient's , Mattie Mayes, at the bedside in regards to patient's condition, diagnoses, care plan, and overall very poor prognosis. Patient acknowledged understanding and agreement with care plan. Patient's is considering at home hospice, but would like aggressive treatment at this time. All questions and concerns were addressed at this time. Patient remains a FULL code. The high probability of a clinically significant, sudden or life threatening deterioration of the [cardiovascular, pulmonary, renal, neurology] system(s) required my full and direct attention, intervention and personal management. The aggregate critical care time was [75] minutes. This time is in addition to time spent performing reported procedures but includes the following: [x] Data Review and interpretation [x] Patient assessment and monitoring of vital signs [x] Documentation [x] Medication orders and management
[2022-02-17] MEDS ORDERED: SODIUM BICARB 8.4% 50 MEQ/50 ML SYRINGE IV SCH (17:00)
[2022-02-17] MEDS: VASOPRESSIN 20 UNIT in SODIUM CHLORIDE 0.9% 100 ML IV SCH (17:22)
[2022-02-17] MEDS ORDERED: FAMOTIDINE 20 MG/2 ML INJ IV SCH (22:00)
[2022-02-17] MEDS: NORepinephrine/NS 8 MG-250 ML 8 MG/250 ML INFUS..BTL IV SCH (22:43)
[2022-02-17 22:54] LABS: ABG Base Excess -10.4 mmol/L (-2.0-3.0); ABG HCO3 15.2 mmol/L (20.0-26.0); ABG Methemoglobin 0.8 % (0.0-1.5); ABG Oxygen Saturation 38.3 % (95.0-99.0); ABG PCO2 32.8 mm Hg; ABG PH 7.285 pH Units (7.350-7.450)
[2022-02-17 22:58] LABS: ABG Base Excess -11.6 mmol/L (-2.0-3.0); ABG HCO3 12.4 mmol/L (20.0-26.0); ABG Methemoglobin 0.5 % (0.0-1.5); ABG Oxygen Saturation 99.2 % (95.0-99.0); ABG PCO2 23.3 mm Hg; ABG PH 7.344 pH Units (7.350-7.450); ABG PO2 192.1 mm Hg (80.0-90.0)
[2022-02-17 23:06] LABS: ABG PO2 30.1 mm Hg (80.0-90.0)
[2022-02-17] MEDS: SODIUM BICARBONATE 150 MEQ in DEXTROSE 5% IN WATER 1,000 ML IV SCH (23:48)
[2022-02-17] MEDS ORDERED: SUCCINYLCHOLINE CHLORIDE 200 MG/10 ML INJ MDV ONE (23:50)
[2022-02-17] MEDS ORDERED: ETOMIDATE 20 MG/10 ML INJ IV ONE (23:50)
[2022-02-18] MEDS: SENNOSIDES/DOCUSATE SODIUM 8.6/50 MG TAB FEEDTUBE SCH ×3 (00:27→21:39)
[2022-02-18] MEDS: VASOPRESSIN 20 UNIT in SODIUM CHLORIDE 0.9% 100 ML IV SCH ×2 (02:42→11:23)
--- NOTE | 2022-02-18 03:31 | XRay Report ---
CHEST 1 VIEW INDICATION / CLINICAL INFORMATION: follow up respiratory failure. COMPARISON: Chest x-ray 02/17/2022 FINDINGS: SUPPORT DEVICES: Stable, satisfactory device positioning. HEART / MEDIASTINUM: Mild cardiomegaly stable. LUNGS / PLEURA: Left lung remains clear. Right lung demonstrates minimal opacities inferiorly thought to reflect atelectasis, minimal change. Additional small right pleural effusion decreased in size si nce comparison. BONES: No significant osseous abnormality. ADDITIONAL FINDINGS: No significant additional findings. IMPRESSION: 1. Interval decrease in size of right-sided pleural effusion. 2. Little change in mid and lower lung opacities on the right compatible with atelectasis. Left lung grossly clear. Signer Name: Marv Dan II, MD Signed: 02/18/2022 3:27 AM Workstation Name: [id number]
[2022-02-18] MEDS ORDERED: VANCOMYCIN/NS 1 GM/250 ML 1 GM/250 ML BAG IV ONE (04:00)
[2022-02-18] MEDS ORDERED: VANCOMYCIN PHARMACY TO DOSE IV SCH (04:00)
[2022-02-18 04:53] LABS: ABG Base Excess -9.7 mmol/L (-2.0-3.0); ABG HCO3 12.6 mmol/L (20.0-26.0); ABG Methemoglobin 0.5 % (0.0-1.5); ABG Oxygen Saturation 97.9 % (95.0-99.0); ABG PCO2 19.3 mm Hg; ABG PH 7.434 pH Units (7.350-7.450); ABG PO2 99.6 mm Hg (80.0-90.0)
[2022-02-18 05:46] LABS: Hemoglobin 10.5 gm/dl (11.8-15.2); Mean Corpuscular HGB Conc 32 % (32-34); Mean Corpuscular Volume 88 fl (84-94); Platelet Count 132 K/mm3 (140-440); Red Blood Count 3.77 M/mm3 (3.65-5.03)
[2022-02-18 05:59] LABS: Albumin 2.5 g/dL (3.9-5); Calcium 7.5 mg/dL (8.4-10.2)
[2022-02-18] MEDS ORDERED: SODIUM CHLORIDE 0.9% 1000 ML 1,000 ML IV SCH (06:30)
[2022-02-18 06:46] LABS: Band Neutrophils # (Manual) 2.8 K/mm3; Basophils % (Manual) 0 % (0.0-1.8); Eosinophils % (Manual) 0 % (0.0-4.3); Total Cells Counted 100
[2022-02-18 06:47] LABS: Anisocytosis 2+; Hypochromasia 2+; Poikilocytosis 2+; Spherocytes 1+; Target Cells 1+
[2022-02-18 06:49] LABS: Burr Cells 2+
[2022-02-18 06:51] LABS: Platelet Estimate Consistent w Auto
[2022-02-18] MEDS ORDERED: DOPamine 800 MG/D5W 250ML 800 MG/250 ML BAG IV SCH (09:00)
--- NOTE | 2022-02-18 10:09 | Progress Note ---
Assessment and Plan S/p Cardiac Arrest with ROSC Acute Hypoxic Respiratory Failure on MVS Septic Shock and Cardiogenic Shock with MODS HFrEF(35%)-Dilated Cardiomyopathy with AICD Acute Metabolic Acidosis Acute Kidney Injury(DIMPLE) most likely ATN Septic - Cardiogenic Shock Bacteremia Leukocytosis Transaminitis/Shock Liver Hypoglycemia-improved Moderate Protein-Calorie Malnutrition Sacaral decubitus- POA -CXR, ABG in am - continue to titrate supplemental oxygen to keep SpO2 90-92% - VAP bundle addressed, aspiration precautions HOB >40 - continue lung protective strategies - continue bronchodilators with pulmonary hygiene per RT - continue accuchecks with glycemic control per SSI (While critically ill target blood glucose of 140-180 mg/dL; avoid hypoglycemia) - avoid nephrotoxins, renally dose all medications - continue to avoid benzodiazepines, reduce the possibility of delirium - prn analgesia per CPOT score -Antibiotics- Blood cultures GPC- on Vancomycin ID following -Continue to trend temperature curve and WCC - Maintenance of sleep-wake cycle, avoid delirium - Place small bowel feeding tube - VTE prophylaxis-Heparin -Stress prophylaxis- famotidine - PT/OT/ROM exercises - continue mobility, off loading and frequent turning per facility protocol to prevent pressure ulcers -Wound care for sacral decubitus ulcer - continue to monitor hemodynamics closely, hold lisinopril in the setting of multiple pressor shock and DIMPLE - continue other care per attending / other consultants CONDITION: CRITICAL PROGNOSIS: POOR- GUARDED CODE STATUS: FULL CODE #Advance Care Planning Extensive multidisciplinary discussions with patient's , Mattie Mayes, at the bedside in regards to patient's condition, diagnoses, care plan, and overall very poor prognosis. Patient acknowledged understanding and agreement with care plan. She states she wants to take him home as home hospice on the ventilator. She states he remains full code, aggressive care for now. Get renal consult Place arterial line foe invasive hemodynamics monitoring Continue with goals of care discussions The high probability of a clinically significant, sudden or life threatening deterioration of the [cardiovascular, pulmonary, renal, neurology] system(s) required my full and direct attention, intervention and personal management. The aggregate critical care time was [35] minutes. This time is in addition to time spent performing reported procedures but includes the following: [x] Data Review and interpretation [x] Patient assessment and monitoring of vital signs [x] Documentation [x] Medication orders and management Subjective Date of service: 02/18/22 Interval history: Follow up for: cardiopulmonary arrest with ROSC; cardiogenic-septic shock; Dilated cardiomyopathy; Acute renal failure, hepatic failure; acute metabolic encephalopathy Seen and examined. Vitals, labs, medications, chart and imaging reviewed. Discussed with respiratory and nursing staff. Remains orally intubated; 3 pressor shock,remains unresponsive, anuric. Overnight there were concerns thet the right femoral CVL was an arterial cannulation- ABGs were ordered and done Objective - Exam Narrative Exam: Constitutional: Intubated,no patient-ventilaotr dys-synchrony Head, Ears, Nose: Normocephalic, atraumatic. External ears, nose normal Eyes: Conjunctivae/corneas clear. No icterus. No ptosis. Neck: ETT, 23 cm GABRIELLE Oral: dentition fair, no thrush Cardiovascular: S1, S2 systolic mumur, left chest wall device Respiratory: Good air entry, clear to auscultation bilaterally GI: Soft, non-tender; bowel sounds normal. No peritoneal signs. Guevara catheter- anuric Musculoskeletal: No pedal edema, no cyanosis. Skin: No rash or abscess Hem/Lymphatic: No palpable cervical or supraclavicular nodes. No lymphangitis Psych: Unable to assess Neurological: Unresponsive Vital Signs - 12hr 02/17/22 02/17/22 02/17/22 22:10 22:15 22:22 Temperature Pulse Rate 110 H Pulse Rate [ 112 H 110 H Femoral] Respiratory 26 H 23 26 H Rate Blood Pressure 73/47 75/49 O2 Sat by Pulse 100 100 Oximetry 02/17/22 02/17/22 02/17/22 22:31 22:45 22:50 Temperature Pulse Rate 110 H 110 H Pulse Rate [ 110 H 108 H Femoral] Respiratory 20 20 Rate Blood Pressure 66/46 87/60 O2 Sat by Pulse 35 L Oximetry 02/17/22 02/17/22 02/17/22 23:00 23:15 23:17 Temperature Pulse Rate 113 H 114 H 114 H Pulse Rate [ Femoral] Respiratory 19 18 19 Rate Blood Pressure 97/65 87/65 87/65 O2 Sat by Pulse 53 L 45 L Oximetry 02/17/22 02/17/22 02/17/22 23:18 23:30 23:45 Temperature Pulse Rate 110 H 107 H Pulse Rate [ Femoral] Respiratory 17 18 Rate Blood Pressure 89/63 87/62 O2 Sat by Pulse 100 Oximetry 02/18/22 02/18/22 02/18/22 00:00 00:01 00:15 Temperature Pulse Rate 106 H 106 H 107 H Pulse Rate [ Femoral] Respiratory 26 H 19 Rate Blood Pressure 85/62 85/62 86/59 O2 Sat by Pulse 100 98 Oximetry 02/18/22 02/18/22 02/18/22 00:30 00:45 01:00 Temperature Pulse Rate 107 H 107 H 108 H Pulse Rate [ Femoral] Respiratory 20 19 20 Rate Blood Pressure 85/61 86/61 78/55 O2 Sat by Pulse Oximetry 02/18/22 02/18/22 02/18/22 01:15 01:30 01:45 Temperature Pulse Rate 108 H 109 H 106 H Pulse Rate [ Femoral] Respiratory 19 19 19 Rate Blood Pressure 86/59 88/60 86/55 O2 Sat by Pulse Oximetry 02/18/22 02/18/22 02/18/22 02:00 02:15 02:30 Temperature Pulse Rate 109 H 109 H 109 H Pulse Rate [ Femoral] Respiratory 20 20 20 Rate Blood Pressure 84/60 83/60 83/58 O2 Sat by Pulse Oximetry 02/18/22 02/18/22 02/18/22 02:45 03:00 03:15 Temperature Pulse Rate 109 H 107 H 109 H Pulse Rate [ Femoral] Respiratory 21 21 21 Rate Blood Pressure 86/58 90/63 88/62 O2 Sat by Pulse Oximetry 02/18/22 02/18/22 02/18/22 03:30 03:45 04:00 Temperature Pulse Rate 96 H 96 H 97 H Pulse Rate [ Femoral] Respiratory 20 22 26 H Rate Blood Pressure 90/63 90/63 92/59 O2 Sat by Pulse 100 Oximetry 02/18/22 02/18/22 02/18/22 04:15 04:30 04:43 Temperature Pulse Rate 97 H 97 H 97 H Pulse Rate [ Femoral] Respiratory 22 23 Rate Blood Pressure 86/59 86/60 86/60 O2 Sat by Pulse 98 Oximetry 02/18/22 02/18/22 02/18/22 04:45 05:00 05:15 Temperature Pulse Rate 97 H 97 H 96 H Pulse Rate [ Femoral] Respiratory 23 24 23 Rate Blood Pressure 84/56 85/56 80/54 O2 Sat by Pulse Oximetry 02/18/22 02/18/22 02/18/22 05:30 05:37 05:45 Temperature 99.4 F Pulse Rate 98 H 99 H Pulse Rate [ Femoral] Respiratory 24 21 Rate Blood Pressure 89/63 89/58 O2 Sat by Pulse Oximetry 02/18/22 02/18/22 02/18/22 06:00 06:15 06:30 Temperature Pulse Rate 97 H 97 H 100 H Pulse Rate [ Femoral] Respiratory 26 H 22 20 Rate Blood Pressure 89/57 86/55 88/56 O2 Sat by Pulse 100 Oximetry 02/18/22 02/18/22 02/18/22 06:45 07:00 07:15 Temperature Pulse Rate 98 H 97 H 97 H Pulse Rate [ Femoral] Respiratory 20 22 21 Rate Blood Pressure 93/60 93/58 88/59 O2 Sat by Pulse Oximetry 02/18/22 02/18/22 02/18/22 07:30 07:45 08:00 Temperature 99.7 F H Pulse Rate 97 H 96 H 104 H Pulse Rate [ Femoral] Respiratory 19 20 15 Rate Blood Pressure 94/59 94/60 95/59 O2 Sat by Pulse 100 Oximetry 02/18/22 02/18/22 02/18/22 08:15 08:30 08:45 Temperature Pulse Rate 96 H 96 H 113 H Pulse Rate [ Femoral] Respiratory 20 22 22 Rate Blood Pressure 94/60 91/61 100/65 O2 Sat by Pulse 93 Oximetry 02/18/22 02/18/22 02/18/22 08:49 09:00 09:15 Temperature Pulse Rate 113 H 113 H 114 H Pulse Rate [ Femoral] Respiratory 23 28 H Rate Blood Pressure 100/65 101/66 100/71 O2 Sat by Pulse 92 Oximetry 02/18/22 02/18/22 02/18/22 09:30 09:45 10:00 Temperature Pulse Rate 113 H 113 H 114 H Pulse Rate [ Femoral] Respiratory 23 21 22 Rate Blood Pressure 93/65 98/63 93/62 O2 Sat by Pulse Oximetry CBC and BMP: 02/19/22 04:00 02/19/22 04:00 ABG, PT/INR, D-dimer: ABG ABG pH 7.434 pH Units (7.350-7.450) 02/18/22 04:43 ABG pCO2 19.3 mm Hg 02/18/22 04:43 ABG pO2 99.6 mm Hg (80.0-90.0) H 02/18/22 04:43 ABG O2 Saturation 97.9 % (95.0-99.0) 02/18/22 04:43 Abnormal lab findings: Abnormal Labs 02/17/22 02/17/22 02/17/22 10:01 10:30 10:30 WBC RBC 2.91 L Hgb 8.5 L Hct 25.5 L RDW 23.6 H Plt Count 95 L Seg Neuts % (Manual) 89.0 H Lymphocytes % (Manual) 1.0 L Nucleated RBC % 8.0 H Seg Neutrophils # Man Lymphocytes # (Manual) 0.1 L APTT 72.8 H* ABG pH ABG pO2 ABG HCO3 ABG O2 Saturation ABG Base Excess ABG Hemoglobin Oxyhemoglobin Carbon Dioxide BUN Creatinine Glucose POC Glucose 15 L Lactic Acid Calcium Total Bilirubin AST ALT Alkaline Phosphatase Total Creatine Kinase CK-MB (CK-2) CK-MB (CK-2) Rel Index Troponin T Total Protein Albumin HDL Cholesterol TSH 02/17/22 02/17/22 02/17/22 10:30 10:30 10:30 WBC RBC Hgb Hct RDW Plt Count Seg Neuts % (Manual) Lymphocytes % (Manual) Nucleated RBC % Seg Neutrophils # Man Lymphocytes # (Manual) APTT ABG pH ABG pO2 ABG HCO3 ABG O2 Saturation ABG Base Excess ABG Hemoglobin Oxyhemoglobin Carbon Dioxide 15 L BUN 54 H Creatinine 4.0 H Glucose 290 H POC Glucose Lactic Acid 5.70 H* Calcium 7.6 L Total Bilirubin 6.10 H AST 176 H ALT Alkaline Phosphatase Total Creatine Kinase CK-MB (CK-2) CK-MB (CK-2) Rel Index Troponin T 0.167 H* Total Protein 4.9 L Albumin 2.1 L HDL Cholesterol 10 L TSH 10.950 H 02/17/22 02/17/22 02/17/22 11:10 12:00 12:45 WBC RBC Hgb Hct RDW Plt Count Seg Neuts % (Manual) Lymphocytes % (Manual) Nucleated RBC % Seg Neutrophils # Man Lymphocytes # (Manual) APTT ABG pH 7.304 L ABG pO2 289.8 H ABG HCO3 13.1 L ABG O2 Saturation 99.5 H ABG Base Excess -11.9 L ABG Hemoglobin 9.9 L Oxyhemoglobin Carbon Dioxide BUN Creatinine Glucose POC Glucose 233 H 226 H Lactic Acid Calcium Total Bilirubin AST ALT Alkaline Phosphatase Total Creatine Kinase CK-MB (CK-2) CK-MB (CK-2) Rel Index Troponin T Total Protein Albumin HDL Cholesterol TSH 02/17/22 02/17/22 02/17/22 22:46 22:49 Unknown WBC RBC Hgb Hct RDW Plt Count Seg Neuts % (Manual) Lymphocytes % (Manual) Nucleated RBC % Seg Neutrophils # Man Lymphocytes # (Manual) APTT ABG pH 7.285 L 7.344 L ABG pO2 30.1 L* 192.1 H ABG HCO3 15.2 L 12.4 L ABG O2 Saturation 38.3 L 99.2 H ABG Base Excess -10.4 L -11.6 L ABG Hemoglobin 10.9 L 11.0 L Oxyhemoglobin 37.4 L Carbon Dioxide BUN Creatinine Glucose POC Glucose Lactic Acid Calcium Total Bilirubin AST ALT Alkaline Phosphatase Total Creatine Kinase 171 H CK-MB (CK-2) 8.1 H CK-MB (CK-2) Rel Index 4.7 H Troponin T Total Protein Albumin HDL Cholesterol TSH 02/17/22 02/18/22 02/18/22 Unknown 04:43 04:48 WBC 12.7 H RBC Hgb 10.5 L Hct 33.0 L D RDW 23.0 H Plt Count 132 L Seg Neuts % (Manual) 74.0 H Lymphocytes % (Manual) 2.0 L Nucleated RBC % 28.0 H Seg Neutrophils # Man 9.4 H Lymphocytes # (Manual) 0.3 L APTT ABG pH ABG pO2 99.6 H ABG HCO3 12.6 L ABG O2 Saturation ABG Base Excess -9.7 L ABG Hemoglobin 10.7 L Oxyhemoglobin Carbon Dioxide BUN Creatinine Glucose POC Glucose Lactic Acid 6.40 H* Calcium Total Bilirubin AST ALT Alkaline Phosphatase Total Creatine Kinase CK-MB (CK-2) CK-MB (CK-2) Rel Index Troponin T Total Protein Albumin HDL Cholesterol TSH 02/18/22 02/18/22 04:48 04:48 WBC RBC Hgb Hct RDW Plt Count Seg Neuts % (Manual) Lymphocytes % (Manual) Nucleated RBC % Seg Neutrophils # Man Lymphocytes # (Manual) APTT ABG pH ABG pO2 ABG HCO3 ABG O2 Saturation ABG Base Excess ABG Hemoglobin Oxyhemoglobin Carbon Dioxide 15 L BUN 53 H Creatinine 3.9 H Glucose 124 H POC Glucose Lactic Acid 7.80 H* Calcium 7.5 L Total Bilirubin 7.40 H AST 326 H ALT 72 H Alkaline Phosphatase 170 H Total Creatine Kinase CK-MB (CK-2) CK-MB (CK-2) Rel Index Troponin T Total Protein 6.1 L D Albumin 2.5 L HDL Cholesterol TSH Chest x-ray: image reviewed (Cardiomegaly, bilateral pleurla effusions) Allied health notes reviewed: RT
--- NOTE | 2022-02-18 10:53 | Progress Note ---
Assessment and Plan Patient is 72-year-old male with a past medical history of dilated cardiomyopathy, history of acute CT, coronary artery disease, ICD, hypertension, COPD, diabetes who is brought to the hospital status post cardiopulmonary arrest S/p cardiac arrest AMS NSTEMI End-stage heart failure Hypothermia Acute renal failure Hypoglycemia Hypothyroidism Anemia Coronary artery disease History of CT Dilated cardiomyopathy ICD in situ Hypertension COPD Diabetes Echocardiogram reviewed (02/21/2021): LVEF is 35 to 40%. LV is mildly dilated. LV SF is moderately decreased. Mild LVH. Hypokinesis in the inferior, lateral wall. Mild diastolic dysfunction. RV SF is normal. Pacemaker lead is present in the right ventricle. Pacemaker lead present in the right atrium. Mild to moderate MR. Mild TR. RVSP is 35 mmHg. Lexiscan MPI stress test (02/22/2021): Is negative for reversible ischemia Plan: Troponin is noted to be elevated in setting of acute renal failure and status post cardiac arrest No IDALIA/ARB's, beta-blockers, calcium channel blockers due to bradycardia and hypotension Continue statin therapy Will hold aspirin at this time due to reported that patient has aspirin allergy. Patient currently requiring numerous pressors include dopamine, Levophed, and vasopressin Wean pressors as tolerated Patient has been deteriorating over last several months, has cardiomyopathy with low EF following cardiac arrest, is currently hypothermic, in acute renal failure, and has altered mental status. Overall very poor prognosis Discussed with family member at bedside that patient may be a DNR and/or hospice patient Patient seen in conjunction with Dr. Beasley who agrees with plan of care - Patient Problems (1) Altered mental state Current Visit: No Status: Acute Qualifiers: Altered mental status type: unspecified Qualified Code(s): R41.82 - Altered mental status, unspecified (2) Cardiac arrest Current Visit: No Status: Acute (3) Cardiogenic shock Current Visit: No Status: Acute (4) HTN (hypertension) Current Visit: No Status: Acute Qualifiers: Hypertension type: essential hypertension (5) Lactic acid acidosis Current Visit: No Status: Acute (6) Malnutrition Current Visit: No Status: Acute Qualifiers: Malnutrition type: protein-calorie malnutrition Protein-calorie malnutrition severity: moderate Qualified Code(s): E44.0 - Moderate protein- calorie malnutrition (7) Tobacco use Current Visit: No Status: Acute (8) Acute kidney injury superimposed on CKD Current Visit: Yes Status: Acute (9) Diabetes Current Visit: Yes Status: Acute (10) Dilated cardiomyopathy Current Visit: Yes Status: Acute (11) NSTEMI (non-ST elevated myocardial infarction) Current Visit: Yes Status: Acute (12) CAD (coronary artery disease) Current Visit: No Status: Chronic Subjective Date of service: 02/18/22 Principal diagnosis: s/p cardiac arrest Interval history: Patient remains intubated and sedated Sinus tach with PVCs 90s to 110s Objective Vital Signs Temp Pulse Pulse Resp BP Pulse Ox 02/18/22 10:00 95 H 22 93/62 02/18/22 09:45 113 H 21 98/63 02/18/22 09:30 113 H 23 93/65 02/18/22 09:15 114 H 28 H 100/71 02/18/22 09:00 113 H 23 101/66 02/18/22 08:49 113 H 100/65 92 02/18/22 08:45 113 H 22 100/65 02/18/22 08:30 96 H 22 91/61 93 02/18/22 08:15 96 H 20 94/60 02/18/22 08:00 99.7 F H 104 H 15 95/59 100 02/18/22 07:45 96 H 20 94/60 02/18/22 07:30 97 H 19 94/59 02/18/22 07:15 97 H 21 88/59 02/18/22 07:00 97 H 22 93/58 02/18/22 06:45 98 H 20 93/60 02/18/22 06:30 100 H 20 88/56 02/18/22 06:15 97 H 22 86/55 02/18/22 06:00 97 H 26 H 89/57 100 02/18/22 05:45 99 H 21 89/58 02/18/22 05:37 99.4 F 02/18/22 05:30 98 H 24 89/63 02/18/22 05:15 96 H 23 80/54 02/18/22 05:00 97 H 24 85/56 02/18/22 04:45 97 H 23 84/56 02/18/22 04:43 97 H 86/60 98 02/18/22 04:30 97 H 23 86/60 02/18/22 04:15 97 H 22 86/59 02/18/22 04:00 97 H 26 H 92/59 100 02/18/22 03:45 96 H 22 90/63 02/18/22 03:30 96 H 20 90/63 02/18/22 03:15 109 H 21 88/62 02/18/22 03:00 107 H 21 90/63 02/18/22 02:45 109 H 21 86/58 02/18/22 02:30 109 H 20 83/58 02/18/22 02:15 109 H 20 83/60 02/18/22 02:00 109 H 20 84/60 02/18/22 01:45 106 H 19 86/55 02/18/22 01:30 109 H 19 88/60 02/18/22 01:15 108 H 19 86/59 02/18/22 01:00 108 H 20 78/55 02/18/22 00:45 107 H 19 86/61 02/18/22 00:30 107 H 20 85/61 02/18/22 00:15 107 H 19 86/59 02/18/22 00:01 106 H 85/62 98 02/18/22 00:00 106 H 26 H 85/62 100 02/17/22 23:45 107 H 18 87/62 02/17/22 23:30 110 H 17 89/63 02/17/22 23:18 100 02/17/22 23:17 114 H 19 87/65 02/17/22 23:15 114 H 18 87/65 45 L 02/17/22 23:00 113 H 19 97/65 53 L 02/17/22 22:50 108 H 87/60 02/17/22 22:45 110 H 110 H 20 66/46 35 L 02/17/22 22:31 110 H 20 02/17/22 22:22 110 H 26 H 75/49 100 02/17/22 22:15 110 H 23 02/17/22 22:10 112 H 26 H 73/47 100 02/17/22 22:08 111 H 21 02/17/22 22:00 110 H 02/17/22 21:45 107 H 20 77/50 02/17/22 21:31 106 H 20 75/50 71 L 02/17/22 21:15 106 H 20 75/50 02/17/22 21:01 106 H 21 77/53 02/17/22 20:45 106 H 19 77/49 02/17/22 20:31 106 H 20 78/55 81 L 02/17/22 20:15 106 H 20 83/57 02/17/22 20:01 106 H 18 77/54 02/17/22 19:48 106 H 81/56 98 02/17/22 19:45 106 H 21 73/50 02/17/22 19:31 81 19 74/50 02/17/22 19:15 81 21 72/50 02/17/22 19:01 82 20 71/46 02/17/22 18:45 82 20 77/40 02/17/22 18:31 82 20 02/17/22 18:15 81 20 73/47 02/17/22 18:00 81 20 72/50 90 02/17/22 17:45 81 20 75/54 02/17/22 17:30 81 20 74/51 91 02/17/22 17:15 80 20 72/49 93 02/17/22 17:00 78 20 72/48 92 02/17/22 16:45 76 20 70/49 95 02/17/22 16:30 75 20 78/53 95 02/17/22 16:15 79 21 76/52 96 02/17/22 16:00 76 19 78/53 98 02/17/22 15:45 81 18 78/54 98 02/17/22 15:30 79 19 80/55 98 02/17/22 15:15 77 18 81/54 99 02/17/22 15:00 75 18 80/53 99 02/17/22 14:45 73 18 85/52 99 02/17/22 14:32 70 17 99 02/17/22 12:25 58 L 105/49 100 - Physical Examination General: Other (Intubated and sedated) HEENT: Positive: Normocephaly Neck: Positive: trachea midline Cardiac: Positive: Regular Rate, Tachycardia Lungs: Positive: Ventilated Respirations Neuro: Positive: Other (Unable to assess) Abdomen: Positive: Soft Skin: Negative: Rash, Suspicious Lesions, Ulceration Extremities: Present: upper extr. pulses. Absent: edema - Labs and Meds Cardiac Enzymes 02/17/22 02/17/22 02/18/22 Range/Units 10:30 Unknown 04:48 AST 176 H 326 H (5-40) units/L CK-MB (CK-2) 8.1 H (0.0-4.0) ng/mL Coagulation 02/17/22 Range/Units 10:30 APTT 72.8 H* (24.2-36.6) Sec. Lipids 02/17/22 Range/Units 10:30 Triglycerides 63 (2-149) mg/dL Cholesterol 153 (50-199) mg/dL HDL Cholesterol 10 L (40-59) mg/dL Cholesterol/HDL Ratio 15.30 % CBC 02/17/22 02/18/22 Range/Units 10:30 04:48 WBC 7.6 12.7 H (4.5-11.0) K/mm3 RBC 2.91 L 3.77 (3.65-5.03) M/mm3 Hgb 8.5 L 10.5 L (11.8-15.2) gm/dl Hct 25.5 L 33.0 L D (35.5-45.6) % Plt Count 95 L 132 L (140-440) K/mm3 Comprehensive Metabolic Panel 02/17/22 02/18/22 Range/Units 10:30 04:48 Sodium 140 144 (137-145) mmol/L Potassium 4.9 4.9 (3.6-5.0) mmol/L Chloride 106.6 107.0 (98-107) mmol/L Carbon Dioxide 15 L 15 L (22-30) mmol/L BUN 54 H 53 H (9-20) mg/dL Creatinine 4.0 H 3.9 H (0.8-1.3) mg/dL Glucose 290 H 124 H (75-100) mg/dL Calcium 7.6 L 7.5 L (8.4-10.2) mg/dL AST 176 H 326 H (5-40) units/L ALT 45 72 H (7-56) units/L Alkaline Phosphatase 111 170 H (35-129) units/L Total Protein 4.9 L 6.1 L D (6.3-8.2) g/dL Albumin 2.1 L 2.5 L (3.9-5) g/dL - Imaging and Cardiology Echo: report reviewed - Telemetry EKG Rhythm: Sinus Tachycardia - EKG Sinus rhythms and dysrhythmias: sinus tachycardia
--- NOTE | 2022-02-18 11:12 | Progress Note ---
<JUANITO VARGAS - Last Filed: 02/18/22 18:14> Assessment and Plan Assessment and plan: This is a 72-year-old maelw with known past medical history of COPD, nicotine dependence, DM, malnutrition, debility, vascular dementia, cerebral atherosclerosis, HTN, HLD, NV, HFrEF(35%), dilated cardiomyopathy s/p AICD admitted s/p cardiac arrest now on ventilatory support. Hospital Course to Date: 02/18: Patient is unresponsive, on the vent, not on any sedation. Worsening acidosis, septic shock vs Cardiogenic shock. Now on 3 pressors and NaBcarb gtts. Preliminary blood cultures report with giles soto. Empiric IV Abx- Vanco initiated, ID consulted. Stress dose steroids also added. Trend Lactic acid and CBC. 2D Echo pending. Plan to wean off Dopamine gtt per Cardio. Renal function continue to worsen, Nephrology consulted. Extensive multidisciplinary discussions with patient's at the bedside in regards to patient's condition, diagnoses, and overall very poor prognosis. Patient's is co nsidering at home hospice but would like aggressive treatment at this time. She verbalized understanding of the info provided. All questions and concerns were addressed at this time. Patient remains a FULL code. Assessment and Plan #S/p Cardiac Arrest with ROSC #Septic Shock vs Cardiogenic Shock #HFrEF(35%) #Dilated Cardiomyopathy with AICD - Was found unresponsive at home by spouse - EMS called and found patient in bradycardia, HR in the 30s and went into asystolic arrest in route then in the ED - Patient on is dopamine, Levophed, and Vasopressin this am. MAP in the 50s - SR with frequent PVCs noted - Patient is also on NaBcarb gtt - Stress dose steroids initiated - Cardiology is also following, appreciate recommendations - Plan to wean off dopamine gtt - 2D Echo pending - Continue blood pressure monitor per protocol - Titrate pressors to maintain MAP above 65 #Acute Hypoxic Respiratory Failure - Intubated during code on 02/17 - Vent setting:PRVC-50%,6,14,450 - AM ABG noted - CCM consulted, appreciate recommendations - VAP bundle addressed - Aspiration precaution HOB above 30 - Daily ABG and CXR - Continue SPO2 monitoring for SPO2 goal above 92% #Acute Metabolic Acidosis - s/p cardiac arrest - Remains unresponsive on the vent, not on any sedations - Pupils are reactive, with +gag/cough - Possible CT head/brain once patient is more stable - Avoid sedative agents - Avoid benzodiazepine to reduce the possibility of delirium - PRN Analgesia for CPOT greater than 3 - Maintenance of sleep-wake cycle #Acute Kidney Injury(DIMPLE) most likely ATN - due to hypotension/hypopperfusion - Per record baseline Scr. 1.3. Scr. as high as 4 this am - Guevara in place, now oliguric - Nephrology consulted - Strict intake and output - Avoid nephrotoxic medications; Renally dose medications - Monitor and replace electrolytes as needed #Septic Shock #Bacteremia #Metabolic Acidosis #Leukocytosis - Presented hypothermic and severely acidotic requiring multiple pressors - With worsen lactic acidosis today and leukocytosis - Preliminary blood cultures report with giles soto - Empiric IV Abx- Vanco was initiated - ID consulted - Repeat blood culture ordered - 2D echo to r/o vegetation pending - Trend Lactic acid and CBC - F/U on cultures #Transaminitis/Shock Liver - Probably reactive s/p cardiac arrest - Continue to trend LFTs #Hypoglycemia-improved - Probably due to poor perfusion, Low BG per Fingerstick accucheck. - Repeat BG from arterial line draw is wnr - Continue BG check Q6hrs, draw blood from artline, Avoid fingersticks - Continue hypoglycemic protocol - Avoid Hypoglycemia #Moderate Protein-Calorie Malnutrition - albumin- 2.5 - On Continue IVF hydration - Plan for enteral nutrition once pressor requirements lessen - Nutrition consulted #GI/DVT Prophylaxis - PPI- Pepcid - SCD to bilateral lower extremities while in bed #Advance Care Planning - Extensive multidisciplinary discussions with patient's , Mattie Mayes, at the bedside in regards to patient's condition, diagnoses, care plan, and overall very poor prognosis. Patient acknowledged understanding and agreement with care plan. - Patient's is considering at home hospice, but would like aggressive treatment at this time. All questions and concerns were addressed at this time. Patient remains a FULL code. The high probability of a clinically significant, sudden or life threatening deterioration of the [multiple] system(s) required my full and direct attention, intervention and personal management. The aggregate critical care time was [60] minutes. This time is in addition to time spent performing reported procedures but includes the following: [x] Data Review and interpretation [x] Patient assessment and monitoring of vital signs [x] Documentation [x] Medication orders and management Disposition Plan: ICU Total Time Spent with Patient (Minutes): 60 History Interval history: Patient seen and examined at the bedside. Patient is on the vent, unresponsive, not on any sedations. Pupils are round and reactive, with +gag/cough. Patient is currently on 3 pressors: Dopamine, Levophed, Vaso, and Bcarb gtts. SR with frequent PVCs on the monitor Hospitalist Physical - Constitutional Vitals: Temp Pulse Resp BP Pulse Ox 99.7 F H 87 15 75/48 100 02/18/22 08:00 02/18/22 11:00 02/18/22 11:00 02/18/22 11:00 02/18/22 10:15 General appearance: Present: other (Unresponsive, on the vent. Not on any sedations) - EENT Eyes: Present: PERRL - Respiratory Respiratory effort: normal Respiratory: bilateral: rhonchi - Cardiovascular Rhythm: regular Heart Sounds: Present: S1 & S2 - Extremities Extremities: no ischemia, pulses intact, pulses symmetrical Peripheral Pulses: within normal limits - Abdominal General gastrointestinal: soft, non-distended, hypoactive bowel sounds - Integumentary Integumentary: Present: warm, dry - Psychiatric Psychiatric: other (Unresponsive, on the vent. Not on any sedations) - Neurologic Neurologic: moves all extremities (Non-Purposeful movement), other (Unresponsive, on the vent. Not on any sedations) - Allied Health Allied health notes reviewed: nursing HEART Score - HEART Score Troponin: Troponin T 0.167 ng/mL (0.00-0.029) H* 02/17/22 10:30 Results - Labs CBC & Chem 7: 02/18/22 04:48 02/18/22 04:48 Labs: Laboratory Last Values WBC 12.7 K/mm3 (4.5-11.0) H 02/18/22 04:48 RBC 3.77 M/mm3 (3.65-5.03) 02/18/22 04:48 Hgb 10.5 gm/dl (11.8-15.2) L 02/18/22 04:48 Hct 33.0 % (35.5-45.6) L D 02/18/22 04:48 MCV 88 fl (84-94) 02/18/22 04:48 MCH 28 pg (28-32) 02/18/22 04:48 MCHC 32 % (32-34) 02/18/22 04:48 RDW 23.0 % (13.2-15.2) H 02/18/22 04:48 Plt Count 132 K/mm3 (140-440) L 02/18/22 04:48 Add Manual Diff Complete 02/18/22 04:48 Total Counted 100 02/18/22 04:48 Seg Neuts % (Manual) 74.0 % (40.0-70.0) H 02/18/22 04:48 Band Neutrophils % 22.0 % 02/18/22 04:48 Lymphocytes % (Manual) 2.0 % (13.4-35.0) L 02/18/22 04:48 Reactive Lymphs % (Man) 0 % 02/18/22 04:48 Monocytes % (Manual) 2.0 % (0.0-7.3) 02/18/22 04:48 Eosinophils % (Manual) 0 % (0.0-4.3) 02/18/22 04:48 Basophils % (Manual) 0 % (0.0-1.8) 02/18/22 04:48 Metamyelocytes % 0 % 02/18/22 04:48 Myelocytes % 0 % 02/18/22 04:48 Promyelocytes % 0 % 02/18/22 04:48 Blast Cells % 0 % 02/18/22 04:48 Nucleated RBC % 28.0 % (0.0-0.9) H 02/18/22 04:48 Seg Neutrophils # Man 9.4 K/mm3 (1.8-7.7) H 02/18/22 04:48 Band Neutrophils # 2.8 K/mm3 02/18/22 04:48 Lymphocytes # (Manual) 0.3 K/mm3 (1.2-5.4) L 02/18/22 04:48 Abs React Lymphs (Man) 0.0 K/mm3 02/18/22 04:48 Monocytes # (Manual) 0.3 K/mm3 (0.0-0.8) 02/18/22 04:48 Eosinophils # (Manual) 0.0 K/mm3 (0.0-0.4) 02/18/22 04:48 Basophils # (Manual) 0.0 K/mm3 (0.0-0.1) 02/18/22 04:48 Metamyelocytes # 0.0 K/mm3 02/18/22 04:48 Myelocytes # 0.0 K/mm3 02/18/22 04:48 Promyelocytes # 0.0 K/mm3 02/18/22 04:48 Blast Cells # 0.0 K/mm3 02/18/22 04:48 WBC Morphology Not Reportable 02/18/22 04:48 Hypersegmented Neuts Not Reportable 02/18/22 04:48 Hyposegmented Neuts Not Reportable 02/18/22 04:48 Hypogranular Neuts Not Reportable 02/18/22 04:48 Smudge Cells Not Reportable 02/18/22 04:48 Toxic Granulation Not Reportable 02/18/22 04:48 Toxic Vacuolation Not Reportable 02/18/22 04:48 Dohle Bodies Not Reportable 02/18/22 04:48 Pelger-Huet Anomaly Not Reportable 02/18/22 04:48 Henry Rods Not Reportable 02/18/22 04:48 Platelet Estimate Consistent w auto 02/18/22 04:48 Clumped Platelets Not Reportable 02/18/22 04:48 Plt Clumps, EDTA Not Reportable 02/18/22 04:48 Large Platelets Not Reportable 02/18/22 04:48 Giant Platelets Not Reportable 02/18/22 04:48 Platelet Satelliting Not Reportable 02/18/22 04:48 Plt Morphology Comment Not Reportable 02/18/22 04:48 RBC Morphology Not Reportable 02/18/22 04:48 Dimorphic RBCs Not Reportable 02/18/22 04:48 Polychromasia Not Reportable 02/18/22 04:48 Hypochromasia 2+ 02/18/22 04:48 Poikilocytosis 2+ 02/18/22 04:48 Anisocytosis 2+ 02/18/22 04:48 Microcytosis 1+ 02/18/22 04:48 Macrocytosis Not Reportable 02/18/22 04:48 Spherocytes 1+ 02/18/22 04:48 Pappenheimer Bodies Not Reportable 02/18/22 04:48 Sickle Cells Not Reportable 02/18/22 04:48 Target Cells 1+ 02/18/22 04:48 Tear Drop Cells Not Reportable 02/18/22 04:48 Ovalocytes Not Reportable 02/18/22 04:48 Helmet Cells Not Reportable 02/18/22 04:48 [place] Bodies Not Reportable 02/18/22 04:48 [place] Rings Not Reportable 02/18/22 04:48 [place] Cells 2+ 02/18/22 04:48 Bite Cells Not Reportable 02/18/22 04:48 Crenated Cell Not Reportable 02/18/22 04:48 Elliptocytes Not Reportable 02/18/22 04:48 Acanthocytes (Spur) Not Reportable 02/18/22 04:48 Rouleaux Not Reportable 02/18/22 04:48 Hemoglobin C Crystals Not Reportable 02/18/22 04:48 Schistocytes Not Reportable 02/18/22 04:48 Malaria parasites Not Reportable 02/18/22 04:48 [place]ine Bodies Not Reportable 02/18/22 04:48 Hem Pathologist Commnt No 02/18/22 04:48 APTT 72.8 Sec. (24.2-36.6) H* 02/17/22 10:30 ABG pH 7.434 pH Units (7.350-7.450) 02/18/22 04:43 ABG pCO2 19.3 mm Hg 02/18/22 04:43 ABG pO2 99.6 mm Hg (80.0-90.0) H 02/18/22 04:43 ABG HCO3 12.6 mmol/L (20.0-26.0) L 02/18/22 04:43 ABG O2 Saturation 97.9 % (95.0-99.0) 02/18/22 04:43 ABG O2 Content 14.5 (0.0-44) 02/18/22 04:43 ABG Base Excess -9.7 mmol/L (-2.0-3.0) L 02/18/22 04:43 ABG Hemoglobin 10.7 gm/dl (14.0-18.0) L 02/18/22 04:43 ABG Carboxyhemoglobin 1.4 % (0.0-5.0) 02/18/22 04:43 ABG Methemoglobin 0.5 % (0.0-1.5) 02/18/22 04:43 Oxyhemoglobin 96.0 % (95.0-99.0) 02/18/22 04:43 FiO2 50 % 02/18/22 04:43 Sodium 144 mmol/L (137-145) 02/18/22 04:48 Potassium 4.9 mmol/L (3.6-5.0) 02/18/22 04:48 Chloride 107.0 mmol/L (98-107) 02/18/22 04:48 Carbon Dioxide 15 mmol/L (22-30) L 02/18/22 04:48 Anion Gap 27 mmol/L 02/18/22 04:48 BUN 53 mg/dL (9-20) H 02/18/22 04:48 Creatinine 3.9 mg/dL (0.8-1.3) H 02/18/22 04:48 Estimated GFR 18 ml/min 02/18/22 04:48 BUN/Creatinine Ratio 14 % 02/18/22 04:48 Glucose 124 mg/dL (75-100) H 02/18/22 04:48 POC Glucose 226 mg/dL (70-105) H 02/17/22 12:00 Lactic Acid 7.80 mmol/L (0.7-2.0) H* 02/18/22 04:48 Calcium 7.5 mg/dL (8.4-10.2) L 02/18/22 04:48 Total Bilirubin 7.40 mg/dL (0.1-1.2) H 02/18/22 04:48 AST 326 units/L (5-40) H 02/18/22 04:48 ALT 72 units/L (7-56) H 02/18/22 04:48 Alkaline Phosphatase 170 units/L (35-129) H 02/18/22 04:48 Total Creatine Kinase 171 units/L (55-170) H 02/17/22 Unknown CK-MB (CK-2) 8.1 ng/mL (0.0-4.0) H 02/17/22 Unknown CK-MB (CK-2) Rel Index 4.7 (0-4) H 02/17/22 Unknown Troponin T 0.167 ng/mL (0.00-0.029) H* 02/17/22 10:30 Total Protein 6.1 g/dL (6.3-8.2) L D 02/18/22 04:48 Albumin 2.5 g/dL (3.9-5) L 02/18/22 04:48 Albumin/Globulin Ratio 0.7 % 02/18/22 04:48 Triglycerides 63 mg/dL (2-149) 02/17/22 10:30 Cholesterol 153 mg/dL (50-199) 02/17/22 10:30 LDL Cholesterol Direct 122 mg/dL (50-130) 02/17/22 10:30 HDL Cholesterol 10 mg/dL (40-59) L 02/17/22 10:30 Cholesterol/HDL Ratio 15.30 % 02/17/22 10:30 TSH 10.950 mlU/mL (0.270-4.200) H 02/17/22 10:30 Free T4 1.35 ng/dL (0.76-1.46) 02/17/22 10:30 Microbiology: Microbiology 02/17/22 10:42 Peripheral/Venous Blood Culture - Preliminary NO GROWTH AFTER 24 HOURS 02/17/22 11:50 Tracheal Aspirate Sputum Culture - Preliminary 02/17/22 10:30 Peripheral/Venous Blood Culture - Preliminary Guevara/IV: Voiding Method Indwelling Catheter Active Medications - Current Medications Current Medications: Generic Name Dose Route Start Last Admin Trade Name Freq PRN Reason Stop Dose Admin Acetaminophen 650 mg 02/17/22 14:01 Acetaminophen 650 Mg Rect Supp AL Q6H PRN Pain MILD(1-3)/Fever >100.5/WINSLOW Albuterol 2.5 mg 02/17/22 13:57 Albuterol 2.5 Mg/3 Ml Nebu IH Q3HRT PRN Shortness Of Breath Atorvastatin Calcium 40 mg 02/18/22 22:00 Atorvastatin 40 Mg Tab FEEDTUBE QHS LAKISHA Famotidine 10 mg 02/18/22 10:00 Famotidine 20 Mg/2 Ml Inj IV BID LAKISHA Fentanyl 50 mcg 02/17/22 14:04 Fentanyl 100 Mcg/2 Ml Inj IV Q10MIN PRN ANALGESIA Hydrophilic Ointment 1 applic 02/17/22 11:01 Lip Therapy Vaseline TP Q2HR PRN Dry Lips Fentanyl Citrate 2,000 mcg in 100 mls @ 2.722 mls/hr 02/17/22 15:00 02/18/22 05:50 Fentanyl Drip Premix IV 0 mcg/kg/hr TITR LAKISHA 0 mls/hr Titration Protocol 1 MCG/KG/HR Vasopressin 20 unit/ Sodium 101 mls @ 12.12 mls/hr 02/17/22 17:00 02/18/22 02:42 Chloride IV 0.03 units/min TITR LAKISHA 9.09 mls/hr Administration Protocol 0.04 UNITS/MIN NORepinephrine/NS 8 MG-250 ML 8 mg in 250 mls @ 3.75 mls/hr 02/17/22 23:00 02/18/22 11:01 Norepinephrine/Ns 8 Mg-250 Ml (Double Conc) IV 15 mcg/min TITRATE LAKISHA 28.125 mls/hr Titration Protocol 2 MCG/MIN Sodium Bicarbonate 150 meq/ 1,150 mls @ 150 mls/hr 02/17/22 23:45 02/17/22 23:48 Dextrose IV 75 mls/hr DIRECT LAKISHA Administration Dopamine HCl/Dextrose 800 mg in 250 mls @ 2.041 mls/hr 02/18/22 09:00 02/18/22 10:00 Dopamine 800 Mg/D5w 250ml IV 0 mcg/kg/min TITR LAKISHA 0 mls/hr Titration Protocol 2 MCG/KG/MIN Multi-Ingred Cream/Lotion/Oil/Oint 1 applic 02/17/22 11:01 Mineral Oil/Petrolatum, White Ophth Oint 3.5 Gm OU Q4HR PRN Dry Eye(s) Senna/Docusate Sodium 1 tab 02/17/22 22:00 02/18/22 00:27 Sennosides/Docusate Sodium 8.6/50 Mg Tab FEEDTUBE Not Given BID LAKISHA Sodium Chloride 10 ml 02/17/22 22:00 02/18/22 00:28 Sodium Chloride 0.9% 10 Ml Flush Syringe IV 10 ml BID LAKISHA Administration Sodium Chloride 10 ml 02/17/22 14:01 Sodium Chloride 0.9% 10 Ml Flush Syringe IV PRN PRN LINE FLUSH <MASOUD PATTERSON - Last Filed: 02/19/22 07:35> Assessment and Plan Assessment and plan: I saw and evaluated the patient. I agree with the findings and the plan of care as documented in the Nurse Practitioner's~note, with the following corrections and additions. Hospitalist Physical - Constitutional Vitals: Temp Pulse Resp BP Pulse Ox 96.9 F L 91 H 22 98/53 90 02/19/22 04:00 02/19/22 07:15 02/19/22 07:15 02/19/22 07:15 02/19/22 04:17 HEART Score - HEART Score Troponin: Troponin T 0.167 ng/mL (0.00-0.029) H* 02/17/22 10:30 Results - Labs CBC & Chem 7: 02/19/22 04:00 02/19/22 04:00 Labs: Laboratory Last Values WBC 11.0 K/mm3 (4.5-11.0) 02/19/22 04:00 RBC 3.37 M/mm3 (3.65-5.03) L 02/19/22 04:00 Hgb 9.5 gm/dl (11.8-15.2) L 02/19/22 04:00 Hct 29.1 % (35.5-45.6) L 02/19/22 04:00 MCV 86 fl (84-94) 02/19/22 04:00 MCH 28 pg (28-32) 02/19/22 04:00 MCHC 33 % (32-34) 02/19/22 04:00 RDW 22.6 % (13.2-15.2) H 02/19/22 04:00 Plt Count 81 K/mm3 (140-440) L 02/19/22 04:00 Add Manual Diff Complete 02/18/22 04:48 Total Counted 100 02/18/22 04:48 Seg Neuts % (Manual) 74.0 % (40.0-70.0) H 02/18/22 04:48 Band Neutrophils % 22.0 % 02/18/22 04:48 Lymphocytes % (Manual) 2.0 % (13.4-35.0) L 02/18/22 04:48 Reactive Lymphs % (Man) 0 % 02/18/22 04:48 Monocytes % (Manual) 2.0 % (0.0-7.3) 02/18/22 04:48 Eosinophils % (Manual) 0 % (0.0-4.3) 02/18/22 04:48 Basophils % (Manual) 0 % (0.0-1.8) 02/18/22 04:48 Metamyelocytes % 0 % 02/18/22 04:48 Myelocytes % 0 % 02/18/22 04:48 Promyelocytes % 0 % 02/18/22 04:48 Blast Cells % 0 % 02/18/22 04:48 Nucleated RBC % 28.0 % (0.0-0.9) H 02/18/22 04:48 Seg Neutrophils # Man 9.4 K/mm3 (1.8-7.7) H 02/18/22 04:48 Band Neutrophils # 2.8 K/mm3 02/18/22 04:48 Lymphocytes # (Manual) 0.3 K/mm3 (1.2-5.4) L 02/18/22 04:48 Abs React Lymphs (Man) 0.0 K/mm3 02/18/22 04:48 Monocytes # (Manual) 0.3 K/mm3 (0.0-0.8) 02/18/22 04:48 Eosinophils # (Manual) 0.0 K/mm3 (0.0-0.4) 02/18/22 04:48 Basophils # (Manual) 0.0 K/mm3 (0.0-0.1) 02/18/22 04:48 Metamyelocytes # 0.0 K/mm3 02/18/22 04:48 Myelocytes # 0.0 K/mm3 02/18/22 04:48 Promyelocytes # 0.0 K/mm3 02/18/22 04:48 Blast Cells # 0.0 K/mm3 02/18/22 04:48 WBC Morphology Not Reportable 02/18/22 04:48 Hypersegmented Neuts Not Reportable 02/18/22 04:48 Hyposegmented Neuts Not Reportable 02/18/22 04:48 Hypogranular Neuts Not Reportable 02/18/22 04:48 Smudge Cells Not Reportable 02/18/22 04:48 Toxic Granulation Not Reportable 02/18/22 04:48 Toxic Vacuolation Not Reportable 02/18/22 04:48 Dohle Bodies Not Reportable 02/18/22 04:48 Pelger-Huet Anomaly Not Reportable 02/18/22 04:48 [place] Rods Not Reportable 02/18/22 04:48 Platelet Estimate Consistent w auto 02/18/22 04:48 Clumped Platelets Not Reportable 02/18/22 04:48 Plt Clumps, EDTA Not Reportable 02/18/22 04:48 Large Platelets Not Reportable 02/18/22 04:48 Giant Platelets Not Reportable 02/18/22 04:48 Platelet Satelliting Not Reportable 02/18/22 04:48 Plt Morphology Comment Not Reportable 02/18/22 04:48 RBC Morphology Not Reportable 02/18/22 04:48 Dimorphic RBCs Not Reportable 02/18/22 04:48 Polychromasia Not Reportable 02/18/22 04:48 Hypochromasia 2+ 02/18/22 04:48 Poikilocytosis 2+ 02/18/22 04:48 Anisocytosis 2+ 02/18/22 04:48 Microcytosis 1+ 02/18/22 04:48 Macrocytosis Not Reportable 02/18/22 04:48 Spherocytes 1+ 02/18/22 04:48 Pappenheimer Bodies Not Reportable 02/18/22 04:48 Sickle Cells Not Reportable 02/18/22 04:48 Target Cells 1+ 02/18/22 04:48 Tear Drop Cells Not Reportable 02/18/22 04:48 Ovalocytes Not Reportable 02/18/22 04:48 Helmet Cells Not Reportable 02/18/22 04:48 [place] Bodies Not Reportable 02/18/22 04:48 [place] Rings Not Reportable 02/18/22 04:48 [place] Cells 2+ 02/18/22 04:48 Bite Cells Not Reportable 02/18/22 04:48 Crenated Cell Not Reportable 02/18/22 04:48 Elliptocytes Not Reportable 02/18/22 04:48 Acanthocytes (Spur) Not Reportable 02/18/22 04:48 Rouleaux Not Reportable 02/18/22 04:48 Hemoglobin C Crystals Not Reportable 02/18/22 04:48 Schistocytes Not Reportable 02/18/22 04:48 [place] parasites Not Reportable 02/18/22 04:48 Antoine Bodies Not Reportable 02/18/22 04:48 Hem Pathologist Commnt No 02/18/22 04:48 APTT 72.8 Sec. (24.2-36.6) H* 02/17/22 10:30 ABG pH 7.456 pH Units (7.350-7.450) H 02/19/22 06:20 ABG pCO2 16.0 mm Hg 02/19/22 06:20 ABG pO2 68.4 mm Hg (80.0-90.0) L 02/19/22 06:20 ABG HCO3 11.0 mmol/L (20.0-26.0) L 02/19/22 06:20 ABG O2 Saturation 96.3 % (95.0-99.0) 02/19/22 06:20 ABG O2 Content 12.3 (0.0-44) 02/19/22 06:20 ABG Base Excess -11.0 mmol/L (-2.0-3.0) L 02/19/22 06:20 ABG Hemoglobin 9.2 gm/dl (14.0-18.0) L 02/19/22 06:20 ABG Carboxyhemoglobin 1.5 % (0.0-5.0) 02/19/22 06:20 ABG Methemoglobin 0.5 % (0.0-1.5) 02/19/22 06:20 Oxyhemoglobin 94.4 % (95.0-99.0) L 02/19/22 06:20 FiO2 50 % 02/19/22 06:20 Sodium 142 mmol/L (137-145) 02/19/22 04:00 Potassium 4.3 mmol/L (3.6-5.0) 02/19/22 04:00 Chloride 99.9 mmol/L (98-107) 02/19/22 04:00 Carbon Dioxide 16 mmol/L (22-30) L 02/19/22 04:00 Anion Gap 30 mmol/L 02/19/22 04:00 BUN 54 mg/dL (9-20) H 02/19/22 04:00 Creatinine 4.8 mg/dL (0.8-1.3) H 02/19/22 04:00 Estimated GFR 14 ml/min 02/19/22 04:00 BUN/Creatinine Ratio 11 % 02/19/22 04:00 Glucose 117 mg/dL (75-100) H 02/19/22 04:00 POC Glucose 226 mg/dL (70-105) H 02/17/22 12:00 Lactic Acid 12.60 mmol/L (0.7-2.0) H* 02/19/22 04:00 Calcium 6.8 mg/dL (8.4-10.2) L 02/19/22 04:00 Total Bilirubin 6.80 mg/dL (0.1-1.2) H 02/19/22 04:00 AST 379 units/L (5-40) H 02/19/22 04:00 ALT 84 units/L (7-56) H 02/19/22 04:00 Alkaline Phosphatase 152 units/L (35-129) H 02/19/22 04:00 Total Creatine Kinase 171 units/L (55-170) H 02/17/22 Unknown CK-MB (CK-2) 8.1 ng/mL (0.0-4.0) H 02/17/22 Unknown CK-MB (CK-2) Rel Index 4.7 (0-4) H 02/17/22 Unknown Troponin T 0.167 ng/mL (0.00-0.029) H* 02/17/22 10:30 Total Protein 5.0 g/dL (6.3-8.2) L 02/19/22 04:00 Albumin 2.0 g/dL (3.9-5) L 02/19/22 04:00 Albumin/Globulin Ratio 0.7 % 02/19/22 04:00 Triglycerides 63 mg/dL (2-149) 02/17/22 10:30 Cholesterol 153 mg/dL (50-199) 02/17/22 10:30 LDL Cholesterol Direct 122 mg/dL (50-130) 02/17/22 10:30 HDL Cholesterol 10 mg/dL (40-59) L 02/17/22 10:30 Cholesterol/HDL Ratio 15.30 % 02/17/22 10:30 TSH 10.950 mlU/mL (0.270-4.200) H 02/17/22 10:30 Free T4 1.35 ng/dL (0.76-1.46) 02/17/22 10:30 Random Vancomycin 19.6 ug/mL (0-40.0) 02/19/22 04:56 Microbiology: Microbiology 02/17/22 10:30 Peripheral/Venous Blood Culture - Preliminary Staphylococcus Aureus 02/17/22 10:42 Peripheral/Venous Blood Culture - Preliminary NO GROWTH AFTER 24 HOURS 02/17/22 11:50 Tracheal Aspirate Sputum Culture - Preliminary Guevara/IV: Voiding Method Indwelling Catheter Active Medications - Current Medications Current Medications: Generic Name Dose Route Start Last Admin Trade Name Freq PRN Reason Stop Dose Admin Acetaminophen 650 mg 02/17/22 14:01 Acetaminophen 650 Mg Rect Supp AL Q6H PRN Pain MILD(1-3)/Fever >100.5/WINSLOW Albuterol 2.5 mg 02/17/22 13:57 Albuterol 2.5 Mg/3 Ml Nebu IH Q3HRT PRN Shortness Of Breath Atorvastatin Calcium 40 mg 02/18/22 22:00 02/18/22 21:42 Atorvastatin 40 Mg Tab FEEDTUBE Not Given QHS LAKISHA Dextrose 50 ml 02/18/22 12:49 02/18/22 13:43 Dextrose 50% In Water (25gm) 50 Ml Syringe IV 25 ml Q30MIN PRN Administration Hypoglycemia Protocol Famotidine 10 mg 02/18/22 10:00 02/18/22 22:29 Famotidine 20 Mg/2 Ml Inj IV 10 mg BID LAKISHA Administration Fentanyl 50 mcg 02/17/22 14:04 02/18/22 18:06 Fentanyl 100 Mcg/2 Ml Inj IV 50 mcg Q10MIN PRN Administration ANALGESIA Hydrocortisone Sodium Succinate 100 mg 02/18/22 14:00 02/19/22 06:25 Hydrocortisone Sod Succ 100 Mg/2 Ml Vial IV 100 mg Q8HR LAKISHA Administration Hydrophilic Ointment 1 applic 02/17/22 11:01 Lip Therapy Vaseline TP Q2HR PRN Dry Lips Vasopressin 20 unit/ Sodium 101 mls @ 12.12 mls/hr 02/17/22 17:00 02/19/22 01:22 Chloride IV 0.03 units/min TITR LAKISHA 9.09 mls/hr Administration Protocol 0.04 UNITS/MIN NORepinephrine/NS 8 MG-250 ML 8 mg in 250 mls @ 3.75 mls/hr 02/17/22 23:00 02/19/22 03:45 Norepinephrine/Ns 8 Mg-250 Ml (Double Conc) IV 30 mcg/min TITRATE LAKISHA 56.25 mls/hr Administration Protocol 2 MCG/MIN Sodium Bicarbonate 150 meq/ 1,150 mls @ 150 mls/hr 02/17/22 23:45 02/18/22 19:05 Dextrose IV 150 mls/hr DIRECT LAKISHA Administration Phenylephrine HCl 100 mg/ 100 mls @ 3 mls/hr 02/18/22 12:45 02/19/22 06:25 Sodium Chloride IV 130 mcg/min TITR LAKISHA 7.8 mls/hr Administration Protocol 50 MCG/MIN Epinephrine 16 mg/ Sodium 250 mls @ 1.875 mls/hr 02/18/22 20:00 02/18/22 23:37 Chloride IV 4 mcg/min TITR LAKISHA 3.75 mls/hr Titration Protocol 2 MCG/MIN Multi-Ingred Cream/Lotion/Oil/Oint 1 applic 02/17/22 11:01 Mineral Oil/Petrolatum, White Ophth Oint 3.5 Gm OU Q4HR PRN Dry Eye(s) Senna/Docusate Sodium 1 tab 02/17/22 22:00 02/18/22 21:39 Sennosides/Docusate Sodium 8.6/50 Mg Tab FEEDTUBE Not Given BID LAKISHA Sodium Chloride 10 ml 02/17/22 22:00 02/18/22 22:35 Sodium Chloride 0.9% 10 Ml Flush Syringe IV 10 ml BID LAKISHA Administration Sodium Chloride 10 ml 02/17/22 14:01 Sodium Chloride 0.9% 10 Ml Flush Syringe IV PRN PRN LINE FLUSH Nutrition/Malnutrition Assess - Dietary Evaluation Nutrition/Malnutrition Findings: Nutrition Notes Start: 02/18/22 11:26 Freq: Status: Active Protocol: Document 02/18/22 11:26 SHELIA (Rec: 02/18/22 11:37 SHELIA [id number]) Nutrition Notes Need for Assessment generated from: 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 Pt also screened for low BMI, malnutrition and skin risks ( Nestor score: 9) and chewing difficulty. Pt is intubated at this time. PMHx includes debility, vascular dementia, cerebral atherosclerosis and gout. Burn Absent Trauma Absent Skin Integrity/Comment Sacral wound Minimum of two criteria Yes Body Fat Depletion Moderate depletion (severe) Muscle Mass Moderate Depletion (severe) Protein-Calorie Malnutrition Severe #1 Nutrition Diagnosis Inadequate oral intake Etiology mech ventilation, hx of dementia As Evidenced by Signs and Symptoms pt NPO and pt underweight Is patient on ventilator? Yes Is Patient Ambulatory and/or Out of Bed No REE-([facility]-confined to bed) 1516.656 Kcal/Kg value to use for calculation 35 Approximate Energy Requirements Using 1904 kcal/Kg Calculation Used for Recommendations Kcal/kg Additional Notes Pro needs 0.8-1.2g/k-65g/ day Fluid needs 1ml/kcal Nutrition Intervention Nutrition Support: Recommend Glucerna 1.2 when TF consult received Goal #1 Either advance diet or start EN support within next 24-48 hrs Goal #2 Wt maintenance and/or gain Goal #3 Wound healing Anticipated Discharge Needs: Unable to identify at this time Follow-Up By: 02/21/22 Additional Comments F/U: TF consult, vent status, pressor support, renal function
[2022-02-18] MEDS: FAMOTIDINE 20 MG/2 ML INJ IV SCH ×2 (11:15→22:29)
[2022-02-18] MEDS: NORepinephrine/NS 8 MG-250 ML 8 MG/250 ML INFUS..BTL IV SCH ×3 (11:16→23:35)
--- NOTE | 2022-02-18 11:16 | Consultation ---
History of Present Illness - Reason for Consult Consult date: 02/18/22 acute renal failure - History of Present Illness The patient is a 72 YO male with history notable for HTN, DM, HLD, COPD, Ma lnutrition, Debility, Dementia, CAD, End Stage HF with NYHA Class IV, Nicotine Dependence and Gout who presented to [facility] ED 02/17/2022 s/p Cardiac arrest. Unable to get any history from patient and there was no family member at the bedside. Per chart patient became unresponsive at home. Enroute the patient was found to have V.tach with subsequent asystolic arrest. Patient treated" with ACLS protocol with eventual return of perfusing cardiac rhythm. Patient again developed asystolic arrest and was treated with ACLS protocol with return to perfusing cardiac rhythm. Patient seen and evaluated in the emergency department. Patient admitted to ICU with acute hypoxemic respiratory failure, cardiac arrest, shock, lactic acidosis, metabolic encephalopathy, DIMPLE and suspected anoxic encephalopathy. Creatinine level 4. Nephrology consulted for further evaluation of DIMPLE. Past History Past Medical History: COPD, diabetes, heart failure, hypertension, hyperlipidemia Past Surgical History: hernia repair, Other (Back surgery) Social history: , lives with family, alcohol abuse Family history: diabetes, hypertension Medications and Allergies Allergies Allergy/AdvReac Type Severity Reaction Status Date / Time aspirin Allergy Unknown Verified 09/21/20 06:40 Home Medications Medication Instructions Recorded Confirmed Last Taken Type Lisinopril [Zestril] 5 mg PO DAILY 09/21/20 02/18/22 1 Day Ago History ~02/19/21 Spironolactone [Aldactone] 12.5 mg PO QDAY 09/21/20 02/18/22 1 Day Ago History ~02/19/21 Terazosin HCl 2 mg PO HS 09/21/20 02/18/22 1 Day Ago History ~02/19/21 allopurinoL [Zyloprim] 150 mg PO QDAY 09/21/20 02/18/22 1 Day Ago History ~02/19/21 Acetaminophen [Non-Aspirin Extra 1,000 mg PO TID PRN 02/20/21 02/18/22 Unknown History Strength] Albuterol Mdi (or & Nicu Only) 2 puff IH QID PRN 02/20/21 02/18/22 1 Day Ago History [ProAir HFA Inhaler] ~02/19/21 Amlodipine Besylate [Norvasc] 2.5 mg PO DAILY 02/20/21 02/18/22 1 Day Ago History ~02/19/21 Aspirin EC [Halfprin EC] 81 mg PO QDAY 02/20/21 02/18/22 1 Day Ago History ~02/19/21 AtorvaSTATin [Lipitor] 80 mg PO QHS 02/20/21 02/18/22 1 Day Ago History ~02/19/21 Benzonatate [Tessalon Perles] 100 mg PO Q6HR PRN 02/20/21 02/18/22 12/28/20 10:00 History Furosemide [Lasix TAB] 20 mg PO QDAY PRN 02/20/21 02/18/22 1 Day Ago History ~02/19/21 Metoprolol Xl [Metoprolol 100 mg PO QDAY 02/20/21 02/18/22 1 Day Ago History SUCCINATE ER TAB] ~02/19/21 Tiotropium [place] [Spiriva 4 gm IH BID 02/20/21 02/18/22 1 Day Ago History Respimat] ~02/19/21 hydrOXYzine HCL 50 mg PO TID 02/20/21 02/18/22 1 Day Ago History ~02/19/21 Azithromycin [Zithromax TAB] 500 mg PO QDAY #3 tablet 02/22/21 02/18/22 Unknown Rx Active Meds: Active Medications Acetaminophen (Acetaminophen 650 Mg Rect Supp) 650 mg [place] Q6H PRN PRN Reason: Pain MILD(1-3)/Fever >100.5/WINSLOW Albuterol (Albuterol 2.5 Mg/3 Ml Nebu) 2.5 mg IH Q3HRT PRN PRN Reason: Shortness Of Breath Atorvastatin Calcium (Atorvastatin 40 Mg Tab) 40 mg FEEDTUBE QHS LAKISHA Famotidine (Famotidine 20 Mg/2 Ml Inj) 10 mg IV BID LAKISHA Fentanyl (Fentanyl 100 Mcg/2 Ml Inj) 50 mcg IV Q10MIN PRN PRN Reason: ANALGESIA Hydrophilic Ointment (Lip Therapy Vaseline) 1 applic TP Q2HR PRN PRN Reason: Dry Lips Fentanyl Citrate (Fentanyl Drip Premix) 2,000 mcg in 100 mls @ 2.722 mls/hr IV TITR LAKISHA; Protocol Last Titration: 02/18/22 05:50 Dose: 0 mcg/kg/hr, 0 mls/hr Vasopressin 20 unit/ Sodium (Chloride) 101 mls @ 12.12 mls/hr IV TITR LAKISHA; Protocol Last Admin: 02/18/22 02:42 Dose: 0.03 units/min, 9.09 mls/hr NORepinephrine/NS 8 MG-250 ML (Norepinephrine/Ns 8 Mg-250 Ml (Double Conc)) 8 mg in 250 mls @ 3.75 mls/hr IV TITRATE LAKISHA; Protocol Last Titration: 02/18/22 11:01 Dose: 15 mcg/min, 28.125 mls/hr Sodium Bicarbonate 150 meq/ (Dextrose) 1,150 mls @ 150 mls/hr IV DIRECT LAKISHA Last Admin: 02/17/22 23:48 Dose: 75 mls/hr Dopamine HCl/Dextrose (Dopamine 800 Mg/D5w 250ml) 800 mg in 250 mls @ 2.041 mls/hr IV TITR LAKISHA; Protocol Last Titration: 02/18/22 10:00 Dose: 0 mcg/kg/min, 0 mls/hr Multi-Ingred Cream/Lotion/Oil/Oint (Mineral Oil/Petrolatum, White Ophth Oint 3.5 Gm) 1 applic OU Q4HR PRN PRN Reason: Dry Eye(s) Senna/Docusate Sodium (Sennosides/Docusate Sodium 8.6/50 Mg Tab) 1 tab FEEDTUBE BID LAKISHA Last Admin: 02/18/22 00:27 Dose: Not Given Sodium Chloride (Sodium Chloride 0.9% 10 Ml Flush Syringe) 10 ml IV BID LAKISHA Last Admin: 02/18/22 00:28 Dose: 10 ml Sodium Chloride (Sodium Chloride 0.9% 10 Ml Flush Syringe) 10 ml IV PRN PRN PRN Reason: LINE FLUSH Exam - Vital Signs Vital signs: Vital Signs Pulse Resp BP 78 17 100/58 02/17/22 09:54 02/17/22 09:54 02/17/22 09:54 Results - Lab Results 02/18/22 04:48 02/18/22 04:48 Most recent lab results ABG pH 7.434 pH Units (7.350-7.450) 02/18/22 04:43 ABG pCO2 19.3 mm Hg 02/18/22 04:43 ABG pO2 99.6 mm Hg (80.0-90.0) H 02/18/22 04:43 ABG HCO3 12.6 mmol/L (20.0-26.0) L 02/18/22 04:43 ABG O2 Saturation 97.9 % (95.0-99.0) 02/18/22 04:43 Calcium 7.5 mg/dL (8.4-10.2) L 02/18/22 04:48 Assessment and Plan 1. Acute kidney injury: Vasomotor DIMPLE in the setting of Cardiac arrest and shock. Creatinine leveled off. Meds dosage based on GFR. 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 Not a candidate for hemodialysis due to profound shock. 2. FEN: Anion-gap metabolic acidsosis, Sod bicarb drip, monitor. Monitor lytes. 3. Acute Respiratory Failure: Currently intubated on vent. Monitor. 4. S/p cardiac arrest with ROSC / Atrial Fibrilation / HFrEF (EF 35%): #Dilated Cardiomyopathy with AICD. NSTEMI. End-stage heart failure. Poor prognosis. Followed by Cards. 5. Septic shock: Currently on 3 pressors. MAP around mid 50s. Abx. Monitor. 6. Acute Metabolic Encephalopathy: Monitor. 7. Diabetes Mellitus: Monitor. 8. Elevated ALT & AST. 9. Normocytic Anemia, POA: Monitor. D/w ICU team. Ongoing GOC, possible transfer to hospice. Subjective: Patient was seen and examined at the bedside. Nurse at the bedside. Examination: General appearance: well-developed, appears stated age, no distress, intubated, on vent HEENT: ATNC, no icterus Neck: trachea midline Respiratory: clear to auscultation, diminished bibasilar Heart: S1S2, regular, no murmur Gastrointestinal: soft, sluggish bowel sounds, NT Integumentary: LE stasis changes noted Neurologic: not responding Ext: no edema noted : Guevara catheter
[2022-02-18] MEDS: SODIUM BICARBONATE 150 MEQ in DEXTROSE 5% IN WATER 1,000 ML IV SCH ×2 (11:24→19:05)
[2022-02-18] MEDS ORDERED: SODIUM CHLORIDE 0.9% 500 ML 500 ML ONE (11:30)
--- NOTE | 2022-02-18 12:23 | Consultation ---
History of Present Illness - Reason for Consult Consult date: 02/18/22 - History of Present Illness 72-year-old man past medical history hypertension, COPD, diabetes, vascular dementia, presented to the hospital after becoming unresponsive. Patient is currently intubated and sedated, especially history is obtained from the chart. During ambulance ride to the hospital he was found to be in V. tach and had an asystolic arrest. ACLS had ROSC. Hypothermic to 88.5 with a white count 12.7 EGFR 18 currently on vancomycin. Blood culture with staph aureus. Imaging personally reviewed: Chest x-ray: Right-sided pleural effusion. Right-sided opacities Past History Past Medical History: COPD, diabetes, heart failure, hypertension, hyperlipidemia Past Surgical History: hernia repair, Other (Back surgery) Social history: , lives with family, alcohol abuse Family history: diabetes, hypertension Medications and Allergies Allergies Allergy/AdvReac Type Severity Reaction Status Date / Time aspirin Allergy Unknown Verified 09/21/20 06:40 Home Medications Medication Instructions Recorded Confirmed Last Taken Type Lisinopril [Zestril] 5 mg PO DAILY 09/21/20 02/18/22 1 Day Ago History ~02/19/21 Spironolactone [Aldactone] 12.5 mg PO QDAY 09/21/20 02/18/22 1 Day Ago History ~02/19/21 Terazosin HCl 2 mg PO HS 09/21/20 02/18/22 1 Day Ago History ~02/19/21 allopurinoL [Zyloprim] 150 mg PO QDAY 09/21/20 02/18/22 1 Day Ago History ~02/19/21 Acetaminophen [Non-Aspirin Extra 1,000 mg PO TID PRN 02/20/21 02/18/22 Unknown History Strength] Albuterol Mdi (or & Nicu Only) 2 puff IH QID PRN 02/20/21 02/18/22 1 Day Ago History [ProAir HFA Inhaler] ~02/19/21 Amlodipine Besylate [Norvasc] 2.5 mg PO DAILY 02/20/21 02/18/22 1 Day Ago History ~02/19/21 Aspirin EC [Halfprin EC] 81 mg PO QDAY 02/20/21 02/18/22 1 Day Ago History ~02/19/21 AtorvaSTATin [Lipitor] 80 mg PO QHS 02/20/21 02/18/22 1 Day Ago History ~02/19/21 Benzonatate [Tessalon Perles] 100 mg PO Q6HR PRN 02/20/21 02/18/22 12/28/20 10:00 History Furosemide [Lasix TAB] 20 mg PO QDAY PRN 02/20/21 02/18/22 1 Day Ago History ~02/19/21 Metoprolol Xl [Metoprolol 100 mg PO QDAY 02/20/21 02/18/22 1 Day Ago History SUCCINATE ER TAB] ~02/19/21 Tiotropium [place] [Spiriva 4 gm IH BID 02/20/21 02/18/22 1 Day Ago History Respimat] ~02/19/21 hydrOXYzine HCL 50 mg PO TID 02/20/21 02/18/22 1 Day Ago History ~02/19/21 Azithromycin [Zithromax TAB] 500 mg PO QDAY #3 tablet 02/22/21 02/18/22 Unknown Rx Active Meds: Active Medications Acetaminophen (Acetaminophen 650 Mg Rect Supp) 650 mg [place] Q6H PRN PRN Reason: Pain MILD(1-3)/Fever >100.5/WINSLOW Albuterol (Albuterol 2.5 Mg/3 Ml Nebu) 2.5 mg IH Q3HRT PRN PRN Reason: Shortness Of Breath Atorvastatin Calcium (Atorvastatin 40 Mg Tab) 40 mg FEEDTUBE QHS LAKISHA Famotidine (Famotidine 20 Mg/2 Ml Inj) 10 mg IV BID LAKISHA Last Admin: 02/18/22 11:15 Dose: 10 mg Fentanyl (Fentanyl 100 Mcg/2 Ml Inj) 50 mcg IV Q10MIN PRN PRN Reason: ANALGESIA Hydrophilic Ointment (Lip Therapy Vaseline) 1 applic TP Q2HR PRN PRN Reason: Dry Lips Fentanyl Citrate (Fentanyl Drip Premix) 2,000 mcg in 100 mls @ 2.722 mls/hr IV TITR LAKISHA; Protocol Last Titration: 02/18/22 05:50 Dose: 0 mcg/kg/hr, 0 mls/hr Vasopressin 20 unit/ Sodium (Chloride) 101 mls @ 12.12 mls/hr IV TITR LAKISHA; Protocol Last Admin: 02/18/22 11:23 Dose: 0.03 units/min, 9.09 mls/hr NORepinephrine/NS 8 MG-250 ML (Norepinephrine/Ns 8 Mg-250 Ml (Double Conc)) 8 mg in 250 mls @ 3.75 mls/hr IV TITRATE LAKISHA; Protocol Last Titration: 02/18/22 11:30 Dose: 25 mcg/min, 46.875 mls/hr Sodium Bicarbonate 150 meq/ (Dextrose) 1,150 mls @ 150 mls/hr IV DIRECT LAKISHA Last Admin: 02/18/22 11:24 Dose: 150 mls/hr Dopamine HCl/Dextrose (Dopamine 800 Mg/D5w 250ml) 800 mg in 250 mls @ 2.041 mls/hr IV TITR LAKISHA; Protocol Last Titration: 02/18/22 10:00 Dose: 0 mcg/kg/min, 0 mls/hr Multi-Ingred Cream/Lotion/Oil/Oint (Mineral Oil/Petrolatum, White Ophth Oint 3.5 Gm) 1 applic OU Q4HR PRN PRN Reason: Dry Eye(s) Senna/Docusate Sodium (Sennosides/Docusate Sodium 8.6/50 Mg Tab) 1 tab FEEDTUBE BID LAKISHA Last Admin: 02/18/22 11:19 Dose: Not Given Sodium Chloride (Sodium Chloride 0.9% 10 Ml Flush Syringe) 10 ml IV BID LAKISHA Last Admin: 02/18/22 11:15 Dose: 10 ml Sodium Chloride (Sodium Chloride 0.9% 10 Ml Flush Syringe) 10 ml IV PRN PRN PRN Reason: LINE FLUSH Review of Systems ROS unobtainable: due to endotracheal tube Physical Examination - Physical Exam Narrative exam: Physical Exam: Constitutional: Intubated, sedated Head, Ears, Nose: Normocephalic, atraumatic. External ears, nose normal Eyes: Conjunctivae/corneas clear. No icterus. No ptosis. Neck: ETT Oral: dentition fair, no thrush Cardiovascular: S1, S2 normal. Respiratory: Good air entry, clear to auscultation bilaterally GI: Soft, non-tender; bowel sounds normal. No peritoneal signs. Musculoskeletal: No pedal edema, no cyanosis. Skin: No rash or abscess Hem/Lymphatic: No palpable cervical or supraclavicular nodes. No lymphangitis Psych: Unable to assess Neurological: Sedated - Constitutional Vitals: Vital Signs Temp Pulse Resp BP Pulse Ox 99.7 F H 74 26 H 71/42 100 02/18/22 08:00 02/18/22 12:00 02/18/22 12:00 02/18/22 12:00 02/18/22 12:00 Temperature -Last 24 Hours Temperature 99.7 F Temperature 99.4 F Results - Labs CBC & Chem 7: 02/18/22 04:48 02/18/22 04:48 Labs: Abnormal lab results 02/17/22 02/17/22 02/17/22 Range/Units 10:30 12:45 22:46 WBC (4.5-11.0) K/mm3 Hgb (11.8-15.2) gm/dl Hct (35.5-45.6) % RDW (13.2-15.2) % Plt Count (140-440) K/mm3 Seg Neuts % (Manual) (40.0-70.0) % Lymphocytes % (Manual) (13.4-35.0) % Nucleated RBC % (0.0-0.9) % Seg Neutrophils # Man (1.8-7.7) K/mm3 Lymphocytes # (Manual) (1.2-5.4) K/mm3 APTT 72.8 H* (24.2-36.6) Sec. ABG pH 7.304 L 7.285 L (7.350-7.450) pH Units ABG pO2 289.8 H 30.1 L* (80.0-90.0) mm Hg ABG HCO3 13.1 L 15.2 L (20.0-26.0) mmol/L ABG O2 Saturation 99.5 H 38.3 L (95.0-99.0) % ABG Base Excess -11.9 L -10.4 L (-2.0-3.0) mmol/L ABG Hemoglobin 9.9 L 10.9 L (14.0-18.0) gm/dl Oxyhemoglobin 37.4 L (95.0-99.0) % Carbon Dioxide (22-30) mmol/L BUN (9-20) mg/dL Creatinine (0.8-1.3) mg/dL Glucose (75-100) mg/dL Lactic Acid (0.7-2.0) mmol/L Calcium (8.4-10.2) mg/dL Total Bilirubin (0.1-1.2) mg/dL AST (5-40) units/L ALT (7-56) units/L Alkaline Phosphatase (35-129) units/L Total Protein (6.3-8.2) g/dL Albumin (3.9-5) g/dL 02/17/22 02/17/22 02/18/22 Range/Units 22:49 Unknown 04:43 WBC (4.5-11.0) K/mm3 Hgb (11.8-15.2) gm/dl Hct (35.5-45.6) % RDW (13.2-15.2) % Plt Count (140-440) K/mm3 Seg Neuts % (Manual) (40.0-70.0) % Lymphocytes % (Manual) (13.4-35.0) % Nucleated RBC % (0.0-0.9) % Seg Neutrophils # Man (1.8-7.7) K/mm3 Lymphocytes # (Manual) (1.2-5.4) K/mm3 APTT (24.2-36.6) Sec. ABG pH 7.344 L (7.350-7.450) pH Units ABG pO2 192.1 H 99.6 H (80.0-90.0) mm Hg ABG HCO3 12.4 L 12.6 L (20.0-26.0) mmol/L ABG O2 Saturation 99.2 H (95.0-99.0) % ABG Base Excess -11.6 L -9.7 L (-2.0-3.0) mmol/L ABG Hemoglobin 11.0 L 10.7 L (14.0-18.0) gm/dl Oxyhemoglobin (95.0-99.0) % Carbon Dioxide (22-30) mmol/L BUN (9-20) mg/dL Creatinine (0.8-1.3) mg/dL Glucose (75-100) mg/dL Lactic Acid 6.40 H* (0.7-2.0) mmol/L Calcium (8.4-10.2) mg/dL Total Bilirubin (0.1-1.2) mg/dL AST (5-40) units/L ALT (7-56) units/L Alkaline Phosphatase (35-129) units/L Total Protein (6.3-8.2) g/dL Albumin (3.9-5) g/dL 02/18/22 02/18/22 02/18/22 Range/Units 04:48 04:48 04:48 WBC 12.7 H (4.5-11.0) K/mm3 Hgb 10.5 L (11.8-15.2) gm/dl Hct 33.0 L D (35.5-45.6) % RDW 23.0 H (13.2-15.2) % Plt Count 132 L (140-440) K/mm3 Seg Neuts % (Manual) 74.0 H (40.0-70.0) % Lymphocytes % (Manual) 2.0 L (13.4-35.0) % Nucleated RBC % 28.0 H (0.0-0.9) % Seg Neutrophils # Man 9.4 H (1.8-7.7) K/mm3 Lymphocytes # (Manual) 0.3 L (1.2-5.4) K/mm3 APTT (24.2-36.6) Sec. ABG pH (7.350-7.450) pH Units ABG pO2 (80.0-90.0) mm Hg ABG HCO3 (20.0-26.0) mmol/L ABG O2 Saturation (95.0-99.0) % ABG Base Excess (-2.0-3.0) mmol/L ABG Hemoglobin (14.0-18.0) gm/dl Oxyhemoglobin (95.0-99.0) % Carbon Dioxide 15 L (22-30) mmol/L BUN 53 H (9-20) mg/dL Creatinine 3.9 H (0.8-1.3) mg/dL Glucose 124 H (75-100) mg/dL Lactic Acid 7.80 H* (0.7-2.0) mmol/L Calcium 7.5 L (8.4-10.2) mg/dL Total Bilirubin 7.40 H (0.1-1.2) mg/dL AST 326 H (5-40) units/L ALT 72 H (7-56) units/L Alkaline Phosphatase 170 H (35-129) units/L Total Protein 6.1 L D (6.3-8.2) g/dL Albumin 2.5 L (3.9-5) g/dL Assessment and Plan Cultures: Blood culture 02/17/2022 staph aureus Sputum culture 02/17/2022 no growth so far A/P: 72-year-old man past medical history hypertension, COPD, diabetes, vascular dementia #Septic shock: Hypothermia, visit was, currently requiring pressors. Secondary staph aureus bacteremia #Several result review: Awaiting AUDREY's. Unclear source. Chest x-ray with consolidations, however possibly atelectasis versus pneumonia. #Acute anoxic respiratory failure: Currently on the vent #DIMPLE: Renally dose medications Recs: -Follow-up blood cultures from MICs -If MSSA, de-escalate to renally dosed cefazolin -Obtain repeat blood cultures -Obtain TTE Thank you for the consult, we will continue to follow. MD Dwayne R[facility] ([facility] O: [phone] F: [phone]
--- NOTE | 2022-02-18 12:58 | Procedure Note ---
Date of procedure: 02/18/22 Pre-op diagnosis: s/p Cardiac Arrest, Septic Shock Post-op diagnosis: same Procedure: Right Femoral Arterial Line Placement Patient was evaluated and required arterial line placement for Hemodynanic monitoring due to high pressors requirement. Informed consent was obtained from patient's spouse, Mattie Choi, at the bedside. Consent was signed, witnessed and placed in the chart A time-out was completed verifying correct patient, procedure, site, and positioning. Hand hygiene were performed immediately prior to the procedure and sterile technique was used throughout the procedure. The right groin was prepped using chlorhexidine scrubs and draped in sterile fashion using a three quarter sheet drape. The femoral artery was then identified and anesthesia was achieved using 1% lidocaine. Utilizing the Seldinger technique, a finder needle was inserted into the femoral artery under ultrasound guidance, pulsating arterial blood return was obtained, then a guidewire was easily advanced into the artery. The catheter was then advanced over the wire and the needle and wire were withdrawn. The catheter was then connected to the compliance monitor and zeroed, appropriate waveform and blood pressure tracing was observed on the monitor. The catheter was sutured in place, a Biopatch was placed at the insertion site and covered with a sterile dressing. The patient tolerated the procedure well and no complications noted Total Time Spent with Patient (Minutes): 60 minutes Anesthesia: local Surgeon: JUANITO VARGAS Estimated blood loss: minimal Condition: critical Disposition: ICU
[2022-02-18] MEDS: HYDROCORTISONE SOD SUCC 100 MG/2 ML VIAL IV SCH ×2 (13:12→22:28)
[2022-02-18] MEDS: DEXTROSE 50% IN WATER (25GM) 50 ML SYRINGE IV PRN ×2 (13:12→13:43)
[2022-02-18] MEDS: PHENYLEPHRINE 100 MG in SODIUM CHLORIDE 0.9% 90 ML IV SCH ×2 (13:20→22:25)
--- NOTE | 2022-02-18 13:45 | Electrocardiograph Report ---
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
--- NOTE | 2022-02-18 13:46 | Electrocardiograph Report ---
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
--- NOTE | 2022-02-18 13:47 | Electrocardiograph Report ---
[facility] Test Date: 2022-02-17 Test Time: 10:14:33 Pat Name: PROSPER TRIPP Department: Room: A255 1 Gender: M Director Counseling Bureau: [id number] : 1950 Requested By: DREW RUSSELL Order Number: [id number] Reading MD: Rosalinda Mcpherson Measurements Intervals [place] Rate: 47 P: 45 WV: 212 QRS: -29 QRSD: 116 T: QT: 671 QTc: 595 Interpretive Statements Sinus bradycardia Very low quality ECG, consider agonal rhythm Compared to ECG 02/17/2022 10:12:41 Ventricular paced beats are no longer evident Electronically Signed On 02-18-2022 13:46:52 EDT by Rosalinda Mcpherson
[2022-02-18 15:42] LABS: ABG Base Excess -6.2 mmol/L (-2.0-3.0); ABG HCO3 15.8 mmol/L (20.0-26.0); ABG Methemoglobin 0.5 % (0.0-1.5); ABG Oxygen Saturation 97.6 % (95.0-99.0); ABG PCO2 21.3 mm Hg; ABG PH 7.489 pH Units (7.350-7.450); ABG PO2 90.7 mm Hg (80.0-90.0)
[2022-02-18] MEDS: fentaNYL 100 MCG/2 ML INJ IV PRN (18:06)
[2022-02-18] MEDS ORDERED: EPINEPHrine 1 MG/1 ML 16 MG in SODIUM CHLORIDE 0.9% 250ML 234 ML IV SCH (20:00)
[2022-02-19] MEDS: VASOPRESSIN 20 UNIT in SODIUM CHLORIDE 0.9% 100 ML IV SCH ×3 (01:22→23:55)
[2022-02-19] MEDS ORDERED: VANCOMYCIN PHARMACY TO DOSE IV SCH (02:00)
[2022-02-19] MEDS: NORepinephrine/NS 8 MG-250 ML 8 MG/250 ML INFUS..BTL IV SCH ×5 (03:45→22:00)
[2022-02-19 04:37] LABS: Hematocrit 29.1 % (35.5-45.6); Hemoglobin 9.5 gm/dl (11.8-15.2); Mean Corpuscular HGB Conc 33 % (32-34); Mean Corpuscular Volume 86 fl (84-94); Red Blood Count 3.37 M/mm3 (3.65-5.03)
[2022-02-19 04:48] LABS: Calcium 6.8 mg/dL (8.4-10.2)
[2022-02-19 04:55] LABS: Platelet Count 81 K/mm3 (140-440); Red Cell Distribution Width 22.6 % (13.2-15.2)
--- NOTE | 2022-02-19 04:58 | XRay Report ---
CHEST 1 VIEW 02/19/2022 3:43 AM INDICATION / CLINICAL INFORMATION: follow up respiratory failure. COMPARISON: 02/18/2022 FINDINGS: SUPPORT DEVICES: Unchanged. HEART / MEDIASTINUM: Stable. LUNGS / PLEURA: Redemonstrated right pleural-parenchymal opacity. Left lung clear. No pneumothorax. ADDITIONAL FINDINGS: No significant additional findings. IMPRESSION: 1. No significant change. Signer Name: Marcio Pastrana DO Signed: 02/19/2022 4:54 AM Workstation Name: [id number]
[2022-02-19] MEDS: PHENYLEPHRINE 100 MG in SODIUM CHLORIDE 0.9% 90 ML IV SCH ×2 (06:25→20:15)
[2022-02-19] MEDS: HYDROCORTISONE SOD SUCC 100 MG/2 ML VIAL IV SCH ×3 (06:25→22:39)
[2022-02-19 06:45] LABS: ABG Methemoglobin 0.5 % (0.0-1.5); ABG Oxygen Saturation 96.3 % (95.0-99.0); ABG PH 7.456 pH Units (7.350-7.450); ABG PO2 68.4 mm Hg (80.0-90.0)
[2022-02-19] MEDS: fentaNYL 100 MCG/2 ML INJ IV PRN ×3 (08:04→20:15)
[2022-02-19] MEDS: FAMOTIDINE 20 MG/2 ML INJ IV SCH ×2 (09:22→22:40)
[2022-02-19] MEDS: SENNOSIDES/DOCUSATE SODIUM 8.6/50 MG TAB FEEDTUBE SCH ×2 (09:22→22:40)
--- NOTE | 2022-02-19 11:10 | Progress Note ---
Assessment and Plan S/p Cardiac Arrest with ROSC Acute Hypoxic Respiratory Failure on MVS Septic Shock and Cardiogenic Shock with MODS HFrEF(35%)-Dilated Cardiomyopathy with AICD Acute Metabolic Acidosis Acute Kidney Injury(DIMPLE) most likely ATN Septic - Cardiogenic Shock Bacteremia Leukocytosis Transaminitis/Shock Liver Hypoglycemia-improved Moderate Protein-Calorie Malnutrition Sacaral decubitus- POA Thrombocytopenia -Wean vasopressor support fro MAP>65 -Adjust minute ventilation on MVS- has a respiratory alkalosis - continue to titrate supplemental oxygen to keep SpO2 90-92% - VAP bundle addressed, aspiration precautions HOB >40 - continue lung protective strategies - continue bronchodilators with pulmonary hygiene per RT -Daily assessment for readiness to wean, daily SAT/SBT as tolerated - continue accuchecks with glycemic control per SSI (While critically ill target blood glucose of 140-180 mg/dL; avoid hypoglycemia) - avoid nephrotoxins, renally dose all medications - continue to avoid benzodiazepines, reduce the possibility of delirium - prn analgesia per CPOT score -Antibiotics- Blood cultures GPC- on Vancomycin ID following -Continue to trend temperature curve and WCC - Maintenance of sleep-wake cycle, avoid delirium - Trophic feeding at 10cc/hour to maintain gut integrity, do not up titrate - VTE prophylaxis-Heparin- stop heparin in the setting of thrombocytopenia ( based on 4Ts- high pre test probability for HIT. Send HIT panel) -Stress prophylaxis- famotidine - PT/OT/ROM exercises - continue mobility, off loading and frequent turning per facility protocol to prevent pressure ulcers -continue wound care for sacral decubitus ulcer - continue to monitor hemodynamics closely, hold lisinopril in the setting of multiple pressor shock and DIMPLE - continue other care per attending / other consultants CONDITION: CRITICAL PROGNOSIS: POOR- GUARDED CODE STATUS: FULL CODE #Advance Care Planning Discussed and update the at the bedside. Patient remains full code. Patient's Mattie, states that her daughter will be coming in from [place] The high probability of a clinically significant, sudden or life threatening deterioration of the [cardiovascular, pulmonary, renal, neurology] system(s) required my full and direct attention, intervention and personal management. The aggregate critical care time was [35] minutes. This time is in addition to time spent performing reported procedures but includes the following: [x] Data Review and interpretation [x] Patient assessment and monitoring of vital signs [x] Documentation [x] Medication orders and management Subjective Date of service: 02/19/22 Principal diagnosis: s/p cardiac arrest Interval history: Follow up for: cardiopulmonary arrest with ROSC; cardiogenic-septic shock; Dilated cardiomyopathy; Acute renal failure, hepatic failure; acute metabolic encephalopathy Seen and examined. Vitals, labs, medications, chart and imaging reviewed. Discussed with respiratory and nursing staff. Remains orally intubated; 4 pressor shock,remains unresponsive, anuric. Remains on bicarbonate infusion, worsening thrombocytopenia, remains anuric, remains on MVS Awake this morning, not tracking voice, No reported fevers, no vomiting Objective - Exam Narrative Exam: General appearance: Present: other (On the vent, awake but not following commands) - EENT Eyes: Present: PERRL, ETT at 24cm GABRIELLE, OGT - Respiratory Respiratory effort: normal Respiratory: bilateral: rhonchi - Cardiovascular Rhythm: regular Heart Sounds: Present: S1 & S2 - Extremities Extremities: no ischemia, pulses intact, pulses symmetrical Peripheral Pulses: within normal limits - Abdominal General gastrointestinal: soft, non-distended, hypoactive bowel sounds Guevara catheter, - Integumentary Integumentary: Present: warm, dry Right femoral arterial line, right femoral CVL Sacral decubitus- see photos and nursing/wound care documentation - Psychiatric Psychiatric: other (On the vent, awake but not following commands-unable to assess) - Neurologic Neurologic: moves all extremities (Non-Purposeful movement), other (On the vent, awake but not following commands) Vital Signs - 12hr 02/18/22 02/18/22 02/18/22 23:15 23:31 23:45 Temperature Pulse Rate 82 81 81 Respiratory 22 17 17 Rate Blood Pressure 78/55 83/42 83/42 O2 Sat by Pulse Oximetry 02/19/22 02/19/22 02/19/22 00:00 00:15 00:31 Temperature 97.3 F L Pulse Rate 81 82 83 Respiratory 16 23 19 Rate Blood Pressure 71/47 83/47 77/48 O2 Sat by Pulse 90 Oximetry 02/19/22 02/19/22 02/19/22 00:45 01:00 01:15 Temperature Pulse Rate 86 82 130 H Respiratory 16 21 19 Rate Blood Pressure 73/46 73/46 73/46 O2 Sat by Pulse Oximetry 02/19/22 02/19/22 02/19/22 01:30 01:45 02:01 Temperature Pulse Rate 127 H 128 H 129 H Respiratory 17 30 H 24 Rate Blood Pressure 100/64 100/64 106/59 O2 Sat by Pulse Oximetry 02/19/22 02/19/22 02/19/22 02:15 02:30 02:45 Temperature Pulse Rate 126 H 126 H 125 H Respiratory 21 19 16 Rate Blood Pressure 96/65 93/66 98/63 O2 Sat by Pulse Oximetry 02/19/22 02/19/22 02/19/22 03:00 03:15 03:30 Temperature Pulse Rate 125 H 126 H 85 Respiratory 16 16 20 Rate Blood Pressure 101/65 100/64 95/58 O2 Sat by Pulse Oximetry 02/19/22 02/19/22 02/19/22 03:45 04:00 04:15 Temperature 96.9 F L Pulse Rate 89 91 H 87 Respiratory 22 26 H 22 Rate Blood Pressure 95/38 101/56 101/56 O2 Sat by Pulse 90 Oximetry 02/19/22 02/19/22 02/19/22 04:17 04:31 04:45 Temperature Pulse Rate 83 86 86 Respiratory 23 25 H Rate Blood Pressure 90/50 90/50 90/52 O2 Sat by Pulse 90 Oximetry 02/19/22 02/19/22 02/19/22 05:00 05:15 05:31 Temperature Pulse Rate 92 H 92 H 85 Respiratory 25 H 23 21 Rate Blood Pressure 66/38 83/44 O2 Sat by Pulse Oximetry 02/19/22 02/19/22 02/19/22 05:45 06:01 06:15 Temperature Pulse Rate 89 94 H 89 Respiratory 26 H 28 H 18 Rate Blood Pressure 83/44 92/48 97/63 O2 Sat by Pulse Oximetry 02/19/22 02/19/22 02/19/22 06:30 06:45 07:01 Temperature Pulse Rate 90 92 H 88 Respiratory 18 16 19 Rate Blood Pressure 85/56 85/56 98/53 O2 Sat by Pulse Oximetry 02/19/22 02/19/22 02/19/22 07:15 07:31 07:45 Temperature Pulse Rate 91 H 93 H 87 Respiratory 22 25 H 22 Rate Blood Pressure 98/53 125/39 125/39 O2 Sat by Pulse Oximetry 02/19/22 02/19/22 02/19/22 07:54 07:55 08:01 Temperature Pulse Rate 90 90 Respiratory 27 H 26 H Rate Blood Pressure 97/46 O2 Sat by Pulse 90 Oximetry 02/19/22 02/19/22 02/19/22 08:05 08:15 08:16 Temperature 96.8 F L Pulse Rate 90 93 H Respiratory 23 Rate Blood Pressure 97/46 44/16 O2 Sat by Pulse 90 Oximetry 02/19/22 02/19/22 02/19/22 08:31 08:45 09:01 Temperature Pulse Rate 87 90 97 H Respiratory 17 20 21 Rate Blood Pressure 88/56 88/56 98/63 O2 Sat by Pulse Oximetry 02/19/22 02/19/22 02/19/22 09:15 09:16 09:20 Temperature Pulse Rate 96 H 91 H Respiratory 25 H Rate Blood Pressure 84/59 84/59 O2 Sat by Pulse 90 91 Oximetry 02/19/22 02/19/22 02/19/22 09:30 09:45 10:00 Temperature Pulse Rate 97 H 89 92 H Respiratory 25 H 20 21 Rate Blood Pressure 102/63 84/59 79/61 O2 Sat by Pulse 94 88 95 Oximetry 02/19/22 02/19/22 02/19/22 10:15 10:31 10:45 Temperature Pulse Rate 92 H 88 89 Respiratory 25 H 20 25 H Rate Blood Pressure 79/61 97/51 94/56 O2 Sat by Pulse 96 96 93 Oximetry 02/19/22 11:00 Temperature Pulse Rate 93 H Respiratory 28 H Rate Blood Pressure 98/59 O2 Sat by Pulse 92 Oximetry CBC and BMP: 02/20/22 04:35 02/20/22 04:35 ABG, PT/INR, D-dimer: ABG ABG pH 7.456 pH Units (7.350-7.450) H 02/19/22 06:20 ABG pCO2 16.0 mm Hg 02/19/22 06:20 ABG pO2 68.4 mm Hg (80.0-90.0) L 02/19/22 06:20 ABG O2 Saturation 96.3 % (95.0-99.0) 02/19/22 06:20 Abnormal lab findings: Abnormal Labs 02/17/22 02/17/22 02/17/22 10:01 10:30 10:30 WBC RBC 2.91 L Hgb 8.5 L Hct 25.5 L RDW 23.6 H Plt Count 95 L Seg Neuts % (Manual) 89.0 H Lymphocytes % (Manual) 1.0 L Nucleated RBC % 8.0 H Seg Neutrophils # Man Lymphocytes # (Manual) 0.1 L APTT 72.8 H* ABG pH ABG pO2 ABG HCO3 ABG O2 Saturation ABG Base Excess ABG Hemoglobin Oxyhemoglobin Carbon Dioxide BUN Creatinine Glucose POC Glucose 15 L Lactic Acid Calcium Total Bilirubin AST ALT Alkaline Phosphatase Total Creatine Kinase CK-MB (CK-2) CK-MB (CK-2) Rel Index Troponin T Total Protein Albumin HDL Cholesterol TSH 02/17/22 02/17/22 02/17/22 10:30 10:30 10:30 WBC RBC Hgb Hct RDW Plt Count Seg Neuts % (Manual) Lymphocytes % (Manual) Nucleated RBC % Seg Neutrophils # Man Lymphocytes # (Manual) APTT ABG pH ABG pO2 ABG HCO3 ABG O2 Saturation ABG Base Excess ABG Hemoglobin Oxyhemoglobin Carbon Dioxide 15 L BUN 54 H Creatinine 4.0 H Glucose 290 H POC Glucose Lactic Acid 5.70 H* Calcium 7.6 L Total Bilirubin 6.10 H AST 176 H ALT Alkaline Phosphatase Total Creatine Kinase CK-MB (CK-2) CK-MB (CK-2) Rel Index Troponin T 0.167 H* Total Protein 4.9 L Albumin 2.1 L HDL Cholesterol 10 L TSH 10.950 H 02/17/22 02/17/22 02/17/22 11:10 12:00 12:45 WBC RBC Hgb Hct RDW Plt Count Seg Neuts % (Manual) Lymphocytes % (Manual) Nucleated RBC % Seg Neutrophils # Man Lymphocytes # (Manual) APTT ABG pH 7.304 L ABG pO2 289.8 H ABG HCO3 13.1 L ABG O2 Saturation 99.5 H ABG Base Excess -11.9 L ABG Hemoglobin 9.9 L Oxyhemoglobin Carbon Dioxide BUN Creatinine Glucose POC Glucose 233 H 226 H Lactic Acid Calcium Total Bilirubin AST ALT Alkaline Phosphatase Total Creatine Kinase CK-MB (CK-2) CK-MB (CK-2) Rel Index Troponin T Total Protein Albumin HDL Cholesterol TSH 02/17/22 02/17/22 02/17/22 22:46 22:49 Unknown WBC RBC Hgb Hct RDW Plt Count Seg Neuts % (Manual) Lymphocytes % (Manual) Nucleated RBC % Seg Neutrophils # Man Lymphocytes # (Manual) APTT ABG pH 7.285 L 7.344 L ABG pO2 30.1 L* 192.1 H ABG HCO3 15.2 L 12.4 L ABG O2 Saturation 38.3 L 99.2 H ABG Base Excess -10.4 L -11.6 L ABG Hemoglobin 10.9 L 11.0 L Oxyhemoglobin 37.4 L Carbon Dioxide BUN Creatinine Glucose POC Glucose Lactic Acid Calcium Total Bilirubin AST ALT Alkaline Phosphatase Total Creatine Kinase 171 H CK-MB (CK-2) 8.1 H CK-MB (CK-2) Rel Index 4.7 H Troponin T Total Protein Albumin HDL Cholesterol TSH 02/17/22 02/18/22 02/18/22 Unknown 04:43 04:48 WBC 12.7 H RBC Hgb 10.5 L Hct 33.0 L D RDW 23.0 H Plt Count 132 L Seg Neuts % (Manual) 74.0 H Lymphocytes % (Manual) 2.0 L Nucleated RBC % 28.0 H Seg Neutrophils # Man 9.4 H Lymphocytes # (Manual) 0.3 L APTT ABG pH ABG pO2 99.6 H ABG HCO3 12.6 L ABG O2 Saturation ABG Base Excess -9.7 L ABG Hemoglobin 10.7 L Oxyhemoglobin Carbon Dioxide BUN Creatinine Glucose POC Glucose Lactic Acid 6.40 H* Calcium Total Bilirubin AST ALT Alkaline Phosphatase Total Creatine Kinase CK-MB (CK-2) CK-MB (CK-2) Rel Index Troponin T Total Protein Albumin HDL Cholesterol TSH 02/18/22 02/18/22 02/18/22 04:48 04:48 15:25 WBC RBC Hgb Hct RDW Plt Count Seg Neuts % (Manual) Lymphocytes % (Manual) Nucleated RBC % Seg Neutrophils # Man Lymphocytes # (Manual) APTT ABG pH 7.489 H ABG pO2 90.7 H ABG HCO3 15.8 L ABG O2 Saturation ABG Base Excess -6.2 L ABG Hemoglobin 9.4 L Oxyhemoglobin Carbon Dioxide 15 L BUN 53 H Creatinine 3.9 H Glucose 124 H POC Glucose Lactic Acid 7.80 H* Calcium 7.5 L Total Bilirubin 7.40 H AST 326 H ALT 72 H Alkaline Phosphatase 170 H Total Creatine Kinase CK-MB (CK-2) CK-MB (CK-2) Rel Index Troponin T Total Protein 6.1 L D Albumin 2.5 L HDL Cholesterol TSH 02/18/22 02/19/22 02/19/22 16:00 00:05 04:00 WBC RBC 3.37 L Hgb 9.5 L Hct 29.1 L RDW 22.6 H Plt Count 81 L Seg Neuts % (Manual) Lymphocytes % (Manual) Nucleated RBC % Seg Neutrophils # Man Lymphocytes # (Manual) APTT ABG pH ABG pO2 ABG HCO3 ABG O2 Saturation ABG Base Excess ABG Hemoglobin Oxyhemoglobin Carbon Dioxide BUN Creatinine Glucose POC Glucose Lactic Acid 7.60 H* 10.90 H* Calcium Total Bilirubin AST ALT Alkaline Phosphatase Total Creatine Kinase CK-MB (CK-2) CK-MB (CK-2) Rel Index Troponin T Total Protein Albumin HDL Cholesterol TSH 02/19/22 02/19/22 02/19/22 04:00 04:00 06:20 WBC RBC Hgb Hct RDW Plt Count Seg Neuts % (Manual) Lymphocytes % (Manual) Nucleated RBC % Seg Neutrophils # Man Lymphocytes # (Manual) APTT ABG pH 7.456 H ABG pO2 68.4 L ABG HCO3 11.0 L ABG O2 Saturation ABG Base Excess -11.0 L ABG Hemoglobin 9.2 L Oxyhemoglobin 94.4 L Carbon Dioxide 16 L BUN 54 H Creatinine 4.8 H Glucose 117 H POC Glucose Lactic Acid 12.60 H* Calcium 6.8 L Total Bilirubin 6.80 H AST 379 H ALT 84 H Alkaline Phosphatase 152 H Total Creatine Kinase CK-MB (CK-2) CK-MB (CK-2) Rel Index Troponin T Total Protein 5.0 L Albumin 2.0 L HDL Cholesterol TSH 02/19/22 08:14 WBC RBC Hgb Hct RDW Plt Count Seg Neuts % (Manual) Lymphocytes % (Manual) Nucleated RBC % Seg Neutrophils # Man Lymphocytes # (Manual) APTT ABG pH ABG pO2 ABG HCO3 ABG O2 Saturation ABG Base Excess ABG Hemoglobin Oxyhemoglobin Carbon Dioxide BUN Creatinine Glucose POC Glucose Lactic Acid 14.50 H* Calcium Total Bilirubin AST ALT Alkaline Phosphatase Total Creatine Kinase CK-MB (CK-2) CK-MB (CK-2) Rel Index Troponin T Total Protein Albumin HDL Cholesterol TSH Chest x-ray: image reviewed Allied health notes reviewed: RT
--- NOTE | 2022-02-19 11:30 | Progress Note ---
<JUANITO VARGAS - Last Filed: 02/19/22 18:14> Assessment and Plan Assessment and plan: This is a 72-year-old maelw with known past medical history of COPD, nicotine dependence, DM, malnutrition, debility, vascular dementia, cerebral atherosclerosis, HTN, HLD, [place], HFrEF(35%), dilated cardiomyopathy s/p AICD admitted s/p cardiac arrest now on ventilatory support. Hospital Course to Date: 02/18: Patient is unresponsive, on the vent, not on any sedation. Worsening acidosis, septic shock vs Cardiogenic shock. Now on 3 pressors and NaBcarb gtts. Preliminary blood cultures report with giles soto. Empiric IV Abx- Vanco initiated, ID consulted. Stress dose steroids also added. Trend Lactic acid and CBC. 2D Echo pending. Plan to wean off Dopamine gtt per Cardio. Renal function continue to worsen, Nephrology consulted. Extensive multidisciplinary discussions with patient's at the bedside in regards to patient's condition, diagnoses, and overall very poor prognosis. Patient's is co nsidering at home hospice but would like aggressive treatment at this time. She verbalized understanding of the info provided. All questions and concerns were addressed at this time. Patient remains a FULL code. 02/19: Remains on high pressor requirements and Bcarb gtt. BP bordeline this am, ST noted with PVCs on the monitor. Titrate pressors for a MAP above 65. Open eyes spontaneously this am, not following commands. Worsen thrombocytopenia this am. Hematuria noted from floyd, patient is oliguric, only 20cc overnight. H&H stable, continue to trend Plt. Start trickle feeding to promote motility. Renal function worsen this am, Nephrology is following. Assessment and Plan #S/p Cardiac Arrest with ROSC #Septic Shock vs Cardiogenic Shock #HFrEF(35%) #Dilated Cardiomyopathy with AICD - Was found unresponsive at home by spouse - EMS called and found patient in bradycardia, HR in the 30s and went into asystolic arrest in route then in the ED - Patient on is Epi, Gulshan, Levophed, and Vasopressin this am. BP - SR with frequent PVCs noted - Patient is also on NaBcarb gtt - Stress dose steroids initiated - Cardiology is also following, appreciate recommendations - 2D Echo pending - Continue blood pressure monitor per protocol - Titrate pressors to maintain MAP above 65 #Acute Hypoxic Respiratory Failure - Intubated during code on 02/17 - Vent setting:PRVC-50%,6,12,450 - AM ABG noted - CCM consulted, appreciate recommendations - VAP bundle addressed - Aspiration precaution HOB above 30 - Daily ABG and CXR - Continue SPO2 monitoring for SPO2 goal above 92% #Acute Metabolic Acidosis - s/p cardiac arrest - Open eyes spontaneously, not following commands - Pupils are reactive, with +gag/cough - Possible CT head/brain once patient is more stable - Avoid sedative agents - Avoid benzodiazepine to reduce the possibility of delirium - PRN Analgesia for CPOT greater than 2 - Maintenance of sleep-wake cycle #Acute Kidney Injury(DIMPLE) most likely ATN - due to hypotension/hypopperfusion - Per record baseline Scr. 1.3. Scr. 4.8 this am - Floyd in place, now oliguric - Nephrology consulted - Strict intake and output - Avoid nephrotoxic medications; Renally dose medications - Monitor and replace electrolytes as needed #Septic Shock #Bacteremia #Metabolic Acidosis #Leukocytosis - Presented hypothermic and severely acidotic requiring multiple pressors - With worsen lactic acidosis today and leukocytosis - Preliminary blood cultures report with stapcanelo areus - Empiric IV Abx- Vanco was initiated - ID consulted - Repeat blood culture ordered - 2D echo to r/o vegetation pending - Trend Lactic acid and CBC - F/U on cultures #Trombocytopenia - Presented with low plt, worsen this am - Oliguric, hematuria noted from floyd - H&H Stable - Not on ant AC - Continue to trend CBC - Transfuse for Hgb less than 7 #Transaminitis/Shock Liver - Probably reactive s/p cardiac arrest - Continue to trend LFTs #Hypoglycemia-improved - Probably due to poor perfusion, Low BG per Fingerstick accucheck. - Continue BG check Q6hrs, draw blood from artline, Avoid fingersticks - Trickle feeds initiated - Continue hypoglycemic protocol - Avoid Hypoglycemia #Moderate Protein-Calorie Malnutrition - albumin- 2.5 - On Continue IVF hydration - Trickle feeds initiated - Nutrition consulted #GI/DVT Prophylaxis - PPI- Pepcid - SCD to bilateral lower extremities while in bed #Advance Care Planning - Extensive multidisciplinary discussions with patient's , Mattie Mayes, at the bedside in regards to patient's condition, diagnoses, care plan, and overall very poor prognosis. Patient acknowledged understanding and agreement with care plan. - Patient's is considering at home hospice, but would like aggressive treatment at this time. All questions and concerns were addressed at this time. Patient remains a FULL code. The high probability of a clinically significant, sudden or life threatening deterioration of the [multiple] system(s) required my full and direct attention, intervention and personal management. The aggregate critical care time was [60] minutes. This time is in addition to time spent performing reported procedures but includes the following: [x] Data Review and interpretation [x] Patient assessment and monitoring of vital signs [x] Documentation [x] Medication orders and management Disposition Plan: ICU Total Time Spent with Patient (Minutes): 60 History Interval history: Patient seen and examined at the bedside. On the vent. Open eyes spontaneously this am, but does not follow any commands. Pupils are round and reactive, with +gag/cough. Patient is currently on 4 pressors: Epi, Levophed, Vaso, Gulshan, and a Bcarb gtts. SR with frequent PVCs on the monitor this am. KATYA overnight Hospitalist Physical - Physical exam Narrative exam: General appearance: Present: other (On the vent, awake but not following commands) - EENT Eyes: Present: PERRL - Respiratory Respiratory effort: normal Respiratory: bilateral: rhonchi - Cardiovascular Rhythm: regular Heart Sounds: Present: S1 & S2 - Extremities Extremities: no ischemia, pulses intact, pulses symmetrical Peripheral Pulses: within normal limits - Abdominal General gastrointestinal: soft, non-distended, hypoactive bowel sounds - Integumentary Integumentary: Present: warm, dry - Psychiatric Psychiatric: other (On the vent, awake but not following commands) - Neurologic Neurologic: moves all extremities (Non-Purposeful movement), other (On the vent, awake but not following commands) - Allied Health Allied health notes reviewed: nursing, Case management - Constitutional Vitals: Temp Pulse Resp BP Pulse Ox 96.8 F L 93 H 28 H 98/59 92 02/19/22 08:16 02/19/22 11:00 02/19/22 11:00 02/19/22 11:00 02/19/22 11:00 HEART Score - HEART Score Troponin: Troponin T 0.167 ng/mL (0.00-0.029) H* 02/17/22 10:30 Results - Labs CBC & Chem 7: 02/19/22 04:00 02/19/22 04:00 Labs: Laboratory Last Values WBC 11.0 K/mm3 (4.5-11.0) 02/19/22 04:00 RBC 3.37 M/mm3 (3.65-5.03) L 02/19/22 04:00 Hgb 9.5 gm/dl (11.8-15.2) L 02/19/22 04:00 Hct 29.1 % (35.5-45.6) L 02/19/22 04:00 MCV 86 fl (84-94) 02/19/22 04:00 MCH 28 pg (28-32) 02/19/22 04:00 MCHC 33 % (32-34) 02/19/22 04:00 RDW 22.6 % (13.2-15.2) H 02/19/22 04:00 Plt Count 81 K/mm3 (140-440) L 02/19/22 04:00 Add Manual Diff Complete 02/18/22 04:48 Total Counted 100 02/18/22 04:48 Seg Neuts % (Manual) 74.0 % (40.0-70.0) H 02/18/22 04:48 Band Neutrophils % 22.0 % 02/18/22 04:48 Lymphocytes % (Manual) 2.0 % (13.4-35.0) L 02/18/22 04:48 Reactive Lymphs % (Man) 0 % 02/18/22 04:48 Monocytes % (Manual) 2.0 % (0.0-7.3) 02/18/22 04:48 Eosinophils % (Manual) 0 % (0.0-4.3) 02/18/22 04:48 Basophils % (Manual) 0 % (0.0-1.8) 02/18/22 04:48 Metamyelocytes % 0 % 02/18/22 04:48 Myelocytes % 0 % 02/18/22 04:48 Promyelocytes % 0 % 02/18/22 04:48 Blast Cells % 0 % 02/18/22 04:48 Nucleated RBC % 28.0 % (0.0-0.9) H 02/18/22 04:48 Seg Neutrophils # Man 9.4 K/mm3 (1.8-7.7) H 02/18/22 04:48 Band Neutrophils # 2.8 K/mm3 02/18/22 04:48 Lymphocytes # (Manual) 0.3 K/mm3 (1.2-5.4) L 02/18/22 04:48 Abs React Lymphs (Man) 0.0 K/mm3 02/18/22 04:48 Monocytes # (Manual) 0.3 K/mm3 (0.0-0.8) 02/18/22 04:48 Eosinophils # (Manual) 0.0 K/mm3 (0.0-0.4) 02/18/22 04:48 Basophils # (Manual) 0.0 K/mm3 (0.0-0.1) 02/18/22 04:48 Metamyelocytes # 0.0 K/mm3 02/18/22 04:48 Myelocytes # 0.0 K/mm3 02/18/22 04:48 Promyelocytes # 0.0 K/mm3 02/18/22 04:48 Blast Cells # 0.0 K/mm3 02/18/22 04:48 WBC Morphology Not Reportable 02/18/22 04:48 Hypersegmented Neuts Not Reportable 02/18/22 04:48 Hyposegmented Neuts Not Reportable 02/18/22 04:48 Hypogranular Neuts Not Reportable 02/18/22 04:48 Smudge Cells Not Reportable 02/18/22 04:48 Toxic Granulation Not Reportable 02/18/22 04:48 Toxic Vacuolation Not Reportable 02/18/22 04:48 Dohle Bodies Not Reportable 02/18/22 04:48 Pelger-Huet Anomaly Not Reportable 02/18/22 04:48 Henry Rods Not Reportable 02/18/22 04:48 Platelet Estimate Consistent w auto 02/18/22 04:48 Clumped Platelets Not Reportable 02/18/22 04:48 Plt Clumps, EDTA Not Reportable 02/18/22 04:48 Large Platelets Not Reportable 02/18/22 04:48 Giant Platelets Not Reportable 02/18/22 04:48 Platelet Satelliting Not Reportable 02/18/22 04:48 Plt Morphology Comment Not Reportable 02/18/22 04:48 RBC Morphology Not Reportable 02/18/22 04:48 Dimorphic RBCs Not Reportable 02/18/22 04:48 Polychromasia Not Reportable 02/18/22 04:48 Hypochromasia 2+ 02/18/22 04:48 Poikilocytosis 2+ 02/18/22 04:48 Anisocytosis 2+ 02/18/22 04:48 Microcytosis 1+ 02/18/22 04:48 Macrocytosis Not Reportable 02/18/22 04:48 Spherocytes 1+ 02/18/22 04:48 Pappenheimer Bodies Not Reportable 02/18/22 04:48 Sickle Cells Not Reportable 02/18/22 04:48 Target Cells 1+ 02/18/22 04:48 Tear Drop Cells Not Reportable 02/18/22 04:48 Ovalocytes Not Reportable 02/18/22 04:48 Helmet Cells Not Reportable 02/18/22 04:48 [place] Bodies Not Reportable 02/18/22 04:48 [place] Rings Not Reportable 02/18/22 04:48 [place] Cells 2+ 02/18/22 04:48 Bite Cells Not Reportable 02/18/22 04:48 Crenated Cell Not Reportable 02/18/22 04:48 Elliptocytes Not Reportable 02/18/22 04:48 Acanthocytes (Spur) Not Reportable 02/18/22 04:48 Rouleaux Not Reportable 02/18/22 04:48 Hemoglobin C Crystals Not Reportable 02/18/22 04:48 Schistocytes Not Reportable 02/18/22 04:48 Malaria parasites Not Reportable 02/18/22 04:48 Antoine Bodies Not Reportable 02/18/22 04:48 Hem Pathologist Commnt No 02/18/22 04:48 APTT 72.8 Sec. (24.2-36.6) H* 02/17/22 10:30 ABG pH 7.456 pH Units (7.350-7.450) H 02/19/22 06:20 ABG pCO2 16.0 mm Hg 02/19/22 06:20 ABG pO2 68.4 mm Hg (80.0-90.0) L 02/19/22 06:20 ABG HCO3 11.0 mmol/L (20.0-26.0) L 02/19/22 06:20 ABG O2 Saturation 96.3 % (95.0-99.0) 02/19/22 06:20 ABG O2 Content 12.3 (0.0-44) 02/19/22 06:20 ABG Base Excess -11.0 mmol/L (-2.0-3.0) L 02/19/22 06:20 ABG Hemoglobin 9.2 gm/dl (14.0-18.0) L 02/19/22 06:20 ABG Carboxyhemoglobin 1.5 % (0.0-5.0) 02/19/22 06:20 ABG Methemoglobin 0.5 % (0.0-1.5) 02/19/22 06:20 Oxyhemoglobin 94.4 % (95.0-99.0) L 02/19/22 06:20 FiO2 50 % 02/19/22 06:20 Sodium 142 mmol/L (137-145) 02/19/22 04:00 Potassium 4.3 mmol/L (3.6-5.0) 02/19/22 04:00 Chloride 99.9 mmol/L (98-107) 02/19/22 04:00 Carbon Dioxide 16 mmol/L (22-30) L 02/19/22 04:00 Anion Gap 30 mmol/L 02/19/22 04:00 BUN 54 mg/dL (9-20) H 02/19/22 04:00 Creatinine 4.8 mg/dL (0.8-1.3) H 02/19/22 04:00 Estimated GFR 14 ml/min 02/19/22 04:00 BUN/Creatinine Ratio 11 % 02/19/22 04:00 Glucose 117 mg/dL (75-100) H 02/19/22 04:00 POC Glucose 226 mg/dL (70-105) H 02/17/22 12:00 Lactic Acid 14.50 mmol/L (0.7-2.0) H* 02/19/22 08:14 Calcium 6.8 mg/dL (8.4-10.2) L 02/19/22 04:00 Total Bilirubin 6.80 mg/dL (0.1-1.2) H 02/19/22 04:00 AST 379 units/L (5-40) H 02/19/22 04:00 ALT 84 units/L (7-56) H 02/19/22 04:00 Alkaline Phosphatase 152 units/L (35-129) H 02/19/22 04:00 Total Creatine Kinase 171 units/L (55-170) H 02/17/22 Unknown CK-MB (CK-2) 8.1 ng/mL (0.0-4.0) H 02/17/22 Unknown CK-MB (CK-2) Rel Index 4.7 (0-4) H 02/17/22 Unknown Troponin T 0.167 ng/mL (0.00-0.029) H* 02/17/22 10:30 Total Protein 5.0 g/dL (6.3-8.2) L 02/19/22 04:00 Albumin 2.0 g/dL (3.9-5) L 02/19/22 04:00 Albumin/Globulin Ratio 0.7 % 02/19/22 04:00 Triglycerides 63 mg/dL (2-149) 02/17/22 10:30 Cholesterol 153 mg/dL (50-199) 02/17/22 10:30 LDL Cholesterol Direct 122 mg/dL (50-130) 02/17/22 10:30 HDL Cholesterol 10 mg/dL (40-59) L 02/17/22 10:30 Cholesterol/HDL Ratio 15.30 % 02/17/22 10:30 TSH 10.950 mlU/mL (0.270-4.200) H 02/17/22 10:30 Free T4 1.35 ng/dL (0.76-1.46) 02/17/22 10:30 Random Vancomycin 19.6 ug/mL (0-40.0) 02/19/22 04:56 Microbiology: Microbiology 02/17/22 10:42 Peripheral/Venous Blood Culture - Preliminary NO GROWTH AFTER 48 HOURS 02/17/22 10:30 Peripheral/Venous Blood Culture - Preliminary Methicillin Resist S. Aureus 02/17/22 11:50 Tracheal Aspirate Sputum Culture - Preliminary Floyd/IV: Voiding Method Indwelling Catheter Active Medications - Current Medications Current Medications: Generic Name Dose Route Start Last Admin Trade Name Freq PRN Reason Stop Dose Admin Acetaminophen 650 mg 02/17/22 14:01 Acetaminophen 650 Mg Rect Supp DE Q6H PRN Pain MILD(1-3)/Fever >100.5/WINSLOW Albuterol 2.5 mg 02/17/22 13:57 Albuterol 2.5 Mg/3 Ml Nebu IH Q3HRT PRN Shortness Of Breath Atorvastatin Calcium 40 mg 02/18/22 22:00 02/18/22 21:42 Atorvastatin 40 Mg Tab FEEDTUBE Not Given QHS LAKISHA Dextrose 50 ml 02/18/22 12:49 02/18/22 13:43 Dextrose 50% In Water (25gm) 50 Ml Syringe IV 25 ml Q30MIN PRN Administration Hypoglycemia Protocol Famotidine 10 mg 02/18/22 10:00 02/19/22 09:22 Famotidine 20 Mg/2 Ml Inj IV 10 mg BID LAKISHA Administration Fentanyl 50 mcg 02/17/22 14:04 02/19/22 08:04 Fentanyl 100 Mcg/2 Ml Inj IV 50 mcg Q10MIN PRN Administration ANALGESIA Hydrocortisone Sodium Succinate 100 mg 02/18/22 14:00 02/19/22 06:25 Hydrocortisone Sod Succ 100 Mg/2 Ml Vial IV 100 mg Q8HR LAKISHA Administration Hydrophilic Ointment 1 applic 02/17/22 11:01 Lip Therapy Vaseline TP Q2HR PRN Dry Lips Vasopressin 20 unit/ Sodium 101 mls @ 12.12 mls/hr 02/17/22 17:00 02/19/22 01:22 Chloride IV 0.03 units/min TITR LAKISHA 9.09 mls/hr Administration Protocol 0.04 UNITS/MIN NORepinephrine/NS 8 MG-250 ML 8 mg in 250 mls @ 3.75 mls/hr 02/17/22 23:00 02/19/22 08:07 Norepinephrine/Ns 8 Mg-250 Ml (Double Conc) IV 30 mcg/min TITRATE LAKISHA 56.25 mls/hr Administration Protocol 2 MCG/MIN Sodium Bicarbonate 150 meq/ 1,150 mls @ 150 mls/hr 02/17/22 23:45 02/18/22 19:05 Dextrose IV 150 mls/hr DIRECT LAKISHA Administration Phenylephrine HCl 100 mg/ 100 mls @ 3 mls/hr 02/18/22 12:45 02/19/22 10:18 Sodium Chloride IV 170 mcg/min TITR LAKISHA 10.2 mls/hr Titration Protocol 50 MCG/MIN Epinephrine 16 mg/ Sodium 250 mls @ 1.875 mls/hr 02/18/22 20:00 02/19/22 08:29 Chloride IV 3 mcg/min TITR LAKISHA 2.813 mls/hr Titration Protocol 2 MCG/MIN Multi-Ingred Cream/Lotion/Oil/Oint 1 applic 02/17/22 11:01 Mineral Oil/Petrolatum, White Ophth Oint 3.5 Gm OU Q4HR PRN Dry Eye(s) Senna/Docusate Sodium 1 tab 02/17/22 22:00 02/19/22 09:22 Sennosides/Docusate Sodium 8.6/50 Mg Tab FEEDTUBE Not Given BID LAKISHA Sodium Chloride 10 ml 02/17/22 22:00 02/19/22 09:22 Sodium Chloride 0.9% 10 Ml Flush Syringe IV 10 ml BID LAKISHA Administration Sodium Chloride 10 ml 02/17/22 14:01 Sodium Chloride 0.9% 10 Ml Flush Syringe IV PRN PRN LINE FLUSH Nutrition/Malnutrition Assess - Dietary Evaluation Nutrition/Malnutrition Findings: Nutrition Notes Start: 02/18/22 11:26 Freq: Status: Active Protocol: Document 02/18/22 11:26 SHELIA (Rec: 02/18/22 11:37 [id number]) Nutrition Notes Need for Assessment generated from: MD Order,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 Pt also screened for low BMI, malnutrition and skin risks ( Nestor score: 9) and chewing difficulty. Pt is intubated at this time. PMHx includes debility, vascular dementia, cerebral atherosclerosis and gout. Burn Absent Trauma Absent Skin Integrity/Comment Sacral wound Minimum of two criteria Yes Body Fat Depletion Moderate depletion (severe) Muscle Mass Moderate Depletion (severe) Protein-Calorie Malnutrition Severe #1 Nutrition Diagnosis Inadequate oral intake Etiology mech ventilation, hx of dementia As Evidenced by Signs and Symptoms pt NPO and pt underweight Is patient on ventilator? Yes Is Patient Ambulatory and/or Out of Bed No REE-([facility]-confined to bed) 1516.656 Kcal/Kg value to use for calculation 35 Approximate Energy Requirements Using 1904 kcal/Kg Calculation Used for Recommendations Kcal/kg Additional Notes Pro needs 0.8-1.2g/k-65g/ day Fluid needs 1ml/kcal Nutrition Intervention Nutrition Support: Recommend Glucerna 1.2 when TF consult received Goal #1 Either advance diet or start EN support within next 24-48 hrs Goal #2 Wt maintenance and/or gain Goal #3 Wound healing Anticipated Discharge Needs: Unable to identify at this time Follow-Up By: 02/21/22 Additional Comments F/U: TF consult, vent status, pressor support, renal function <MASOUD PATTERSON - Last Filed: 02/19/22 20:06> Assessment and Plan Assessment and plan: I saw and evaluated the patient. I agree with the findings and the plan of care as documented in the Nurse Practitioner's~note, with the following corrections and additions. Hospitalist Physical - Constitutional Vitals: Temp Pulse Resp BP Pulse Ox 96.4 F L 124 H 25 H 103/69 94 02/19/22 16:24 02/19/22 19:30 02/19/22 19:30 02/19/22 19:30 02/19/22 16:56 HEART Score - HEART Score Troponin: Troponin T 0.167 ng/mL (0.00-0.029) H* 02/17/22 10:30 Results - Labs CBC & Chem 7: 02/19/22 04:00 02/19/22 04:00 Labs: Laboratory Last Values WBC 11.0 K/mm3 (4.5-11.0) 02/19/22 04:00 RBC 3.37 M/mm3 (3.65-5.03) L 02/19/22 04:00 Hgb 9.5 gm/dl (11.8-15.2) L 02/19/22 04:00 Hct 29.1 % (35.5-45.6) L 02/19/22 04:00 MCV 86 fl (84-94) 02/19/22 04:00 MCH 28 pg (28-32) 02/19/22 04:00 MCHC 33 % (32-34) 02/19/22 04:00 RDW 22.6 % (13.2-15.2) H 02/19/22 04:00 Plt Count 81 K/mm3 (140-440) L 02/19/22 04:00 Add Manual Diff Complete 02/18/22 04:48 Total Counted 100 02/18/22 04:48 Seg Neuts % (Manual) 74.0 % (40.0-70.0) H 02/18/22 04:48 Band Neutrophils % 22.0 % 02/18/22 04:48 Lymphocytes % (Manual) 2.0 % (13.4-35.0) L 02/18/22 04:48 Reactive Lymphs % (Man) 0 % 02/18/22 04:48 Monocytes % (Manual) 2.0 % (0.0-7.3) 02/18/22 04:48 Eosinophils % (Manual) 0 % (0.0-4.3) 02/18/22 04:48 Basophils % (Manual) 0 % (0.0-1.8) 02/18/22 04:48 Metamyelocytes % 0 % 02/18/22 04:48 Myelocytes % 0 % 02/18/22 04:48 Promyelocytes % 0 % 02/18/22 04:48 Blast Cells % 0 % 02/18/22 04:48 Nucleated RBC % 28.0 % (0.0-0.9) H 02/18/22 04:48 Seg Neutrophils # Man 9.4 K/mm3 (1.8-7.7) H 02/18/22 04:48 Band Neutrophils # 2.8 K/mm3 02/18/22 04:48 Lymphocytes # (Manual) 0.3 K/mm3 (1.2-5.4) L 02/18/22 04:48 Abs React Lymphs (Man) 0.0 K/mm3 02/18/22 04:48 Monocytes # (Manual) 0.3 K/mm3 (0.0-0.8) 02/18/22 04:48 Eosinophils # (Manual) 0.0 K/mm3 (0.0-0.4) 02/18/22 04:48 Basophils # (Manual) 0.0 K/mm3 (0.0-0.1) 02/18/22 04:48 Metamyelocytes # 0.0 K/mm3 02/18/22 04:48 Myelocytes # 0.0 K/mm3 02/18/22 04:48 Promyelocytes # 0.0 K/mm3 02/18/22 04:48 Blast Cells # 0.0 K/mm3 02/18/22 04:48 WBC Morphology Not Reportable 02/18/22 04:48 Hypersegmented Neuts Not Reportable 02/18/22 04:48 Hyposegmented Neuts Not Reportable 02/18/22 04:48 Hypogranular Neuts Not Reportable 02/18/22 04:48 Smudge Cells Not Reportable 02/18/22 04:48 Toxic Granulation Not Reportable 02/18/22 04:48 Toxic Vacuolation Not Reportable 02/18/22 04:48 Dohle Bodies Not Reportable 02/18/22 04:48 Pelger-Huet Anomaly Not Reportable 02/18/22 04:48 Henry Rods Not Reportable 02/18/22 04:48 Platelet Estimate Consistent w auto 02/18/22 04:48 Clumped Platelets Not Reportable 02/18/22 04:48 Plt Clumps, EDTA Not Reportable 02/18/22 04:48 Large Platelets Not Reportable 02/18/22 04:48 Giant Platelets Not Reportable 02/18/22 04:48 Platelet Satelliting Not Reportable 02/18/22 04:48 Plt Morphology Comment Not Reportable 02/18/22 04:48 RBC Morphology Not Reportable 02/18/22 04:48 Dimorphic RBCs Not Reportable 02/18/22 04:48 Polychromasia Not Reportable 02/18/22 04:48 Hypochromasia 2+ 02/18/22 04:48 Poikilocytosis 2+ 02/18/22 04:48 Anisocytosis 2+ 02/18/22 04:48 Microcytosis 1+ 02/18/22 04:48 Macrocytosis Not Reportable 02/18/22 04:48 Spherocytes 1+ 02/18/22 04:48 Pappenheimer Bodies Not Reportable 02/18/22 04:48 Sickle Cells Not Reportable 02/18/22 04:48 Target Cells 1+ 02/18/22 04:48 Tear Drop Cells Not Reportable 02/18/22 04:48 Ovalocytes Not Reportable 02/18/22 04:48 Helmet Cells Not Reportable 02/18/22 04:48 [place] Bodies Not Reportable 02/18/22 04:48 [place] Rings Not Reportable 02/18/22 04:48 [place] Cells 2+ 02/18/22 04:48 Bite Cells Not Reportable 02/18/22 04:48 Crenated Cell Not Reportable 02/18/22 04:48 Elliptocytes Not Reportable 02/18/22 04:48 Acanthocytes (Spur) Not Reportable 02/18/22 04:48 Rouleaux Not Reportable 02/18/22 04:48 Hemoglobin C Crystals Not Reportable 02/18/22 04:48 Schistocytes Not Reportable 02/18/22 04:48 Malaria parasites Not Reportable 02/18/22 04:48 Antoine Bodies Not Reportable 02/18/22 04:48 Hem Pathologist Commnt No 02/18/22 04:48 APTT 72.8 Sec. (24.2-36.6) H* 02/17/22 10:30 ABG pH 7.456 pH Units (7.350-7.450) H 02/19/22 06:20 ABG pCO2 16.0 mm Hg 02/19/22 06:20 ABG pO2 68.4 mm Hg (80.0-90.0) L 02/19/22 06:20 ABG HCO3 11.0 mmol/L (20.0-26.0) L 02/19/22 06:20 ABG O2 Saturation 96.3 % (95.0-99.0) 02/19/22 06:20 ABG O2 Content 12.3 (0.0-44) 02/19/22 06:20 ABG Base Excess -11.0 mmol/L (-2.0-3.0) L 02/19/22 06:20 ABG Hemoglobin 9.2 gm/dl (14.0-18.0) L 02/19/22 06:20 ABG Carboxyhemoglobin 1.5 % (0.0-5.0) 02/19/22 06:20 ABG Methemoglobin 0.5 % (0.0-1.5) 02/19/22 06:20 Oxyhemoglobin 94.4 % (95.0-99.0) L 02/19/22 06:20 FiO2 50 % 02/19/22 06:20 Sodium 142 mmol/L (137-145) 02/19/22 04:00 Potassium 4.3 mmol/L (3.6-5.0) 02/19/22 04:00 Chloride 99.9 mmol/L (98-107) 02/19/22 04:00 Carbon Dioxide 16 mmol/L (22-30) L 02/19/22 04:00 Anion Gap 30 mmol/L 02/19/22 04:00 BUN 54 mg/dL (9-20) H 02/19/22 04:00 Creatinine 4.8 mg/dL (0.8-1.3) H 02/19/22 04:00 Estimated GFR 14 ml/min 02/19/22 04:00 BUN/Creatinine Ratio 11 % 02/19/22 04:00 Glucose 117 mg/dL (75-100) H 02/19/22 04:00 POC Glucose 226 mg/dL (70-105) H 02/17/22 12:00 Lactic Acid 14.50 mmol/L (0.7-2.0) H* 02/19/22 08:14 Calcium 6.8 mg/dL (8.4-10.2) L 02/19/22 04:00 Total Bilirubin 6.80 mg/dL (0.1-1.2) H 02/19/22 04:00 AST 379 units/L (5-40) H 02/19/22 04:00 ALT 84 units/L (7-56) H 02/19/22 04:00 Alkaline Phosphatase 152 units/L (35-129) H 02/19/22 04:00 Total Creatine Kinase 171 units/L (55-170) H 02/17/22 Unknown CK-MB (CK-2) 8.1 ng/mL (0.0-4.0) H 02/17/22 Unknown CK-MB (CK-2) Rel Index 4.7 (0-4) H 02/17/22 Unknown Troponin T 0.167 ng/mL (0.00-0.029) H* 02/17/22 10:30 Total Protein 5.0 g/dL (6.3-8.2) L 02/19/22 04:00 Albumin 2.0 g/dL (3.9-5) L 02/19/22 04:00 Albumin/Globulin Ratio 0.7 % 02/19/22 04:00 Triglycerides 63 mg/dL (2-149) 02/17/22 10:30 Cholesterol 153 mg/dL (50-199) 02/17/22 10:30 LDL Cholesterol Direct 122 mg/dL (50-130) 02/17/22 10:30 HDL Cholesterol 10 mg/dL (40-59) L 02/17/22 10:30 Cholesterol/HDL Ratio 15.30 % 02/17/22 10:30 TSH 10.950 mlU/mL (0.270-4.200) H 02/17/22 10:30 Free T4 1.35 ng/dL (0.76-1.46) 02/17/22 10:30 Random Vancomycin 19.6 ug/mL (0-40.0) 02/19/22 04:56 Microbiology: Microbiology 02/17/22 10:42 Peripheral/Venous Blood Culture - Preliminary NO GROWTH AFTER 48 HOURS 02/17/22 10:30 Peripheral/Venous Blood Culture - Preliminary Methicillin Resist S. Aureus Floyd/IV: Voiding Method Indwelling Catheter Active Medications - Current Medications Current Medications: Generic Name Dose Route Start Last Admin Trade Name Freq PRN Reason Stop Dose Admin Acetaminophen 650 mg 02/17/22 14:01 Acetaminophen 650 Mg Rect Supp DE Q6H PRN Pain MILD(1-3)/Fever >100.5/WINSLOW Albuterol 2.5 mg 02/17/22 13:57 Albuterol 2.5 Mg/3 Ml Nebu IH Q3HRT PRN Shortness Of Breath Atorvastatin Calcium 40 mg 02/18/22 22:00 02/18/22 21:42 Atorvastatin 40 Mg Tab FEEDTUBE Not Given QHS LAKISHA Dextrose 50 ml 02/18/22 12:49 02/19/22 17:51 Dextrose 50% In Water (25gm) 50 Ml Syringe IV 50 ml Q30MIN PRN Administration Hypoglycemia Protocol Famotidine 10 mg 02/18/22 10:00 02/19/22 09:22 Famotidine 20 Mg/2 Ml Inj IV 10 mg BID LAKISHA Administration Fentanyl 50 mcg 02/19/22 17:59 Fentanyl 100 Mcg/2 Ml Inj IV Q2HR PRN For CPOT of 3 Hydrocortisone Sodium Succinate 100 mg 02/18/22 14:00 02/19/22 14:58 Hydrocortisone Sod Succ 100 Mg/2 Ml Vial IV 100 mg Q8HR LAKISHA Administration Hydrophilic Ointment 1 applic 02/17/22 11:01 Lip Therapy Vaseline TP Q2HR PRN Dry Lips Vasopressin 20 unit/ Sodium 101 mls @ 12.12 mls/hr 02/17/22 17:00 02/19/22 12:03 Chloride IV 0.03 units/min TITR LAKISHA 9.09 mls/hr Administration Protocol 0.04 UNITS/MIN NORepinephrine/NS 8 MG-250 ML 8 mg in 250 mls @ 3.75 mls/hr 02/17/22 23:00 02/19/22 19:30 Norepinephrine/Ns 8 Mg-250 Ml (Double Conc) IV 26 mcg/min TITRATE LAKISHA 48.75 mls/hr Titration Protocol 2 MCG/MIN Sodium Bicarbonate 150 meq/ 1,150 mls @ 150 mls/hr 02/17/22 23:45 02/19/22 18:56 Dextrose IV 150 mls/hr DIRECT LAKISHA Administration Phenylephrine HCl 100 mg/ 100 mls @ 3 mls/hr 02/18/22 12:45 02/19/22 17:54 Sodium Chloride IV 80 mcg/min TITR LAKISHA 4.8 mls/hr Titration Protocol 50 MCG/MIN Epinephrine 16 mg/ Sodium 250 mls @ 1.875 mls/hr 02/18/22 20:00 02/19/22 17:55 Chloride IV 0 mcg/min TITR LAKISHA 0 mls/hr Titration Protocol 2 MCG/MIN Multi-Ingred Cream/Lotion/Oil/Oint 1 applic 02/17/22 11:01 Mineral Oil/Petrolatum, White Ophth Oint 3.5 Gm OU Q4HR PRN Dry Eye(s) Senna/Docusate Sodium 1 tab 02/17/22 22:00 02/19/22 09:22 Sennosides/Docusate Sodium 8.6/50 Mg Tab FEEDTUBE Not Given BID LAKISHA Sodium Chloride 10 ml 02/17/22 22:00 02/19/22 09:22 Sodium Chloride 0.9% 10 Ml Flush Syringe IV 10 ml BID LAKISHA Administration Sodium Chloride 10 ml 02/17/22 14:01 Sodium Chloride 0.9% 10 Ml Flush Syringe IV PRN PRN LINE FLUSH Nutrition/Malnutrition Assess - Dietary Evaluation Nutrition/Malnutrition Findings: Nutrition Notes Start: 02/18/22 11:26 Freq: Status: Active Protocol: Document 02/18/22 11:26 NHALL (Rec: 02/18/22 11:37 [id number]) Nutrition Notes Need for Assessment generated from: MD Order,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 Pt also screened for low BMI, malnutrition and skin risks ( Nestor score: 9) and chewing difficulty. Pt is intubated at this time. PMHx includes debility, vascular dementia, cerebral atherosclerosis and gout. Burn Absent Trauma Absent Skin Integrity/Comment Sacral wound Minimum of two criteria Yes Body Fat Depletion Moderate depletion (severe) Muscle Mass Moderate Depletion (severe) Protein-Calorie Malnutrition Severe #1 Nutrition Diagnosis Inadequate oral intake Etiology mech ventilation, hx of dementia As Evidenced by Signs and Symptoms pt NPO and pt underweight Is patient on ventilator? Yes Is Patient Ambulatory and/or Out of Bed No REE-([facility]-confined to bed) 1516.656 Kcal/Kg value to use for calculation 35 Approximate Energy Requirements Using 1904 kcal/Kg Calculation Used for Recommendations Kcal/kg Additional Notes Pro needs 0.8-1.2g/k-65g/ day Fluid needs 1ml/kcal Nutrition Intervention Nutrition Support: Recommend Glucerna 1.2 when TF consult received Goal #1 Either advance diet or start EN support within next 24-48 hrs Goal #2 Wt maintenance and/or gain Goal #3 Wound healing Anticipated Discharge Needs: Unable to identify at this time Follow-Up By: 02/21/22 Additional Comments F/U: TF consult, vent status, pressor support, renal function
[2022-02-19] MEDS: SODIUM BICARBONATE 150 MEQ in DEXTROSE 5% IN WATER 1,000 ML IV SCH ×2 (11:38→18:56)
--- NOTE | 2022-02-19 11:46 | Progress Note ---
Assessment and Plan 1. Acute kidney injury: Vasomotor DIMPLE in the setting of Cardiac arrest and shock. Creatinine level increasing. Meds dosage based on GFR. 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 Not a candidate for hemodialysis due to profound shock. 2. FEN: Anion-gap metabolic acidsosis, Sod bicarb drip, monitor. Monitor lytes. 3. Acute Respiratory Failure: Currently intubated on vent. Monitor. 4. S/p cardiac arrest with ROSC / Atrial Fibrilation / HFrEF (EF 35%): #Dilated Cardiomyopathy with AICD. NSTEMI. End-stage heart failure. Poor prognosis. Followed by Cards. 5. Septic shock: Currently on 4 pressors. Abx. Monitor. 6. Acute Metabolic Encephalopathy: Monitor. 7. Diabetes Mellitus: Monitor. 8. Elevated ALT & AST. 9. Normocytic Anemia, POA: Monitor. D/w ICU team. Ongoing GOC. Subjective: Patient was seen and examined at the bedside. Nurse at the bedside. Examination: General appearance: well-developed, appears stated age, no distress, intubated, on vent HEENT: ATNC, no icterus Neck: trachea midline Respiratory: clear to auscultation, diminished bibasilar Heart: S1S2, regular, no murmur Gastrointestinal: soft, sluggish bowel sounds, NT Integumentary: LE stasis changes noted Neurologic: not responding Ext: no edema noted : Guevara catheter Subjective Date of service: 02/19/22 Principal diagnosis: s/p cardiac arrest Objective - Vital Signs Vital signs: Vital Signs - 12hr 02/19/22 02/19/22 02/19/22 00:00 00:15 00:31 Temperature 97.3 F L Pulse Rate 81 82 83 Respiratory 16 23 19 Rate Blood Pressure 71/47 83/47 77/48 O2 Sat by Pulse 90 Oximetry 02/19/22 02/19/22 02/19/22 00:45 01:00 01:15 Temperature Pulse Rate 86 82 130 H Respiratory 16 21 19 Rate Blood Pressure 73/46 73/46 73/46 O2 Sat by Pulse Oximetry 02/19/22 02/19/22 02/19/22 01:30 01:45 02:01 Temperature Pulse Rate 127 H 128 H 129 H Respiratory 17 30 H 24 Rate Blood Pressure 100/64 100/64 106/59 O2 Sat by Pulse Oximetry 0602/19/22 02/19/22 02:15 02:30 02:45 Temperature Pulse Rate 126 H 126 H 125 H Respiratory 21 19 16 Rate Blood Pressure 96/65 93/66 98/63 O2 Sat by Pulse Oximetry 02/19/22 02/19/22 02/19/22 03:00 03:15 03:30 Temperature Pulse Rate 125 H 126 H 85 Respiratory 16 16 20 Rate Blood Pressure 101/65 100/64 95/58 O2 Sat by Pulse Oximetry 02/19/22 02/19/22 02/19/22 03:45 04:00 04:15 Temperature 96.9 F L Pulse Rate 89 91 H 87 Respiratory 22 26 H 22 Rate Blood Pressure 95/38 101/56 101/56 O2 Sat by Pulse 90 Oximetry 02/19/22 02/19/22 02/19/22 04:17 04:31 04:45 Temperature Pulse Rate 83 86 86 Respiratory 23 25 H Rate Blood Pressure 90/50 90/50 90/52 O2 Sat by Pulse 90 Oximetry 02/19/22 02/19/22 02/19/22 05:00 05:15 05:31 Temperature Pulse Rate 92 H 92 H 85 Respiratory 25 H 23 21 Rate Blood Pressure 66/38 83/44 O2 Sat by Pulse Oximetry 02/19/22 02/19/22 02/19/22 05:45 06:01 06:15 Temperature Pulse Rate 89 94 H 89 Respiratory 26 H 28 H 18 Rate Blood Pressure 83/44 92/48 97/63 O2 Sat by Pulse Oximetry 02/19/22 02/19/22 02/19/22 06:30 06:45 07:01 Temperature Pulse Rate 90 92 H 88 Respiratory 18 16 19 Rate Blood Pressure 85/56 85/56 98/53 O2 Sat by Pulse Oximetry 02/19/22 02/19/22 02/19/22 07:15 07:31 07:45 Temperature Pulse Rate 91 H 93 H 87 Respiratory 22 25 H 22 Rate Blood Pressure 98/53 125/39 125/39 O2 Sat by Pulse Oximetry 02/19/22 02/19/22 02/19/22 07:54 07:55 08:01 Temperature Pulse Rate 90 90 Respiratory 27 H 26 H Rate Blood Pressure 97/46 O2 Sat by Pulse 90 Oximetry 02/19/22 02/19/22 02/19/22 08:05 08:15 08:16 Temperature 96.8 F L Pulse Rate 90 93 H Respiratory 23 Rate Blood Pressure 97/46 44/16 O2 Sat by Pulse 90 Oximetry 02/19/22 02/19/22 02/19/22 08:31 08:45 09:01 Temperature Pulse Rate 87 90 97 H Respiratory 17 20 21 Rate Blood Pressure 88/56 88/56 98/63 O2 Sat by Pulse Oximetry 02/19/22 02/19/22 02/19/22 09:15 09:16 09:20 Temperature Pulse Rate 96 H 91 H Respiratory 25 H Rate Blood Pressure 84/59 84/59 O2 Sat by Pulse 90 91 Oximetry 02/19/22 02/19/22 02/19/22 09:30 09:45 10:00 Temperature Pulse Rate 97 H 89 92 H Respiratory 25 H 20 21 Rate Blood Pressure 102/63 84/59 79/61 O2 Sat by Pulse 94 88 95 Oximetry 02/19/22 02/19/22 02/19/22 10:15 10:31 10:45 Temperature Pulse Rate 92 H 88 89 Respiratory 25 H 20 25 H Rate Blood Pressure 79/61 97/51 94/56 O2 Sat by Pulse 96 96 93 Oximetry 02/19/22 02/19/22 02/19/22 11:00 11:40 11:42 Temperature 97 F L Pulse Rate 93 H Respiratory 28 H 25 H Rate Blood Pressure 98/59 O2 Sat by Pulse 92 94 Oximetry - Lab 02/20/22 04:35 02/20/22 04:35 Most recent lab results ABG pH 7.456 pH Units (7.350-7.450) H 02/19/22 06:20 ABG pCO2 16.0 mm Hg 02/19/22 06:20 ABG pO2 68.4 mm Hg (80.0-90.0) L 02/19/22 06:20 ABG HCO3 11.0 mmol/L (20.0-26.0) L 02/19/22 06:20 ABG O2 Saturation 96.3 % (95.0-99.0) 02/19/22 06:20 Calcium 6.8 mg/dL (8.4-10.2) L 02/19/22 04:00 Medications & Allergies - Medications Allergies/Adverse Reactions: Allergies aspirin Allergy (Verified 09/21/20 06:40) Unknown Home Medications: Home Medications Medication Instructions Recorded Confirmed Last Taken Type Lisinopril [Zestril] 5 mg PO DAILY 09/21/20 02/18/22 1 Day Ago History ~02/19/21 Spironolactone [Aldactone] 12.5 mg PO QDAY 09/21/20 02/18/22 1 Day Ago History ~02/19/21 Terazosin HCl 2 mg PO HS 09/21/20 02/18/22 1 Day Ago History ~02/19/21 allopurinoL [Zyloprim] 150 mg PO QDAY 09/21/20 02/18/22 1 Day Ago History ~02/19/21 Acetaminophen [Non-Aspirin Extra 1,000 mg PO TID PRN 02/20/21 02/18/22 Unknown History Strength] Albuterol Mdi (or & Nicu Only) 2 puff IH QID PRN 02/20/21 02/18/22 1 Day Ago History [ProAir HFA Inhaler] ~02/19/21 Amlodipine Besylate [Norvasc] 2.5 mg PO DAILY 02/20/21 02/18/22 1 Day Ago History ~02/19/21 Aspirin EC [Halfprin EC] 81 mg PO QDAY 02/20/21 02/18/22 1 Day Ago History ~02/19/21 AtorvaSTATin [Lipitor] 80 mg PO QHS 02/20/21 02/18/22 1 Day Ago History ~02/19/21 Benzonatate [Tessalon Perles] 100 mg PO Q6HR PRN 02/20/21 02/18/22 12/28/20 10:00 History Furosemide [Lasix TAB] 20 mg PO QDAY PRN 02/20/21 02/18/22 1 Day Ago History ~02/19/21 Metoprolol Xl [Metoprolol 100 mg PO QDAY 02/20/21 02/18/22 1 Day Ago History SUCCINATE ER TAB] ~02/19/21 Tiotropium [place] [Spiriva 4 gm IH BID 02/20/21 02/18/22 1 Day Ago History Respimat] ~02/19/21 hydrOXYzine HCL 50 mg PO TID 02/20/21 02/18/22 1 Day Ago History ~02/19/21 Azithromycin [Zithromax TAB] 500 mg PO QDAY #3 tablet 02/22/21 02/18/22 Unknown Rx Active Medications: Generic Name Dose Route Start Last Admin Trade Name Freq PRN Reason Stop Dose Admin Acetaminophen 650 mg 02/17/22 14:01 Acetaminophen 650 Mg Rect Supp RI Q6H PRN Pain MILD(1-3)/Fever >100.5/WINSLOW Albuterol 2.5 mg 02/17/22 13:57 Albuterol 2.5 Mg/3 Ml Nebu IH Q3HRT PRN Shortness Of Breath Atorvastatin Calcium 40 mg 02/18/22 22:00 02/18/22 21:42 Atorvastatin 40 Mg Tab FEEDTUBE Not Given QHS LAKISHA Dextrose 50 ml 02/18/22 12:49 02/18/22 13:43 Dextrose 50% In Water (25gm) 50 Ml Syringe IV 25 ml Q30MIN PRN Administration Hypoglycemia Protocol Famotidine 10 mg 02/18/22 10:00 02/19/22 09:22 Famotidine 20 Mg/2 Ml Inj IV 10 mg BID LAKISHA Administration Fentanyl 50 mcg 02/17/22 14:04 02/19/22 08:04 Fentanyl 100 Mcg/2 Ml Inj IV 50 mcg Q10MIN PRN Administration ANALGESIA Hydrocortisone Sodium Succinate 100 mg 02/18/22 14:00 02/19/22 06:25 Hydrocortisone Sod Succ 100 Mg/2 Ml Vial IV 100 mg Q8HR LAKISHA Administration Hydrophilic Ointment 1 applic 02/17/22 11:01 Lip Therapy Vaseline TP Q2HR PRN Dry Lips Vasopressin 20 unit/ Sodium 101 mls @ 12.12 mls/hr 02/17/22 17:00 02/19/22 01:22 Chloride IV 0.03 units/min TITR LAKISHA 9.09 mls/hr Administration Protocol 0.04 UNITS/MIN NORepinephrine/NS 8 MG-250 ML 8 mg in 250 mls @ 3.75 mls/hr 02/17/22 23:00 02/19/22 08:07 Norepinephrine/Ns 8 Mg-250 Ml (Double Conc) IV 30 mcg/min TITRATE LAKISHA 56.25 mls/hr Administration Protocol 2 MCG/MIN Sodium Bicarbonate 150 meq/ 1,150 mls @ 150 mls/hr 02/17/22 23:45 02/19/22 11:38 Dextrose IV 150 mls/hr DIRECT LAKISHA Administration Phenylephrine HCl 100 mg/ 100 mls @ 3 mls/hr 02/18/22 12:45 02/19/22 11:20 Sodium Chloride IV 150 mcg/min TITR LAKISHA 9 mls/hr Titration Protocol 50 MCG/MIN Epinephrine 16 mg/ Sodium 250 mls @ 1.875 mls/hr 02/18/22 20:00 02/19/22 08:29 Chloride IV 3 mcg/min TITR LAKISHA 2.813 mls/hr Titration Protocol 2 MCG/MIN Multi-Ingred Cream/Lotion/Oil/Oint 1 applic 02/17/22 11:01 Mineral Oil/Petrolatum, White Ophth Oint 3.5 Gm OU Q4HR PRN Dry Eye(s) Senna/Docusate Sodium 1 tab 02/17/22 22:00 02/19/22 09:22 Sennosides/Docusate Sodium 8.6/50 Mg Tab FEEDTUBE Not Given BID LAKISHA Sodium Chloride 10 ml 02/17/22 22:00 02/19/22 09:22 Sodium Chloride 0.9% 10 Ml Flush Syringe IV 10 ml BID LAKISHA Administration Sodium Chloride 10 ml 02/17/22 14:01 Sodium Chloride 0.9% 10 Ml Flush Syringe IV PRN PRN LINE FLUSH
--- NOTE | 2022-02-19 12:08 | XRay Report ---
ABDOMEN AP PORTABLE SUPINE 1117 INDICATION: OGT Placement COMPARISON: None available. FINDINGS: Nasogastric tube extends well into the stomach. Mild gaseous distention of the stomach is n oted. Signer Name: Jose Cuellar MD Signed: 02/19/2022 12:04 PM Workstation Name: [id number]
--- NOTE | 2022-02-19 15:52 | Progress Note ---
Assessment and Plan Assessment: S/p Cardiac Arrest Acute Encephalopathy Acute Respiratory Failure R Pleural Effusion Septic Shock Hypothermia Type 2 MN HFrEF (EF 35-40% on last echo 2020, 10-15% per family member report) Dilated CMP s/p AICD Acute Renal Failure Elevated LFTs Hypothyroidism Anemia CAD H/o MN H/o HTN H/o DM Hypoglycemia (resolved) Echocardiogram (02/21/2021): LVEF is 35 to 40%. LV is mildly dilated. LVSF is moderately decreased. Mild LVH. Hypokinesis in the inferior, lateral wall. Mild diastolic dysfunction. RVSF is normal. Pacemaker lead is present in the right ventricle. Pacemaker lead present in the right atrium. Mild to moderate MR. Mild TR. RVSP is 35 mmHg. Lexiscan MPI stress test (02/22/2021): Negative for reversible ischemia. Plan: Echo pending. Continue supportive measures and weaning of vent/pressors as tolerated. Hesitant to recommend addition of inotrope support d/t arrhythmogenic potential. Overall very poor cardiac prognosis. Goals of care discussions underway with family. Spouse is considering home hospice. Pt seen in conjunction with Dr. Finney, who agrees with the assessment and plan of care. - Patient Problems (1) Cardiac arrest Current Visit: Yes Status: Acute (2) End stage heart failure Current Visit: Yes Status: Acute (3) Septic shock Current Visit: Yes Status: Acute Subjective Date of service: 02/19/22 Principal diagnosis: Cardiopulmonary Arrest Interval history: Remains on multiple pressors. Unresponsive on vent. SR 80s with PACs and PVCs on tele. Objective Vital Signs Temp Pulse Resp BP Pulse Ox 02/19/22 15:23 85 02/19/22 15:16 27 H 94 02/19/22 15:15 83 22 92/58 02/19/22 15:00 83 23 98/49 02/19/22 14:45 85 25 H 94/53 02/19/22 14:30 88 28 H 95/55 02/19/22 14:15 89 21 92/57 02/19/22 14:00 94 H 29 H 101/59 02/19/22 13:45 91 H 24 98/56 92 02/19/22 13:30 93 H 22 98/56 97 02/19/22 13:15 94 H 29 H 96/61 91 02/19/22 13:00 92 H 20 92/55 90 02/19/22 12:45 94 H 26 H 98/61 02/19/22 12:30 97 H 23 98/61 93 02/19/22 12:15 96 H 28 H 84/61 88 02/19/22 12:00 91 H 26 H 84/61 79 L 02/19/22 11:45 86 22 77/60 90 02/19/22 11:42 97 F L 02/19/22 11:40 25 H 94 02/19/22 11:30 91 H 30 H 77/60 95 02/19/22 11:15 93 H 18 98/62 97 02/19/22 11:00 93 H 28 H 98/59 92 02/19/22 10:45 89 25 H 94/56 93 02/19/22 10:31 88 20 97/51 96 02/19/22 10:15 92 H 25 H 79/61 96 02/19/22 10:00 92 H 21 79/61 95 02/19/22 09:45 89 20 84/59 88 02/19/22 09:30 97 H 25 H 102/63 94 02/19/22 09:20 91 02/19/22 09:16 91 H 84/59 90 02/19/22 09:15 96 H 25 H 84/59 02/19/22 09:01 97 H 21 98/63 02/19/22 08:45 90 20 88/56 02/19/22 08:31 87 17 88/56 02/19/22 08:16 96.8 F L 02/19/22 08:15 93 H 23 44/16 02/19/22 08:05 90 97/46 90 02/19/22 08:01 90 26 H 97/46 02/19/22 07:55 27 H 90 02/19/22 07:54 90 02/19/22 07:45 87 22 125/39 02/19/22 07:31 93 H 25 H 125/39 02/19/22 07:15 91 H 22 98/53 02/19/22 07:01 88 19 98/53 02/19/22 06:45 92 H 16 85/56 02/19/22 06:30 90 18 85/56 02/19/22 06:15 89 18 97/63 02/19/22 06:01 94 H 28 H 92/48 02/19/22 05:45 89 26 H 83/44 02/19/22 05:31 85 21 83/44 02/19/22 05:15 92 H 23 02/19/22 05:00 92 H 25 H 66/38 02/19/22 04:45 86 25 H 90/52 02/19/22 04:31 86 23 90/50 02/19/22 04:17 83 90/50 90 02/19/22 04:15 87 22 101/56 02/19/22 04:00 96.9 F L 91 H 26 H 101/56 90 02/19/22 03:45 89 22 95/38 02/19/22 03:30 85 20 95/58 02/19/22 03:15 126 H 16 100/64 02/19/22 03:00 125 H 16 101/65 02/19/22 02:45 125 H 16 98/63 02/19/22 02:30 126 H 19 93/66 02/19/22 02:15 126 H 21 96/65 02/19/22 02:01 129 H 24 106/59 02/19/22 01:45 128 H 30 H 100/64 02/19/22 01:30 127 H 17 100/64 02/19/22 01:15 130 H 19 73/46 02/19/22 01:00 82 21 73/46 02/19/22 00:45 86 16 73/46 02/19/22 00:31 83 19 77/48 02/19/22 00:15 82 23 83/47 02/19/22 00:00 97.3 F L 81 16 71/47 90 02/18/22 23:45 81 17 83/42 02/18/22 23:31 81 17 83/42 02/18/22 23:15 82 22 78/55 02/18/22 23:00 80 20 78/55 91 02/18/22 22:45 81 18 83/46 02/18/22 22:30 81 21 82/50 02/18/22 22:15 82 19 80/48 02/18/22 22:01 80 22 74/45 02/18/22 22:00 85 02/18/22 21:45 80 21 89/48 02/18/22 21:30 80 18 89/48 02/18/22 21:15 78 16 85/51 02/18/22 21:00 76 15 83/48 02/18/22 20:45 97 H 16 89/56 02/18/22 20:39 98 H 17 82/48 02/18/22 20:30 76 15 82/48 02/18/22 20:20 75 18 81/43 02/18/22 20:15 74 15 81/43 02/18/22 20:00 96.6 F L 75 26 H 76/46 90 02/18/22 19:45 74 16 72/41 02/18/22 19:30 77 17 79/49 02/18/22 19:15 73 17 66/43 02/18/22 19:00 74 17 65/39 02/18/22 18:54 75 70/41 90 02/18/22 18:45 71 16 70/41 02/18/22 18:30 119 H 16 80/51 02/18/22 18:15 117 H 16 78/51 02/18/22 18:01 116 H 16 70/39 02/18/22 17:45 122 H 21 82/49 02/18/22 17:30 120 H 18 77/48 02/18/22 17:15 121 H 19 76/51 02/18/22 17:00 119 H 19 89/53 02/18/22 16:47 118 H 77/48 94 02/18/22 16:45 117 H 20 77/48 02/18/22 16:31 114 H 21 83/54 02/18/22 16:15 83/54 02/18/22 16:00 96.8 F L 115 H 20 82/50 100 - Physical Examination General: Other (intubated/sedated) HEENT: Positive: Normocephaly Neck: Positive: JVD/HJR Cardiac: Positive: Regular Rhythm, S1/S2, Tachycardia Lungs: Positive: Ventilated Respirations Neuro: Positive: Other (unable to assess) Abdomen: Positive: Soft Skin: Negative: Rash Extremities: Absent: edema - Labs and Meds Cardiac Enzymes 02/19/22 Range/Units 04:00 AST 379 H (5-40) units/L CBC 02/19/22 Range/Units 04:00 WBC 11.0 (4.5-11.0) K/mm3 RBC 3.37 L (3.65-5.03) M/mm3 Hgb 9.5 L (11.8-15.2) gm/dl Hct 29.1 L (35.5-45.6) % Plt Count 81 L (140-440) K/mm3 Comprehensive Metabolic Panel 02/19/22 Range/Units 04:00 Sodium 142 (137-145) mmol/L Potassium 4.3 (3.6-5.0) mmol/L Chloride 99.9 (98-107) mmol/L Carbon Dioxide 16 L (22-30) mmol/L BUN 54 H (9-20) mg/dL Creatinine 4.8 H (0.8-1.3) mg/dL Glucose 117 H (75-100) mg/dL Calcium 6.8 L (8.4-10.2) mg/dL AST 379 H (5-40) units/L ALT 84 H (7-56) units/L Alkaline Phosphatase 152 H (35-129) units/L Total Protein 5.0 L (6.3-8.2) g/dL Albumin 2.0 L (3.9-5) g/dL - Imaging and Cardiology EKG: report reviewed, image reviewed Echo: pending, report reviewed - Telemetry EKG Rhythm: Sinus Rhythm - EKG Sinus rhythms and dysrhythmias: sinus bradycardia - Allied health notes Allied health notes reviewed: nursing
[2022-02-19] MEDS: DEXTROSE 50% IN WATER (25GM) 50 ML SYRINGE IV PRN (17:51)
[2022-02-19] MEDS ORDERED: fentaNYL 100 MCG/2 ML INJ IV SCH (17:57)
[2022-02-20] MEDS: fentaNYL 100 MCG/2 ML INJ IV PRN ×3 (00:05→19:45)
[2022-02-20] MEDS: DEXTROSE 50% IN WATER (25GM) 50 ML SYRINGE IV PRN ×5 (00:15→17:05)
[2022-02-20] MEDS: SODIUM BICARBONATE 150 MEQ in DEXTROSE 5% IN WATER 1,000 ML IV SCH ×3 (02:40→17:08)
[2022-02-20] MEDS: NORepinephrine/NS 8 MG-250 ML 8 MG/250 ML INFUS..BTL IV SCH ×4 (03:20→21:18)
--- NOTE | 2022-02-20 04:22 | XRay Report ---
CHEST 1 VIEW 02/20/2022 3:11 AM INDICATION / CLINICAL INFORMATION: follow up respiratory failure. COMPARISON: None available. FINDINGS: SUPPORT DEVICES: None. HEART / MEDIASTINUM: Stable. LUNGS / PLEURA: Redemonstrated right pleural-parenchymal opacity. Mild increased opacity within the l eft lung. No pneumothorax. ADDITIONAL FINDINGS: No significant additional findings. IMPRESSION: 1. Mild increased opacity in the left lung, otherwise no significant change. Signer Name: Marcio Pastrana DO Signed: 02/20/2022 4:18 AM Workstation Name: [id number]
[2022-02-20 05:12] LABS: Hematocrit 27.2 % (35.5-45.6); Hemoglobin 8.8 gm/dl (11.8-15.2); Mean Corpuscular HGB Conc 33 % (32-34); Mean Corpuscular Volume 86 fl (84-94); Red Blood Count 3.17 M/mm3 (3.65-5.03)
[2022-02-20 05:13] LABS: Platelet Count 52 K/mm3 (140-440); Red Cell Distribution Width 22.6 % (13.2-15.2)
[2022-02-20 05:23] LABS: Albumin 1.8 g/dL (3.9-5); Calcium 6.2 mg/dL (8.4-10.2)
[2022-02-20 06:16] LABS: ABG Base Excess -3.3 mmol/L (-2.0-3.0); ABG HCO3 18.5 mmol/L (20.0-26.0); ABG Methemoglobin 0.5 % (0.0-1.5); ABG Oxygen Saturation 94.2 % (95.0-99.0); ABG PCO2 22.8 mm Hg; ABG PH 7.527 pH Units (7.350-7.450); ABG PO2 60.4 mm Hg (80.0-90.0)
[2022-02-20] MEDS: HYDROCORTISONE SOD SUCC 100 MG/2 ML VIAL IV SCH ×3 (06:30→21:57)
--- NOTE | 2022-02-20 08:17 | Progress Note ---
Assessment and Plan Assessment: S/p Cardiac Arrest Acute Encephalopathy Septic Shock Acute Respiratory Failure ?PNA R Pleural Effusion Hypothermia Type 2 ID HFrEF (EF 35-40% on last echo 2020, 10-15% per family member report) Dilated CMP s/p AICD Acute Renal Failure Elevated LFTs Anemia Thrombocytopenia CAD H/o ID H/o HTN H/o DM Hypoglycemia (resolved) Hypothyroidism Echocardiogram (02/21/2021): LVEF is 35 to 40%. LV is mildly dilated. LVSF is moderately decreased. Mild LVH. Hypokinesis in the inferior, lateral wall. Mild diastolic dysfunction. RVSF is normal. Pacemaker lead is present in the right ventricle. Pacemaker lead present in the right atrium. Mild to moderate MR. Mild TR. RVSP is 35 mmHg. Lexiscan MPI stress test (02/22/2021): Negative for reversible ischemia. Plan: Echo pending. Continue supportive measures and weaning of vent/pressors as tolerated. Hesitant to recommend addition of inotrope support d/t arrhythmogenic potential. Overall very poor cardiac prognosis. Goals of care discussions underway with family. Spouse is considering home hospice. Pt seen in conjunction with Dr. Finney, who agrees with the assessment and plan of care. - Patient Problems (1) Cardiac arrest Current Visit: Yes Status: Acute (2) End stage heart failure Current Visit: Yes Status: Acute (3) Septic shock Current Visit: Yes Status: Acute Subjective Date of service: 02/20/22 Principal diagnosis: Cardiopulmonary Arrest Interval history: Remains intubated and on Levo/Gulshan/Vaso gtts. No events overnight. Agitated and tachycardic up to the 130s this AM. Improved to SR 70-80s after Fentanyl. PVCs noted on tele but no significant arrhythmias. Objective Vital Signs Temp Pulse Pulse Resp BP Pulse Ox 02/20/22 08:00 96.5 F L 132 H 26 H 94/65 02/20/22 07:45 130 H 19 93/64 02/20/22 07:35 96.5 F L 02/20/22 07:30 131 H 20 95/62 02/20/22 07:17 28 H 02/20/22 07:15 135 H 22 103/62 02/20/22 07:01 132 H 29 H 93/59 02/20/22 06:45 127 H 23 93/59 02/20/22 06:30 128 H 23 98/64 02/20/22 06:15 129 H 26 H 86/60 02/20/22 06:00 129 H 29 H 86/60 02/20/22 05:45 129 H 24 87/59 02/20/22 05:30 128 H 25 H 90/51 02/20/22 05:15 130 H 22 92/56 02/20/22 05:01 128 H 92/56 0 L 02/20/22 05:00 129 H 20 92/56 02/20/22 04:45 128 H 26 H 93/57 02/20/22 04:30 127 H 25 H 86/58 02/20/22 04:15 127 H 25 H 85/53 02/20/22 04:00 97.5 F L 126 H 126 H 26 H 90/57 0 L 02/20/22 03:45 126 H 20 90/53 02/20/22 03:31 126 H 24 90/53 02/20/22 03:15 126 H 20 91/59 02/20/22 03:01 126 H 23 91/59 02/20/22 02:45 125 H 24 91/59 02/20/22 02:30 125 H 25 H 91/67 02/20/22 02:15 126 H 27 H 98/68 02/20/22 02:01 127 H 25 H 98/68 02/20/22 01:45 127 H 26 H 104/63 02/20/22 01:30 125 H 16 99/65 02/20/22 01:15 125 H 23 102/68 02/20/22 01:00 124 H 25 H 98/65 02/20/22 00:45 123 H 22 96/65 02/20/22 00:30 124 H 17 92/62 02/20/22 00:17 124 H 93/66 0 L 02/20/22 00:15 124 H 28 H 93/66 02/20/22 00:05 23 02/20/22 00:00 98.8 F 125 H 125 H 22 93/65 0 L 02/19/22 23:45 124 H 25 H 93/64 02/19/22 23:37 124 H 25 H 99/60 02/19/22 23:30 124 H 28 H 99/60 02/19/22 23:15 124 H 20 99/66 02/19/22 23:00 124 H 26 H 99/68 02/19/22 22:45 123 H 25 H 97/71 02/19/22 22:30 123 H 24 101/66 02/19/22 22:15 123 H 26 H 97/64 02/19/22 22:00 124 H 24 98/66 02/19/22 21:45 123 H 25 H 98/65 02/19/22 21:30 123 H 24 97/64 02/19/22 21:15 121 H 26 H 90/61 02/19/22 21:00 124 H 28 H 96/63 02/19/22 20:45 123 H 20 94/66 02/19/22 20:30 125 H 19 95/64 0 L 02/19/22 20:15 124 H 27 H 104/68 02/19/22 20:00 98 F 124 H 123 H 24 96/64 0 L 02/19/22 19:45 123 H 25 H 95/64 02/19/22 19:30 124 H 25 H 103/69 02/19/22 19:15 123 H 26 H 101/65 02/19/22 19:00 123 H 18 92/62 02/19/22 18:45 124 H 26 H 95/62 02/19/22 18:31 125 H 19 92/67 02/19/22 18:15 126 H 28 H 92/67 02/19/22 18:01 127 H 25 H 92/67 02/19/22 17:45 83 20 72/47 02/19/22 17:30 81 17 85/54 02/19/22 17:15 89 23 92/60 02/19/22 17:00 94 H 30 H 87/64 02/19/22 16:56 82 87/53 94 02/19/22 16:45 85 19 96/57 02/19/22 16:30 83 20 87/57 02/19/22 16:24 96.4 F L 02/19/22 16:15 82 19 87/53 02/19/22 16:01 84 19 82/54 02/19/22 15:45 84 21 82/54 02/19/22 15:31 82 16 87/47 02/19/22 15:23 85 02/19/22 15:16 27 H 94 02/19/22 15:15 83 22 92/58 02/19/22 15:00 83 23 98/49 02/19/22 14:45 85 25 H 94/53 02/19/22 14:30 88 28 H 95/55 02/19/22 14:15 89 21 92/57 02/19/22 14:00 94 H 29 H 101/59 02/19/22 13:45 91 H 24 98/56 92 02/19/22 13:30 93 H 22 98/56 97 02/19/22 13:15 94 H 29 H 96/61 91 02/19/22 13:00 92 H 20 92/55 90 02/19/22 12:45 94 H 26 H 98/61 02/19/22 12:30 97 H 23 98/61 93 02/19/22 12:15 96 H 28 H 84/61 88 02/19/22 12:00 91 H 26 H 84/61 79 L 02/19/22 11:45 86 22 77/60 90 02/19/22 11:42 97 F L 02/19/22 11:40 25 H 94 02/19/22 11:30 91 H 30 H 77/60 95 02/19/22 11:15 93 H 18 98/62 97 02/19/22 11:00 93 H 28 H 98/59 92 02/19/22 10:45 89 25 H 94/56 93 02/19/22 10:31 88 20 97/51 96 02/19/22 10:15 92 H 25 H 79/61 96 02/19/22 10:00 92 H 21 79/61 95 02/19/22 09:45 89 20 84/59 88 02/19/22 09:30 97 H 25 H 102/63 94 02/19/22 09:20 91 02/19/22 09:16 91 H 84/59 90 02/19/22 09:15 96 H 25 H 84/59 02/19/22 09:01 97 H 21 98/63 02/19/22 08:45 90 20 88/56 02/19/22 08:31 87 17 88/56 - Physical Examination General: Other (intubated/sedated) HEENT: Positive: Normocephaly Neck: Positive: JVD/HJR Cardiac: Positive: Reg Rate and Rhythm Lungs: Positive: Ventilated Respirations Neuro: Positive: Other (unable to assess) Abdomen: Positive: Soft Skin: Negative: Rash Extremities: Present: warm. Absent: edema - Labs and Meds Cardiac Enzymes 02/20/22 Range/Units 04:35 AST 355 H (5-40) units/L CBC 02/20/22 Range/Units 04:35 WBC 9.2 (4.5-11.0) K/mm3 RBC 3.17 L (3.65-5.03) M/mm3 Hgb 8.8 L (11.8-15.2) gm/dl Hct 27.2 L (35.5-45.6) % Plt Count 52 L (140-440) K/mm3 Comprehensive Metabolic Panel 02/20/22 Range/Units 04:35 Sodium 143 (137-145) mmol/L Potassium 4.4 (3.6-5.0) mmol/L Chloride 98.6 (98-107) mmol/L Carbon Dioxide 18 L (22-30) mmol/L BUN 55 H (9-20) mg/dL Creatinine 4.4 H (0.8-1.3) mg/dL Glucose 89 (75-100) mg/dL Calcium 6.2 L (8.4-10.2) mg/dL AST 355 H (5-40) units/L ALT 78 H (7-56) units/L Alkaline Phosphatase 151 H (35-129) units/L Total Protein 4.4 L (6.3-8.2) g/dL Albumin 1.8 L (3.9-5) g/dL - Imaging and Cardiology EKG: report reviewed, image reviewed Echo: pending, report reviewed - Telemetry EKG Rhythm: Sinus Rhythm - EKG Sinus rhythms and dysrhythmias: sinus bradycardia - Allied health notes Allied health notes reviewed: nursing
[2022-02-20] MEDS: FAMOTIDINE 20 MG/2 ML INJ IV SCH ×2 (09:09→21:58)
[2022-02-20] MEDS: SENNOSIDES/DOCUSATE SODIUM 8.6/50 MG TAB FEEDTUBE SCH (09:13)
--- NOTE | 2022-02-20 09:35 | Progress Note ---
<JUANITO VARGAS - Last Filed: 02/20/22 17:19> Assessment and Plan Assessment and plan: This is a 72-year-old maelw with known past medical history of COPD, nicotine dependence, DM, malnutrition, debility, vascular dementia, cerebral atherosclerosis, HTN, HLD, UT, HFrEF(35%), dilated cardiomyopathy s/p AICD admitted s/p cardiac arrest now on ventilatory support. Hospital Course to Date: 02/18: Patient is unresponsive, on the vent, not on any sedation. Worsening acidosis, septic shock vs Cardiogenic shock. Now on 3 pressors and NaBcarb gtts. Preliminary blood cultures report with giles soto. Empiric IV Abx- Vanco initiated, ID consulted. Stress dose steroids also added. Trend Lactic acid and CBC. 2D Echo pending. Plan to wean off Dopamine gtt per Cardio. Renal function continue to worsen, Nephrology consulted. Extensive multidisciplinary discussions with patient's at the bedside in regards to patient's condition, diagnoses, and overall very poor prognosis. Patient's is co nsidering at home hospice but would like aggressive treatment at this time. She verbalized understanding of the info provided. All questions and concerns were addressed at this time. Patient remains a FULL code. 02/19: Remains on high pressor requirements and Bcarb gtt. BP bordeline this am, ST noted with PVCs on the monitor. Titrate pressors for a MAP above 65. Open eyes spontaneously this am, not following commands. Worsen thrombocytopenia this am. Hematuria noted from floyd, patient is oliguric, only 20cc overnight. H&H stable, continue to trend Plt. Start trickle feeding to promote motility. Renal function worsen this am, Nephrology is following. 02/20: KATYA overnight. Mentation unchanged, remains on the vent and on multiple pressors. Patient is too unstable for transport. ST- HR in the 120s on the monitor. With frequent foul diarrhea this am, X4 loose BM this morning. PO Vanco initiated. Repeat Blood cultures with NGTD, continue current IV abx for now. ID is also following. Renal function is unchanged, patient is not a candidate for hemodialysis due to profound shock per Nephrology. Remains on Bcarb gtt. Assessment and Plan #S/p Cardiac Arrest with ROSC #Septic Shock vs Cardiogenic Shock #HFrEF(35%) #Dilated Cardiomyopathy with AICD - Was found unresponsive at home by spouse - EMS called and found patient in bradycardia, HR in the 30s and went into asystolic arrest in route then in the ED - Patient on is Epi, Gulshan, Levophed, and Vasopressin this am. BP - SR with frequent PVCs noted - Patient is also on NaBcarb gtt - On stress dose steroids - Cardiology is also following, appreciate recommendations - 2D Echo pending - Continue blood pressure monitor per protocol - Titrate pressors to maintain MAP above 65 #Acute Hypoxic Respiratory Failure - Intubated during code on 02/17 - Vent setting:PRVC-40%,6,12,400 - AM ABG noted - CCM consulted, appreciate recommendations - VAP bundle addressed - Aspiration precaution HOB above 30 - Daily ABG and CXR - Continue SPO2 monitoring for SPO2 goal above 92% #Acute Metabolic Acidosis - s/p cardiac arrest - Open eyes spontaneously, not following commands - Pupils are reactive, with +gag/cough - Patient remains on multiple pressors too unstable, Possible CT head/brain once patient is more stable - Avoid sedative agents - Avoid benzodiazepine to reduce the possibility of delirium - PRN Analgesia for CPOT greater than 2 - Maintenance of sleep-wake cycle #Acute Kidney Injury(DIMPLE) most likely ATN - due to hypotension/hypopperfusion - Per record baseline Scr. 1.3. Scr. 4.8 this am - Floyd in place, now oliguric - Nephrology consulted - Strict intake and output - Avoid nephrotoxic medications; Renally dose medications - Monitor and replace electrolytes as needed #Septic Shock #Bacteremia #Frequent Foul Diarrhea #Metabolic Acidosis #Leukocytosis - Presented hypothermic and severely acidotic requiring multiple pressors - With worsen lactic acidosis today and leukocytosis - Initial blood cultures with MRSA 2 out 4 bottles - repeat Blood cultures with NGTD - With frequent foul diarrhea this am, X4 loose BM this morning. PO Vanco initiated - Continue IV Abx- Vanco - ID consulted, appreciate recommendations - 2D echo to r/o vegetation pending - Trend Lactic acid and CBC - F/U on cultures #Trombocytopenia - Presented with low plt, worsen this am - Oliguric, hematuria noted from floyd - H&H Stable - Not on ant AC - Continue to trend CBC - Transfuse for Hgb less than 7 #Transaminitis/Shock Liver - Probably reactive s/p cardiac arrest - Continue to trend LFTs #Hypoglycemia-improved - Probably due to poor perfusion, Low BG per Fingerstick accucheck. - Continue BG check Q6hrs, draw blood from artline, Avoid fingersticks - Trickle feeds initiated - Continue hypoglycemic protocol - Avoid Hypoglycemia #Moderate Protein-Calorie Malnutrition - albumin- 2.5 - On Continue IVF hydration - Trickle feeds initiated - Nutrition consulted #GI/DVT Prophylaxis - PPI- Pepcid - SCD to bilateral lower extremities while in bed #Advance Care Planning - Extensive multidisciplinary discussions with patient's , Mattie Mayes, at the bedside in regards to patient's condition, diagnoses, care plan, and overall very poor prognosis. Patient acknowledged understanding and agreement with care plan. - Patient's is considering at home hospice, but would like aggressive treatment at this time. All questions and concerns were addressed at this time. Patient remains a FULL code. The high probability of a clinically significant, sudden or life threatening deterioration of the [multiple] system(s) required my full and direct attention, intervention and personal management. The aggregate critical care time was [60] minutes. This time is in addition to time spent performing reported procedures but includes the following: [x] Data Review and interpretation [x] Patient assessment and monitoring of vital signs [x] Documentation [x] Medication orders and management Disposition Plan: ICU Total Time Spent with Patient (Minutes): 60 History Interval history: Patient seen and examined at the bedside. On the vent. Open eyes spontaneously this am, but does not follow any commands. Pupils are round and reactive, with +gag/cough. Remains on high pressors and a Bcarb gtts. ST HR in the 120s on the monitor this am. With frequent foul diarrhea this am, X4 loose BM this morning. Hospitalist Physical - Physical exam Narrative exam: General appearance: Present: other (On the vent, awake but not following commands) - EENT Eyes: Present: PERRL - Respiratory Respiratory effort: normal Respiratory: bilateral: rhonchi - Cardiovascular Rhythm: regular Heart Sounds: Present: S1 & S2 - Extremities Extremities: no ischemia, pulses intact, pulses symmetrical Peripheral Pulses: within normal limits - Abdominal General gastrointestinal: soft, non-distended, hypoactive bowel sounds - Integumentary Integumentary: Present: warm, dry - Psychiatric Psychiatric: other (On the vent, awake but not following commands) - Neurologic Neurologic: moves all extremities (Non-Purposeful movement), other (On the vent, awake but not following commands) - Allied Health Allied health notes reviewed: nursing, Case management - Constitutional Vitals: Temp Pulse Resp BP Pulse Ox 96.5 F L 132 H 25 H 94/65 0 L 02/20/22 08:00 02/20/22 08:00 02/20/22 08:00 02/20/22 08:00 02/20/22 08:00 HEART Score - HEART Score Troponin: Troponin T 0.167 ng/mL (0.00-0.029) H* 02/17/22 10:30 Results - Labs CBC & Chem 7: 02/20/22 04:35 02/20/22 04:35 Labs: Laboratory Last Values WBC 9.2 K/mm3 (4.5-11.0) 02/20/22 04:35 RBC 3.17 M/mm3 (3.65-5.03) L 02/20/22 04:35 Hgb 8.8 gm/dl (11.8-15.2) L 02/20/22 04:35 Hct 27.2 % (35.5-45.6) L 02/20/22 04:35 MCV 86 fl (84-94) 02/20/22 04:35 MCH 28 pg (28-32) 02/20/22 04:35 MCHC 33 % (32-34) 02/20/22 04:35 RDW 22.6 % (13.2-15.2) H 02/20/22 04:35 Plt Count 52 K/mm3 (140-440) L 02/20/22 04:35 Add Manual Diff Complete 02/18/22 04:48 Total Counted 100 02/18/22 04:48 Seg Neuts % (Manual) 74.0 % (40.0-70.0) H 02/18/22 04:48 Band Neutrophils % 22.0 % 02/18/22 04:48 Lymphocytes % (Manual) 2.0 % (13.4-35.0) L 02/18/22 04:48 Reactive Lymphs % (Man) 0 % 02/18/22 04:48 Monocytes % (Manual) 2.0 % (0.0-7.3) 02/18/22 04:48 Eosinophils % (Manual) 0 % (0.0-4.3) 02/18/22 04:48 Basophils % (Manual) 0 % (0.0-1.8) 02/18/22 04:48 Metamyelocytes % 0 % 02/18/22 04:48 Myelocytes % 0 % 02/18/22 04:48 Promyelocytes % 0 % 02/18/22 04:48 Blast Cells % 0 % 02/18/22 04:48 Nucleated RBC % 28.0 % (0.0-0.9) H 02/18/22 04:48 Seg Neutrophils # Man 9.4 K/mm3 (1.8-7.7) H 02/18/22 04:48 Band Neutrophils # 2.8 K/mm3 02/18/22 04:48 Lymphocytes # (Manual) 0.3 K/mm3 (1.2-5.4) L 02/18/22 04:48 Abs React Lymphs (Man) 0.0 K/mm3 02/18/22 04:48 Monocytes # (Manual) 0.3 K/mm3 (0.0-0.8) 02/18/22 04:48 Eosinophils # (Manual) 0.0 K/mm3 (0.0-0.4) 02/18/22 04:48 Basophils # (Manual) 0.0 K/mm3 (0.0-0.1) 02/18/22 04:48 Metamyelocytes # 0.0 K/mm3 02/18/22 04:48 Myelocytes # 0.0 K/mm3 02/18/22 04:48 Promyelocytes # 0.0 K/mm3 02/18/22 04:48 Blast Cells # 0.0 K/mm3 02/18/22 04:48 WBC Morphology Not Reportable 02/18/22 04:48 Hypersegmented Neuts Not Reportable 02/18/22 04:48 Hyposegmented Neuts Not Reportable 02/18/22 04:48 Hypogranular Neuts Not Reportable 02/18/22 04:48 Smudge Cells Not Reportable 02/18/22 04:48 Toxic Granulation Not Reportable 02/18/22 04:48 Toxic Vacuolation Not Reportable 02/18/22 04:48 Dohle Bodies Not Reportable 02/18/22 04:48 Pelger-Huet Anomaly Not Reportable 02/18/22 04:48 Henry Rods Not Reportable 02/18/22 04:48 Platelet Estimate Consistent w auto 02/18/22 04:48 Clumped Platelets Not Reportable 02/18/22 04:48 Plt Clumps, EDTA Not Reportable 02/18/22 04:48 Large Platelets Not Reportable 02/18/22 04:48 Giant Platelets Not Reportable 02/18/22 04:48 Platelet Satelliting Not Reportable 02/18/22 04:48 Plt Morphology Comment Not Reportable 02/18/22 04:48 RBC Morphology Not Reportable 02/18/22 04:48 Dimorphic RBCs Not Reportable 02/18/22 04:48 Polychromasia Not Reportable 02/18/22 04:48 Hypochromasia 2+ 02/18/22 04:48 Poikilocytosis 2+ 02/18/22 04:48 Anisocytosis 2+ 02/18/22 04:48 Microcytosis 1+ 02/18/22 04:48 Macrocytosis Not Reportable 02/18/22 04:48 Spherocytes 1+ 02/18/22 04:48 Pappenheimer Bodies Not Reportable 02/18/22 04:48 Sickle Cells Not Reportable 02/18/22 04:48 Target Cells 1+ 02/18/22 04:48 Tear Drop Cells Not Reportable 02/18/22 04:48 Ovalocytes Not Reportable 02/18/22 04:48 Helmet Cells Not Reportable 02/18/22 04:48 [place] Bodies Not Reportable 02/18/22 04:48 [place] Rings Not Reportable 02/18/22 04:48 Emi Cells 2+ 02/18/22 04:48 Bite Cells Not Reportable 02/18/22 04:48 Crenated Cell Not Reportable 02/18/22 04:48 Elliptocytes Not Reportable 02/18/22 04:48 Acanthocytes (Spur) Not Reportable 02/18/22 04:48 Rouleaux Not Reportable 02/18/22 04:48 Hemoglobin C Crystals Not Reportable 02/18/22 04:48 Schistocytes Not Reportable 02/18/22 04:48 Malaria parasites Not Reportable 02/18/22 04:48 Antoine Bodies Not Reportable 02/18/22 04:48 Hem Pathologist Commnt No 02/18/22 04:48 APTT 72.8 Sec. (24.2-36.6) H* 02/17/22 10:30 ABG pH 7.527 pH Units (7.350-7.450) H 02/20/22 05:40 ABG pCO2 22.8 mm Hg 02/20/22 05:40 ABG pO2 60.4 mm Hg (80.0-90.0) L 02/20/22 05:40 ABG HCO3 18.5 mmol/L (20.0-26.0) L 02/20/22 05:40 ABG O2 Saturation 94.2 % (95.0-99.0) L 02/20/22 05:40 ABG O2 Content 11.3 (0.0-44) 02/20/22 05:40 ABG Base Excess -3.3 mmol/L (-2.0-3.0) L 02/20/22 05:40 ABG Hemoglobin 8.7 gm/dl (14.0-18.0) L 02/20/22 05:40 ABG Carboxyhemoglobin 1.5 % (0.0-5.0) 02/20/22 05:40 ABG Methemoglobin 0.5 % (0.0-1.5) 02/20/22 05:40 Oxyhemoglobin 92.3 % (95.0-99.0) L 02/20/22 05:40 FiO2 40 % 02/20/22 05:40 Sodium 143 mmol/L (137-145) 02/20/22 04:35 Potassium 4.4 mmol/L (3.6-5.0) 02/20/22 04:35 Chloride 98.6 mmol/L (98-107) 02/20/22 04:35 Carbon Dioxide 18 mmol/L (22-30) L 02/20/22 04:35 Anion Gap 31 mmol/L 02/20/22 04:35 BUN 55 mg/dL (9-20) H 02/20/22 04:35 Creatinine 4.4 mg/dL (0.8-1.3) H 02/20/22 04:35 Estimated GFR 16 ml/min 02/20/22 04:35 BUN/Creatinine Ratio 13 % 02/20/22 04:35 Glucose 89 mg/dL (75-100) 02/20/22 04:35 POC Glucose 226 mg/dL (70-105) H 02/17/22 12:00 Lactic Acid 13.40 mmol/L (0.7-2.0) H* 02/20/22 07:00 Calcium 6.2 mg/dL (8.4-10.2) L 02/20/22 04:35 Total Bilirubin 6.90 mg/dL (0.1-1.2) H 02/20/22 04:35 AST 355 units/L (5-40) H 02/20/22 04:35 ALT 78 units/L (7-56) H 02/20/22 04:35 Alkaline Phosphatase 151 units/L (35-129) H 02/20/22 04:35 Total Creatine Kinase 171 units/L (55-170) H 02/17/22 Unknown CK-MB (CK-2) 8.1 ng/mL (0.0-4.0) H 02/17/22 Unknown CK-MB (CK-2) Rel Index 4.7 (0-4) H 02/17/22 Unknown Troponin T 0.167 ng/mL (0.00-0.029) H* 02/17/22 10:30 Total Protein 4.4 g/dL (6.3-8.2) L 02/20/22 04:35 Albumin 1.8 g/dL (3.9-5) L 02/20/22 04:35 Albumin/Globulin Ratio 0.7 % 02/20/22 04:35 Triglycerides 63 mg/dL (2-149) 02/17/22 10:30 Cholesterol 153 mg/dL (50-199) 02/17/22 10:30 LDL Cholesterol Direct 122 mg/dL (50-130) 02/17/22 10:30 HDL Cholesterol 10 mg/dL (40-59) L 02/17/22 10:30 Cholesterol/HDL Ratio 15.30 % 02/17/22 10:30 TSH 10.950 mlU/mL (0.270-4.200) H 02/17/22 10:30 Free T4 1.35 ng/dL (0.76-1.46) 02/17/22 10:30 Random Vancomycin 19.6 ug/mL (0-40.0) 02/19/22 04:56 Microbiology: Microbiology 02/20/22 07:00 Peripheral/Venous Blood Culture - Preliminary Culture in Progress 02/19/22 08:14 Peripheral/Venous Blood Culture - Preliminary Culture in Progress 02/17/22 10:42 Peripheral/Venous Blood Culture - Preliminary NO GROWTH AFTER 48 HOURS 02/17/22 10:30 Peripheral/Venous Blood Culture - Preliminary Methicillin Resist S. Aureus Floyd/IV: Voiding Method Indwelling Catheter Active Medications - Current Medications Current Medications: Generic Name Dose Route Start Last Admin Trade Name Freq PRN Reason Stop Dose Admin Acetaminophen 650 mg 02/17/22 14:01 Acetaminophen 650 Mg Rect Supp [place] Q6H PRN Pain MILD(1-3)/Fever >100.5/WINSLOW Albuterol 2.5 mg 02/17/22 13:57 Albuterol 2.5 Mg/3 Ml Nebu IH Q3HRT PRN Shortness Of Breath Atorvastatin Calcium 40 mg 02/18/22 22:00 02/19/22 22:39 Atorvastatin 40 Mg Tab FEEDTUBE 40 mg QHS LAKISHA Administration Dextrose 50 ml 02/18/22 12:49 02/20/22 00:45 Dextrose 50% In Water (25gm) 50 Ml Syringe IV 15 ml Q30MIN PRN Administration Hypoglycemia Protocol Famotidine 10 mg 02/18/22 10:00 02/20/22 09:09 Famotidine 20 Mg/2 Ml Inj IV 10 mg BID LAKISHA Administration Fentanyl 50 mcg 02/19/22 17:59 02/20/22 07:17 Fentanyl 100 Mcg/2 Ml Inj IV 50 mcg Q2HR PRN Administration For CPOT of 3 Hydrocortisone Sodium Succinate 100 mg 02/18/22 14:00 02/20/22 06:30 Hydrocortisone Sod Succ 100 Mg/2 Ml Vial IV 100 mg Q8HR LAKISHA Administration Hydrophilic Ointment 1 applic 02/17/22 11:01 Lip Therapy Vaseline TP Q2HR PRN Dry Lips Vasopressin 20 unit/ Sodium 101 mls @ 12.12 mls/hr 02/17/22 17:00 02/19/22 23:55 Chloride IV 0.03 units/min TITR LAKISHA 9.09 mls/hr Administration Protocol 0.04 UNITS/MIN NORepinephrine/NS 8 MG-250 ML 8 mg in 250 mls @ 3.75 mls/hr 02/17/22 23:00 02/20/22 09:10 Norepinephrine/Ns 8 Mg-250 Ml (Double Conc) IV 20 mcg/min TITRATE LAKISHA 37.5 mls/hr Administration Protocol 2 MCG/MIN Sodium Bicarbonate 150 meq/ 1,150 mls @ 150 mls/hr 02/17/22 23:45 02/20/22 09:13 Dextrose IV 150 mls/hr DIRECT LAKISHA Administration Phenylephrine HCl 100 mg/ 100 mls @ 3 mls/hr 02/18/22 12:45 02/20/22 02:03 Sodium Chloride IV 30 mcg/min TITR LAKISHA 1.8 mls/hr Titration Protocol 50 MCG/MIN Epinephrine 16 mg/ Sodium 250 mls @ 1.875 mls/hr 02/18/22 20:00 02/19/22 17:55 Chloride IV 0 mcg/min TITR LAKISHA 0 mls/hr Titration Protocol 2 MCG/MIN Multi-Ingred Cream/Lotion/Oil/Oint 1 applic 02/17/22 11:01 Mineral Oil/Petrolatum, White Ophth Oint 3.5 Gm OU Q4HR PRN Dry Eye(s) Senna/Docusate Sodium 1 tab 02/17/22 22:00 02/20/22 09:13 Sennosides/Docusate Sodium 8.6/50 Mg Tab FEEDTUBE Not Given BID LAKISHA Sodium Chloride 10 ml 02/17/22 22:00 02/20/22 09:13 Sodium Chloride 0.9% 10 Ml Flush Syringe IV 10 ml BID LAKISHA Administration Sodium Chloride 10 ml 02/17/22 14:01 Sodium Chloride 0.9% 10 Ml Flush Syringe IV PRN PRN LINE FLUSH Vancomycin HCl 500 mg 02/20/22 12:00 Vancomycin 250 Mg/10 Ml Oral Liqd PO Q6HR LAKISHA Protocol Nutrition/Malnutrition Assess - Dietary Evaluation Nutrition/Malnutrition Findings: Nutrition Notes Start: 02/18/22 11:26 Freq: Status: Active Protocol: Document 02/18/22 11:26 SHELIA (Rec: 02/18/22 11:37 SHELIA [id number]) Nutrition Notes Need for Assessment generated from: MD Order,biomathematician,MST Initial or Follow up Assessment Current Diagnosis Acute Kidney Injury,COPD, Diabetes,Hypertension,Heart Failure,Respiratory Failure, Malnutrition,Hyperlipidemia Other Pertinent Diagnosis Cardiac arrest Current Diet NPO Labs/Tests CO2 - 15 BUN 53 Cr 3.9 tBili 7.4 Elevated LFTs Pertinent Medications Dopamine gtt, Levophed gtt, Vasopressin gtt, Na bicarb in D5 at 150ml/hr Height 5 ft 8 in Weight 54.4 kg [place] Body Weight (kg) 70.00 BMI 18.2 Weight Status Underweight Subjective/Other Information RD consulted to evaluate nutritional intake. Pt also screened for low BMI, malnutrition and skin risks ( Nestor score: 9) and chewing difficulty. Pt is intubated at this time. PMHx includes debility, vascular dementia, cerebral atherosclerosis and gout. Burn Absent Trauma Absent Skin Integrity/Comment Sacral wound Minimum of two criteria Yes Body Fat Depletion Moderate depletion (severe) Muscle Mass Moderate Depletion (severe) Protein-Calorie Malnutrition Severe #1 Nutrition Diagnosis Inadequate oral intake Etiology mech ventilation, hx of dementia As Evidenced by Signs and Symptoms pt NPO and pt underweight Is patient on ventilator? Yes Is Patient Ambulatory and/or Out of Bed No REE-([place]-confined to bed) 1516.656 Kcal/Kg value to use for calculation 35 Approximate Energy Requirements Using 1904 kcal/Kg Calculation Used for Recommendations Kcal/kg Additional Notes Pro needs 0.8-1.2g/k-65g/ day Fluid needs 1ml/kcal Nutrition Intervention Nutrition Support: Recommend Glucerna 1.2 when TF consult received Goal #1 Either advance diet or start EN support within next 24-48 hrs Goal #2 Wt maintenance and/or gain Goal #3 Wound healing Anticipated Discharge Needs: Unable to identify at this time Follow-Up By: 02/21/22 Additional Comments F/U: TF consult, vent status, pressor support, renal function <MASOUD PATTERSON - Last Filed: 02/21/22 07:23> Assessment and Plan Assessment and plan: I saw and evaluated the patient. I agree with the findings and the plan of care as documented in the Nurse Practitioner's~note, with the following corrections and additions. Hospitalist Physical - Constitutional Vitals: Temp Pulse Resp BP Pulse Ox 96.6 F L 135 H 30 H 100/61 44 L 02/21/22 04:00 02/21/22 07:00 02/21/22 07:00 02/21/22 07:00 02/21/22 07:00 HEART Score - HEART Score Troponin: Troponin T 0.167 ng/mL (0.00-0.029) H* 02/17/22 10:30 Results - Labs CBC & Chem 7: 02/21/22 04:30 02/21/22 04:30 Labs: Laboratory Last Values WBC 5.3 K/mm3 (4.5-11.0) 02/21/22 04:30 RBC 3.52 M/mm3 (3.65-5.03) L 02/21/22 04:30 Hgb 9.8 gm/dl (11.8-15.2) L 02/21/22 04:30 Hct 30.3 % (35.5-45.6) L 02/21/22 04:30 MCV 86 fl (84-94) 02/21/22 04:30 MCH 28 pg (28-32) 02/21/22 04:30 MCHC 33 % (32-34) 02/21/22 04:30 RDW 22.6 % (13.2-15.2) H 02/21/22 04:30 Plt Count 26 K/mm3 (140-440) L 02/21/22 04:30 Add Manual Diff Complete 02/18/22 04:48 Total Counted 100 02/18/22 04:48 Seg Neuts % (Manual) 74.0 % (40.0-70.0) H 02/18/22 04:48 Band Neutrophils % 22.0 % 02/18/22 04:48 Lymphocytes % (Manual) 2.0 % (13.4-35.0) L 02/18/22 04:48 Reactive Lymphs % (Man) 0 % 02/18/22 04:48 Monocytes % (Manual) 2.0 % (0.0-7.3) 02/18/22 04:48 Eosinophils % (Manual) 0 % (0.0-4.3) 02/18/22 04:48 Basophils % (Manual) 0 % (0.0-1.8) 02/18/22 04:48 Metamyelocytes % 0 % 02/18/22 04:48 Myelocytes % 0 % 02/18/22 04:48 Promyelocytes % 0 % 02/18/22 04:48 Blast Cells % 0 % 02/18/22 04:48 Nucleated RBC % 28.0 % (0.0-0.9) H 02/18/22 04:48 Seg Neutrophils # Man 9.4 K/mm3 (1.8-7.7) H 02/18/22 04:48 Band Neutrophils # 2.8 K/mm3 02/18/22 04:48 Lymphocytes # (Manual) 0.3 K/mm3 (1.2-5.4) L 02/18/22 04:48 Abs React Lymphs (Man) 0.0 K/mm3 02/18/22 04:48 Monocytes # (Manual) 0.3 K/mm3 (0.0-0.8) 02/18/22 04:48 Eosinophils # (Manual) 0.0 K/mm3 (0.0-0.4) 02/18/22 04:48 Basophils # (Manual) 0.0 K/mm3 (0.0-0.1) 02/18/22 04:48 Metamyelocytes # 0.0 K/mm3 02/18/22 04:48 Myelocytes # 0.0 K/mm3 02/18/22 04:48 Promyelocytes # 0.0 K/mm3 02/18/22 04:48 Blast Cells # 0.0 K/mm3 02/18/22 04:48 WBC Morphology Not Reportable 02/18/22 04:48 Hypersegmented Neuts Not Reportable 02/18/22 04:48 Hyposegmented Neuts Not Reportable 02/18/22 04:48 Hypogranular Neuts Not Reportable 02/18/22 04:48 Smudge Cells Not Reportable 02/18/22 04:48 Toxic Granulation Not Reportable 02/18/22 04:48 Toxic Vacuolation Not Reportable 02/18/22 04:48 Dohle Bodies Not Reportable 02/18/22 04:48 Pelger-Huet Anomaly Not Reportable 02/18/22 04:48 Henry Rods Not Reportable 02/18/22 04:48 Platelet Estimate Consistent w auto 02/18/22 04:48 Clumped Platelets Not Reportable 02/18/22 04:48 Plt Clumps, EDTA Not Reportable 02/18/22 04:48 Large Platelets Not Reportable 02/18/22 04:48 Giant Platelets Not Reportable 02/18/22 04:48 Platelet Satelliting Not Reportable 02/18/22 04:48 Plt Morphology Comment Not Reportable 02/18/22 04:48 RBC Morphology Not Reportable 02/18/22 04:48 Dimorphic RBCs Not Reportable 02/18/22 04:48 Polychromasia Not Reportable 02/18/22 04:48 Hypochromasia 2+ 02/18/22 04:48 Poikilocytosis 2+ 02/18/22 04:48 Anisocytosis 2+ 02/18/22 04:48 Microcytosis 1+ 02/18/22 04:48 Macrocytosis Not Reportable 02/18/22 04:48 Spherocytes 1+ 02/18/22 04:48 Pappenheimer Bodies Not Reportable 02/18/22 04:48 Sickle Cells Not Reportable 02/18/22 04:48 Target Cells 1+ 02/18/22 04:48 Tear Drop Cells Not Reportable 02/18/22 04:48 Ovalocytes Not Reportable 02/18/22 04:48 Helmet Cells Not Reportable 02/18/22 04:48 [place] Bodies Not Reportable 02/18/22 04:48 [place] Rings Not Reportable 02/18/22 04:48 [place] Cells 2+ 02/18/22 04:48 Bite Cells Not Reportable 02/18/22 04:48 Crenated Cell Not Reportable 02/18/22 04:48 Elliptocytes Not Reportable 02/18/22 04:48 Acanthocytes (Spur) Not Reportable 02/18/22 04:48 Rouleaux Not Reportable 02/18/22 04:48 Hemoglobin C Crystals Not Reportable 02/18/22 04:48 Schistocytes Not Reportable 02/18/22 04:48 Malaria parasites Not Reportable 02/18/22 04:48 Antoine Bodies Not Reportable 02/18/22 04:48 Hem Pathologist Commnt No 02/18/22 04:48 APTT 72.8 Sec. (24.2-36.6) H* 02/17/22 10:30 ABG pH 7.463 pH Units (7.350-7.450) H 02/21/22 05:19 ABG pCO2 30.0 mm Hg 02/21/22 05:19 ABG pO2 47.0 mm Hg (80.0-90.0) L 02/21/22 05:19 ABG HCO3 21.0 mmol/L (20.0-26.0) 02/21/22 05:19 ABG O2 Saturation 81.7 % (95.0-99.0) L 02/21/22 05:19 ABG O2 Content 10.8 (0.0-44) 02/21/22 05:19 ABG Base Excess -2.1 mmol/L (-2.0-3.0) L 02/21/22 05:19 ABG Hemoglobin 9.6 gm/dl (14.0-18.0) L 02/21/22 05:19 ABG Carboxyhemoglobin 1.6 % (0.0-5.0) 02/21/22 05:19 ABG Methemoglobin 0.6 % (0.0-1.5) 02/21/22 05:19 Oxyhemoglobin 79.9 % (95.0-99.0) L 02/21/22 05:19 FiO2 40 % 02/21/22 05:19 Sodium 141 mmol/L (137-145) 02/21/22 04:30 Potassium 4.4 mmol/L (3.6-5.0) 02/21/22 04:30 Chloride 94.0 mmol/L (98-107) L 02/21/22 04:30 Carbon Dioxide 20 mmol/L (22-30) L 02/21/22 04:30 Anion Gap 31 mmol/L 02/21/22 04:30 BUN 56 mg/dL (9-20) H 02/21/22 04:30 Creatinine 4.5 mg/dL (0.8-1.3) H 02/21/22 04:30 Estimated GFR 16 ml/min 02/21/22 04:30 BUN/Creatinine Ratio 12 % 02/21/22 04:30 Glucose 93 mg/dL (75-100) 02/21/22 04:30 POC Glucose 226 mg/dL (70-105) H 02/17/22 12:00 Lactic Acid 13.10 mmol/L (0.7-2.0) H* 02/21/22 04:30 Calcium 5.8 mg/dL (8.4-10.2) L* 02/21/22 04:30 Total Bilirubin 6.90 mg/dL (0.1-1.2) H 02/21/22 04:30 AST 359 units/L (5-40) H 02/21/22 04:30 ALT 77 units/L (7-56) H 02/21/22 04:30 Alkaline Phosphatase 253 units/L (35-129) H 02/21/22 04:30 Total Creatine Kinase 171 units/L (55-170) H 02/17/22 Unknown CK-MB (CK-2) 8.1 ng/mL (0.0-4.0) H 02/17/22 Unknown CK-MB (CK-2) Rel Index 4.7 (0-4) H 02/17/22 Unknown Troponin T 0.167 ng/mL (0.00-0.029) H* 02/17/22 10:30 Total Protein 4.3 g/dL (6.3-8.2) L 02/21/22 04:30 Albumin 1.5 g/dL (3.9-5) L 02/21/22 04:30 Albumin/Globulin Ratio 0.5 % 02/21/22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
--- NOTE | 2022-02-20 09:59 | Progress Note ---
Assessment and Plan 1. Acute kidney injury: Vasomotor DIMPLE in the setting of Cardiac arrest and shock. ATN. Renal US negative for hydro. Creatinine level remains high. UOP low. Meds dosage based on GFR. 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 Not a candidate for hemodialysis due to profound shock. 2. FEN: Anion-gap metabolic acidsosis, Sod bicarb drip, monitor. Monitor lytes. 3. Acute Respiratory Failure: Currently intubated on vent. Monitor. 4. S/p cardiac arrest with ROSC / Atrial Fibrilation / HFrEF (EF 35%): #Dilated Cardiomyopathy with AICD. NSTEMI. End-stage heart failure. Poor prognosis. Followed by Cards. 5. Septic shock: Currently on 3 pressors. Abx. Monitor. 6. Acute Metabolic Encephalopathy: Monitor. 7. Diabetes Mellitus: Monitor. 8. Elevated ALT & AST. 9. Normocytic Anemia, POA: Monitor. D/w ICU team. D/w and answered all questions. Subjective: Patient was seen and examined at the bedside. at the bedside. Examination: General appearance: well-developed, appears stated age, no distress, intubated, on vent HEENT: ATNC, no icterus Neck: trachea midline Respiratory: clear to auscultation, diminished bibasilar Heart: S1S2, regular, no murmur Gastrointestinal: soft, sluggish bowel sounds, NT Integumentary: LE stasis changes noted Neurologic: non purposeful head movements noted Ext: no edema noted : Guevara catheter Subjective Date of service: 02/20/22 Principal diagnosis: s/p cardiac arrest Objective - Vital Signs Vital signs: Vital Signs - 12hr 02/19/22 02/19/22 02/19/22 22:00 22:15 22:30 Temperature Pulse Rate 124 H 123 H 123 H Pulse Rate [ From Monitor] Respiratory 24 26 H 24 Rate Blood Pressure 98/66 97/64 101/66 O2 Sat by Pulse Oximetry 02/19/22 02/19/22 02/19/22 22:45 23:00 23:15 Temperature Pulse Rate 123 H 124 H 124 H Pulse Rate [ From Monitor] Respiratory 25 H 26 H 20 Rate Blood Pressure 97/71 99/68 99/66 O2 Sat by Pulse Oximetry 02/19/22 02/19/22 02/19/22 23:30 23:37 23:45 Temperature Pulse Rate 124 H 124 H 124 H Pulse Rate [ From Monitor] Respiratory 28 H 25 H 25 H Rate Blood Pressure 99/60 99/60 93/64 O2 Sat by Pulse Oximetry 02/20/22 02/20/22 02/20/22 00:00 00:05 00:15 Temperature 98.8 F Pulse Rate 125 H 124 H Pulse Rate [ 125 H From Monitor] Respiratory 22 23 28 H Rate Blood Pressure 93/65 93/66 O2 Sat by Pulse 0 L Oximetry 02/20/22 02/20/22 02/20/22 00:17 00:30 00:45 Temperature Pulse Rate 124 H 124 H 123 H Pulse Rate [ From Monitor] Respiratory 17 22 Rate Blood Pressure 93/66 92/62 96/65 O2 Sat by Pulse 0 L Oximetry 02/20/22 02/20/22 02/20/22 01:00 01:15 01:30 Temperature Pulse Rate 124 H 125 H 125 H Pulse Rate [ From Monitor] Respiratory 25 H 23 16 Rate Blood Pressure 98/65 102/68 99/65 O2 Sat by Pulse Oximetry 02/20/22 02/20/22 02/20/22 01:45 02:01 02:15 Temperature Pulse Rate 127 H 127 H 126 H Pulse Rate [ From Monitor] Respiratory 26 H 25 H 27 H Rate Blood Pressure 104/63 98/68 98/68 O2 Sat by Pulse Oximetry 02/20/22 02/20/22 02/20/22 02:30 02:45 03:01 Temperature Pulse Rate 125 H 125 H 126 H Pulse Rate [ From Monitor] Respiratory 25 H 24 23 Rate Blood Pressure 91/67 91/59 91/59 O2 Sat by Pulse Oximetry 02/20/22 02/20/22 02/20/22 03:15 03:31 03:45 Temperature Pulse Rate 126 H 126 H 126 H Pulse Rate [ From Monitor] Respiratory 20 24 20 Rate Blood Pressure 91/59 90/53 90/53 O2 Sat by Pulse Oximetry 02/20/22 02/20/22 02/20/22 04:00 04:15 04:30 Temperature 97.5 F L Pulse Rate 126 H 127 H 127 H Pulse Rate [ 126 H From Monitor] Respiratory 26 H 25 H 25 H Rate Blood Pressure 90/57 85/53 86/58 O2 Sat by Pulse 0 L Oximetry 02/20/22 02/20/22 02/20/22 04:45 05:00 05:01 Temperature Pulse Rate 128 H 129 H 128 H Pulse Rate [ From Monitor] Respiratory 26 H 20 Rate Blood Pressure 93/57 92/56 92/56 O2 Sat by Pulse 0 L Oximetry 02/20/22 02/20/22 02/20/22 05:15 05:30 05:45 Temperature Pulse Rate 130 H 128 H 129 H Pulse Rate [ From Monitor] Respiratory 22 25 H 24 Rate Blood Pressure 92/56 90/51 87/59 O2 Sat by Pulse Oximetry 02/20/22 02/20/22 02/20/22 06:00 06:15 06:30 Temperature Pulse Rate 129 H 129 H 128 H Pulse Rate [ From Monitor] Respiratory 29 H 26 H 23 Rate Blood Pressure 86/60 86/60 98/64 O2 Sat by Pulse Oximetry 02/20/22 02/20/22 02/20/22 06:45 07:01 07:15 Temperature Pulse Rate 127 H 132 H 135 H Pulse Rate [ From Monitor] Respiratory 23 29 H 22 Rate Blood Pressure 93/59 93/59 103/62 O2 Sat by Pulse Oximetry 02/20/22 02/20/22 02/20/22 07:17 07:30 07:35 Temperature 96.5 F L Pulse Rate 131 H Pulse Rate [ From Monitor] Respiratory 28 H 20 Rate Blood Pressure 95/62 O2 Sat by Pulse Oximetry 02/20/22 02/20/22 02/20/22 07:45 07:51 08:00 Temperature 96.5 F L Pulse Rate 130 H 132 H 132 H Pulse Rate [ 132 H From Monitor] Respiratory 19 25 H Rate Blood Pressure 93/64 104/54 94/65 O2 Sat by Pulse 99 0 L Oximetry - Lab 02/20/22 04:35 02/20/22 04:35 Most recent lab results ABG pH 7.527 pH Units (7.350-7.450) H 02/20/22 05:40 ABG pCO2 22.8 mm Hg 02/20/22 05:40 ABG pO2 60.4 mm Hg (80.0-90.0) L 02/20/22 05:40 ABG HCO3 18.5 mmol/L (20.0-26.0) L 02/20/22 05:40 ABG O2 Saturation 94.2 % (95.0-99.0) L 02/20/22 05:40 Calcium 6.2 mg/dL (8.4-10.2) L 02/20/22 04:35 Medications & Allergies - Medications Allergies/Adverse Reactions: Allergies aspirin Allergy (Verified 09/21/20 06:40) Unknown Home Medications: Home Medications Medication Instructions Recorded Confirmed Last Taken Type Lisinopril [Zestril] 5 mg PO DAILY 09/21/20 02/18/22 1 Day Ago History ~02/19/21 Spironolactone [Aldactone] 12.5 mg PO QDAY 09/21/20 02/18/22 1 Day Ago History ~02/19/21 Terazosin HCl 2 mg PO HS 09/21/20 02/18/22 1 Day Ago History ~02/19/21 allopurinoL [Zyloprim] 150 mg PO QDAY 09/21/20 02/18/22 1 Day Ago History ~02/19/21 Acetaminophen [Non-Aspirin Extra 1,000 mg PO TID PRN 02/20/21 02/18/22 Unknown History Strength] Albuterol Mdi (or & Nicu Only) 2 puff IH QID PRN 02/20/21 02/18/22 1 Day Ago History [ProAir HFA Inhaler] ~02/19/21 Amlodipine Besylate [Norvasc] 2.5 mg PO DAILY 02/20/21 02/18/22 1 Day Ago History ~02/19/21 Aspirin EC [Halfprin EC] 81 mg PO QDAY 02/20/21 02/18/22 1 Day Ago History ~02/19/21 AtorvaSTATin [Lipitor] 80 mg PO QHS 02/20/21 02/18/22 1 Day Ago History ~02/19/21 Benzonatate [Tessalon Perles] 100 mg PO Q6HR PRN 02/20/21 02/18/22 12/28/20 10:00 History Furosemide [Lasix TAB] 20 mg PO QDAY PRN 02/20/21 02/18/22 1 Day Ago History ~02/19/21 Metoprolol Xl [Metoprolol 100 mg PO QDAY 02/20/21 02/18/22 1 Day Ago History SUCCINATE ER TAB] ~02/19/21 Tiotropium [place] [Spiriva 4 gm IH BID 02/20/21 02/18/22 1 Day Ago History Respimat] ~02/19/21 hydrOXYzine HCL 50 mg PO TID 02/20/21 02/18/22 1 Day Ago History ~02/19/21 Azithromycin [Zithromax TAB] 500 mg PO QDAY #3 tablet 02/22/21 02/18/22 Unknown Rx Active Medications: Generic Name Dose Route Start Last Admin Trade Name Freq PRN Reason Stop Dose Admin Acetaminophen 650 mg 02/17/22 14:01 Acetaminophen 650 Mg Rect Supp [place] Q6H PRN Pain MILD(1-3)/Fever >100.5/WINSLOW Albuterol 2.5 mg 02/17/22 13:57 Albuterol 2.5 Mg/3 Ml Nebu IH Q3HRT PRN Shortness Of Breath Atorvastatin Calcium 40 mg 02/18/22 22:00 02/19/22 22:39 Atorvastatin 40 Mg Tab FEEDTUBE 40 mg QHS LAKISHA Administration Dextrose 50 ml 02/18/22 12:49 02/20/22 00:45 Dextrose 50% In Water (25gm) 50 Ml Syringe IV 15 ml Q30MIN PRN Administration Hypoglycemia Protocol Famotidine 10 mg 02/18/22 10:00 02/20/22 09:09 Famotidine 20 Mg/2 Ml Inj IV 10 mg BID LAKISHA Administration Fentanyl 50 mcg 02/19/22 17:59 02/20/22 07:17 Fentanyl 100 Mcg/2 Ml Inj IV 50 mcg Q2HR PRN Administration For CPOT of 3 Hydrocortisone Sodium Succinate 100 mg 02/18/22 14:00 02/20/22 06:30 Hydrocortisone Sod Succ 100 Mg/2 Ml Vial IV 100 mg Q8HR LAKISHA Administration Hydrophilic Ointment 1 applic 02/17/22 11:01 Lip Therapy Vaseline TP Q2HR PRN Dry Lips Vasopressin 20 unit/ Sodium 101 mls @ 12.12 mls/hr 02/17/22 17:00 02/19/22 23:55 Chloride IV 0.03 units/min TITR LAKISHA 9.09 mls/hr Administration Protocol 0.04 UNITS/MIN NORepinephrine/NS 8 MG-250 ML 8 mg in 250 mls @ 3.75 mls/hr 02/17/22 23:00 02/20/22 09:10 Norepinephrine/Ns 8 Mg-250 Ml (Double Conc) IV 20 mcg/min TITRATE LAKISHA 37.5 mls/hr Administration Protocol 2 MCG/MIN Sodium Bicarbonate 150 meq/ 1,150 mls @ 150 mls/hr 02/17/22 23:45 02/20/22 09:13 Dextrose IV 150 mls/hr DIRECT LAKISHA Administration Phenylephrine HCl 100 mg/ 100 mls @ 3 mls/hr 02/18/22 12:45 02/20/22 02:03 Sodium Chloride IV 30 mcg/min TITR LAKISHA 1.8 mls/hr Titration Protocol 50 MCG/MIN Epinephrine 16 mg/ Sodium 250 mls @ 1.875 mls/hr 02/18/22 20:00 02/19/22 17:55 Chloride IV 0 mcg/min TITR LAKISHA 0 mls/hr Titration Protocol 2 MCG/MIN Multi-Ingred Cream/Lotion/Oil/Oint 1 applic 02/17/22 11:01 Mineral Oil/Petrolatum, White Ophth Oint 3.5 Gm OU Q4HR PRN Dry Eye(s) Senna/Docusate Sodium 1 tab 02/17/22 22:00 02/20/22 09:13 Sennosides/Docusate Sodium 8.6/50 Mg Tab FEEDTUBE Not Given BID LAKISHA Sodium Chloride 10 ml 02/17/22 22:00 02/20/22 09:13 Sodium Chloride 0.9% 10 Ml Flush Syringe IV 10 ml BID LAKISHA Administration Sodium Chloride 10 ml 02/17/22 14:01 Sodium Chloride 0.9% 10 Ml Flush Syringe IV PRN PRN LINE FLUSH Vancomycin HCl 500 mg 02/20/22 12:00 Vancomycin 250 Mg/10 Ml Oral Liqd PO Q6HR LAKISHA Protocol
[2022-02-20] MEDS: VASOPRESSIN 20 UNIT in SODIUM CHLORIDE 0.9% 100 ML IV SCH ×2 (10:01→21:18)
[2022-02-20 11:15] LABS: Creatinine,Urine 40.5 mg/dL (0.1-20.0)
--- NOTE | 2022-02-20 11:50 | Ultrasound Report ---
Renal ultrasound INDICATION: Acute renal failure FINDINGS: Both kidneys measures 9 cm in length. There is mild thinning of the left cortex. There is i ncreased renal cortical echogenicity bilaterally. Small pleural effusions are present IMPRESSION: No hydronephrosis.. Medical renal disease. Signer Name: Laureano Mckinnon MD Signed: 02/20/2022 11:45 AM Workstation Name: [id number]
[2022-02-20 12:13] LABS: Bilirubin,Urine NEG (Negative); Blood,Urine MOD (Negative); Urobilinogen,Urine < 2.0 mg/dL (<2.0)
[2022-02-20] MEDS: VANCOMYCIN 250 MG/10 ML ORAL LIQD PO SCH ×2 (12:21→18:17)
[2022-02-20 12:28] LABS: Bacteria,Urine 4+ /HPF (Negative)
[2022-02-20 12:29] LABS: RBC,Urine > 182.0 /HPF (0.0-6.0); WBC,Urine > 182.0 /HPF (0.0-6.0)
[2022-02-20 12:30] LABS: Color,Urine Red (Yellow)
[2022-02-20] MEDS ORDERED: FUROSEMIDE 40 MG/4 ML INJ IV SCH (15:08)
--- NOTE | 2022-02-20 15:08 | Progress Note ---
Assessment and Plan S/p Cardiac Arrest with ROSC Acute Hypoxic Respiratory Failure on MVS Septic Shock and Cardiogenic Shock with MODS HFrEF(35%)-Dilated Cardiomyopathy with AICD Acute Metabolic Acidosis Acute Kidney Injury(DIMPLE) most likely ATN Septic - Cardiogenic Shock Bacteremia Leukocytosis Transaminitis/Shock Liver Hypoglycemia-improved Moderate Protein-Calorie Malnutrition Sacaral decubitus- POA Thrombocytopenia PSV trial today Stop anti-diarrheal agents Start empiric Vancomycin po Adjusted minute ventilation on MVS- has a respiratory alkalosis, follow up ABG Decrease bicarbonate infusion rate Follow up HIT panel, monitor for bleeding -continue to wean vasopressor support for MAP>65 - continue to titrate supplemental oxygen to keep SpO2 90-92% - VAP bundle addressed, aspiration precautions HOB >40 - continue lung protective strategies - continue bronchodilators with pulmonary hygiene per RT -Daily assessment for readiness to wean, daily SAT/SBT as tolerated - continue accuchecks with glycemic control per SSI (While critically ill target blood glucose of 140-180 mg/dL; avoid hypoglycemia) - avoid nephrotoxins, renally dose all medications - continue to avoid benzodiazepines, reduce the possibility of delirium - prn analgesia per CPOT score -Continue to trend temperature curve and WCC - Maintenance of sleep-wake cycle, avoid delirium - Continue trophic feeding at 10cc/hour to maintain gut integrity, do not up titrate - VTE prophylaxis-heparin on hold secondary to thrombocytopenia -Stress prophylaxis- famotidine - PT/OT/ROM exercises - continue mobility, off loading and frequent turning per facility protocol to prevent pressure ulcers -continue wound care for sacral decubitus ulcer - continue to monitor hemodynamics closely, continue to hold lisinopril in the setting of multiple pressor shock and DIMPLE - continue other care per attending / other consultants CONDITION: CRITICAL PROGNOSIS: POOR- GUARDED CODE STATUS: FULL CODE The high probability of a clinically significant, sudden or life threatening deterioration of the [cardiovascular, pulmonary, renal, neurology] system(s) required my full and direct attention, intervention and personal management. The aggregate critical care time was [35] minutes. This time is in addition to time spent performing reported procedures but includes the following: [x] Data Review and interpretation [x] Patient assessment and monitoring of vital signs [x] Documentation [x] Medication orders and management Subjective Date of service: 02/20/22 Principal diagnosis: s/p cardiac arrest Interval history: Follow up for: cardiopulmonary arrest with ROSC; cardiogenic-septic shock; Dilated cardiomyopathy; Acute renal failure, hepatic failure; acute metabolic encephalopathy Seen and examined. Vitals, labs, medications, chart and imaging reviewed. Discussed with respiratory and nursing staff. Remains orally intubated; 4 pressor shock,remains unresponsive, anuric. No reported fevers, no vomiting. at the bedside Patient is not a candidate for hemodialysis due to profound shock per Nephrology. Developed diarrhea this morning Objective - Exam Narrative Exam: General appearance: Present: other (On the vent, awake but not following commands) - EENT Eyes: Present: PERRL, ETT at 24cm GABRIELLE, OGT - Respiratory Respiratory effort: normal Respiratory: bilateral: rhonchi - Cardiovascular Rhythm: regular Heart Sounds: Present: S1 & S2 - Extremities Extremities: no ischemia, pulses intact, pulses symmetrical Peripheral Pulses: within normal limits - Abdominal General gastrointestinal: soft, non-distended, hypoactive bowel sounds Guevara catheter, - Integumentary Integumentary: Present: warm, dry Right femoral arterial line, right femoral CVL Sacral decubitus- see photos and nursing/wound care documentation - Psychiatric Psychiatric: other (On the vent, awake but not following commands-unable to assess) - Neurologic Neurologic: moves all extremities (Non-Purposeful movement), other (On the vent, awake but not following commands) Vital Signs - 12hr 02/20/22 02/20/22 02/20/22 03:15 03:31 03:45 Temperature Pulse Rate 126 H 126 H 126 H Pulse Rate [ From Monitor] Respiratory 20 24 20 Rate Blood Pressure 91/59 90/53 90/53 O2 Sat by Pulse Oximetry 02/20/22 02/20/22 02/20/22 04:00 04:15 04:30 Temperature 97.5 F L Pulse Rate 126 H 127 H 127 H Pulse Rate [ 126 H From Monitor] Respiratory 26 H 25 H 25 H Rate Blood Pressure 90/57 85/53 86/58 O2 Sat by Pulse 0 L Oximetry 02/20/22 02/20/22 02/20/22 04:45 05:00 05:01 Temperature Pulse Rate 128 H 129 H 128 H Pulse Rate [ From Monitor] Respiratory 26 H 20 Rate Blood Pressure 93/57 92/56 92/56 O2 Sat by Pulse 0 L Oximetry 02/20/22 02/20/22 02/20/22 05:15 05:30 05:45 Temperature Pulse Rate 130 H 128 H 129 H Pulse Rate [ From Monitor] Respiratory 22 25 H 24 Rate Blood Pressure 92/56 90/51 87/59 O2 Sat by Pulse Oximetry 02/20/22 02/20/22 02/20/22 06:00 06:15 06:30 Temperature Pulse Rate 129 H 129 H 128 H Pulse Rate [ From Monitor] Respiratory 29 H 26 H 23 Rate Blood Pressure 86/60 86/60 98/64 O2 Sat by Pulse Oximetry 02/20/22 02/20/22 02/20/22 06:45 07:01 07:15 Temperature Pulse Rate 127 H 132 H 135 H Pulse Rate [ From Monitor] Respiratory 23 29 H 22 Rate Blood Pressure 93/59 93/59 103/62 O2 Sat by Pulse Oximetry 02/20/22 02/20/22 02/20/22 07:17 07:30 07:35 Temperature 96.5 F L Pulse Rate 131 H Pulse Rate [ From Monitor] Respiratory 28 H 20 Rate Blood Pressure 95/62 O2 Sat by Pulse Oximetry 02/20/22 02/20/22 02/20/22 07:45 07:51 08:00 Temperature 96.5 F L Pulse Rate 130 H 132 H 132 H Pulse Rate [ 132 H From Monitor] Respiratory 19 25 H Rate Blood Pressure 93/64 104/54 94/65 O2 Sat by Pulse 99 0 L Oximetry 02/20/22 02/20/22 02/20/22 08:15 08:30 08:45 Temperature Pulse Rate 131 H 132 H 132 H Pulse Rate [ From Monitor] Respiratory 24 17 25 H Rate Blood Pressure 94/63 90/60 98/62 O2 Sat by Pulse Oximetry 02/20/22 02/20/22 02/20/22 09:00 09:15 09:31 Temperature Pulse Rate 83 88 76 Pulse Rate [ From Monitor] Respiratory 20 18 26 H Rate Blood Pressure 88/56 92/63 98/55 O2 Sat by Pulse 84 Oximetry 02/20/22 02/20/22 02/20/22 09:45 10:10 10:16 Temperature Pulse Rate 85 86 90 Pulse Rate [ From Monitor] Respiratory 25 H 27 H 30 H Rate Blood Pressure 85/57 89/59 O2 Sat by Pulse Oximetry 02/20/22 02/20/22 02/20/22 10:30 10:46 11:00 Temperature Pulse Rate 85 88 86 Pulse Rate [ From Monitor] Respiratory 24 28 H 24 Rate Blood Pressure 89/52 89/52 85/51 O2 Sat by Pulse Oximetry 02/20/22 02/20/22 02/20/22 11:15 11:16 11:30 Temperature Pulse Rate 130 H 84 126 H Pulse Rate [ From Monitor] Respiratory 28 H 25 H Rate Blood Pressure 90/58 98/38 90/55 O2 Sat by Pulse 96 Oximetry 02/20/22 02/20/22 02/20/22 11:46 12:00 12:16 Temperature 96.7 F L Pulse Rate 122 H 126 H 121 H Pulse Rate [ 126 H From Monitor] Respiratory 20 25 H 25 H Rate Blood Pressure 86/53 86/53 86/53 O2 Sat by Pulse 0 L Oximetry 02/20/22 02/20/22 02/20/22 12:30 12:40 12:45 Temperature Pulse Rate 130 H 116 H 125 H Pulse Rate [ From Monitor] Respiratory 28 H 20 29 H Rate Blood Pressure 86/53 82/44 86/56 O2 Sat by Pulse 95 Oximetry 02/20/22 02/20/22 02/20/22 13:00 13:15 13:30 Temperature Pulse Rate 121 H 115 H 118 H Pulse Rate [ From Monitor] Respiratory 19 19 20 Rate Blood Pressure 92/57 77/50 87/57 O2 Sat by Pulse Oximetry 02/20/22 02/20/22 02/20/22 13:45 14:00 14:15 Temperature Pulse Rate 116 H 119 H 127 H Pulse Rate [ From Monitor] Respiratory 18 19 21 Rate Blood Pressure 88/58 96/62 102/62 O2 Sat by Pulse Oximetry 02/20/22 02/20/22 14:30 14:46 Temperature Pulse Rate 132 H 129 H Pulse Rate [ From Monitor] Respiratory 21 25 H Rate Blood Pressure 102/62 60/26 O2 Sat by Pulse 89 94 Oximetry CBC and BMP: 02/21/22 04:30 02/21/22 04:30 ABG, PT/INR, D-dimer: ABG ABG pH 7.527 pH Units (7.350-7.450) H 02/20/22 05:40 ABG pCO2 22.8 mm Hg 02/20/22 05:40 ABG pO2 60.4 mm Hg (80.0-90.0) L 02/20/22 05:40 ABG O2 Saturation 94.2 % (95.0-99.0) L 02/20/22 05:40 Abnormal lab findings: Abnormal Labs 02/17/22 02/17/22 02/17/22 10:01 10:30 10:30 WBC RBC 2.91 L Hgb 8.5 L Hct 25.5 L RDW 23.6 H Plt Count 95 L Seg Neuts % (Manual) 89.0 H Lymphocytes % (Manual) 1.0 L Nucleated RBC % 8.0 H Seg Neutrophils # Man Lymphocytes # (Manual) 0.1 L APTT 72.8 H* ABG pH ABG pO2 ABG HCO3 ABG O2 Saturation ABG Base Excess ABG Hemoglobin Oxyhemoglobin Carbon Dioxide BUN Creatinine Glucose POC Glucose 15 L Lactic Acid Calcium Total Bilirubin AST ALT Alkaline Phosphatase Total Creatine Kinase CK-MB (CK-2) CK-MB (CK-2) Rel Index Troponin T Total Protein Albumin HDL Cholesterol TSH Urine WBC (Auto) Urine Creatinine 02/17/22 02/17/22 02/17/22 10:30 10:30 10:30 WBC RBC Hgb Hct RDW Plt Count Seg Neuts % (Manual) Lymphocytes % (Manual) Nucleated RBC % Seg Neutrophils # Man Lymphocytes # (Manual) APTT ABG pH ABG pO2 ABG HCO3 ABG O2 Saturation ABG Base Excess ABG Hemoglobin Oxyhemoglobin Carbon Dioxide 15 L BUN 54 H Creatinine 4.0 H Glucose 290 H POC Glucose Lactic Acid 5.70 H* Calcium 7.6 L Total Bilirubin 6.10 H AST 176 H ALT Alkaline Phosphatase Total Creatine Kinase CK-MB (CK-2) CK-MB (CK-2) Rel Index Troponin T 0.167 H* Total Protein 4.9 L Albumin 2.1 L HDL Cholesterol 10 L TSH 10.950 H Urine WBC (Auto) Urine Creatinine 02/17/22 02/17/22 02/17/22 11:10 12:00 12:45 WBC RBC Hgb Hct RDW Plt Count Seg Neuts % (Manual) Lymphocytes % (Manual) Nucleated RBC % Seg Neutrophils # Man Lymphocytes # (Manual) APTT ABG pH 7.304 L ABG pO2 289.8 H ABG HCO3 13.1 L ABG O2 Saturation 99.5 H ABG Base Excess -11.9 L ABG Hemoglobin 9.9 L Oxyhemoglobin Carbon Dioxide BUN Creatinine Glucose POC Glucose 233 H 226 H Lactic Acid Calcium Total Bilirubin AST ALT Alkaline Phosphatase Total Creatine Kinase CK-MB (CK-2) CK-MB (CK-2) Rel Index Troponin T Total Protein Albumin HDL Cholesterol TSH Urine WBC (Auto) Urine Creatinine 02/17/22 02/17/22 02/17/22 22:46 22:49 Unknown WBC RBC Hgb Hct RDW Plt Count Seg Neuts % (Manual) Lymphocytes % (Manual) Nucleated RBC % Seg Neutrophils # Man Lymphocytes # (Manual) APTT ABG pH 7.285 L 7.344 L ABG pO2 30.1 L* 192.1 H ABG HCO3 15.2 L 12.4 L ABG O2 Saturation 38.3 L 99.2 H ABG Base Excess -10.4 L -11.6 L ABG Hemoglobin 10.9 L 11.0 L Oxyhemoglobin 37.4 L Carbon Dioxide BUN Creatinine Glucose POC Glucose Lactic Acid Calcium Total Bilirubin AST ALT Alkaline Phosphatase Total Creatine Kinase 171 H CK-MB (CK-2) 8.1 H CK-MB (CK-2) Rel Index 4.7 H Troponin T Total Protein Albumin HDL Cholesterol TSH Urine WBC (Auto) Urine Creatinine 02/17/22 02/18/22 02/18/22 Unknown 04:43 04:48 WBC 12.7 H RBC Hgb 10.5 L Hct 33.0 L D RDW 23.0 H Plt Count 132 L Seg Neuts % (Manual) 74.0 H Lymphocytes % (Manual) 2.0 L Nucleated RBC % 28.0 H Seg Neutrophils # Man 9.4 H Lymphocytes # (Manual) 0.3 L APTT ABG pH ABG pO2 99.6 H ABG HCO3 12.6 L ABG O2 Saturation ABG Base Excess -9.7 L ABG Hemoglobin 10.7 L Oxyhemoglobin Carbon Dioxide BUN Creatinine Glucose POC Glucose Lactic Acid 6.40 H* Calcium Total Bilirubin AST ALT Alkaline Phosphatase Total Creatine Kinase CK-MB (CK-2) CK-MB (CK-2) Rel Index Troponin T Total Protein Albumin HDL Cholesterol TSH Urine WBC (Auto) Urine Creatinine 02/18/22 02/18/22 02/18/22 04:48 04:48 15:25 WBC RBC Hgb Hct RDW Plt Count Seg Neuts % (Manual) Lymphocytes % (Manual) Nucleated RBC % Seg Neutrophils # Man Lymphocytes # (Manual) APTT ABG pH 7.489 H ABG pO2 90.7 H ABG HCO3 15.8 L ABG O2 Saturation ABG Base Excess -6.2 L ABG Hemoglobin 9.4 L Oxyhemoglobin Carbon Dioxide 15 L BUN 53 H Creatinine 3.9 H Glucose 124 H POC Glucose Lactic Acid 7.80 H* Calcium 7.5 L Total Bilirubin 7.40 H AST 326 H ALT 72 H Alkaline Phosphatase 170 H Total Creatine Kinase CK-MB (CK-2) CK-MB (CK-2) Rel Index Troponin T Total Protein 6.1 L D Albumin 2.5 L HDL Cholesterol TSH Urine WBC (Auto) Urine Creatinine 02/18/22 02/19/22 02/19/22 16:00 00:05 04:00 WBC RBC 3.37 L Hgb 9.5 L Hct 29.1 L RDW 22.6 H Plt Count 81 L Seg Neuts % (Manual) Lymphocytes % (Manual) Nucleated RBC % Seg Neutrophils # Man Lymphocytes # (Manual) APTT ABG pH ABG pO2 ABG HCO3 ABG O2 Saturation ABG Base Excess ABG Hemoglobin Oxyhemoglobin Carbon Dioxide BUN Creatinine Glucose POC Glucose Lactic Acid 7.60 H* 10.90 H* Calcium Total Bilirubin AST ALT Alkaline Phosphatase Total Creatine Kinase CK-MB (CK-2) CK-MB (CK-2) Rel Index Troponin T Total Protein Albumin HDL Cholesterol TSH Urine WBC (Auto) Urine Creatinine 02/19/22 02/19/22 02/19/22 04:00 04:00 06:20 WBC RBC Hgb Hct RDW Plt Count Seg Neuts % (Manual) Lymphocytes % (Manual) Nucleated RBC % Seg Neutrophils # Man Lymphocytes # (Manual) APTT ABG pH 7.456 H ABG pO2 68.4 L ABG HCO3 11.0 L ABG O2 Saturation ABG Base Excess -11.0 L ABG Hemoglobin 9.2 L Oxyhemoglobin 94.4 L Carbon Dioxide 16 L BUN 54 H Creatinine 4.8 H Glucose 117 H POC Glucose Lactic Acid 12.60 H* Calcium 6.8 L Total Bilirubin 6.80 H AST 379 H ALT 84 H Alkaline Phosphatase 152 H Total Creatine Kinase CK-MB (CK-2) CK-MB (CK-2) Rel Index Troponin T Total Protein 5.0 L Albumin 2.0 L HDL Cholesterol TSH Urine WBC (Auto) Urine Creatinine 02/19/22 02/20/22 02/20/22 08:14 04:35 04:35 WBC RBC 3.17 L Hgb 8.8 L Hct 27.2 L RDW 22.6 H Plt Count 52 L Seg Neuts % (Manual) Lymphocytes % (Manual) Nucleated RBC % Seg Neutrophils # Man Lymphocytes # (Manual) APTT ABG pH ABG pO2 ABG HCO3 ABG O2 Saturation ABG Base Excess ABG Hemoglobin Oxyhemoglobin Carbon Dioxide BUN Creatinine Glucose POC Glucose Lactic Acid 14.50 H* 12.60 H* Calcium Total Bilirubin AST ALT Alkaline Phosphatase Total Creatine Kinase CK-MB (CK-2) CK-MB (CK-2) Rel Index Troponin T Total Protein Albumin HDL Cholesterol TSH Urine WBC (Auto) Urine Creatinine 02/20/22 02/20/22 02/20/22 04:35 05:40 07:00 WBC RBC Hgb Hct RDW Plt Count Seg Neuts % (Manual) Lymphocytes % (Manual) Nucleated RBC % Seg Neutrophils # Man Lymphocytes # (Manual) APTT ABG pH 7.527 H ABG pO2 60.4 L ABG HCO3 18.5 L ABG O2 Saturation 94.2 L ABG Base Excess -3.3 L ABG Hemoglobin 8.7 L Oxyhemoglobin 92.3 L Carbon Dioxide 18 L BUN 55 H Creatinine 4.4 H Glucose POC Glucose Lactic Acid 13.40 H* Calcium 6.2 L Total Bilirubin 6.90 H AST 355 H ALT 78 H Alkaline Phosphatase 151 H Total Creatine Kinase CK-MB (CK-2) CK-MB (CK-2) Rel Index Troponin T Total Protein 4.4 L Albumin 1.8 L HDL Cholesterol TSH Urine WBC (Auto) Urine Creatinine 02/20/22 02/20/22 09:58 09:58 WBC RBC Hgb Hct RDW Plt Count Seg Neuts % (Manual) Lymphocytes % (Manual) Nucleated RBC % Seg Neutrophils # Man Lymphocytes # (Manual) APTT ABG pH ABG pO2 ABG HCO3 ABG O2 Saturation ABG Base Excess ABG Hemoglobin Oxyhemoglobin Carbon Dioxide BUN Creatinine Glucose POC Glucose Lactic Acid Calcium Total Bilirubin AST ALT Alkaline Phosphatase Total Creatine Kinase CK-MB (CK-2) CK-MB (CK-2) Rel Index Troponin T Total Protein Albumin HDL Cholesterol TSH Urine WBC (Auto) > 182.0 H Urine Creatinine 40.5 H Chest x-ray: image reviewed (Bilateral pleural effusions, ETT in place, Cardiomegaly) Allied health notes reviewed: RT
[2022-02-21] MEDS: DEXTROSE 50% IN WATER (25GM) 50 ML SYRINGE IV PRN ×3 (00:10→12:28)
[2022-02-21] MEDS: fentaNYL 100 MCG/2 ML INJ IV PRN ×4 (00:15→13:15)
[2022-02-21] MEDS: VANCOMYCIN 250 MG/10 ML ORAL LIQD PO SCH ×3 (00:34→11:36)
--- NOTE | 2022-02-21 02:50 | XRay Report ---
CHEST 1 VIEW 02/21/2022 1:39 AM INDICATION / CLINICAL INFORMATION: follow up respiratory failure. COMPARISON: 02/20/2022 FINDINGS: SUPPORT DEVICES: Unchanged. HEART / MEDIASTINUM: Stable. LUNGS / PLEURA: No significant change in bilateral pleural-parenchymal opacities. No pneumothorax. ADDITIONAL FINDINGS: No significant additional findings. IMPRESSION: 1. No significant change. Signer Name: Marcio Pastrana DO Signed: 02/21/2022 2:45 AM Workstation Name: [id number]
[2022-02-21] MEDS: SODIUM BICARBONATE 150 MEQ in DEXTROSE 5% IN WATER 1,000 ML IV SCH ×2 (03:59→14:24)
[2022-02-21] MEDS: NORepinephrine/NS 8 MG-250 ML 8 MG/250 ML INFUS..BTL IV SCH ×3 (04:00→14:23)
[2022-02-21 04:44] LABS: ABG Base Excess -1.7 mmol/L (-2.0-3.0); ABG HCO3 21.3 mmol/L (20.0-26.0); ABG Methemoglobin 0.5 % (0.0-1.5); ABG Oxygen Saturation 83.6 % (95.0-99.0); ABG PH 7.469 pH Units (7.350-7.450); ABG PO2 48.8 mm Hg (80.0-90.0)
[2022-02-21 04:56] LABS: Hematocrit 30.3 % (35.5-45.6); Hemoglobin 9.8 gm/dl (11.8-15.2); Mean Corpuscular HGB Conc 33 % (32-34); Mean Corpuscular Volume 86 fl (84-94); Red Blood Count 3.52 M/mm3 (3.65-5.03)
[2022-02-21 04:57] LABS: Platelet Count 26 K/mm3 (140-440); Red Cell Distribution Width 22.6 % (13.2-15.2)
[2022-02-21 05:22] LABS: Albumin 1.5 g/dL (3.9-5)
[2022-02-21 05:32] LABS: ABG Base Excess -2.1 mmol/L (-2.0-3.0); ABG Methemoglobin 0.6 % (0.0-1.5); ABG Oxygen Saturation 81.7 % (95.0-99.0); ABG PH 7.463 pH Units (7.350-7.450)
[2022-02-21 05:41] LABS: Calcium 5.8 mg/dL (8.4-10.2)
[2022-02-21] MEDS: HYDROCORTISONE SOD SUCC 100 MG/2 ML VIAL IV SCH ×2 (06:03→13:06)
[2022-02-21] MEDS ORDERED: CALCIUM GLUCONATE 2,000 MG in SODIUM CHLORIDE 0.9% 100 ML IV ONE (07:34)
[2022-02-21] MEDS ORDERED: metroNIDAZOLE/NS 500 MG/100 ML 500 MG/100 ML BAG IV SCH (09:00)
[2022-02-21] MEDS: VASOPRESSIN 20 UNIT in SODIUM CHLORIDE 0.9% 100 ML IV SCH (09:16)
[2022-02-21] MEDS: CALC GLUCONATE 1GM/NS 100 ML 1 GM/100 ML BAG IV SCH ×2 (09:16→10:26)
[2022-02-21] MEDS: FAMOTIDINE 20 MG/2 ML INJ IV SCH (09:18)
--- NOTE | 2022-02-21 10:55 | Progress Note ---
Assessment and Plan DIMPLE/ATN - F/u BUN/Cr on IVF. May consider CRRT if no improvement soon Hypotension - F/u on multiple pressors Lytes - F/u labs S/p Arrest - F/u arousal & vent weaning Subjective Date of service: 02/21/22 Principal diagnosis: s/p cardiac arrest Objective - Vital Signs Vital signs: Vital Signs - 12hr 02/20/22 02/20/22 02/20/22 23:00 23:16 23:30 Temperature Pulse Rate 122 H 126 H 130 H Pulse Rate [ From Monitor] Respiratory 24 29 H 28 H Rate Blood Pressure 83/57 103/44 87/66 O2 Sat by Pulse 61 L 69 L 61 L Oximetry 02/20/22 02/20/22 02/21/22 23:40 23:45 00:00 Temperature 96.8 F L Pulse Rate 127 H 130 H 132 H Pulse Rate [ 132 H From Monitor] Respiratory 28 H 24 29 H Rate Blood Pressure 87/66 91/60 104/78 O2 Sat by Pulse 59 L 76 L 74 L Oximetry 02/21/22 02/21/22 02/21/22 00:15 00:30 00:45 Temperature Pulse Rate 121 H 121 H 121 H Pulse Rate [ From Monitor] Respiratory 22 24 22 Rate Blood Pressure 90/43 83/49 84/48 O2 Sat by Pulse 74 L 33 L 48 L Oximetry 02/21/22 02/21/22 02/21/22 00:59 01:00 01:15 Temperature Pulse Rate 126 H 124 H 126 H Pulse Rate [ From Monitor] Respiratory 18 21 Rate Blood Pressure 80/44 88/56 96/56 O2 Sat by Pulse 0 L 52 L 16 L Oximetry 02/21/22 02/21/22 02/21/22 01:30 01:46 02:00 Temperature Pulse Rate 122 H 136 H 133 H Pulse Rate [ From Monitor] Respiratory 23 20 24 Rate Blood Pressure 94/57 106/71 110/75 O2 Sat by Pulse 47 L Oximetry 02/21/22 02/21/22 02/21/22 02:15 02:30 02:46 Temperature Pulse Rate 143 H 135 H 124 H Pulse Rate [ From Monitor] Respiratory 24 25 H 22 Rate Blood Pressure 114/73 114/73 83/56 O2 Sat by Pulse 67 L 56 L 81 L Oximetry 02/21/22 02/21/22 02/21/22 03:00 03:15 03:30 Temperature Pulse Rate 127 H 138 H 135 H Pulse Rate [ From Monitor] Respiratory 23 31 H 31 H Rate Blood Pressure 90/61 98/67 106/68 O2 Sat by Pulse 100 44 L 58 L Oximetry 02/21/22 02/21/22 02/21/22 03:45 04:00 04:15 Temperature 96.6 F L Pulse Rate 131 H 133 H 135 H Pulse Rate [ 133 H From Monitor] Respiratory 30 H 32 H 33 H Rate Blood Pressure 101/66 101/65 109/69 O2 Sat by Pulse 65 L 48 L 44 L Oximetry 02/21/22 02/21/22 02/21/22 04:20 04:30 04:46 Temperature Pulse Rate 137 H 136 H Pulse Rate [ From Monitor] Respiratory 32 H 27 H 21 Rate Blood Pressure 98/66 108/55 O2 Sat by Pulse 66 L 50 L Oximetry 02/21/22 02/21/22 02/21/22 05:00 05:15 05:20 Temperature Pulse Rate 102 H 134 H 134 H Pulse Rate [ From Monitor] Respiratory 19 21 21 Rate Blood Pressure 98/56 95/59 102/58 O2 Sat by Pulse 45 L 68 L 0 L Oximetry 02/21/22 02/21/22 02/21/22 05:30 05:46 06:00 Temperature Pulse Rate 134 H 137 H 134 H Pulse Rate [ From Monitor] Respiratory 30 H 27 H 25 H Rate Blood Pressure 86/60 93/60 95/59 O2 Sat by Pulse 46 L 52 L 69 L Oximetry 02/21/22 02/21/22 02/21/22 06:15 06:30 06:45 Temperature Pulse Rate 129 H 130 H 129 H Pulse Rate [ From Monitor] Respiratory 26 H 24 27 H Rate Blood Pressure 91/57 92/55 88/57 O2 Sat by Pulse 76 L 94 74 L Oximetry 02/21/22 02/21/22 02/21/22 07:00 07:15 07:30 Temperature Pulse Rate 135 H 133 H 136 H Pulse Rate [ From Monitor] Respiratory 30 H 21 22 Rate Blood Pressure 100/61 109/52 90/61 O2 Sat by Pulse 44 L 81 L 74 L Oximetry 02/21/22 02/21/22 02/21/22 07:45 08:00 08:14 Temperature 96.2 F L Pulse Rate 133 H 139 H 129 H Pulse Rate [ 134 H From Monitor] Respiratory 31 H 32 H Rate Blood Pressure 83/59 79/51 84/63 O2 Sat by Pulse 61 L 58 L 0 L Oximetry 02/21/22 02/21/22 02/21/22 08:16 08:30 08:46 Temperature Pulse Rate 131 H 128 H 123 H Pulse Rate [ From Monitor] Respiratory 27 H 25 H 30 H Rate Blood Pressure 79/51 84/63 84/57 O2 Sat by Pulse 31 L 58 L 86 Oximetry 02/21/22 02/21/22 02/21/22 09:00 09:15 09:18 Temperature Pulse Rate 130 H 126 H Pulse Rate [ From Monitor] Respiratory 29 H 27 H 30 H Rate Blood Pressure 94/61 99/54 O2 Sat by Pulse 42 L 51 L Oximetry 02/21/22 02/21/22 02/21/22 09:30 09:45 10:00 Temperature Pulse Rate 83 128 H 121 H Pulse Rate [ From Monitor] Respiratory 27 H 19 23 Rate Blood Pressure 98/58 85/57 99/60 O2 Sat by Pulse 40 L 40 L 36 L Oximetry - General Appearance General appearance: sedated on ventilator Neck: no JVD Respiratory: Present: Other (Air entry per Vent) Cardiology: regular, S1S2 Gastrointestinal: other (Soft) Neurologic: other (Sedated) - Lab 02/21/22 04:30 02/21/22 04:30 Most recent lab results ABG pH 7.463 pH Units (7.350-7.450) H 02/21/22 05:19 ABG pCO2 30.0 mm Hg 02/21/22 05:19 ABG pO2 47.0 mm Hg (80.0-90.0) L 02/21/22 05:19 ABG HCO3 21.0 mmol/L (20.0-26.0) 02/21/22 05:19 ABG O2 Saturation 81.7 % (95.0-99.0) L 02/21/22 05:19 Calcium 5.8 mg/dL (8.4-10.2) L* 02/21/22 04:30 Urine Creatinine 40.5 mg/dL (0.1-20.0) H 02/20/22 09:58 Urine Sodium 86 mmol/L 02/20/22 09:58 Medications & Allergies - Medications Allergies/Adverse Reactions: Allergies aspirin Allergy (Verified 09/21/20 06:40) Unknown Home Medications: Home Medications Medication Instructions Recorded Confirmed Last Taken Type Lisinopril [Zestril] 5 mg PO DAILY 09/21/20 02/18/22 1 Day Ago History ~02/19/21 Spironolactone [Aldactone] 12.5 mg PO QDAY 09/21/20 02/18/22 1 Day Ago History ~02/19/21 Terazosin HCl 2 mg PO HS 09/21/20 02/18/22 1 Day Ago History ~02/19/21 allopurinoL [Zyloprim] 150 mg PO QDAY 09/21/20 02/18/22 1 Day Ago History ~02/19/21 Acetaminophen [Non-Aspirin Extra 1,000 mg PO TID PRN 02/20/21 02/18/22 Unknown History Strength] Albuterol Mdi (or & Nicu Only) 2 puff IH QID PRN 02/20/21 02/18/22 1 Day Ago History [ProAir HFA Inhaler] ~02/19/21 Amlodipine Besylate [Norvasc] 2.5 mg PO DAILY 02/20/21 02/18/22 1 Day Ago History ~02/19/21 Aspirin EC [Halfprin EC] 81 mg PO QDAY 02/20/21 02/18/22 1 Day Ago History ~02/19/21 AtorvaSTATin [Lipitor] 80 mg PO QHS 02/20/21 02/18/22 1 Day Ago History ~02/19/21 Benzonatate [Tessalon Perles] 100 mg PO Q6HR PRN 02/20/21 02/18/22 12/28/20 10: 00 History Furosemide [Lasix TAB] 20 mg PO QDAY PRN 02/20/21 02/18/22 1 Day Ago History ~02/19/21 Metoprolol Xl [Metoprolol 100 mg PO QDAY 02/20/21 02/18/22 1 Day Ago History SUCCINATE ER TAB] ~02/19/21 Tiotropium [place] [Spiriva 4 gm IH BID 02/20/21 02/18/22 1 Day Ago History Respimat] ~02/19/21 hydrOXYzine HCL 50 mg PO TID 02/20/21 02/18/22 1 Day Ago History ~02/19/21 Azithromycin [Zithromax TAB] 500 mg PO QDAY #3 tablet 02/22/21 02/18/22 Unknown Rx Active Medications: Generic Name Dose Route Start Last Admin Trade Name Freq PRN Reason Stop Dose Admin Acetaminophen 650 mg 02/17/22 14:01 Acetaminophen 650 Mg Rect Supp [place] Q6H PRN Pain MILD(1-3)/Fever >100.5/WINSLOW Albuterol 2.5 mg 02/17/22 13:57 Albuterol 2.5 Mg/3 Ml Nebu IH Q3HRT PRN Shortness Of Breath Atorvastatin Calcium 40 mg 02/18/22 22:00 02/20/22 21:58 Atorvastatin 40 Mg Tab FEEDTUBE 40 mg QHS LAKISHA Administration Dextrose 50 ml 02/18/22 12:49 02/21/22 00:34 Dextrose 50% In Water (25gm) 50 Ml Syringe IV 50 ml Q30MIN PRN Administration Hypoglycemia Protocol Famotidine 10 mg 02/18/22 10:00 02/21/22 09:18 Famotidine 20 Mg/2 Ml Inj IV 10 mg BID LAKISHA Administration Fentanyl 50 mcg 02/19/22 17:59 02/21/22 09:18 Fentanyl 100 Mcg/2 Ml Inj IV 50 mcg Q2HR PRN Administration For CPOT of 3 Hydrocortisone Sodium Succinate 100 mg 02/18/22 14:00 02/21/22 06:03 Hydrocortisone Sod Succ 100 Mg/2 Ml Vial IV 100 mg Q8HR LAKISHA Administration Hydrophilic Ointment 1 applic 02/17/22 11:01 Lip Therapy Vaseline TP Q2HR PRN Dry Lips Vasopressin 20 unit/ Sodium 101 mls @ 12.12 mls/hr 02/17/22 17:00 02/21/22 09:16 Chloride IV 0.03 units/min TITR LAKISHA 9.09 mls/hr Administration Protocol 0.04 UNITS/MIN NORepinephrine/NS 8 MG-250 ML 8 mg in 250 mls @ 3.75 mls/hr 02/17/22 23:00 02/21/22 09:22 Norepinephrine/Ns 8 Mg-250 Ml (Double Conc) IV 22 mcg/min TITRATE LAKISHA 41.25 mls/hr Administration Protocol 2 MCG/MIN Sodium Bicarbonate 150 meq/ 1,150 mls @ 100 mls/hr 02/17/22 23:45 02/21/22 03:59 Dextrose IV 100 mls/hr DIRECT LAKISHA Administration Phenylephrine HCl 100 mg/ 100 mls @ 3 mls/hr 02/18/22 12:45 02/20/22 22:10 Sodium Chloride IV 40 mcg/min TITR LAKISHA 2.4 mls/hr Titration Protocol 50 MCG/MIN Epinephrine 16 mg/ Sodium 250 mls @ 1.875 mls/hr 02/18/22 20:00 02/19/22 17:55 Chloride IV 0 mcg/min TITR LAKISHA 0 mls/hr Titration Protocol 2 MCG/MIN Metronidazole 500 mg in 100 mls @ 100 mls/hr 02/21/22 09:00 02/21/22 09:23 Flagyl 500 Mg/100 Ml IV 100 mls/hr Q8H LAKISHA Administration Protocol Multi-Ingred Cream/Lotion/Oil/Oint 1 applic 02/17/22 11:01 Mineral Oil/Petrolatum, White Ophth Oint 3.5 Gm OU Q4HR PRN Dry Eye(s) Sodium Chloride 10 ml 02/17/22 22:00 02/21/22 09:18 Sodium Chloride 0.9% 10 Ml Flush Syringe IV 10 ml BID LAKISHA Administration Sodium Chloride 10 ml 02/17/22 14:01 Sodium Chloride 0.9% 10 Ml Flush Syringe IV PRN PRN LINE FLUSH Vancomycin HCl 500 mg 02/20/22 12:00 02/21/22 06:03 Vancomycin 250 Mg/10 Ml Oral Liqd PO 500 mg Q6HR LAKISHA Administration Protocol
--- NOTE | 2022-02-21 12:26 | Progress Note ---
Assessment and Plan Patient is 72-year-old male with a past medical history of dilated cardiomyopathy, history of acute NH, coronary artery disease, ICD, hypertension, COPD, diabetes who is brought to the hospital status post cardiopulmonary arrest S/p cardiac arrest AMS NSTEMI End-stage heart failure Hypothermia Acute renal failure Hypoglycemia Hypothyroidism Anemia Coronary artery disease History of NH Dilated cardiomyopathy ICD in situ Hypertension COPD Diabetes Echocardiogram reviewed (02/21/2021): LVEF is 35 to 40%. LV is mildly dilated. LV SF is moderately decreased. Mild LVH. Hypokinesis in the inferior, lateral wall. Mild diastolic dysfunction. RV SF is normal. Pacemaker lead is present in the right ventricle. Pacemaker lead present in the right atrium. Mild to moderate MR. Mild TR. RVSP is 35 mmHg. Lexiscan MPI stress test (02/22/2021): Is negative for reversible ischemia Echo 02/18/2022- EF 20 to 25%. Left ventricle is mildly dilated. Mild concentric LVH. Right ventricle is dilated. Right ventricle is hypokinetic. Left atrium is severely dilated. Right atrium is dilated. Moderate aortic valve calcification. Mild aortic regurgitation. Mild to moderate tricuspid regurgitation moderate mitral regurgitation. Large left pleural effusion. Plan: Patient currently requiring numerous pressors include phenylephrine, Levophed, and vasopressin Wean pressors as tolerated No IDALIA/ARB's, beta-blockers, calcium channel blockers due to bradycardia and hypotension Continue statin therapy Will hold aspirin at this time due to reported that patient has aspirin allergy and patient anemic with red urine Patient has been deteriorating over last several months, has cardiomyopathy with low EF following cardiac arrest, is currently hypothermic, in acute renal failure, and has altered mental status. Overall very poor prognosis Previously discussed goals of care with patients who reported she was considering hospice Pt seen in conjunction with Dr. Finney, who agrees with the assessment - Patient Problems (1) Altered mental state Current Visit: No Status: Acute Qualifiers: Altered mental status type: unspecified Qualified Code(s): R41.82 - Altered mental status, unspecified (2) Cardiac arrest Current Visit: Yes Status: Acute (3) Cardiogenic shock Current Visit: No Status: Acute (4) HTN (hypertension) Current Visit: No Status: Acute Qualifiers: Hypertension type: essential hypertension (5) Lactic acid acidosis Current Visit: No Status: Acute (6) Malnutrition Current Visit: No Status: Acute Qualifiers: Malnutrition type: protein-calorie malnutrition Protein-calorie malnutrition severity: moderate Qualified Code(s): E44.0 - Moderate protein- calorie malnutrition (7) Tobacco use Current Visit: No Status: Acute (8) Acute kidney injury superimposed on CKD Current Visit: Yes Status: Acute (9) Diabetes Current Visit: Yes Status: Acute (10) Dilated cardiomyopathy Current Visit: Yes Status: Acute (11) NSTEMI (non-ST elevated myocardial infarction) Current Visit: Yes Status: Acute (12) CAD (coronary artery disease) Current Visit: No Status: Chronic Subjective Date of service: 02/21/22 Principal diagnosis: s/p cardiac arrest Interval history: Patient remains intubated and sedated Sinus tach 120-130s with NSVT Objective Vital Signs Temp Pulse Pulse Resp BP Pulse Ox 02/21/22 12:00 124 H 125 H 24 71/40 0 L 02/21/22 11:46 120 H 26 H 72/47 02/21/22 11:30 123 H 30 H 89/58 02/21/22 11:16 126 H 23 102/60 02/21/22 11:00 122 H 22 102/60 02/21/22 10:45 125 H 25 H 106/54 02/21/22 10:30 119 H 25 H 104/57 02/21/22 10:16 124 H 28 H 90/53 39 L 02/21/22 10:00 121 H 23 99/60 36 L 02/21/22 09:45 128 H 19 85/57 40 L 02/21/22 09:30 83 27 H 98/58 40 L 02/21/22 09:18 30 H 02/21/22 09:15 126 H 27 H 99/54 51 L 02/21/22 09:00 130 H 29 H 94/61 42 L 02/21/22 08:46 123 H 30 H 84/57 86 02/21/22 08:30 128 H 25 H 84/63 58 L 02/21/22 08:16 131 H 27 H 79/51 31 L 02/21/22 08:14 129 H 84/63 0 L 02/21/22 08:00 96.2 F L 139 H 134 H 32 H 79/51 58 L 02/21/22 07:45 133 H 31 H 83/59 61 L 02/21/22 07:30 136 H 22 90/61 74 L 02/21/22 07:15 133 H 21 109/52 81 L 02/21/22 07:00 135 H 30 H 100/61 44 L 02/21/22 06:45 129 H 27 H 88/57 74 L 02/21/22 06:30 130 H 24 92/55 94 02/21/22 06:15 129 H 26 H 91/57 76 L 02/21/22 06:00 134 H 25 H 95/59 69 L 02/21/22 05:46 137 H 27 H 93/60 52 L 02/21/22 05:30 134 H 30 H 86/60 46 L 02/21/22 05:20 134 H 21 102/58 0 L 02/21/22 05:15 134 H 21 95/59 68 L 02/21/22 05:00 102 H 19 98/56 45 L 02/21/22 04:46 136 H 21 108/55 50 L 02/21/22 04:30 137 H 27 H 98/66 66 L 02/21/22 04:20 32 H 02/21/22 04:15 135 H 33 H 109/69 44 L 02/21/22 04:00 96.6 F L 133 H 133 H 32 H 101/65 48 L 02/21/22 03:45 131 H 30 H 101/66 65 L 02/21/22 03:30 135 H 31 H 106/68 58 L 02/21/22 03:15 138 H 31 H 98/67 44 L 02/21/22 03:00 127 H 23 90/61 100 02/21/22 02:46 124 H 22 83/56 81 L 02/21/22 02:30 135 H 25 H 114/73 56 L 02/21/22 02:15 143 H 24 114/73 67 L 02/21/22 02:00 133 H 24 110/75 47 L 02/21/22 01:46 136 H 20 106/71 02/21/22 01:30 122 H 23 94/57 02/21/22 01:15 126 H 21 96/56 16 L 02/21/22 01:00 124 H 18 88/56 52 L 02/21/22 00:59 126 H 80/44 0 L 02/21/22 00:45 121 H 22 84/48 48 L 02/21/22 00:30 121 H 24 83/49 33 L 02/21/22 00:15 121 H 22 90/43 74 L 02/21/22 00:00 96.8 F L 132 H 132 H 29 H 104/78 74 L 02/20/22 23:45 130 H 24 91/60 76 L 02/20/22 23:40 127 H 28 H 87/66 59 L 02/20/22 23:30 130 H 28 H 87/66 61 L 02/20/22 23:16 126 H 29 H 103/44 69 L 02/20/22 23:00 122 H 24 83/57 61 L 02/20/22 22:45 121 H 25 H 89/54 61 L 02/20/22 22:30 128 H 27 H 93/64 67 L 02/20/22 22:16 135 H 31 H 92/63 85 02/20/22 22:00 121 H 22 77/49 40 L 02/20/22 21:45 126 H 26 H 91/54 80 L 02/20/22 21:30 132 H 18 106/67 84 02/20/22 21:15 131 H 31 H 93/62 69 L 02/20/22 21:00 125 H 13 85/57 51 L 02/20/22 20:49 124 H 100/52 0 L 02/20/22 20:45 128 H 31 H 91/57 02/20/22 20:30 129 H 31 H 90/58 02/20/22 20:15 131 H 29 H 93/57 02/20/22 20:00 97 F L 126 H 126 H 27 H 94/53 0 L 02/20/22 19:46 125 H 25 H 93/60 02/20/22 19:45 31 H 02/20/22 19:30 129 H 28 H 99/53 02/20/22 19:15 136 H 32 H 100/62 02/20/22 19:00 128 H 29 H 100/55 02/20/22 18:46 137 H 32 H 96/66 02/20/22 18:30 130 H 29 H 96/66 02/20/22 18:16 133 H 31 H 110/58 02/20/22 18:00 134 H 26 H 101/63 02/20/22 17:46 133 H 29 H 109/69 02/20/22 17:30 116 H 26 H 87/55 02/20/22 17:15 122 H 24 87/61 02/20/22 17:00 133 H 29 H 50/32 85 02/20/22 16:46 137 H 22 50/32 81 L 02/20/22 16:30 119 H 22 95/59 02/20/22 16:15 126 H 26 H 94/64 02/20/22 16:00 96.4 F L 120 H 120 H 28 H 92/59 71 L 02/20/22 15:45 121 H 27 H 85/61 89 02/20/22 15:30 114 H 20 95/56 02/20/22 15:16 131 H 27 H 96/63 02/20/22 15:00 132 H 25 H 96/63 02/20/22 14:46 129 H 25 H 60/26 94 02/20/22 14:30 132 H 21 102/62 89 02/20/22 14:15 127 H 21 102/62 02/20/22 14:00 119 H 19 96/62 02/20/22 13:45 116 H 18 88/58 02/20/22 13:30 118 H 20 87/57 02/20/22 13:15 115 H 19 77/50 02/20/22 13:00 121 H 19 92/57 02/20/22 12:45 125 H 29 H 86/56 02/20/22 12:40 116 H 20 82/44 95 02/20/22 12:30 130 H 28 H 86/53 02/20/22 12:16 121 H 25 H 86/53 - Physical Examination General: Other (intubated/sedated) HEENT: Positive: Normocephaly Neck: Positive: JVD/HJR Cardiac: Positive: Regular Rhythm, Tachycardia Lungs: Positive: Ventilated Respirations Neuro: Positive: Other (unable to assess) Abdomen: Positive: Soft Skin: Negative: Rash Extremities: Absent: edema - Labs and Meds Cardiac Enzymes 02/21/22 Range/Units 04:30 AST 359 H (5-40) units/L CBC 02/21/22 Range/Units 04:30 WBC 5.3 (4.5-11.0) K/mm3 RBC 3.52 L (3.65-5.03) M/mm3 Hgb 9.8 L (11.8-15.2) gm/dl Hct 30.3 L (35.5-45.6) % Plt Count 26 L (140-440) K/mm3 Comprehensive Metabolic Panel 02/21/22 Range/Units 04:30 Sodium 141 (137-145) mmol/L Potassium 4.4 (3.6-5.0) mmol/L Chloride 94.0 L (98-107) mmol/L Carbon Dioxide 20 L (22-30) mmol/L BUN 56 H (9-20) mg/dL Creatinine 4.5 H (0.8-1.3) mg/dL Glucose 93 (75-100) mg/dL Calcium 5.8 L* (8.4-10.2) mg/dL AST 359 H (5-40) units/L ALT 77 H (7-56) units/L Alkaline Phosphatase 253 H (35-129) units/L Total Protein 4.3 L (6.3-8.2) g/dL Albumin 1.5 L (3.9-5) g/dL - Imaging and Cardiology EKG: report reviewed, image reviewed Echo: report reviewed - Telemetry EKG Rhythm: Sinus Tachycardia - EKG Sinus rhythms and dysrhythmias: sinus tachycardia - Allied health notes Allied health notes reviewed: RT
--- NOTE | 2022-02-21 12:42 | Progress Note ---
Assessment and Plan S/p Cardiac Arrest with ROSC Acute Hypoxemic Respiratory Failure on MVS Septic Shock with MODS Cardiogenic Shock HFrEF(35%) Acute Metabolic Acidosis Acute Kidney Injury Bacteremia Leukocytosis Transaminitis/Shock Liver Hypoglycemia Moderate Protein Calorie Malnutrition Sacaral decubitus (POA) Thrombocytopenia - consider inotropic support - get Magnesium level and keep Mg & PO4 optimized - continue contact precautions re: MRSA - RN asked to use liberal Fentanyl for pain control re: tachypnea - discussed care plan with his at [facility] - Follow up HIT panel, monitor for bleeding - continue care as below otherwise; - continue to wean vasopressor support for MAP>65 - daily SAT and SBT assessment as tolerated - continue to wean supplemental oxygen for target O2 sat's > 90% acutely - VAP bundle addressed - continue lung protective strategies - continue bronchodilators with pulmonary hygiene per RT - wean per pulmonary driven protocols otherwise - avoid nephrotoxins, renally dose all medications - continue accuchecks with glycemic control per SSI (While critically ill target blood glucose of 140-180 mg/dL; avoid hypoglycemia) - sedation prn for target RASS 0 to -1 - continue to avoid benzodiazepine's, reduce the possibility of delirium - continue empiric oral Vancomnycin; de-escalate AB's per ID rec's - prn analgesia per CPOT score - Maintenance of sleep-wake cycle, avoid delirium - continue enteral nutritional support at goal rate as tolerated - G.I. & VTE prophylaxis - PT/OT/ROM exercises - continue mobility protocols for pressure ulcer prophylaxis - Monitor hemodynamics closely - continue other care per attending / other consultants - discharge planning ongoing concurrently .... Re-evaluate in am & prn CONDITION: CRITICAL PROGNOSIS: GUARDED CODE STATUS: FULL CODE The high probability of a clinically significant, sudden or life-threatening deterioration of the [respiratory, cardiovascular, GI & neurologic] system(s) required my full and direct attention, intervention and personal management. The aggregate critical care time was [36] minutes without overlap. Time includes spent on; [x] Data Review and interpretation [x] Patient assessment and monitoring of vital signs [x] Documentation [x] Medication orders and management Subjective Date of service: 02/21/22 Principal diagnosis: Cardiac Arrest; AHRF; Septic Shock; HFrEF; DIMPLE; Bacteremia; Thrombocytopeni Interval history: Patient is seen today for: Cardiac Arrest with ROSC; Acute Hypoxemic Respiratory Failure on MVS; Septic Shock; Cardiogenic Shock ; HFrEF (35%); DIMPLE; Bacteremia; Shock Liver; Sacaral decubitus (POA); Thrombocytopenia Seen and examined at bedside; 24hour events reviewed; nursing and respiratory care staff consulted; no adverse overnight events reported to me; resting in bed; work of breathing increased; no emesis or overt aspiration; remains on Levophed, vasopressin and neosynephrine; episodic arrhythmia's also reported in cluding short runs of V-tach Objective Vital Signs - 12hr 02/21/22 02/21/22 02/21/22 00:45 00:59 01:00 Temperature Pulse Rate 121 H 126 H 124 H Pulse Rate [ From Monitor] Respiratory 22 18 Rate Blood Pressure 84/48 80/44 88/56 O2 Sat by Pulse 48 L 0 L 52 L Oximetry 02/21/22 02/21/22 02/21/22 01:15 01:30 01:46 Temperature Pulse Rate 126 H 122 H 136 H Pulse Rate [ From Monitor] Respiratory 21 23 20 Rate Blood Pressure 96/56 94/57 106/71 O2 Sat by Pulse 16 L Oximetry 02/21/22 02/21/22 02/21/22 02:00 02:15 02:30 Temperature Pulse Rate 133 H 143 H 135 H Pulse Rate [ From Monitor] Respiratory 24 24 25 H Rate Blood Pressure 110/75 114/73 114/73 O2 Sat by Pulse 47 L 67 L 56 L Oximetry 02/21/22 02/21/22 02/21/22 02:46 03:00 03:15 Temperature Pulse Rate 124 H 127 H 138 H Pulse Rate [ From Monitor] Respiratory 22 23 31 H Rate Blood Pressure 83/56 90/61 98/67 O2 Sat by Pulse 81 L 100 44 L Oximetry 02/21/22 02/21/22 02/21/22 03:30 03:45 04:00 Temperature 96.6 F L Pulse Rate 135 H 131 H 133 H Pulse Rate [ 133 H From Monitor] Respiratory 31 H 30 H 32 H Rate Blood Pressure 106/68 101/66 101/65 O2 Sat by Pulse 58 L 65 L 48 L Oximetry 02/21/22 02/21/22 02/21/22 04:15 04:20 04:30 Temperature Pulse Rate 135 H 137 H Pulse Rate [ From Monitor] Respiratory 33 H 32 H 27 H Rate Blood Pressure 109/69 98/66 O2 Sat by Pulse 44 L 66 L Oximetry 02/21/22 02/21/22 02/21/22 04:46 05:00 05:15 Temperature Pulse Rate 136 H 102 H 134 H Pulse Rate [ From Monitor] Respiratory 21 19 21 Rate Blood Pressure 108/55 98/56 95/59 O2 Sat by Pulse 50 L 45 L 68 L Oximetry 02/21/22 02/21/22 02/21/22 05:20 05:30 05:46 Temperature Pulse Rate 134 H 134 H 137 H Pulse Rate [ From Monitor] Respiratory 21 30 H 27 H Rate Blood Pressure 102/58 86/60 93/60 O2 Sat by Pulse 0 L 46 L 52 L Oximetry 02/21/22 02/21/22 02/21/22 06:00 06:15 06:30 Temperature Pulse Rate 134 H 129 H 130 H Pulse Rate [ From Monitor] Respiratory 25 H 26 H 24 Rate Blood Pressure 95/59 91/57 92/55 O2 Sat by Pulse 69 L 76 L 94 Oximetry 02/21/22 02/21/22 02/21/22 06:45 07:00 07:15 Temperature Pulse Rate 129 H 135 H 133 H Pulse Rate [ From Monitor] Respiratory 27 H 30 H 21 Rate Blood Pressure 88/57 100/61 109/52 O2 Sat by Pulse 74 L 44 L 81 L Oximetry 02/21/22 02/21/22 02/21/22 07:30 07:45 08:00 Temperature 96.2 F L Pulse Rate 136 H 133 H 139 H Pulse Rate [ 134 H From Monitor] Respiratory 22 31 H 32 H Rate Blood Pressure 90/61 83/59 79/51 O2 Sat by Pulse 74 L 61 L 58 L Oximetry 02/21/22 02/21/22 02/21/22 08:14 08:16 08:30 Temperature Pulse Rate 129 H 131 H 128 H Pulse Rate [ From Monitor] Respiratory 27 H 25 H Rate Blood Pressure 84/63 79/51 84/63 O2 Sat by Pulse 0 L 31 L 58 L Oximetry 02/21/22 02/21/22 02/21/22 08:46 09:00 09:15 Temperature Pulse Rate 123 H 130 H 126 H Pulse Rate [ From Monitor] Respiratory 30 H 29 H 27 H Rate Blood Pressure 84/57 94/61 99/54 O2 Sat by Pulse 86 42 L 51 L Oximetry 02/21/22 02/21/22 02/21/22 09:18 09:30 09:45 Temperature Pulse Rate 83 128 H Pulse Rate [ From Monitor] Respiratory 30 H 27 H 19 Rate Blood Pressure 98/58 85/57 O2 Sat by Pulse 40 L 40 L Oximetry 02/21/22 02/21/22 02/21/22 10:00 10:16 10:30 Temperature Pulse Rate 121 H 124 H 119 H Pulse Rate [ From Monitor] Respiratory 23 28 H 25 H Rate Blood Pressure 99/60 90/53 104/57 O2 Sat by Pulse 36 L 39 L Oximetry 02/21/22 02/21/22 02/21/22 10:45 11:00 11:16 Temperature Pulse Rate 125 H 122 H 126 H Pulse Rate [ From Monitor] Respiratory 25 H 22 23 Rate Blood Pressure 106/54 102/60 102/60 O2 Sat by Pulse Oximetry 02/21/22 02/21/22 02/21/22 11:30 11:46 12:00 Temperature 95 F L Pulse Rate 123 H 120 H 124 H Pulse Rate [ 125 H From Monitor] Respiratory 30 H 26 H 24 Rate Blood Pressure 89/58 72/47 71/40 O2 Sat by Pulse 0 L Oximetry 02/21/22 12:10 Temperature Pulse Rate 125 H Pulse Rate [ From Monitor] Respiratory Rate Blood Pressure 71/40 O2 Sat by Pulse 0 L Oximetry Constitutional: appears uncomfortable, other (elderly male with mild to modertaely increased respiratory effort at rest) Eyes: non-icteric ENT: oropharynx moist, other (ETT 24 cm GABRIELLE) Neck: supple, no lymphadenopathy, no JVD Effort: mildly labored Ascultation: Bilateral: diminished breath sounds, rhonchi Percussion: Bilateral: not dull Cardiovascular: regular rate and rhythm, other (occasional extrasystoles) Gastrointestinal: normoactive bowel sounds, soft, non-tender, non-distended, other (+ loose stools) Integumentary: other (+ sacral ulcer (POA)) Extremities: no cyanosis, no ischemia or petechiae, other (warm to touch) Neurologic: pupils equal and round, unable to assess Psychiatric: other (unable to assess re: AMS) CBC and BMP: 02/21/22 04:30 02/21/22 04:30 ABG, PT/INR, D-dimer: ABG ABG pH 7.463 pH Units (7.350-7.450) H 02/21/22 05:19 ABG pCO2 30.0 mm Hg 02/21/22 05:19 ABG pO2 47.0 mm Hg (80.0-90.0) L 02/21/22 05:19 ABG O2 Saturation 81.7 % (95.0-99.0) L 02/21/22 05:19 Abnormal lab findings: Abnormal Labs 02/17/22 02/17/22 02/17/22 10:01 10:30 10:30 WBC RBC 2.91 L Hgb 8.5 L Hct 25.5 L RDW 23.6 H Plt Count 95 L Seg Neuts % (Manual) 89.0 H Lymphocytes % (Manual) 1.0 L Nucleated RBC % 8.0 H Seg Neutrophils # Man Lymphocytes # (Manual) 0.1 L APTT 72.8 H* ABG pH ABG pO2 ABG HCO3 ABG O2 Saturation ABG Base Excess ABG Hemoglobin Oxyhemoglobin Chloride Carbon Dioxide BUN Creatinine Glucose POC Glucose 15 L Lactic Acid Calcium Total Bilirubin AST ALT Alkaline Phosphatase Total Creatine Kinase CK-MB (CK-2) CK-MB (CK-2) Rel Index Troponin T Total Protein Albumin HDL Cholesterol TSH Urine WBC (Auto) Urine Creatinine 02/17/22 02/17/22 02/17/22 10:30 10:30 10:30 WBC RBC Hgb Hct RDW Plt Count Seg Neuts % (Manual) Lymphocytes % (Manual) Nucleated RBC % Seg Neutrophils # Man Lymphocytes # (Manual) APTT ABG pH ABG pO2 ABG HCO3 ABG O2 Saturation ABG Base Excess ABG Hemoglobin Oxyhemoglobin Chloride Carbon Dioxide 15 L BUN 54 H Creatinine 4.0 H Glucose 290 H POC Glucose Lactic Acid 5.70 H* Calcium 7.6 L Total Bilirubin 6.10 H AST 176 H ALT Alkaline Phosphatase Total Creatine Kinase CK-MB (CK-2) CK-MB (CK-2) Rel Index Troponin T 0.167 H* Total Protein 4.9 L Albumin 2.1 L HDL Cholesterol 10 L TSH 10.950 H Urine WBC (Auto) Urine Creatinine 02/17/22 02/17/22 02/17/22 11:10 12:00 12:45 WBC RBC Hgb Hct RDW Plt Count Seg Neuts % (Manual) Lymphocytes % (Manual) Nucleated RBC % Seg Neutrophils # Man Lymphocytes # (Manual) APTT ABG pH 7.304 L ABG pO2 289.8 H ABG HCO3 13.1 L ABG O2 Saturation 99.5 H ABG Base Excess -11.9 L ABG Hemoglobin 9.9 L Oxyhemoglobin Chloride Carbon Dioxide BUN Creatinine Glucose POC Glucose 233 H 226 H Lactic Acid Calcium Total Bilirubin AST ALT Alkaline Phosphatase Total Creatine Kinase CK-MB (CK-2) CK-MB (CK-2) Rel Index Troponin T Total Protein Albumin HDL Cholesterol TSH Urine WBC (Auto) Urine Creatinine 02/17/22 02/17/22 02/17/22 22:46 22:49 Unknown WBC RBC Hgb Hct RDW Plt Count Seg Neuts % (Manual) Lymphocytes % (Manual) Nucleated RBC % Seg Neutrophils # Man Lymphocytes # (Manual) APTT ABG pH 7.285 L 7.344 L ABG pO2 30.1 L* 192.1 H ABG HCO3 15.2 L 12.4 L ABG O2 Saturation 38.3 L 99.2 H ABG Base Excess -10.4 L -11.6 L ABG Hemoglobin 10.9 L 11.0 L Oxyhemoglobin 37.4 L Chloride Carbon Dioxide BUN Creatinine Glucose POC Glucose Lactic Acid Calcium Total Bilirubin AST ALT Alkaline Phosphatase Total Creatine Kinase 171 H CK-MB (CK-2) 8.1 H CK-MB (CK-2) Rel Index 4.7 H Troponin T Total Protein Albumin HDL Cholesterol TSH Urine WBC (Auto) Urine Creatinine 02/17/22 02/18/22 02/18/22 Unknown 04:43 04:48 WBC 12.7 H RBC Hgb 10.5 L Hct 33.0 L D RDW 23.0 H Plt Count 132 L Seg Neuts % (Manual) 74.0 H Lymphocytes % (Manual) 2.0 L Nucleated RBC % 28.0 H Seg Neutrophils # Man 9.4 H Lymphocytes # (Manual) 0.3 L APTT ABG pH ABG pO2 99.6 H ABG HCO3 12.6 L ABG O2 Saturation ABG Base Excess -9.7 L ABG Hemoglobin 10.7 L Oxyhemoglobin Chloride Carbon Dioxide BUN Creatinine Glucose POC Glucose Lactic Acid 6.40 H* Calcium Total Bilirubin AST ALT Alkaline Phosphatase Total Creatine Kinase CK-MB (CK-2) CK-MB (CK-2) Rel Index Troponin T Total Protein Albumin HDL Cholesterol TSH Urine WBC (Auto) Urine Creatinine 02/18/22 02/18/22 02/18/22 04:48 04:48 15:25 WBC RBC Hgb Hct RDW Plt Count Seg Neuts % (Manual) Lymphocytes % (Manual) Nucleated RBC % Seg Neutrophils # Man Lymphocytes # (Manual) APTT ABG pH 7.489 H ABG pO2 90.7 H ABG HCO3 15.8 L ABG O2 Saturation ABG Base Excess -6.2 L ABG Hemoglobin 9.4 L Oxyhemoglobin Chloride Carbon Dioxide 15 L BUN 53 H Creatinine 3.9 H Glucose 124 H POC Glucose Lactic Acid 7.80 H* Calcium 7.5 L Total Bilirubin 7.40 H AST 326 H ALT 72 H Alkaline Phosphatase 170 H Total Creatine Kinase CK-MB (CK-2) CK-MB (CK-2) Rel Index Troponin T Total Protein 6.1 L D Albumin 2.5 L HDL Cholesterol TSH Urine WBC (Auto) Urine Creatinine 02/18/22 02/19/22 02/19/22 16:00 00:05 04:00 WBC RBC 3.37 L Hgb 9.5 L Hct 29.1 L RDW 22.6 H Plt Count 81 L Seg Neuts % (Manual) Lymphocytes % (Manual) Nucleated RBC % Seg Neutrophils # Man Lymphocytes # (Manual) APTT ABG pH ABG pO2 ABG HCO3 ABG O2 Saturation ABG Base Excess ABG Hemoglobin Oxyhemoglobin Chloride Carbon Dioxide BUN Creatinine Glucose POC Glucose Lactic Acid 7.60 H* 10.90 H* Calcium Total Bilirubin AST ALT Alkaline Phosphatase Total Creatine Kinase CK-MB (CK-2) CK-MB (CK-2) Rel Index Troponin T Total Protein Albumin HDL Cholesterol TSH Urine WBC (Auto) Urine Creatinine 02/19/22 02/19/22 02/19/22 04:00 04:00 06:20 WBC RBC Hgb Hct RDW Plt Count Seg Neuts % (Manual) Lymphocytes % (Manual) Nucleated RBC % Seg Neutrophils # Man Lymphocytes # (Manual) APTT ABG pH 7.456 H ABG pO2 68.4 L ABG HCO3 11.0 L ABG O2 Saturation ABG Base Excess -11.0 L ABG Hemoglobin 9.2 L Oxyhemoglobin 94.4 L Chloride Carbon Dioxide 16 L BUN 54 H Creatinine 4.8 H Glucose 117 H POC Glucose Lactic Acid 12.60 H* Calcium 6.8 L Total Bilirubin 6.80 H AST 379 H ALT 84 H Alkaline Phosphatase 152 H Total Creatine Kinase CK-MB (CK-2) CK-MB (CK-2) Rel Index Troponin T Total Protein 5.0 L Albumin 2.0 L HDL Cholesterol TSH Urine WBC (Auto) Urine Creatinine 02/19/22 02/20/22 02/20/22 08:14 04:35 04:35 WBC RBC 3.17 L Hgb 8.8 L Hct 27.2 L RDW 22.6 H Plt Count 52 L Seg Neuts % (Manual) Lymphocytes % (Manual) Nucleated RBC % Seg Neutrophils # Man Lymphocytes # (Manual) APTT ABG pH ABG pO2 ABG HCO3 ABG O2 Saturation ABG Base Excess ABG Hemoglobin Oxyhemoglobin Chloride Carbon Dioxide BUN Creatinine Glucose POC Glucose Lactic Acid 14.50 H* 12.60 H* Calcium Total Bilirubin AST ALT Alkaline Phosphatase Total Creatine Kinase CK-MB (CK-2) CK-MB (CK-2) Rel Index Troponin T Total Protein Albumin HDL Cholesterol TSH Urine WBC (Auto) Urine Creatinine 02/20/22 02/20/22 02/20/22 04:35 05:40 07:00 WBC RBC Hgb Hct RDW Plt Count Seg Neuts % (Manual) Lymphocytes % (Manual) Nucleated RBC % Seg Neutrophils # Man Lymphocytes # (Manual) APTT ABG pH 7.527 H ABG pO2 60.4 L ABG HCO3 18.5 L ABG O2 Saturation 94.2 L ABG Base Excess -3.3 L ABG Hemoglobin 8.7 L Oxyhemoglobin 92.3 L Chloride Carbon Dioxide 18 L BUN 55 H Creatinine 4.4 H Glucose POC Glucose Lactic Acid 13.40 H* Calcium 6.2 L Total Bilirubin 6.90 H AST 355 H ALT 78 H Alkaline Phosphatase 151 H Total Creatine Kinase CK-MB (CK-2) CK-MB (CK-2) Rel Index Troponin T Total Protein 4.4 L Albumin 1.8 L HDL Cholesterol TSH Urine WBC (Auto) Urine Creatinine 02/20/22 02/20/22 02/21/22 09:58 09:58 04:20 WBC RBC Hgb Hct RDW Plt Count Seg Neuts % (Manual) Lymphocytes % (Manual) Nucleated RBC % Seg Neutrophils # Man Lymphocytes # (Manual) APTT ABG pH 7.469 H ABG pO2 48.8 L ABG HCO3 ABG O2 Saturation 83.6 L ABG Base Excess ABG Hemoglobin 9.7 L Oxyhemoglobin 81.7 L Chloride Carbon Dioxide BUN Creatinine Glucose POC Glucose Lactic Acid Calcium Total Bilirubin AST ALT Alkaline Phosphatase Total Creatine Kinase CK-MB (CK-2) CK-MB (CK-2) Rel Index Troponin T Total Protein Albumin HDL Cholesterol TSH Urine WBC (Auto) > 182.0 H Urine Creatinine 40.5 H 02/21/22 02/21/22 02/21/22 04:30 04:30 04:30 WBC RBC 3.52 L Hgb 9.8 L Hct 30.3 L RDW 22.6 H Plt Count 26 L Seg Neuts % (Manual) Lymphocytes % (Manual) Nucleated RBC % Seg Neutrophils # Man Lymphocytes # (Manual) APTT ABG pH ABG pO2 ABG HCO3 ABG O2 Saturation ABG Base Excess ABG Hemoglobin Oxyhemoglobin Chloride 94.0 L Carbon Dioxide 20 L BUN 56 H Creatinine 4.5 H Glucose POC Glucose Lactic Acid 13.10 H* Calcium 5.8 L* Total Bilirubin 6.90 H AST 359 H ALT 77 H Alkaline Phosphatase 253 H Total Creatine Kinase CK-MB (CK-2) CK-MB (CK-2) Rel Index Troponin T Total Protein 4.3 L Albumin 1.5 L HDL Cholesterol TSH Urine WBC (Auto) Urine Creatinine 02/21/22 02/21/22 02/21/22 05:19 12:06 12:12 WBC RBC Hgb Hct RDW Plt Count Seg Neuts % (Manual) Lymphocytes % (Manual) Nucleated RBC % Seg Neutrophils # Man Lymphocytes # (Manual) APTT ABG pH 7.463 H ABG pO2 47.0 L ABG HCO3 ABG O2 Saturation 81.7 L ABG Base Excess -2.1 L ABG Hemoglobin 9.6 L Oxyhemoglobin 79.9 L Chloride Carbon Dioxide BUN Creatinine Glucose POC Glucose 22 L 65 L Lactic Acid Calcium Total Bilirubin AST ALT Alkaline Phosphatase Total Creatine Kinase CK-MB (CK-2) CK-MB (CK-2) Rel Index Troponin T Total Protein Albumin HDL Cholesterol TSH Urine WBC (Auto) Urine Creatinine Chest x-ray: image reviewed (bilateral effusions) Allied health notes reviewed: nursing
[2022-02-21] MEDS: PHENYLEPHRINE 100 MG in SODIUM CHLORIDE 0.9% 90 ML IV SCH (14:22)
--- NOTE | 2022-02-21 14:39 | Progress Note ---
Assessment and Plan Assessment and plan: This is a 72-year-old male with COPD, nicotine dependence, DM, malnutrition, debility, vascular dementia, cerebral atherosclerosis, HTN, CAD, FL, HFrEF(35%), dilated cardiomyopathy s/p AICD admitted s/p cardiac arrest now on ventilatory support. Neuro: Acute metabolic encephalopathy, h/o vascular dementia, debility, cerebral atherosclerosis -IVP fentanyl prn -Reorientation as needed -Maintain sleep-wake cycle -Neurology consulted, appreciate recommendations Cardiac: s/p cardiac arrest with asystole and vfib, NSTEMI, h/o dilated cardiomyopathy, FL, CAD, ICD, HTN, end-stage congestive heart failure -Cardiology consulted, appreciate recommendations -S/p cardiac arrest x2 OSH with ROSC -Blood pressure monitoring per protocol -Vasopressor support with levophed, vasopressin and neosynephrine -MAP goal greater than 65 -Echocardiogram shows LVEF 20-25%, severe global hypokinesis, large left pleural effusion, RVSP 30 mmHg -hold ACEi, BB, diuretic -Lipitor per cardiology Respiratory: Acute on chronic hypoxic respiratory failure, h/o COPD -CCM consulted, appreciate recommendations -Intubated on 02/17 with 7.50 ETT at 22 at the lips -A.m. vent settings: Assist-control rate 12, tidal volume 400, PEEP 8, FiO2 60% -See RT notes for titration -A.m. ABG and CXR noted -VAP bundle -SPO2 monitoring GI: Moderate Protein-Calorie Malnutrition, Transaminitis -24 hours + 4719 mL -PPI -NTR consulted for tube feedings -BR not needed for report diarrhea -Trend LFT : Acute renal failure likely secondary to acute tubular necrosis, metabolic acidosis, hypocalcemia -Nephrology consulted, appreciate recommendations -Records intake and output -Renally dose medications -Avoid nephrotoxic medications -D5 sodium bicarbonate drip per nephrology -Trend BMP ID: Septic Shock, MRSA , r/o c diff, lactic acidosis, sacral ulcer (POA), h/o gout -Infectious disease consulted, appreciate recommendations -C. difficile PCR pending -Solu-Cortef 100 mg every 8 -Antibiotic therapy with IV flagyl, PO Vancomycin -Contact precautions -WOCN consulted, appreciate recommendations -f/u blood culture -02/17 BC MRSA 2/4 bottles -02/19- BC with no growth to date -Monitor WBC and temperature curve Endo: Hypoglycemia -Avoid hypoglycemia -Accu-Cheks q. 6hr Heme: Thrombocytopenia -HIT panel pending -Trend CBC -Transfuse hemoglobin less than 7 -SCDs to BLE while in bed The high probability of a clinically significant, sudden or life threatening deterioration of the [multi] system(s) required my full and direct attention, intervention and personal management. The aggregate critical care time was [60] minutes. This time is in addition to time spent performing reported procedures but includes the following: [x] Data Review and interpretation [x] Patient assessment and monitoring of vital signs [x] Documentation [x] Medication orders and management Disposition Plan: icu Total Time Spent with Patient (Minutes): 60 History Interval history: This is a 72-year-old male with HTN, COPD, DM, malnutrition, debility, vascular dementia, cerebral atherosclerosis, end-stage CHF (EF 35%/ NYHA class IV, s/p AICD, FL, nicotine dependence, hyperlipidemia, gout who presented to the emergency department via EMS after being becoming unresponsive by family. In route with EMS patient had V. tach and subsequent asystolic arrest and was treated with ACLS protocol with eventual ROSC x2 and patient was intubated. Patient was admitted to the hospitalist service with cardiac arrest complicated by cardiogenic shock, lactic acidosis, acute hypoxic respiratory failure, metabolic encephalopathy, acute kidney injury with acute tubular necrosis and suspected anoxic encephalopathy. Patient was admitted to the ICU with consults to CCM, cardiology. Hospital Course to Date: 02/18: Patient is unresponsive, on the vent, not on any sedation. Worsening acidosis, septic shock vs Cardiogenic shock. Now on 3 pressors and NaBcarb gtts. Preliminary blood cultures report with giles soto. Empiric IV Abx- Vanco initiated, ID consulted. Stress dose steroids also added. Trend Lactic acid and CBC. 2D Echo pending. Plan to wean off Dopamine gtt per Cardio. Renal function continue to worsen, Nephrology consulted. Extensive multidisciplinary discussions with patient's at the bedside in regards to patient's condition, diagnoses, and overall very poor prognosis. Patient's is considering at home hospice but would like aggressive treatment at this time. She verbalized understanding of the info provided. All questions and concerns were addressed at this time. Patient remains a FULL code. 02/19: Remains on high pressor requirements and Bcarb gtt. BP bordeline this am, ST noted with PVCs on the monitor. Titrate pressors for a MAP above 65. Open eyes spontaneously this am, not following commands. Worsen thrombocytopenia this am. Hematuria noted from floyd, patient is oliguric, only 20cc overnight. H&H stable, continue to trend Plt. Start trickle feeding to promote motility. Renal function worsen this am, Nephrology is following. 02/20: KATYA overnight. Mentation unchanged, remains on the vent and on multiple pressors. Patient is too unstable for transport. ST- HR in the 120s on the monitor. With frequent foul diarrhea this am, X4 loose BM this morning. PO Vanco initiated. Repeat Blood cultures with NGTD, continue current IV abx for now. ID is also following. Renal function is unchanged, patient is not a candidate for hemodialysis due to profound shock per Nephrology. Remains on Bcarb gtt. Hospitalist Physical - Constitutional Vitals: Temp Pulse Resp BP Pulse Ox 95 F L 126 H 33 H 85/52 0 L 02/21/22 12:00 02/21/22 13:16 02/21/22 13:16 02/21/22 13:16 02/21/22 12:10 General appearance: Present: mild distress, other (Unresponsive, on the vent. Not on any sedations) - EENT ENT: poor dentition - Neck Neck: Absent: masses or JVD, cervical LAD - Respiratory Respiratory effort: normal Respiratory: bilateral: diminished - Cardiovascular Rhythm: regular Heart Sounds: Present: S1 & S2. Absent: systolic murmur, diastolic murmur - Extremities Extremities: no ischemia, pulses intact, pulses symmetrical, normal temperature, normal color Extremity abnormal: cold Peripheral Pulses: within normal limits - Abdominal General gastrointestinal: soft, non-tender, non-distended, hypoactive bowel sounds - Integumentary Integumentary: Present: warm, dry - Psychiatric Psychiatric: other - Neurologic Neurologic: other (intact cough/gag, withdraw to pain) - Allied Health Allied health notes reviewed: nursing, RT, social work HEART Score - HEART Score Troponin: Troponin T 0.167 ng/mL (0.00-0.029) H* 02/17/22 10:30 Results - Labs CBC & Chem 7: 02/21/22 04:30 02/21/22 04:30 Labs: Laboratory Last Values WBC 5.3 K/mm3 (4.5-11.0) 02/21/22 04:30 RBC 3.52 M/mm3 (3.65-5.03) L 02/21/22 04:30 Hgb 9.8 gm/dl (11.8-15.2) L 02/21/22 04:30 Hct 30.3 % (35.5-45.6) L 02/21/22 04:30 MCV 86 fl (84-94) 02/21/22 04:30 MCH 28 pg (28-32) 02/21/22 04:30 MCHC 33 % (32-34) 02/21/22 04:30 RDW 22.6 % (13.2-15.2) H 02/21/22 04:30 Plt Count 26 K/mm3 (140-440) L 02/21/22 04:30 Add Manual Diff Complete 02/18/22 04:48 Total Counted 100 02/18/22 04:48 Seg Neuts % (Manual) 74.0 % (40.0-70.0) H 02/18/22 04:48 Band Neutrophils % 22.0 % 02/18/22 04:48 Lymphocytes % (Manual) 2.0 % (13.4-35.0) L 02/18/22 04:48 Reactive Lymphs % (Man) 0 % 02/18/22 04:48 Monocytes % (Manual) 2.0 % (0.0-7.3) 02/18/22 04:48 Eosinophils % (Manual) 0 % (0.0-4.3) 02/18/22 04:48 Basophils % (Manual) 0 % (0.0-1.8) 02/18/22 04:48 Metamyelocytes % 0 % 02/18/22 04:48 Myelocytes % 0 % 02/18/22 04:48 Promyelocytes % 0 % 02/18/22 04:48 Blast Cells % 0 % 02/18/22 04:48 Nucleated RBC % 28.0 % (0.0-0.9) H 02/18/22 04:48 Seg Neutrophils # Man 9.4 K/mm3 (1.8-7.7) H 02/18/22 04:48 Band Neutrophils # 2.8 K/mm3 02/18/22 04:48 Lymphocytes # (Manual) 0.3 K/mm3 (1.2-5.4) L 02/18/22 04:48 Abs React Lymphs (Man) 0.0 K/mm3 02/18/22 04:48 Monocytes # (Manual) 0.3 K/mm3 (0.0-0.8) 02/18/22 04:48 Eosinophils # (Manual) 0.0 K/mm3 (0.0-0.4) 02/18/22 04:48 Basophils # (Manual) 0.0 K/mm3 (0.0-0.1) 02/18/22 04:48 Metamyelocytes # 0.0 K/mm3 02/18/22 04:48 Myelocytes # 0.0 K/mm3 02/18/22 04:48 Promyelocytes # 0.0 K/mm3 02/18/22 04:48 Blast Cells # 0.0 K/mm3 02/18/22 04:48 WBC Morphology Not Reportable 02/18/22 04:48 Hypersegmented Neuts Not Reportable 02/18/22 04:48 Hyposegmented Neuts Not Reportable 02/18/22 04:48 Hypogranular Neuts Not Reportable 02/18/22 04:48 Smudge Cells Not Reportable 02/18/22 04:48 Toxic Granulation Not Reportable 02/18/22 04:48 Toxic Vacuolation Not Reportable 02/18/22 04:48 Dohle Bodies Not Reportable 02/18/22 04:48 Pelger-Huet Anomaly Not Reportable 02/18/22 04:48 Henry Rods Not Reportable 02/18/22 04:48 Platelet Estimate Consistent w auto 02/18/22 04:48 Clumped Platelets Not Reportable 02/18/22 04:48 Plt Clumps, EDTA Not Reportable 02/18/22 04:48 Large Platelets Not Reportable 02/18/22 04:48 Giant Platelets Not Reportable 02/18/22 04:48 Platelet Satelliting Not Reportable 02/18/22 04:48 Plt Morphology Comment Not Reportable 02/18/22 04:48 RBC Morphology Not Reportable 02/18/22 04:48 Dimorphic RBCs Not Reportable 02/18/22 04:48 Polychromasia Not Reportable 02/18/22 04:48 Hypochromasia 2+ 02/18/22 04:48 Poikilocytosis 2+ 02/18/22 04:48 Anisocytosis 2+ 02/18/22 04:48 Microcytosis 1+ 02/18/22 04:48 Macrocytosis Not Reportable 02/18/22 04:48 Spherocytes 1+ 02/18/22 04:48 Pappenheimer Bodies Not Reportable 02/18/22 04:48 Sickle Cells Not Reportable 02/18/22 04:48 Target Cells 1+ 02/18/22 04:48 Tear Drop Cells Not Reportable 02/18/22 04:48 Ovalocytes Not Reportable 02/18/22 04:48 Helmet Cells Not Reportable 02/18/22 04:48 [place] Bodies Not Reportable 02/18/22 04:48 [place] Rings Not Reportable 02/18/22 04:48 [place] Cells 2+ 02/18/22 04:48 Bite Cells Not Reportable 02/18/22 04:48 Crenated Cell Not Reportable 02/18/22 04:48 Elliptocytes Not Reportable 02/18/22 04:48 Acanthocytes (Spur) Not Reportable 02/18/22 04:48 Rouleaux Not Reportable 02/18/22 04:48 Hemoglobin C Crystals Not Reportable 02/18/22 04:48 Schistocytes Not Reportable 02/18/22 04:48 Malaria parasites Not Reportable 02/18/22 04:48 Antoine Bodies Not Reportable 02/18/22 04:48 Hem Pathologist Commnt No 02/18/22 04:48 APTT 72.8 Sec. (24.2-36.6) H* 02/17/22 10:30 ABG pH 7.463 pH Units (7.350-7.450) H 02/21/22 05:19 ABG pCO2 30.0 mm Hg 02/21/22 05:19 ABG pO2 47.0 mm Hg (80.0-90.0) L 02/21/22 05:19 ABG HCO3 21.0 mmol/L (20.0-26.0) 02/21/22 05:19 ABG O2 Saturation 81.7 % (95.0-99.0) L 02/21/22 05:19 ABG O2 Content 10.8 (0.0-44) 02/21/22 05:19 ABG Base Excess -2.1 mmol/L (-2.0-3.0) L 02/21/22 05:19 ABG Hemoglobin 9.6 gm/dl (14.0-18.0) L 02/21/22 05:19 ABG Carboxyhemoglobin 1.6 % (0.0-5.0) 02/21/22 05:19 ABG Methemoglobin 0.6 % (0.0-1.5) 02/21/22 05:19 Oxyhemoglobin 79.9 % (95.0-99.0) L 02/21/22 05:19 FiO2 40 % 02/21/22 05:19 Sodium 141 mmol/L (137-145) 02/21/22 04:30 Potassium 4.4 mmol/L (3.6-5.0) 02/21/22 04:30 Chloride 94.0 mmol/L (98-107) L 02/21/22 04:30 Carbon Dioxide 20 mmol/L (22-30) L 02/21/22 04:30 Anion Gap 31 mmol/L 02/21/22 04:30 BUN 56 mg/dL (9-20) H 02/21/22 04:30 Creatinine 4.5 mg/dL (0.8-1.3) H 02/21/22 04:30 Estimated GFR 16 ml/min 02/21/22 04:30 BUN/Creatinine Ratio 12 % 02/21/22 04:30 Glucose 93 mg/dL (75-100) 02/21/22 04:30 POC Glucose 65 mg/dL (70-105) L 02/21/22 12:12 Lactic Acid 13.10 mmol/L (0.7-2.0) H* 02/21/22 04:30 Calcium 5.8 mg/dL (8.4-10.2) L* 02/21/22 04:30 Total Bilirubin 6.90 mg/dL (0.1-1.2) H 02/21/22 04:30 AST 359 units/L (5-40) H 02/21/22 04:30 ALT 77 units/L (7-56) H 02/21/22 04:30 Alkaline Phosphatase 253 units/L (35-129) H 02/21/22 04:30 Total Creatine Kinase 171 units/L (55-170) H 02/17/22 Unknown CK-MB (CK-2) 8.1 ng/mL (0.0-4.0) H 02/17/22 Unknown CK-MB (CK-2) Rel Index 4.7 (0-4) H 02/17/22 Unknown Troponin T 0.167 ng/mL (0.00-0.029) H* 02/17/22 10:30 Total Protein 4.3 g/dL (6.3-8.2) L 02/21/22 04:30 Albumin 1.5 g/dL (3.9-5) L 02/21/22 04:30 Albumin/Globulin Ratio 0.5 % 02/21/22 04:30 Triglycerides 63 mg/dL (2-149) 02/17/22 10:30 Cholesterol 153 mg/dL (50-199) 02/17/22 10:30 LDL Cholesterol Direct 122 mg/dL (50-130) 02/17/22 10:30 HDL Cholesterol 10 mg/dL (40-59) L 02/17/22 10:30 Cholesterol/HDL Ratio 15.30 % 02/17/22 10:30 TSH 10.950 mlU/mL (0.270-4.200) H 02/17/22 10:30 Free T4 1.35 ng/dL (0.76-1.46) 02/17/22 10:30 Urine Color Red (Yellow) 02/20/22 09:58 Urine Turbidity Turbid (Clear) 02/20/22 09:58 Urine pH 7.0 (5.0-7.0) 02/20/22 09:58 Ur Specific [place] 1.013 (1.003-1.030) 02/20/22 09:58 Urine Protein 100 mg/dl mg/dL (Negative) 02/20/22 09:58 Urine Glucose (UA) Neg mg/dL (Negative) 02/20/22 09:58 Urine Ketones Tr mg/dL (Negative) 02/20/22 09:58 Urine Blood Mod (Negative) 02/20/22 09:58 Urine Nitrite Neg (Negative) 02/20/22 09:58 Urine Bilirubin Neg (Negative) 02/20/22 09:58 Urine Urobilinogen < 2.0 mg/dL (<2.0) 02/20/22 09:58 Ur Leukocyte Esterase Sm (Negative) 02/20/22 09:58 Urine WBC (Auto) > 182.0 /HPF (0.0-6.0) H 02/20/22 09:58 Urine RBC (Auto) > 182.0 /HPF (0.0-6.0) 02/20/22 09:58 Urine Bacteria (Auto) 4+ /HPF (Negative) 02/20/22 09:58 Ur Yeast w Hyphae 2+ /HPF 02/20/22 09:58 Urine Yeast (Budding) 2+ /HPF 02/20/22 09:58 Urine Creatinine 40.5 mg/dL (0.1-20.0) H 02/20/22 09:58 Urine Sodium 86 mmol/L 02/20/22 09:58 Random Vancomycin 19.6 ug/mL (0-40.0) 02/19/22 04:56 Microbiology: Microbiology 02/17/22 10:42 Peripheral/Venous Blood Culture - Preliminary NO GROWTH AFTER 4 DAYS 02/20/22 07:00 Peripheral/Venous Blood Culture - Preliminary NO GROWTH AFTER 24 HOURS 02/19/22 08:14 Peripheral/Venous Blood Culture - Preliminary NO GROWTH AFTER 24 HOURS 02/17/22 11:50 Tracheal Aspirate Sputum Culture - Final 02/17/22 10:30 Peripheral/Venous Blood Culture - Final Methicillin Resist S. Aureus Floyd/IV: Voiding Method Indwelling Catheter Active Medications - Current Medications Current Medications: Generic Name Dose Route Start Last Admin Trade Name Freq PRN Reason Stop Dose Admin Acetaminophen 650 mg 02/17/22 14:01 Acetaminophen 650 Mg Rect Supp OR Q6H PRN Pain MILD(1-3)/Fever >100.5/WINSLOW Albuterol 2.5 mg 02/17/22 13:57 Albuterol 2.5 Mg/3 Ml Nebu IH Q3HRT PRN Shortness Of Breath Atorvastatin Calcium 40 mg 02/18/22 22:00 02/20/22 21:58 Atorvastatin 40 Mg Tab FEEDTUBE 40 mg QHS LAKISHA Administration Dextrose 50 ml 02/18/22 12:49 02/21/22 12:28 Dextrose 50% In Water (25gm) 50 Ml Syringe IV 50 ml Q30MIN PRN Administration Hypoglycemia Protocol Famotidine 10 mg 02/18/22 10:00 02/21/22 09:18 Famotidine 20 Mg/2 Ml Inj IV 10 mg BID LAKISHA Administration Fentanyl 50 mcg 02/19/22 17:59 02/21/22 13:15 Fentanyl 100 Mcg/2 Ml Inj IV 50 mcg Q2HR PRN Administration For CPOT of 3 Hydrocortisone Sodium Succinate 100 mg 02/18/22 14:00 02/21/22 13:06 Hydrocortisone Sod Succ 100 Mg/2 Ml Vial IV 100 mg Q8HR LAKISHA Administration Hydrophilic Ointment 1 applic 02/17/22 11:01 Lip Therapy Vaseline TP Q2HR PRN Dry Lips Vasopressin 20 unit/ Sodium 101 mls @ 12.12 mls/hr 02/17/22 17:00 02/21/22 09:16 Chloride IV 0.03 units/min TITR LAKISHA 9.09 mls/hr Administration Protocol 0.04 UNITS/MIN NORepinephrine/NS 8 MG-250 ML 8 mg in 250 mls @ 3.75 mls/hr 02/17/22 23:00 02/21/22 14:23 Norepinephrine/Ns 8 Mg-250 Ml (Double Conc) IV 24 mcg/min TITRATE LAKISHA 45 mls/hr Administration Protocol 2 MCG/MIN Sodium Bicarbonate 150 meq/ 1,150 mls @ 100 mls/hr 02/17/22 23:45 02/21/22 14:24 Dextrose IV 100 mls/hr DIRECT LAKISHA Administration Phenylephrine HCl 100 mg/ 100 mls @ 3 mls/hr 02/18/22 12:45 02/21/22 14:22 Sodium Chloride IV 60 mcg/min TITR LAKISHA 3.6 mls/hr Administration Protocol 50 MCG/MIN Epinephrine 16 mg/ Sodium 250 mls @ 1.875 mls/hr 02/18/22 20:00 02/19/22 17:55 Chloride IV 0 mcg/min TITR LAKISHA 0 mls/hr Titration Protocol 2 MCG/MIN Metronidazole 500 mg in 100 mls @ 100 mls/hr 02/21/22 09:00 02/21/22 10:23 Flagyl 500 Mg/100 Ml IV Infused Q8H LAKISHA Infusion Protocol Multi-Ingred Cream/Lotion/Oil/Oint 1 applic 02/17/22 11:01 Mineral Oil/Petrolatum, White Ophth Oint 3.5 Gm OU Q4HR PRN Dry Eye(s) Sodium Chloride 10 ml 02/17/22 22:00 02/21/22 09:18 Sodium Chloride 0.9% 10 Ml Flush Syringe IV 10 ml BID LAKISHA Administration Sodium Chloride 10 ml 02/17/22 14:01 Sodium Chloride 0.9% 10 Ml Flush Syringe IV PRN PRN LINE FLUSH Vancomycin HCl 500 mg 02/20/22 12:00 02/21/22 11:36 Vancomycin 250 Mg/10 Ml Oral Liqd PO 500 mg Q6HR LAKISHA Administration Protocol Nutrition/Malnutrition Assess - Dietary Evaluation Nutrition/Malnutrition Findings: Nutrition Notes Start: 02/18/22 11:26 Freq: Status: Active Protocol: Document 02/18/22 11:26 MEETHUMAIRA (Rec: 02/18/22 11:37 ON LICENSE OF [facility] [email or web address]) Nutrition Notes Need for Assessment generated from: MD Order,note taker,MST Initial or Follow up Assessment Current Diagnosis Acute Kidney Injury,COPD, Diabetes,Hypertension,Heart Failure,Respiratory Failure, Malnutrition,Hyperlipidemia Other Pertinent Diagnosis Cardiac arrest Current Diet NPO Labs/Tests CO2 - 15 BUN 53 Cr 3.9 tBili 7.4 Elevated LFTs Pertinent Medications Dopamine gtt, Levophed gtt, Vasopressin gtt, Na bicarb in D5 at 150ml/hr Height 5 ft 8 in Weight 54.4 kg Maynard Body Weight (kg) 70.00 BMI 18.2 Weight Status Underweight Subjective/Other Information RD consulted to evaluate nutritional intake. Pt also screened for low BMI, malnutrition and skin risks ( Nestor score: 9) and chewing difficulty. Pt is intubated at this time. PMHx includes debility, vascular dementia, cerebral atherosclerosis and gout. Burn Absent Trauma Absent Skin Integrity/Comment Sacral wound Minimum of two criteria Yes Body Fat Depletion Moderate depletion (severe) Muscle Mass Moderate Depletion (severe) Protein-Calorie Malnutrition Severe #1 Nutrition Diagnosis Inadequate oral intake Etiology mech ventilation, hx of dementia As Evidenced by Signs and Symptoms pt NPO and pt underweight Is patient on ventilator? Yes Is Patient Ambulatory and/or Out of Bed No REE-([facility]-confined to bed) 1516.656 Kcal/Kg value to use for calculation 35 Approximate Energy Requirements Using 1904 kcal/Kg Calculation Used for Recommendations Kcal/kg Additional Notes Pro needs 0.8-1.2g/k-65g/ day Fluid needs 1ml/kcal Nutrition Intervention Nutrition Support: Recommend Glucerna 1.2 when TF consult received Goal #1 Either advance diet or start EN support within next 24-48 hrs Goal #2 Wt maintenance and/or gain Goal #3 Wound healing Anticipated Discharge Needs: Unable to identify at this time Follow-Up By: 02/21/22 Additional Comments F/U: TF consult, vent status, pressor support, renal function
[2022-02-21] MEDS ORDERED: SODIUM BICARB 8.4% 50 MEQ/50 ML SYRINGE IV ONE (17:05)
[2022-02-21] MEDS ORDERED: EPINEPHrine 1 MG/10 ML SYRINGE ONE (17:05)
[2022-02-21 17:20] VITALS: BP 79/48
--- NOTE | 2022-02-21 17:29 | Death Summary ---
Summary - Providers Consults: 02/17/22 11:01 Consult to Dietitian/Nutrition [CONS] Routine Physician Instructions: Reason For Exam: Reason for Consult: Evaluate nutritional intake 02/17/22 12:38 Consult to Physician [CONS] Urgent Comment: Consulting Provider: RULA CORONA Physician Instructions: Reason For Exam: s/p arrest, badycardia 02/17/22 13:57 Consult to Physician [CONS] Routine Comment: Consulting Provider: SYDNI GUZMÁN Physician Instructions: Reason For Exam: cardiac arrest/resp failure 02/17/22 14:04 Consult to Dietitian/Nutrition [CONS] Routine Physician Instructions: Reason For Exam: Reason for Consult: Evaluate nutritional intake 02/18/22 11:10 Consult to Physician [CONS] Routine Comment: noted/ [place] Consulting Provider: ALEX KIM Physician Instructions: Reason For Exam: DIMPLE 02/18/22 11:40 Consult to Physician [CONS] Routine Comment: noted/ [place] Consulting Provider: EMILIANO RICE Physician Instructions: Reason For Exam: Septic Shock 02/21/22 14:21 Consult to Physician [CONS] Routine Comment: Consulting Provider: LUIS FELIPE POWERS Physician Instructions: Reason For Exam: s/p cardiac arrest Attending: MASOUD PATTERSON MD - summary Date of admission: 02/17/22 14:03 Date of : 02/21/22 Reason for admission: s/p cardiac arrest, acute hypoxic respiratory failure, transaminitis, DIMPLE Significant findings: This is a 72-year-old male with HTN, COPD, DM, malnutrition, debility, vascular dementia, cerebral atherosclerosis, end-stage CHF (EF 35%/ NYHA class IV, s/p AICD, [place], nicotine dependence, CAD gout who presented to the emergency department via EMS after being becoming unresponsive by family. In route with EMS patient had V. tach and subsequent asystolic arrest and was treated with ACLS protocol with eventual ROSC x2 and patient was intubated. Patient was admitted to the hospitalist service with cardiac arrest complicated by cardiogenic shock, lactic acidosis, acute hypoxic respiratory failure, metabolic encephalopathy, acute kidney injury with acute tubular necrosis and suspected anoxic encephalopathy. Patient was admitted to the ICU with consults to [facility], cardiology. Worsening acidosis, septic shock vs cardiogenic shock on vasopressin, levophed and neosynephrine and sodium bicarbs gtts, blood culture with stap areus and initiated on IV vanco, stress dose steroids started. On 02/19 PVCs noted on monitor, oliguria, thrombocytopenia, and renal functions worsened. On 02/20 patient was initiated on p.o. vancomycin due to frequent foul diarrhea. On 02/21 cdiff pending, started on IV flagyl, calcium gluconate given, liver function and renal function continues to worsen. Patient remains on a bicarbonate drip, vasopressin, Levophed and Gulshan-Synephrine. This evening was noted that patient's heart rate was fluctuating between 70s to 150s and was maxed on vasopressors. Patient was at bedside. Unfortunately patient eventually had another cardiac arrest and ROSC was unable to be achieved. Time of called at 1705. Family at bedside and condolences offered. Acute metabolic encephalopathy s/p cardiac arrest with asystole and vfib Hypocalcemia Septic Shock MRSA bacteremia NSTEMI Acute on chronic hypoxic respiratory failure Moderate Protein-Calorie Malnutrition Transaminitis Acute renal failure likely secondary to acute tubular necrosis Metabolic acidosis r/o c diff Lactic acidosis Hyperglycemia Thrombocytopenia Sacral ulcer (POA) History of dilated cardiomyopathy with AICD in place History of end-stage congestive heart failure History of nicotine dependence History of [place] History of CAD History of hypertension History of diabetes mellitus History of COPD History of vascular dementia History of cerebral arthrosclerosis History of gout
--- NOTE | 2022-02-21 17:32 | Event Note ---
Date: 02/21/22 CODE BLUE was called ACLS protocol initiated See code sheet Patient did not respond to epinephrine and bicarb Patient was going into asystole in spite of chest compressions. Patient had intubation status. Time of expiration [address] Jalloh Certifying physician Dr Nichole
== END 2022-02-21 19:10 | DRG 870 ==
LOC: ED 09:48 → CC1 14:03
PROVIDERS: ADMIT Internal Medicine; ATTEND Internal Medicine
PROC: 4A033R1 Measurement of Arterial Saturation, Peripheral, Percutaneous Approach (ICD-10-PCS; principal; 2022-02-17)
PROC: 5A1955Z Respiratory Ventilation, Greater than 96 Consecutive Hours (ICD-10-PCS; 2022-02-17)
PROC: 0BH17EZ Insertion of Endotracheal Airway into Trachea, Via Natural or Artificial Opening (ICD-10-PCS; 2022-02-17)
PROC: 06HY33Z Insertion of Infusion Device into Lower Vein, Percutaneous Approach (ICD-10-PCS; 2022-02-17)
PROC: 04HY32Z Insertion of Monitoring Device into Lower Artery, Percutaneous Approach (ICD-10-PCS; 2022-02-18)
DX: A41.02 Sepsis due to Methicillin resistant Staphylococcus aureus (principal); N17.0 Acute kidney failure with tubular necrosis; I21.4 Non-ST elevation (NSTEMI) myocardial infarction; N18.6 End stage renal disease; G93.41 Metabolic encephalopathy; J96.21 Acute and chronic respiratory failure with hypoxia; I42.0 Dilated cardiomyopathy; J91.8 Pleural effusion in other conditions classified elsewhere; Z68.1 Body mass index [BMI] 19.9 or less, adult; E44.0 Moderate protein-calorie malnutrition; I13.2 Hypertensive heart and chronic kidney disease with heart failure and with stage 5 chronic kidney disease, or end stage renal disease; I50.20 Unspecified systolic (congestive) heart failure; A04.72 Enterocolitis due to Clostridium difficile, not specified as recurrent; R65.20 Severe sepsis without septic shock; R57.0 Cardiogenic shock; I46.9 Cardiac arrest, cause unspecified; J44.9 Chronic obstructive pulmonary disease, unspecified; Z79.899 Other long term (current) drug therapy; Z79.82 Long term (current) use of aspirin; F17.200 Nicotine dependence, unspecified, uncomplicated; Z83.3 Family history of diabetes mellitus; Z82.49 Family history of ischemic heart disease and other diseases of the circulatory system; E78.5 Hyperlipidemia, unspecified; F01.50 Vascular dementia, unspecified severity, without behavioral disturbance, psychotic disturbance, mood disturbance, and anxiety; R53.81 Other malaise; I67.2 Cerebral atherosclerosis; F17.210 Nicotine dependence, cigarettes, uncomplicated; I25.10 Atherosclerotic heart disease of native coronary artery without angina pectoris; E11.649 Type 2 diabetes mellitus with hypoglycemia without coma; Z95.810 Presence of automatic (implantable) cardiac defibrillator; D64.9 Anemia, unspecified; E03.9 Hypothyroidism, unspecified; E11.22 Type 2 diabetes mellitus with diabetic chronic kidney disease; Z99.2 Dependence on renal dialysis; M10.9 Gout, unspecified; L89.159 Pressure ulcer of sacral region, unspecified stage; D69.6 Thrombocytopenia, unspecified; E83.51 Hypocalcemia
CPT/HCPCS: 36415; 36600; 71045; 74018; 76770; 80053; 80061; 80202; 81001; 82140; 82533; 82550; 82553; 82570; 82803; 82962; 84300; 84439; 84443; 84484; 85007; 85025; 85027; 85730; 86022; 87040; 87070; 87076; 87186; 87205; 93005; 93306; 94002; 94003; G0378; J2354; J3490; J7517; C8929; J0171; J0330; J0610; J1265; J1720; J2370; J2704; J3010; J3370; J7030; J7040; J7042; J7050; J7070